=== PATIENT | male | born 1945 | race Caucasian/White ===

== ENCOUNTER 2018-07-27 16:01 | Inpatient (IN) | payer OTHER, MEDICARE ==
[2018-07-27] MEDS ORDERED: DILTIAZEM DRIP BOLUS FROM BAG 1 MG SOLN IV ONE (16:38)
--- NOTE | 2018-07-27 16:44 | ED ---
General Adult HPI - General Chief complaint: Arrhythmia/Palpitations Stated complaint: Fast heart rate Time Seen by Provider: 07/27/18 16:26 Source: patient, RN notes reviewed, old records reviewed Mode of arrival: ambulatory Limitations: no limitations - History of Present Illness Initial comments: 73-year-old male history of atrial fibrillation, hypertension presenting for evaluations of palpitations and lightheadedness. Patient states symptoms have been present for the past 2 days. He has been taking his medications as prescribed. His states that they've been attempting to take his blood pressure at home but have been unable to get any accurate readings. He is currently on metoprolol, losartan, and xarelto. Patient denies chest pain. Denies abdominal pain. Denies nausea vomiting. Denies fever or chills. Denies any recent changes to medication. - Related Data Home Medications Medication Instructions Recorded Confirmed Losartan Potassium [Cozaar] 100 mg PO DAILY@1500 02/03/15 07/27/18 Metoprolol Succinate [Toprol XL] 75 mg PO DAILY 02/03/15 07/27/18 Terazosin HCl [Hytrin] 10 mg PO HS 02/03/15 07/27/18 Rivaroxaban [Xarelto] 20 mg PO HS 11/24/15 07/27/18 Fluticasone Nasal [place] [Flonase 1 spray EA NOSTRIL BID 07/27/18 07/27/18 Nasal [place]] Allergies Allergy/AdvReac Type Severity Reaction Status Date / Time No Known Allergies Allergy Verified 07/27/18 16:26 Review of Systems ROS Statement: Those systems with pertinent positive or pertinent negative responses have been documented in the HPI. ROS Other: All systems not noted in ROS Statement are negative. Past Medical History Past Medical History: Atrial Fibrillation, Cancer, Hypertension Additional Past Medical History / Comment(s): SKIN CANCER History of Any Multi-Drug Resistant Organisms: None Reported Past Surgical History: Cholecystectomy Additional Past Surgical History / Comment(s): shrapnel from war Past Anesthesia/Blood Transfusion Reactions: No Reported Reaction Past Psychological History: No Psychological Hx Reported Smoking Status: Former smoker - Past Family History Mother Family Medical History: Cancer General Exam Limitations: no limitations General appearance: alert, in no apparent distress Head exam: Present: atraumatic, normocephalic Eye exam: Present: normal appearance, PERRL Neck exam: Present: normal inspection. Absent: tenderness, meningismus Respiratory exam: Present: normal lung sounds bilaterally. Absent: respiratory distress, wheezes Cardiovascular Exam: Present: tachycardia, irregular rhythm GI/Abdominal exam: Present: soft. Absent: distended, tenderness, guarding Extremities exam: Present: normal inspection, normal capillary refill. Absent: pedal edema, calf tenderness Back exam: Present: normal inspection, full ROM. Absent: tenderness Neurological exam: Present: alert, oriented X3, CN II-XII intact. Absent: motor sensory deficit Psychiatric exam: Present: normal affect, normal mood Skin exam: Present: warm, dry, intact. Absent: cyanosis, diaphoretic Course Vital Signs 07/27/18 07/27/18 07/27/18 16:09 16:34 17:08 Temperature 98.2 F Pulse Rate 176 H 181 H 116 H Respiratory 20 22 20 Rate Blood Pressure 108/69 136/122 136/77 O2 Sat by Pulse 98 95 95 Oximetry 07/27/18 07/27/18 07/27/18 17:13 17:45 19:00 Temperature Pulse Rate 92 108 H 95 Respiratory 18 16 Rate Blood Pressure 138/91 120/60 O2 Sat by Pulse 94 L 96 Oximetry EKG Findings - EKG Comments: EKG Findings:: A. fib with RVR, left axis deviation, incomplete right bundle branch block, rate of 158, QRS duration 110, QTC 479 ST segment elevation Medical Decision Making - Medical Decision Making 73-year-old male history of A. fib presenting with palpitations, lightheadedness. Patient found to be in atrial fibrillation with a rate between 160 and 190. Blood pressure stable. Patient started on Cardizem in the emergency department. Workup reveals normal CBC, normal CMP, troponin is negative. Patient's rate is improved on Cardizem drip. Chest x-ray obtained, negative for acute cardiopulmonary disease. Patient will be admitted for telemetry and rate control. Cardiology placed on consult. Case is discussed with the admitting physician. Patient is anticoagulated with home medications. - Lab Data Result diagrams: 07/27/18 16:40 07/27/18 16:40 Lab Results 07/27/18 07/27/18 07/27/18 Range/Units 16:40 16:40 16:40 WBC 6.6 (3.8-10.6) k/uL RBC 4.91 (4.30-5.90) m/uL Hgb 14.6 (13.0-17.5) gm/dL Hct 44.0 (39.0-53.0) % MCV 89.4 (80.0-100.0) fL MCH 29.6 (25.0-35.0) pg MCHC 33.1 (31.0-37.0) g/dL RDW 13.1 (11.5-15.5) % Plt Count 280 (150-450) k/uL Neutrophils % 67 % Lymphocytes % 21 % Monocytes % 8 % Eosinophils % 2 % Basophils % 0 % Neutrophils # 4.4 (1.3-7.7) k/uL Lymphocytes # 1.4 (1.0-4.8) k/uL Monocytes # 0.5 (0-1.0) k/uL Eosinophils # 0.1 (0-0.7) k/uL Basophils # 0.0 (0-0.2) k/uL PT (9.0-12.0) sec INR (<1.2) APTT (22.0-30.0) sec Sodium 145 (137-145) mmol/L Potassium 4.0 (3.5-5.1) mmol/L Chloride 109 H (98-107) mmol/L Carbon Dioxide 28 (22-30) mmol/L Anion Gap 8 mmol/L BUN 17 (9-20) mg/dL Creatinine 1.00 (0.66-1.25) mg/dL Est GFR (CKD-EPI)AfAm 87 (>60 ml/min/1.73 sqM) Est GFR (CKD-EPI)NonAf 75 (>60 ml/min/1.73 sqM) Glucose 113 H (74-99) mg/dL Calcium 9.7 (8.4-10.2) mg/dL Magnesium 2.1 (1.6-2.3) mg/dL Total Bilirubin 0.7 (0.2-1.3) mg/dL AST 22 (17-59) U/L ALT 24 (21-72) U/L Alkaline Phosphatase 55 (38-126) U/L Total Creatine Kinase 116 (55-170) U/L CK-MB (CK-2) 1.4 (0.0-2.4) ng/mL CK-MB (CK-2) Rel Index 1.2 Troponin I <0.012 (0.000-0.034) ng/mL Total Protein 7.3 (6.3-8.2) g/dL Albumin 4.3 (3.5-5.0) g/dL TSH 1.740 (0.465-4.680) mIU/L 07/27/18 Range/Units 16:40 WBC (3.8-10.6) k/uL RBC (4.30-5.90) m/uL Hgb (13.0-17.5) gm/dL Hct (39.0-53.0) % MCV (80.0-100.0) fL MCH (25.0-35.0) pg MCHC (31.0-37.0) g/dL RDW (11.5-15.5) % Plt Count (150-450) k/uL Neutrophils % % Lymphocytes % % Monocytes % % Eosinophils % % Basophils % % Neutrophils # (1.3-7.7) k/uL Lymphocytes # (1.0-4.8) k/uL Monocytes # (0-1.0) k/uL Eosinophils # (0-0.7) k/uL Basophils # (0-0.2) k/uL PT 12.2 H (9.0-12.0) sec INR 1.2 H (<1.2) APTT 27.4 (22.0-30.0) sec Sodium (137-145) mmol/L Potassium (3.5-5.1) mmol/L Chloride (98-107) mmol/L Carbon Dioxide (22-30) mmol/L Anion Gap mmol/L BUN (9-20) mg/dL Creatinine (0.66-1.25) mg/dL Est GFR (CKD-EPI)AfAm (>60 ml/min/1.73 sqM) Est GFR (CKD-EPI)NonAf (>60 ml/min/1.73 sqM) Glucose (74-99) mg/dL Calcium (8.4-10.2) mg/dL Magnesium (1.6-2.3) mg/dL Total Bilirubin (0.2-1.3) mg/dL AST (17-59) U/L ALT (21-72) U/L Alkaline Phosphatase (38-126) U/L Total Creatine Kinase (55-170) U/L CK-MB (CK-2) (0.0-2.4) ng/mL CK-MB (CK-2) Rel Index Troponin I (0.000-0.034) ng/mL Total Protein (6.3-8.2) g/dL Albumin (3.5-5.0) g/dL TSH (0.465-4.680) mIU/L Disposition Clinical Impression: Atrial fibrillation with RVR Disposition: ADMITTED IP TO THIS HOSP Condition: Stable Is patient prescribed a controlled substance at d/c from ED?: No Referrals: [facility],Clinic [Primary Care Provider] - 1-2 days Decision to Admit Reason: Admit from EC Decision Date: 07/27/18 Decision Time: 19:39
[2018-07-27] MEDS: DILTIAZEM 50 MG in SODIUM CHLORIDE 0.9% 40 ML IV SCH (16:56)
[2018-07-27 17:12] LABS: Basophils % (A) 0 %; Eosinophils # (A) 0.1 k/uL (0-0.7); Eosinophils % (A) 2 %; HGB 14.6 gm/dL (13.0-17.5); Lymphocytes # (A) 1.4 k/uL (1.0-4.8); Lymphocytes % (A) 21 %; MCH 29.6 pg (25.0-35.0); MCHC 33.1 g/dL (31.0-37.0); MCV 89.4 fL (80.0-100.0); Mean Platelet Volume 7.2; Monocytes # (A) 0.5 k/uL (0-1.0); Monocytes % (A) 8 %; Neutrophils # (A) 4.4 k/uL (1.3-7.7); Neutrophils % (A) 67 %; Platelet Count 280 k/uL (150-450); RBC 4.91 m/uL (4.30-5.90); RDW 13.1 % (11.5-15.5); WBC 6.6 k/uL (3.8-10.6)
[2018-07-27 17:14] LABS: INR 1.2 (<1.2); Partial Thromboplastin Time 27.4 sec (22.0-30.0); Prothrombin Time 12.2 sec (9.0-12.0)
[2018-07-27 17:30] LABS: Albumin 4.3 g/dL (3.5-5.0); Calcium 9.7 mg/dL (8.4-10.2); Magnesium 2.1 mg/dL (1.6-2.3); Total Bilirubin 0.7 mg/dL (0.2-1.3); Total Protein 7.3 g/dL (6.3-8.2)
[2018-07-27 17:33] LABS: Creatine Kinase 116 U/L (55-170)
[2018-07-27 17:44] LABS: Creatine Kinase MB 1.4 ng/mL (0.0-2.4); Troponin I <0.012 ng/mL (0.000-0.034)
--- NOTE | 2018-07-27 18:26 | XR ---
EXAMINATION TYPE: XR chest 2V DATE OF EXAM: 07/27/2018 COMPARISON: Chest x-ray February 03, 2015 HISTORY: Dysrhythmia. TECHNIQUE: Frontal and lateral views of the chest are obtained. FINDINGS: There is chronic left basilar opacity without suspicious new focal air space opacity, pleu ral effusion, or pneumothorax seen. Elevated right hemidiaphragm is redemonstrated. The cardiac silh ouette size is stable and upper limits of normal with atherosclerotic thoracic aorta. Punctate densit ies projecting over the posterior lower thoracic spine are redemonstrated perhaps calcified granuloma s IMPRESSION: Chronic parenchymal changes without acute pulmonary process. No significant change from prior chest x-ray.
[2018-07-27] MEDS ORDERED: NALOXONE 0.4 MG/ML 1 ML VIAL IV PRN (19:35)
[2018-07-27] MEDS ORDERED: ONDANSETRON 4 MG/2 ML VIAL IVP PRN (19:35)
[2018-07-27 23:04] LABS: Creatine Kinase 104 U/L (55-170)
[2018-07-27 23:17] LABS: Creatine Kinase MB 1.1 ng/mL (0.0-2.4); Troponin I <0.012 ng/mL (0.000-0.034)
[2018-07-27] MEDS: RIVAROXABAN 20 MG TAB PO SCH (23:56)
[2018-07-27] MEDS: DOXAZOSIN 4 MG TAB PO SCH (23:56)
[2018-07-28] MEDS: DILTIAZEM 50 MG in SODIUM CHLORIDE 0.9% 40 ML IV SCH ×4 (04:25→21:26)
[2018-07-28 07:21] LABS: Creatine Kinase 101 U/L (55-170)
[2018-07-28 07:34] LABS: Creatine Kinase MB 1.2 ng/mL (0.0-2.4); Troponin I <0.012 ng/mL (0.000-0.034)
[2018-07-28] MEDS ORDERED: METOPROLOL SUCCINATE (ER) 50 MG TAB.ER.24H PO SCH (09:00)
[2018-07-28] MEDS: METOPROLOL SUCCINATE (ER) 25 MG TAB.ER.24H PO SCH (09:54)
--- NOTE | 2018-07-28 10:35 | CONS ---
CONSULTATION CHIEF COMPLAINT: Atrial fibrillation. This is a 73-year-old gentleman with history of paroxysmal atrial fibrillation and hypertension who presented to the hospital complaining of sustained palpitations. He denies chest pain, difficulty in breathing, leg edema, or syncope. His palpitations have been moderate in intensity, associated with lightheadedness, came on at rest and have been going on for the last 2 days. At the time of my evaluation this morning, he is in atrial fibrillation with somewhat of a poorly controlled ventricular rate. He is on anticoagulant Xarelto. He is on Toprol-XL and on Cozaar. PAST MEDICAL HISTORY: Significant for hypertension and atrial fibrillation. MEDICATIONS: At home included Xarelto, Hytrin, Toprol, Cozaar. FAMILY HISTORY: Negative for premature coronary artery disease. SOCIAL HISTORY: Negative for current smoking, EtOH abuse, or drug abuse. REVIEW OF SYSTEMS: HEENT is unremarkable. CARDIAC: As described above. RESPIRATORY: Negative. GI: Negative. GENITOURINARY: Negative. ALLERGY/IMMUNOLOGY: Negative. SKIN: Negative. MUSCULOSKELETAL: Significant for arthritis. PSYCHOSOCIAL: Negative. ENDOCRINE: Negative. DERMATOLOGICAL: Negative. CONSTITUTIONAL: Negative. ONCOLOGICAL: Negative. The rest of the system review is not relevant. PHYSICAL EXAM: Patient is comfortable at rest. Heart rate is 110 beats per minute, irregular. Blood pressure is 124/68, respiratory rate is 18. Chest exam reveals good air entry bilaterally. Heart exam reveals first and second heart sounds. No gallop. Irregular rhythm. Systolic murmur at the left lower sternal border. Abdomen is soft. Exam of extremities did not reveal any edema. Peripheral pulses are felt. ASSESSMENT: 1. Paroxysmal atrial fibrillation with poorly controlled ventricular rate. 2. Hypertension. PLAN: Patient is doing better. Heart rate is better controlled. I am going to hold the Cozaar at this time. Resume the Toprol. We can switch his Cardizem to p.o. once the heart rate is better controlled. Check an echocardiogram. His TSH is normal. Cardiac enzymes have been negative. Thank you for allowing us to participate in this pleasant gentleman. MMODL / IJN: [id number] /
[2018-07-28] MEDS ORDERED: IPRATROPIUM-ALBUTEROL 3 ML NEB INHALATION PRN (12:20)
[2018-07-28] MEDS ORDERED: DILTIAZEM DRIP BOLUS FROM BAG 1 MG SOLN IV ONE (12:26)
[2018-07-28] MEDS ORDERED: LOSARTAN 50 MG TAB PO SCH (15:00)
--- NOTE | 2018-07-28 15:28 | P.HPIM ---
History of Present Illness 71-year-old man came in with compensative palpitations lightheadedness found to be in atrial fibrillation. Patient the is a known atrial fibrillation is on Xarelto at home. Patient the was started on Cardizem drip patient was resumed on metoprolol. Patient had normal ejection fraction the past patient denied any fever chills patient denied any cough runny nose. Patient is still in A. fib with rapid ventricular rate. Patient does not have any signs or symptoms of infection at this time. Patient denied any chest pain . Review of Systems REVIEW OF SYSTEMS: CONSTITUTIONAL: No fever, no malaise, no fatigue. HEENT: No recent visual problems or hearing problems. Denied any sore throat. CARDIOVASCULAR: No chest pain, orthopnea, PND, PULMONARY: No shortness of breath, no cough, no hemoptysis. GASTROINTESTINAL: No diarrhea, no nausea, no vomiting, no abdominal pain. NEUROLOGICAL: No headaches, no weakness, no numbness. HEMATOLOGICAL: Denies any bleeding or petechiae. GENITOURINARY: Denies any burning micturition, frequency, or urgency. MUSCULOSKELETAL/RHEUMATOLOGICAL: Denies any joint pain, swelling, or any muscle pain. ENDOCRINE: Denies any polyuria or polydipsia. The rest of the 14-point review of systems is negative. Past Medical History Past Medical History: Atrial Fibrillation, Cancer, Hypertension Additional Past Medical History / Comment(s): SKIN CANCER History of Any Multi-Drug Resistant Organisms: None Reported Past Surgical History: Cholecystectomy Additional Past Surgical History / Comment(s): shrapnel from war Past Anesthesia/Blood Transfusion Reactions: No Reported Reaction Past Psychological History: No Psychological Hx Reported Smoking Status: Former smoker Past Alcohol Use History: None Reported Additional Past Alcohol Use History / Comment(s): STARTED SMOKING AT AGE 18 QUIT SMOKING IN 1972 -SMOKED 1 1/2 PPD Past Drug Use History: None Reported - Past Family History Mother Family Medical History: Cancer Medications and Allergies Home Medications Medication Instructions Recorded Confirmed Type Losartan Potassium [Cozaar] 100 mg PO DAILY@1500 02/03/15 07/27/18 History Metoprolol Succinate [Toprol XL] 75 mg PO DAILY 02/03/15 07/27/18 History Terazosin HCl [Hytrin] 10 mg PO HS 02/03/15 07/27/18 History Rivaroxaban [Xarelto] 20 mg PO HS 11/24/15 07/27/18 History Fluticasone Nasal [place] [Flonase 1 spray EA NOSTRIL BID 07/27/18 07/27/18 History Nasal [place]] Allergies Allergy/AdvReac Type Severity Reaction Status Date / Time No Known Allergies Allergy Verified 07/27/18 16:26 Physical Exam Vitals: Vital Signs Temp Pulse Pulse Resp BP BP Pulse Ox 07/28/18 12:00 149 H 124/91 95 07/28/18 08:00 97.4 F L 116 H 142/81 93 L 07/28/18 04:10 98.3 F 98 18 124/68 92 L 07/27/18 23:30 98.3 F 118 H 18 134/92 94 L 07/27/18 20:00 98 18 134/88 96 07/27/18 19:00 95 16 120/60 96 07/27/18 17:45 108 H 18 138/91 94 L 07/27/18 17:13 92 07/27/18 17:08 116 H 20 136/77 95 07/27/18 16:34 181 H 22 136/122 95 07/27/18 16:09 98.2 F 176 H 20 108/69 98 Intake and Output 07/28/18 07/28/18 07/28/18 06:59 14:59 22:59 Intake Total 270 155 Balance 270 155 Intake: IV 100 120 0.9 100 120 Intake, IV Titration 50 35 Amount Diltiazem 50 mg In Sodium 35 Chloride 0.9% 40 ml @ 10 MG/HR 10 mls/hr IV .Q5H [facility] Rx#:[id number] Diltiazem 50 mg In Sodium 50 Chloride 0.9% 40 ml @ 5 MG/HR 5 mls/hr IV .Q10H [facility] Rx#:[id number] Oral 120 Other: Voiding Method Toilet # Voids 3 PHYSICAL EXAMINATION: GENERAL: The patient is alert and oriented x3, not in any acute distress. Well developed, well nourished. HEENT: Pupils are round and equally reacting to light. EOMI. No scleral icterus. No conjunctival pallor. Normocephalic, atraumatic. No pharyngeal erythema. No thyromegaly. CARDIOVASCULAR: S1 and S2 present. No murmurs, rubs, or gallops. Patient has a irregularly irregular rhythm PULMONARY: Minimal expiratory wheezing was appreciated ABDOMEN: Soft, nontender, nondistended, normoactive bowel sounds. No palpable organomegaly. MUSCULOSKELETAL: No joint swelling or deformity. EXTREMITIES: No cyanosis, clubbing, or pedal edema. NEUROLOGICAL: Gross neurological examination did not reveal any focal deficits. SKIN: No rashes. Results CBC & Chem 7: 07/27/18 16:40 07/27/18 16:40 Labs: Abnormal Lab Results - Last 24 Hours (Table) 07/27/18 07/27/18 Range/Units 16:40 16:40 PT 12.2 H (9.0-12.0) sec INR 1.2 H (<1.2) Chloride 109 H (98-107) mmol/L Glucose 113 H (74-99) mg/dL Thrombosis Risk Factor Assmnt - Choose All That Apply Any of the Below Risk Factors Present?: Yes Each Factor Represents 1 point: Obesity (BMI >25) Other Risk Factors: Yes Each Risk Factor Represents 2 Points: Age 61-74 years Other congenital or acquired thrombophilia - If yes, enter type in comment: No Thrombosis Risk Factor Assessment Total Risk Factor Score: 3 Thrombosis Risk Factor Assessment Level: Moderate Risk Assessment and Plan Plan: -Lightheadedness: Secondary to atrial fibrillation with rapid ventricular rate, continue with Cardizem. If his heart rate is not controlled patient may need cardioversion patient will continued on anticoagulation as mentioned above -Hypertension since patient is being started on Cardizem his blood pressure is expected to go down because of which Cozaar is being discontinued at this time. Echocardiac M is being obtained -Benign prostatic hypertrophy continue with her Zosyn -Mild bronchospasm patient and any history of COPD patient will be started on inhaled steroids and inhalational treatments
[2018-07-28] MEDS: DOXAZOSIN 4 MG TAB PO SCH (20:22)
[2018-07-28] MEDS: RIVAROXABAN 20 MG TAB PO SCH (20:23)
[2018-07-28] MEDS: FLUTICASONE 50MCG/SPRAY NASAL 16GM EA NOSTRIL SCH (20:23)
[2018-07-28] MEDS: SYMBICORT 80-4.5 MCG INHALER INHALATION SCH (20:57)
[2018-07-29] MEDS: DILTIAZEM 50 MG in SODIUM CHLORIDE 0.9% 40 ML IV SCH ×3 (04:00→14:56)
[2018-07-29 07:40] LABS: Anion Gap 8 mmol/L; Blood Urea Nitrogen 13 mg/dL (9-20); Calcium 8.8 mg/dL (8.4-10.2); Carbon Dioxide 22 mmol/L (22-30); Chloride 111 mmol/L (98-107); Glucose 117 mg/dL (74-99); Potassium 3.9 mmol/L (3.5-5.1); Sodium 141 mmol/L (137-145)
[2018-07-29] MEDS: FLUTICASONE 50MCG/SPRAY NASAL 16GM EA NOSTRIL SCH ×2 (07:52→20:37)
[2018-07-29] MEDS: METOPROLOL SUCCINATE (ER) 25 MG TAB.ER.24H PO SCH (07:52)
[2018-07-29 08:00] LABS: HCT 40.1 % (39.0-53.0); MCH 29.5 pg (25.0-35.0); MCHC 32.3 g/dL (31.0-37.0); MCV 91.5 fL (80.0-100.0); Mean Platelet Volume 7.6; Platelet Count 218 k/uL (150-450); RBC 4.39 m/uL (4.30-5.90); RDW 13.1 % (11.5-15.5); WBC 6.1 k/uL (3.8-10.6)
[2018-07-29] MEDS ORDERED: METOPROLOL SUCCINATE (ER) 25 MG TAB.ER.24H PO STA (09:09)
[2018-07-29] MEDS: SYMBICORT 80-4.5 MCG INHALER INHALATION SCH ×2 (09:10→21:02)
--- NOTE | 2018-07-29 09:20 | ECHOF ---
Referral Reason:lv function MEASUREMENTS -------- HEIGHT: 180.3 cm WEIGHT: 90.7 kg BP: IVSd: 1.4 cm (0.6 - 1.1) LVIDd: 3.9 cm (3.9 - 5.3) LVPWd: 1.1 cm (0.6 - 1.1) IVSs: 2.3 cm LVIDs: 1.3 cm LVPWs: 1.9 cm Ao Diam: 3.6 cm (2.0 - 3.7) AV Cusp: 2.3 cm (1.5 - 2.6) LA Diam: 4.1 cm (2.7 - 3.8) RAP: 5.00 mmHg RVSP: 14.52 mmHg FINDINGS -------- Atrial fibrillation. This was a technically difficult study with suboptimal views. The left ventricular size is normal. There is mild concentric left ventricular hypertrophy. Overa ll left ventricular systolic function is normal with, an EF between 55 - 60 %. The right ventricle is normal in size and function. The left atrium is mildly dilated. The right atrium is normal in size. Lumason used The aortic valve is trileaflet, and appears structurally normal. No aortic stenosis or regurgitation. There is trace mitral regurgitation. Trace tricuspid regurgitation present. The right ventricular systolic pressure, as measured by Dopp ler, is 14.52mmHg. Pulmonic valve appears structurally normal. The aortic root size is normal. The pericardium is normal. CONCLUSIONS -------- 1. Atrial fibrillation. 2. This was a technically difficult study with suboptimal views. 3. The left ventricular size is normal. 4. There is mild concentric left ventricular hypertrophy. 5. Overall left ventricular systolic function is normal with, an EF between 55 - 60 %. 6. The right ventricle is normal in size and function. 7. The left atrium is mildly dilated. 8. The right atrium is normal in size. 9. Lumason used 10. The aortic valve is trileaflet, and appears structurally normal. No aortic stenosis or regurgitat ion. 11. There is trace mitral regurgitation. 12. Trace tricuspid regurgitation present. 13. The right ventricular systolic pressure, as measured by Doppler, is 14.52mmHg. 14. Pulmonic valve appears structurally normal. 15. The aortic root size is normal. 16. The pericardium is normal. PUBLICATION DISTRIBUTOR: Shannon Peterson RDCS
--- NOTE | 2018-07-29 11:26 | P.PN ---
Subjective patient is admitted with the atrial fibrillation with rapid ventricular and left rate patient is on anti-correlation patient heart rate remains high patient 's Cardizem is being discontinued and patient beta angela is being increased at this time if patient heart rate doesn't come down but doesn't convert patient will need may need cardioversion at the time. Constitutional: Denied any fatigue denied any fever. Cardio vascular: denied any chest pain, palpitations Gastrointestinal denied any nausea vomiting Pulmonary: Denied any shortness of breath cough Neurologic denied any new focal deficits All inpatient medications were reviewed and appropriate changes in these medications as dictated in the interval history and assessment and plan. Objective - Vital Signs Vital signs: Vital Signs Temp 98.0 F 07/29/18 08:00 Pulse 126 H 07/29/18 08:00 Resp 16 07/29/18 08:00 BP 128/74 07/29/18 08:00 Pulse Ox 93 L 07/29/18 08:00 Intake & Output 07/28/18 07/29/18 07/29/18 18:59 06:59 18:59 Intake Total 445 60.5 277.333 Output Total 3 202 Balance 442 -141.5 277.333 Weight 110.4 kg Intake: IV 120 0.9 120 Intake, IV Titration 85 60.5 37.333 Amount Diltiazem 50 mg In Sodium 85 60.5 37.333 Chloride 0.9% 40 ml @ 10 MG/HR 10 mls/hr IV .Q5H [facility] Rx#:[id number] Oral 240 240 Output: Urine 3 202 Other: Voiding Method Toilet Toilet Toilet # Voids 1 # Bowel Movements 1 1 - Exam PHYSICAL EXAMINATION: GENERAL: The patient is alert and oriented x3, not in any acute distress. Well developed, well nourished. HEENT: Pupils are round and equally reacting to light. EOMI. No scleral icterus. No conjunctival pallor. Normocephalic, atraumatic. No pharyngeal erythema. No thyromegaly. CARDIOVASCULAR: S1 and S2 present. No murmurs, rubs, or gallops. Patient has a irregularly irregular rhythm PULMONARY: Minimal expiratory wheezing was appreciated ABDOMEN: Soft, nontender, nondistended, normoactive bowel sounds. No palpable organomegaly. MUSCULOSKELETAL: No joint swelling or deformity. EXTREMITIES: No cyanosis, clubbing, or pedal edema. NEUROLOGICAL: Gross neurological examination did not reveal any focal deficits. SKIN: No rashes. - Labs CBC & Chem 7: 07/29/18 06:45 07/29/18 06:45 Labs: Abnormal Lab Results - Last 24 Hours (Table) 07/29/18 Range/Units 06:45 Chloride 111 H (98-107) mmol/L Glucose 117 H (74-99) mg/dL Assessment and Plan Plan: -Lightheadedness: Secondary to atrial fibrillation with rapid ventricular rate, Cardizem is being discontinued and patient's beta angela dose is being increased at this time. If his heart rate is not controlled patient may need cardioversion patient will continued on anticoagulation as mentioned above -Hypertension can you with present regimen -Benign prostatic hypertrophy -Mild bronchospasm patient and any history of COPD patient will be started on inhaled steroids and inhalational treatments
--- NOTE | 2018-07-29 12:30 | P.PN ---
Subjective Progress Note Date: 07/29/18 This is a 73-year-old gentleman with history of paroxysmal atrial fibrillation and hypertension who presented to the hospital with sustained palpitations. Patient was noted to be in atrial fibrillation with poorly controlled rate, he is currently on anticoagulation with xarelto. He does have history of atrial fibrillation in the past, he states that several years ago he was on amiodarone which had been discontinued. This morning his heart rate is in the 1 teens, we' ll increase his dose of beta angela, encouraged him to be up ambulating today. Echocardiogram with Doppler study was performed which revealed an ejection fraction of 55-60%. Blood pressure 128/70 with a heart rate in the 1 teens to 120 range. Objective - Vital Signs Vital signs: Vital Signs Temp 98.0 F 07/29/18 08:00 Pulse 126 H 07/29/18 08:00 Resp 16 07/29/18 08:00 BP 128/74 07/29/18 08:00 Pulse Ox 93 L 07/29/18 08:00 Intake & Output 07/28/18 07/29/18 07/29/18 18:59 06:59 18:59 Intake Total 445 60.5 277.333 Output Total 3 202 Balance 442 -141.5 277.333 Weight 110.4 kg Intake: IV 120 0.9 120 Intake, IV Titration 85 60.5 37.333 Amount Diltiazem 50 mg In Sodium 85 60.5 37.333 Chloride 0.9% 40 ml @ 10 MG/HR 10 mls/hr IV .Q5H [facility] Rx#:[id number] Oral 240 240 Output: Urine 3 202 Other: Voiding Method Toilet Toilet Toilet # Voids 1 # Bowel Movements 1 1 - Exam PHYSICAL EXAMINATION: GENERAL: This is a 73-year-old gentleman in no acute distress at the time of my examination. HEENT: Head is atraumatic, normocephalic. Pupils equal, round. Sclera anicteric. Conjunctiva are clear. Mucous membranes of the mouth are moist. Neck is supple. There is no elevated jugular venous pressure. No carotid bruit is heard. HEART EXAMINATION: Heart S1 and S2 irregularly irregular a systolic murmur is heard. CHEST EXAMINATION: Lungs are clear to auscultation and precussion. No chest wall tenderness is noted on palpation or with deep breathing. ABDOMEN: Soft, nontender. Bowel sounds are heard. No organomegaly noted. EXTREMITIES: 2+ peripheral pulses with no evidence of peripheral edema and no calf tenderness noted. NEUROLOGIC patient is awake, alert and oriented 3 . - Labs CBC & Chem 7: 07/29/18 06:45 07/29/18 06:45 Labs: Abnormal Lab Results - Last 24 Hours (Table) 07/29/18 Range/Units 06:45 Chloride 111 H (98-107) mmol/L Glucose 117 H (74-99) mg/dL Assessment and Plan Plan: Assessment and plan #1 paroxysmal atrial fibrillation with poorly controlled rate #2 hypertension Plan Echocardiogram with Doppler study revealed a normal left ventricular systolic function. We will increase dose of Toprol 200 mg, continue to monitor heart rate and plan for possible discharge home in 24 hours if stable. DNP note has been reviewed, I agree with a documented findings and plan of care. Patient was seen and examined.
[2018-07-29 16:30] LABS: Glucose,Whole Blood 112 mg/dL (75-99)
[2018-07-29] MEDS ORDERED: DEXTROSE 5% IN WATER 100 ML with AMIODARONE 150 MG IV ONE (17:43)
[2018-07-29] MEDS: DOXAZOSIN 4 MG TAB PO SCH (20:34)
[2018-07-29] MEDS: RIVAROXABAN 20 MG TAB PO SCH (20:34)
[2018-07-29] MEDS: AMIODARONE 450 MG in DEXTROSE 5% IN WATER 250 ML IV SCH ×2 (20:39)
[2018-07-29 20:46] LABS: Glucose,Whole Blood 144 mg/dL (75-99)
[2018-07-30] MEDS: AMIODARONE 450 MG in DEXTROSE 5% IN WATER 250 ML IV SCH ×6 (00:17→20:27)
[2018-07-30 07:31] LABS: Basophils % (A) 0 %; Eosinophils # (A) 0.2 k/uL (0-0.7); Eosinophils % (A) 3 %; HCT 41.8 % (39.0-53.0); HGB 13.2 gm/dL (13.0-17.5); Lymphocytes # (A) 1.4 k/uL (1.0-4.8); Lymphocytes % (A) 22 %; MCH 29.4 pg (25.0-35.0); MCHC 31.7 g/dL (31.0-37.0); MCV 92.6 fL (80.0-100.0); Mean Platelet Volume 7.2; Monocytes # (A) 0.5 k/uL (0-1.0); Monocytes % (A) 8 %; Neutrophils # (A) 4.2 k/uL (1.3-7.7); Neutrophils % (A) 65 %; Platelet Count 242 k/uL (150-450); RBC 4.51 m/uL (4.30-5.90); RDW 12.8 % (11.5-15.5); WBC 6.5 k/uL (3.8-10.6)
[2018-07-30] MEDS: SYMBICORT 80-4.5 MCG INHALER INHALATION SCH ×2 (07:32→20:42)
[2018-07-30 07:53] LABS: Calcium 9.2 mg/dL (8.4-10.2); Potassium 4.8 mmol/L (3.5-5.1)
[2018-07-30] MEDS: METOPROLOL SUCCINATE (ER) 100 MG TAB.ER.24H PO SCH (07:54)
[2018-07-30] MEDS: FLUTICASONE 50MCG/SPRAY NASAL 16GM EA NOSTRIL SCH ×2 (07:54→20:26)
--- NOTE | 2018-07-30 10:31 | P.PN ---
Subjective Progress Note Date: 07/30/18 This is a 73-year-old gentleman with history of paroxysmal atrial fibrillation and hypertension who presented to the hospital with sustained palpitations. Patient was noted to be in atrial fibrillation with poorly controlled rate, he is currently on anticoagulation with xarelto. He does have history of atrial fibrillation in the past, he states that several years ago he was on amiodarone which had been discontinued. This morning his heart rate is in the 1 teens, we' ll increase his dose of beta angela, encouraged him to be up ambulating today. Echocardiogram with Doppler study was performed which revealed an ejection fraction of 55-60%. Blood pressure 128/70 with a heart rate in the 1 teens to 120 range. 07/30/2018 Patient seen and examined this morning, overall he states he feels well, he did not sleep much through the night last night. His heart rate went up into the 140s 150s in the early evening, was initiated on IV amiodarone. This morning his heart rate continues to be in the 1:30 range, blood pressure 130/80. White blood cell count 6.5, hemoglobin 13.2, platelet count 242. Sodium 143, potassium 4.8, BUN 12 and creatinine 1.0. Objective - Vital Signs Vital signs: Vital Signs Temp 97.2 F L 07/30/18 08:00 Pulse 134 H 07/30/18 08:00 Resp 18 07/30/18 08:00 BP 131/80 07/30/18 08:00 Pulse Ox 94 L 07/30/18 08:00 Intake & Output 07/29/18 07/30/18 07/30/18 18:59 06:59 18:59 Intake Total 807.333 213.221 240 Balance 807.333 213.221 240 Weight 110.2 kg Intake: Intake, IV Titration 87.333 213.221 Amount Amiodarone 450 mg In 213.221 Dextrose 5% in Water 250 ml @ 1 MG/MIN 34.53 mls/ hr IV .Q7H31M FARRUKH Rx#: [id number] Diltiazem 50 mg In Sodium 87.333 Chloride 0.9% 40 ml @ 10 MG/HR 10 mls/hr IV .Q5H FARRUKH Rx#:[id number] Oral 720 240 Other: Voiding Method Toilet Toilet Toilet Urinal Urinal # Voids 1 1 - Exam PHYSICAL EXAMINATION: GENERAL: This is a 73-year-old gentleman in no acute distress at the time of my examination. HEENT: Head is atraumatic, normocephalic. Pupils equal, round. Sclera anicteric. Conjunctiva are clear. Mucous membranes of the mouth are moist. Neck is supple. There is no elevated jugular venous pressure. No carotid bruit is heard. HEART EXAMINATION: Heart S1 and S2 irregularly irregular a systolic murmur is heard. CHEST EXAMINATION: Lungs are clear to auscultation and precussion. No chest wall tenderness is noted on palpation or with deep breathing. ABDOMEN: Soft, nontender. Bowel sounds are heard. No organomegaly noted. EXTREMITIES: 2+ peripheral pulses with no evidence of peripheral edema and no calf tenderness noted. NEUROLOGIC patient is awake, alert and oriented 3 . - Labs CBC & Chem 7: 07/30/18 06:09 07/30/18 06:09 Labs: Abnormal Lab Results - Last 24 Hours (Table) 07/29/18 07/29/18 07/30/18 Range/Units 16:24 20:43 06:09 Glucose 126 H (74-99) mg/dL POC Glucose (mg/dL) 112 H 144 H (75-99) mg/dL Assessment and Plan Plan: Assessment and plan #1 paroxysmal atrial fibrillation with poorly controlled rate #2 hypertension Plan Echocardiogram with Doppler study revealed a normal left ventricular systolic function. Patient is currently on IV amiodarone. Also on metoprolol 100 mg by mouth daily on Xarelto for anticoagulation. TSH normal. DNP note has been reviewed, I agree with a documented findings and plan of care. Patient was seen and examined.
--- NOTE | 2018-07-30 10:36 | P.PN ---
Subjective patient is admitted with the atrial fibrillation with rapid ventricular and left rate patient is on anti-coagulation patient heart rate remains high patient 's Cardizem is being discontinued and patient beta angela is being increased at this time if patient heart rate doesn't come down but doesn't convert patient will need may need cardioversion at the time. 07/30/2018 Patient is is still tachycardic patient was started on IV amiodarone will watch him on IV amiodarone. Constitutional: Denied any fatigue denied any fever. Cardio vascular: denied any chest pain, palpitations Gastrointestinal denied any nausea vomiting Pulmonary: Denied any shortness of breath cough Neurologic denied any new focal deficits All inpatient medications were reviewed and appropriate changes in these medications as dictated in the interval history and assessment and plan. Objective - Vital Signs Vital signs: Vital Signs Temp 97.2 F L 07/30/18 08:00 Pulse 134 H 07/30/18 08:00 Resp 18 07/30/18 08:00 BP 131/80 07/30/18 08:00 Pulse Ox 94 L 07/30/18 08:00 Intake & Output 07/29/18 07/30/18 07/30/18 18:59 06:59 18:59 Intake Total 807.333 213.221 240 Balance 807.333 213.221 240 Weight 110.2 kg Intake: Intake, IV Titration 87.333 213.221 Amount Amiodarone 450 mg In 213.221 Dextrose 5% in Water 250 ml @ 1 MG/MIN 34.53 mls/ hr IV .Q7H31M FARRUKH Rx#: [id number] Diltiazem 50 mg In Sodium 87.333 Chloride 0.9% 40 ml @ 10 MG/HR 10 mls/hr IV .Q5H FARRUKH Rx#:[id number] Oral 720 240 Other: Voiding Method Toilet Toilet Toilet Urinal Urinal # Voids 1 1 - Exam PHYSICAL EXAMINATION: GENERAL: The patient is alert and oriented x3, not in any acute distress. Well developed, well nourished. HEENT: Pupils are round and equally reacting to light. EOMI. No scleral icterus. No conjunctival pallor. Normocephalic, atraumatic. No pharyngeal erythema. No thyromegaly. CARDIOVASCULAR: S1 and S2 present. No murmurs, rubs, or gallops. Patient has a irregularly irregular rhythm PULMONARY: Minimal expiratory wheezing was appreciated ABDOMEN: Soft, nontender, nondistended, normoactive bowel sounds. No palpable organomegaly. MUSCULOSKELETAL: No joint swelling or deformity. EXTREMITIES: No cyanosis, clubbing, or pedal edema. NEUROLOGICAL: Gross neurological examination did not reveal any focal deficits. SKIN: No rashes. - Labs CBC & Chem 7: 07/30/18 06:09 07/30/18 06:09 Labs: Abnormal Lab Results - Last 24 Hours (Table) 07/29/18 07/29/18 07/30/18 Range/Units 16:24 20:43 06:09 Glucose 126 H (74-99) mg/dL POC Glucose (mg/dL) 112 H 144 H (75-99) mg/dL Assessment and Plan Plan: -Lightheadedness: Secondary to atrial fibrillation with rapid ventricular rate, Cardizem was discontinued and patient's beta angela dose was increased and patient is presently on IV amiodarone. If his heart rate is not controlled patient may need cardioversion patient will continued on anticoagulation as mentioned above -Hypertension can you with present regimen -Benign prostatic hypertrophy -Mild bronchospasm patient and any history of COPD patient will be started on inhaled steroids and inhalational treatments
[2018-07-30] MEDS ORDERED: SODIUM CHLORIDE 0.9% 1,000 ML IV SCH (12:45)
[2018-07-30] MEDS: AMIODARONE 200 MG TAB PO SCH (20:26)
[2018-07-30] MEDS: DOXAZOSIN 4 MG TAB PO SCH (20:26)
[2018-07-30] MEDS: RIVAROXABAN 20 MG TAB PO SCH (21:55)
[2018-07-31 03:59] VITALS: RESP 17
[2018-07-31] MEDS: METOPROLOL SUCCINATE (ER) 100 MG TAB.ER.24H PO SCH (06:07)
[2018-07-31] MEDS: AMIODARONE 200 MG TAB PO SCH (06:07)
[2018-07-31] MEDS ORDERED: LACTATED RINGERS 1,000 ML IV SCH (06:30)
[2018-07-31] MEDS: SYMBICORT 80-4.5 MCG INHALER INHALATION SCH (07:22)
[2018-07-31 08:04] LABS: Basophils % (A) 0 %; Eosinophils # (A) 0.2 k/uL (0-0.7); Eosinophils % (A) 3 %; HCT 39.7 % (39.0-53.0); HGB 12.6 gm/dL (13.0-17.5); Lymphocytes # (A) 0.8 k/uL (1.0-4.8); Lymphocytes % (A) 14 %; MCH 28.7 pg (25.0-35.0); MCHC 31.9 g/dL (31.0-37.0); MCV 90.1 fL (80.0-100.0); Mean Platelet Volume 7.8; Monocytes # (A) 0.4 k/uL (0-1.0); Monocytes % (A) 6 %; Neutrophils # (A) 4.1 k/uL (1.3-7.7); Neutrophils % (A) 74 %; Platelet Count 188 k/uL (150-450); WBC 5.5 k/uL (3.8-10.6)
[2018-07-31 08:48] LABS: Anion Gap 11 mmol/L; Blood Urea Nitrogen 14 mg/dL (9-20); Calcium 8.8 mg/dL (8.4-10.2); Carbon Dioxide 18 mmol/L (22-30); Chloride 112 mmol/L (98-107); Glucose 101 mg/dL (74-99); Sodium 141 mmol/L (137-145)
[2018-07-31 08:54] LABS: Potassium 3.9 mmol/L (3.5-5.1)
[2018-07-31 08:56] VITALS: BP 136/84; PULSE 74; TEMP 97.5
[2018-07-31] MEDS: FLUTICASONE 50MCG/SPRAY NASAL 16GM EA NOSTRIL SCH (08:58)
--- NOTE | 2018-07-31 11:02 | PN ---
PROGRESS NOTE Maurice is a 73-year-old gentleman who was admitted to hospital with persistent atrial fibrillation with rapid ventricular rate. I started him on IV amiodarone. My initial plan was to do VERITO cardioversion on him today, but he converted back to sinus rhythm this morning. I am going to discharge him home on Xarelto 20 mg daily and amiodarone 200 mg b.i.d. On exam, comfortable at rest. Vital signs are stable. There is no jugular venous distention. Chest exam reveals good air entry bilaterally. Heart exam reveals first and second heart sounds. No gallop. Exam of the extremities did not reveal any edema. Peripheral pulses are felt. Labs show that the hemoglobin is 12.6, platelet count is 188. Potassium is 3.9, creatinine is 0.9. ASSESSMENT: Paroxysmal atrial fibrillation. PLAN: Patient is doing well. He will continue with his current medications. Discharge home today and follow up with Dr. Anne, his primary room inspector. MMLUIS ANTONIO / MARCELA: [phone] /
--- NOTE | 2018-07-31 12:08 | P.DS ---
Providers Date of admission: 07/27/18 19:35 Attending physician: Robinson Espinoza Consults: 07/27/18 19:36 Consult Physician Routine Consulting Provider: Elias Hodge Consult Reason/Comments: A. fib with RVR Do you want consulting provider notified?: Yes Primary care physician: [facility] Course: patient is admitted with the atrial fibrillation with rapid ventricular and left rate patient is on anti-coagulation patient heart rate remains high patient 's Cardizem is being discontinued and patient beta angela is being increased at this time if patient heart rate doesn't come down but doesn't convert patient will need may need cardioversion at the time. 07/30/2018 Patient is is still tachycardic patient was started on IV amiodarone will watch him on IV amiodarone. 07/31/2018 Patient is now sinus rhythm, patient is being discharged on amiodarone 400 twice a day which need to be tapered patient to follow with cardiology for that. Patient was wheezing on exam because of which I'm discharging him on Simcor and albuterol patient doesn't have any history of COPD or asthma I'll continue with the Symbicort until he sees his primary doctor and he can use albuterol on as-needed basis PHYSICAL EXAMINATION: GENERAL: The patient is alert and oriented x3, not in any acute distress. Well developed, well nourished. HEENT: Pupils are round and equally reacting to light. EOMI. No scleral icterus. No conjunctival pallor. Normocephalic, atraumatic. No pharyngeal erythema. No thyromegaly. CARDIOVASCULAR: S1 and S2 present. No murmurs, rubs, or gallops. Patient has a irregularly irregular rhythm PULMONARY: Minimal expiratory wheezing was appreciated ABDOMEN: Soft, nontender, nondistended, normoactive bowel sounds. No palpable organomegaly. MUSCULOSKELETAL: No joint swelling or deformity. EXTREMITIES: No cyanosis, clubbing, or pedal edema. NEUROLOGICAL: Gross neurological examination did not reveal any focal deficits. SKIN: No rashes. Assessment and Plan Plan: atrial fibrillation with rapid ventricular rate, presently sinus rhythm and rate control. -Hypertension -Benign prostatic hypertrophy -Mild bronchospasm : Unsure whether patient has COPD or asthma -Obesity Patient Condition at Discharge: Stable Plan - Discharge Summary Discharge Rx Participant: Yes New Discharge Prescriptions: New Albuterol Inhaler [Ventolin Hfa Inhaler] 1 - 2 puff INHALATION Q6HR PRN #1 inhaler PRN Reason: Shortness Of Breath Or Wheezing Amiodarone [Cordarone] 400 mg PO BID #60 tab Budesonide-Formot 160-4.5 Mcg [Symbicort 160-4.5 Mcg Inhaler] 2 puff INHALATION BID #1 inhaler Metoprolol Succinate (ER) [Toprol XL] 100 mg PO DAILY #30 tab.er.24h Continue Terazosin HCl [Hytrin] 10 mg PO HS Losartan Potassium [Cozaar] 100 mg PO DAILY@1500 Rivaroxaban [Xarelto] 20 mg PO HS Fluticasone Nasal [place] [Flonase Nasal [place]] 1 spray EA NOSTRIL BID Discontinued Metoprolol Succinate [Toprol XL] 75 mg PO DAILY Discharge Medication List Losartan Potassium [Cozaar] 100 mg PO DAILY@1500 02/03/15 [History] Terazosin HCl [Hytrin] 10 mg PO HS 02/03/15 [History] Rivaroxaban [Xarelto] 20 mg PO HS 11/24/15 [History] Fluticasone Nasal [place] [Flonase Nasal [place]] 1 spray EA NOSTRIL BID 07/27/18 [ History] Albuterol Inhaler [Ventolin Hfa Inhaler] 1 - 2 puff INHALATION Q6HR PRN #1 inhaler 07/31/18 [Rx] Amiodarone [Cordarone] 400 mg PO BID #60 tab 07/31/18 [Rx] Budesonide-Formot 160-4.5 Mcg [Symbicort 160-4.5 Mcg Inhaler] 2 puff INHALATION BID #1 inhaler 07/31/18 [Rx] Metoprolol Succinate (ER) [Toprol XL] 100 mg PO DAILY #30 tab.er.24h 07/31/18 [ Rx] Follow up Appointment(s)/Referral(s): Yuniel Anne MD [STAFF PHYSICIAN] - 08/03/18 1:45 pm (FRIDAY) [facility] [Primary Care Provider] - 08/05/18 11:00 am (FRIDAY) Patient Instructions/Handouts: A-fib (Atrial Fibrillation) (DC), Heart Healthy Diet (DC), Cardioversion (DC) Discharge Disposition: HOME SELF-CARE
== END 2018-07-31 12:30 | disposition home or self-care (01) | DRG 310 ==
LOC: EC 16:01 → 3SCARD 19:35
PROVIDERS: ADMIT Internal Medicine; ATTEND Internal Medicine
DX: I48.1 Persistent atrial fibrillation (principal); I48.0 Paroxysmal atrial fibrillation; I10 Essential (primary) hypertension; J98.01 Acute bronchospasm; N40.0 Benign prostatic hyperplasia without lower urinary tract symptoms; J44.9 Chronic obstructive pulmonary disease, unspecified; Z79.01 Long term (current) use of anticoagulants; Z79.899 Other long term (current) drug therapy; Z85.828 Personal history of other malignant neoplasm of skin; Z87.891 Personal history of nicotine dependence; Z80.9 Family history of malignant neoplasm, unspecified; Z90.49 Acquired absence of other specified parts of digestive tract; E66.9 Obesity, unspecified; Z68.33 Body mass index [BMI] 33.0-33.9, adult
CPT/HCPCS: 36415; 71046; 80048; 80053; 82550; 82553; 83735; 84443; 84484; 85025; 85027; 85610; 85730; 93005; 93306; 94640; 96365; 96366; 96376; 99285

== ENCOUNTER → 2020-01-20 | Outpatient (CLI) | payer OTHER | END | disposition home or self-care (01) | LOC: RADMRIMAIN 08:40 | PROVIDERS: ATTEND Physician Assistant Medical | DX: Z53.9 Procedure and treatment not carried out, unspecified reason (principal) ==

== ENCOUNTER → 2020-02-08 | Outpatient (CLI) | payer OTHER ==
[2020-02-08 10:38] LABS: African American GFR (CKD) >90 (>60 ml/min/1.73 sqM); Blood Urea Nitrogen 17 mg/dL (9-20); Non-African American GFR(CKD) 81 (>60 ml/min/1.73 sqM)
--- NOTE | 2020-02-08 12:08 | CT ---
EXAMINATION TYPE: CT abdomen w con DATE OF EXAM: 02/08/2020 COMPARISON: HISTORY: Neoplasm of right kidney CT DLP: 1484 mGycm Automated exposure control for dose reduction was used. TECHNIQUE: Helical acquisition of images was performed from the lung bases through the top of iliac crest to include entire abdomen. CONTRAST: Performed with Oral Contrast and with IV Contrast, patient injected with 100 ml mL of Isovue 300. FINDINGS: Coronary artery calcifications are present. LUNG BASES: Bandlike area of increased attenuation present in the posterior costophrenic angle, right lower lobe, there are some associated air bronchograms, calcified nodule subcentimeter in size is al so present, there is no pleural or pericardial effusion LIVER/GB: Patient is post cholecystectomy. Some mild dilation of the intrahepatic biliary ducts is li shani due to postcholecystectomy change. Liver shows low attenuation likely due to hepatic steatosis. There is eventration of right hemidiaphragm, hemidiaphragm is elevated, liver is present in the subdi aphragmatic location. There is a punctate metallic density present in the posterior right lobe of the liver PANCREAS: No significant abnormality is seen. SPLEEN: No significant abnormality is seen. ADRENALS: No significant abnormality is seen. KIDNEYS: Focal parenchymal defect present in the lower pole the right kidney is noted likely due to p rior partial nephrectomy, cortical cyst is present at the midpole laterally measuring approximately 2 cm. Nonobstructive calculus at the anterior aspect of the midpole the left kidney measures only appr oximately 4 to 5 mm. Probable cortical cyst present at the posterior aspect of the left kidney measur ing only 11 mm BOWEL: No significant abnormality is seen. LYMPH NODES: No significant abnormality is appreciated. OSSEOUS STRUCTURES: Degenerative disc changes are present in the visualized lumbar spine. FREE AIR: No Free Air visible ASCITES: None visible. RETROPERITONEAL ADENOPATHY: No Retroperitoneal Adenopathy visible. OTHER: IMPRESSION: POSTOP CHANGES. OLD GRANULOMATOUS DISEASE. PROBABLE BASILAR SCAR WITH ASSOCIATED GRANULOMA ADDITIONAL FINDINGS ABOVE.
== END | disposition home or self-care (01) ==
LOC: RADCTMAIN 09:47
DX: Z98.890 Other specified postprocedural states (principal); D41.01 Neoplasm of uncertain behavior of right kidney
CPT/HCPCS: 82565; 84520; 74160; 36415; Q9967

== ENCOUNTER 2021-02-13 13:48 | Emergency (ER) | payer MEDICARE, BC ==
[2021-02-13 14:07] VITALS: RESP 18; TEMP 98.8
--- NOTE | 2021-02-13 14:45 | CT ---
EXAMINATION TYPE: CT brain wo con DATE OF EXAM: 02/13/2021 COMPARISON: None HISTORY: posterior head injury on thinners CT DLP: 1031.[address] of the brain was performed. The ventricles, basal cisterns and sulci overlying the cerebral convexities demonstrate mild enlargem ent. There is no evidence for intracranial hemorrhage or sulcal effacement. There is decreased attenuation about the periventricular white matter and deep white matter of both c erebral hemispheres, compatible with chronic small vessel ischemia. Differential diagnosis does inclu de demyelination. No mass effects are seen.No midline shift. Osseous calvarium is intact. If symptoms persist consider MRI. IMPRESSION: 1. Age related atrophic and chronic small vessel ischemic change without acute intracranial process s een at this time.
--- NOTE | 2021-02-13 14:50 | ED ---
General Adult HPI - General Chief complaint: Head Injury Stated complaint: head wound Source: patient, RN notes reviewed Mode of arrival: ambulatory Limitations: no limitations - History of Present Illness Initial comments: Patient is a 75-year-old male that presents to the emergency department complaining of head abrasion and injury approximately 1 week ago. He notes that he pulled the garage door down on top of his head. notes that he came over to her son's house several days later with a head on and did not explain why he was wearing a hat. Patient denied any pain headache nausea vomiting. He notes that he feels fine. He was well-appearing well-hydrated 75-year-old male in no apparent distress or pain. He denied any chest pain short of breath headache nausea vomiting diarrhea constipation fever fatigue chills. - Related Data Home Medications Medication Instructions Recorded Confirmed Losartan Potassium [Cozaar] 100 mg PO DAILY@1500 02/03/15 07/27/18 Terazosin HCl [Hytrin] 10 mg PO HS 02/03/15 07/27/18 Rivaroxaban [Xarelto] 20 mg PO HS 11/24/15 07/27/18 Fluticasone Nasal [place] [Flonase 1 spray EA NOSTRIL BID 07/27/18 07/27/18 Nasal [place]] Previous Rx's Medication Instructions Recorded Albuterol Inhaler (Mhu) [Ventolin 1 - 2 puff INHALATION Q6HR PRN #1 07/31/18 Hfa Inhaler (Mhu)] inhaler Amiodarone [Cordarone] 400 mg PO BID #60 tab 07/31/18 Budesonide-Formot 160-4.5 Mcg 2 puff INHALATION BID #1 inhaler 07/31/18 [Symbicort 160-4.5 Mcg Inhaler] Metoprolol Succinate (ER) [Toprol 100 mg PO DAILY #30 tab.er.24h 07/31/18 XL] Allergies Allergy/AdvReac Type Severity Reaction Status Date / Time No Known Allergies Allergy Verified 02/13/21 14:03 Review of Systems ROS Statement: Those systems with pertinent positive or pertinent negative responses have been documented in the HPI. ROS Other: All systems not noted in ROS Statement are negative. Past Medical History Past Medical History: Atrial Fibrillation, Cancer, Hypertension Additional Past Medical History / Comment(s): SKIN CANCER History of Any Multi-Drug Resistant Organisms: None Reported Past Surgical History: Cholecystectomy Additional Past Surgical History / Comment(s): shrapnel from war Past Anesthesia/Blood Transfusion Reactions: No Reported Reaction Past Psychological History: No Psychological Hx Reported Smoking Status: Never smoker Past Alcohol Use History: None Reported Past Drug Use History: None Reported - Past Family History Mother Family Medical History: Cancer General Exam Limitations: no limitations General appearance: alert, in no apparent distress Head exam: Present: normocephalic, normal inspection. Absent: atraumatic (Abrasion to the posterior aspect of the scalp, scabbed over with no signs or symptoms of infection.) Eye exam: Present: normal appearance, PERRL, EOMI. Absent: scleral icterus, conjunctival injection, periorbital swelling Neck exam: Present: normal inspection Respiratory exam: Present: normal lung sounds bilaterally. Absent: respiratory distress, wheezes, rales, rhonchi, stridor Cardiovascular Exam: Present: regular rate, normal rhythm, normal heart sounds. Absent: systolic murmur, diastolic murmur, rubs, gallop, clicks GI/Abdominal exam: Present: soft, normal bowel sounds. Absent: distended, tenderness, guarding, rebound, rigid Extremities exam: Present: normal inspection, full ROM, normal capillary refill. Absent: tenderness, pedal edema, joint swelling, calf tenderness Neurological exam: Present: alert, oriented X3 Psychiatric exam: Present: normal affect, normal mood Skin exam: Present: warm, dry, intact, normal color. Absent: rash Course Vital Signs 02/13/21 14:03 Temperature 98.8 F Pulse Rate 81 Respiratory 18 Rate Blood Pressure 153/77 O2 Sat by Pulse 92 L Oximetry Medical Decision Making - Medical Decision Making 75-year-old male that pulled the garage door down on top of his head approximately 1 week ago. Computed tomography scan of the brain ordered. Computed tomography scan negative for any acute intracranial process. Patient feels good enough to go home. Case discussed with Dr. Renner, patient discharge home with follow-up to primary care. - Radiology Data Radiology results: report reviewed, image reviewed CT of the brain: Age-related atrophic and chronic small vessel ischemic changes without acute intracranial process seen at this time. Disposition Clinical Impression: Contusion of scalp Disposition: HOME SELF-CARE Condition: Stable Instructions (If sedation given, give patient instructions): Concussion (ED) Additional Instructions: Please return to the Emergency Department if symptoms worsen or any other concerns. Follow-up primary care in the next several days. Continue take at home medications as prescribed. Is patient prescribed a controlled substance at d/c from ED?: No [facility] [Primary Care Provider] - 1-2 days Time of Disposition: 14:50
[2021-02-13 15:35] VITALS: BP 131/72; PULSE 69
== END 2021-02-13 15:27 | disposition home or self-care (01) ==
LOC: EC 13:48
DX: S00.03XA Contusion of scalp, initial encounter (principal); I10 Essential (primary) hypertension; Z79.899 Other long term (current) drug therapy; W22.8XXA Striking against or struck by other objects, initial encounter; Y92.094 Garage of other non-institutional residence as the place of occurrence of the external cause
CPT/HCPCS: 70450; 99283

== ENCOUNTER 2021-03-06 10:53 | Emergency (ER) | payer MEDICARE, BC ==
[2021-03-06 11:08] VITALS: TEMP 97.9
[2021-03-06] MEDS ORDERED: SODIUM CHLORIDE 0.9% 1,000 ML IV STA (11:22)
[2021-03-06 11:51] LABS: Basophils % (A) 0 %; Eosinophils # (A) 0.1 k/uL (0-0.7); Eosinophils % (A) 1 %; HCT 43.8 % (39.0-53.0); HGB 14.6 gm/dL (13.0-17.5); Lymphocytes # (A) 0.8 k/uL (1.0-4.8); Lymphocytes % (A) 9 %; MCH 31.4 pg (25.0-35.0); MCHC 33.4 g/dL (31.0-37.0); MCV 94.1 fL (80.0-100.0); Mean Platelet Volume 8.1; Monocytes # (A) 0.4 k/uL (0-1.0); Monocytes % (A) 5 %; Neutrophils # (A) 7.4 k/uL (1.3-7.7); Neutrophils % (A) 84 %; Platelet Count 290 k/uL (150-450); RBC 4.65 m/uL (4.30-5.90); RDW 12.7 % (11.5-15.5); WBC 8.8 k/uL (3.8-10.6)
[2021-03-06 11:56] LABS: INR 1.4 (<1.2); Prothrombin Time 14.6 sec (9.0-12.0)
--- NOTE | 2021-03-06 12:02 | ED ---
General Adult HPI - General Chief complaint: Dizziness Stated complaint: Dizziness Time Seen by Provider: 03/06/21 11:09 Source: patient Mode of arrival: EMS - History of Present Illness Initial comments: Patient is a 75-year-old male with history of A. fib, hypertension, presenting to the emergency Department via EMS with complaints of lightheadedness this morning. He states he woke up feeling his normal self, he was sitting on the couch watching TV when he started to feel a little lightheaded patient got up and the symptoms worsened. He states he helped lower himself to the ground. He did not have a complete syncopal episode, he did not fall, did not hit his head. Patient states currently he does not feel lightheaded, he does have no specific complaints at this time other than "just not feeling his normal self." He denies any chest pain or shortness of breath, no nausea or vomiting, no abdominal pain. He denies any headache or dizziness or room spinning. He states he has not been drinking a lot of water over the past few days, he has been eating foods. He did eat breakfast this morning. Patient has no further complaints. His vital signs are stable upon arrival. - Related Data Home Medications Medication Instructions Recorded Confirmed Losartan Potassium [Cozaar] 100 mg PO DAILY@1500 02/03/15 03/06/21 Terazosin HCl [Hytrin] 10 mg PO HS@199902/03/15 03/06/21 Rivaroxaban [Xarelto] 20 mg PO HS@199911/24/15 03/06/21 Fluticasone Nasal [place] [Flonase 1 spray EA NOSTRIL BID 07/27/18 03/06/21 Nasal [place]] Albuterol Sulfate [Albuterol 2 puff PO RT-Q6H PRN 03/06/21 03/06/21 Sulfate Hfa] Amiodarone [Cordarone] 100 mg PO DAILY 03/06/21 03/06/21 Cyanocobalamin [Vitamin B-12] 500 mcg PO DAILY 03/06/21 03/06/21 Hydrochlorothiazide 12.5 mg PO DAILY@1100 03/06/21 03/06/21 [hydroCHLOROthiazide] Previous Rx's Medication Instructions Recorded Metoprolol Succinate (ER) [Toprol 100 mg PO DAILY #30 tab.er.24h 07/31/18 XL] Allergies Allergy/AdvReac Type Severity Reaction Status Date / Time No Known Allergies Allergy Verified 03/06/21 13:28 Review of Systems ROS Statement: Those systems with pertinent positive or pertinent negative responses have been documented in the HPI. ROS Other: All systems not noted in ROS Statement are negative. Past Medical History Past Medical History: Atrial Fibrillation, Cancer, Hypertension Additional Past Medical History / Comment(s): SKIN CANCER History of Any Multi-Drug Resistant Organisms: None Reported Past Surgical History: Cholecystectomy Additional Past Surgical History / Comment(s): shrapnel from war Past Anesthesia/Blood Transfusion Reactions: No Reported Reaction Past Psychological History: No Psychological Hx Reported Smoking Status: Never smoker Past Alcohol Use History: None Reported Past Drug Use History: None Reported - Past Family History Mother Family Medical History: Cancer General Exam - General Exam Comments Initial Comments: GENERAL: Patient is well-developed and well-nourished. Patient is nontoxic and in no acute distress. HEAD: Atraumatic, normocephalic. EYES: Pupils equal round and reactive to light, extraocular movements intact, sclera anicteric, conjunctiva are normal. Eyelids were unremarkable. ENT: TMs normal, nares patent, oropharynx clear without exudates. Moist mucous membranes. NECK: Normal range of motion, supple without lymphadenopathy or JVD. LUNGS: Unlabored respirations. Breath sounds clear to auscultation bilaterally and equal. No wheezes rales or rhonchi. HEART: Regular rate and rhythm without murmurs, rubs or gallops. ABDOMEN: Soft, nontender, normoactive bowel sounds. No guarding, no rebound. No masses appreciated. : Deferred MUSCULOSKELETAL: Normal extremities with adequate strength and normal range of motion, no pitting or edema. No clubbing or cyanosis. NEUROLOGICAL: Patient is alert and oriented x 3. Motor and sensory are also intact. Cranial nerves II through XII grossly intact. Symmetrical smile. Normal speech, normal gait. PSYCH: Normal mood, normal affect. SKIN: Warm, Dry, normal turgor, no rashes or lesions noted. Course Vital Signs 03/06/21 03/06/21 10:55 13:43 Temperature 97.9 F Pulse Rate 84 84 Respiratory 16 18 Rate Blood Pressure 146/67 150/61 O2 Sat by Pulse 96 95 Oximetry EKG Findings - EKG Comments: EKG Findings:: Sinus rhythm with marked sinus arrhythmia with first-degree block, left axis deviation, inferior infarct, age undetermined, T-wave abnormalities, no signs of acute ST segment elevation. This is similar to his previous on 07/30/2018. Ventricular rate 84, UT interval to 22, QT 394. Medical Decision Making - Medical Decision Making She is a 75-year-old male with history of A. fib and hypertension presenting via EMS with complaints of lightheadedness when he stood up today at home. He did help himself to the ground, he did not fall, he did not lose consciousness. His vital signs are stable upon arrival. He states he no longer feels lightheaded at this time. His exam revealed no acute findings. His EKG showed no acute ischemic process. Labs are unremarkable today except for an elevated lactic acid 3.5, his troponin is normal, d-dimer is normal and urine shows no evidence of infection. Patient was given a liter of fluids and lactic acid was rechecked, it is normal now at 2.0. Patient admits that he has not been drinking a lot of water over the past week. He is continues to feel asymptomatic and is stable to go home. He is agreement with this plan of care. He states he'll follow up with his primary care doctor. Return parameters were discussed with him and he verbalized understanding. Case discussed with Dr. Colvin. - Lab Data Result diagrams: 03/06/21 11:40 03/06/21 11:40 Lab Results 03/06/21 03/06/21 03/06/21 Range/Units 11:40 11:40 11:40 WBC 8.8 (3.8-10.6) k/uL RBC 4.65 (4.30-5.90) m/uL Hgb 14.6 (13.0-17.5) gm/dL Hct 43.8 (39.0-53.0) % MCV 94.1 (80.0-100.0) fL MCH 31.4 (25.0-35.0) pg MCHC 33.4 (31.0-37.0) g/dL RDW 12.7 (11.5-15.5) % Plt Count 290 (150-450) k/uL MPV 8.1 Neutrophils % 84 % Lymphocytes % 9 % Monocytes % 5 % Eosinophils % 1 % Basophils % 0 % Neutrophils # 7.4 (1.3-7.7) k/uL Lymphocytes # 0.8 L (1.0-4.8) k/uL Monocytes # 0.4 (0-1.0) k/uL Eosinophils # 0.1 (0-0.7) k/uL Basophils # 0.0 (0-0.2) k/uL PT 14.6 H (9.0-12.0) sec INR 1.4 H (<1.2) D-Dimer (<0.60) mg/L FEU Sodium (137-145) mmol/L Potassium (3.5-5.1) mmol/L Chloride (98-107) mmol/L Carbon Dioxide (22-30) mmol/L Anion Gap mmol/L BUN (9-20) mg/dL Creatinine (0.66-1.25) mg/dL Est GFR (CKD-EPI)AfAm (>60 ml/min/1.73 sqM) Est GFR (CKD-EPI)NonAf (>60 ml/min/1.73 sqM) Glucose (74-99) mg/dL Plasma Lactic Acid Bhaskar (0.7-2.0) mmol/L Calcium (8.4-10.2) mg/dL Total Bilirubin (0.2-1.3) mg/dL AST (17-59) U/L ALT (4-49) U/L Alkaline Phosphatase (38-126) U/L Troponin I (0.000-0.034) ng/mL Total Protein (6.3-8.2) g/dL Albumin (3.5-5.0) g/dL Urine Color Yellow Urine Appearance Cloudy (Clear) Urine pH 5.0 (5.0-8.0) Ur Specific Reva 1.029 (1.001-1.035) Urine Protein 2+ H (Negative) Urine Glucose (UA) Negative (Negative) Urine Ketones Negative (Negative) Urine Blood Negative (Negative) Urine Nitrite Negative (Negative) Urine Bilirubin Negative (Negative) Urine Urobilinogen <2.0 (<2.0) mg/dL Ur Leukocyte Esterase Negative (Negative) Urine RBC 2 (0-5) /hpf Urine WBC 2 (0-5) /hpf Ur Squamous Epith Cells 2 (0-4) /hpf Urine Mucus Few H (None) /hpf 03/06/21 03/06/21 03/06/21 Range/Units 11:40 11:40 11:40 WBC (3.8-10.6) k/uL RBC (4.30-5.90) m/uL Hgb (13.0-17.5) gm/dL Hct (39.0-53.0) % MCV (80.0-100.0) fL MCH (25.0-35.0) pg MCHC (31.0-37.0) g/dL RDW (11.5-15.5) % Plt Count (150-450) k/uL MPV Neutrophils % % Lymphocytes % % Monocytes % % Eosinophils % % Basophils % % Neutrophils # (1.3-7.7) k/uL Lymphocytes # (1.0-4.8) k/uL Monocytes # (0-1.0) k/uL Eosinophils # (0-0.7) k/uL Basophils # (0-0.2) k/uL PT (9.0-12.0) sec INR (<1.2) D-Dimer (<0.60) mg/L FEU Sodium 140 (137-145) mmol/L Potassium 3.8 (3.5-5.1) mmol/L Chloride 102 (98-107) mmol/L Carbon Dioxide 25 (22-30) mmol/L Anion Gap 13 mmol/L BUN 21 H (9-20) mg/dL Creatinine 0.95 (0.66-1.25) mg/dL Est GFR (CKD-EPI)AfAm >90 (>60 ml/min/1.73 sqM) Est GFR (CKD-EPI)NonAf 79 (>60 ml/min/1.73 sqM) Glucose 178 H (74-99) mg/dL Plasma Lactic Acid Bhaskar 3.5 H* (0.7-2.0) mmol/L Calcium 9.3 (8.4-10.2) mg/dL Total Bilirubin 0.4 (0.2-1.3) mg/dL AST 31 (17-59) U/L ALT 26 (4-49) U/L Alkaline Phosphatase 68 (38-126) U/L Troponin I <0.012 (0.000-0.034) ng/mL Total Protein 7.0 (6.3-8.2) g/dL Albumin 4.3 (3.5-5.0) g/dL Urine Color Urine Appearance (Clear) Urine pH (5.0-8.0) Ur Specific Reva (1.001-1.035) Urine Protein (Negative) Urine Glucose (UA) (Negative) Urine Ketones (Negative) Urine Blood (Negative) Urine Nitrite (Negative) Urine Bilirubin (Negative) Urine Urobilinogen (<2.0) mg/dL Ur Leukocyte Esterase (Negative) Urine RBC (0-5) /hpf Urine WBC (0-5) /hpf Ur Squamous Epith Cells (0-4) /hpf Urine Mucus (None) /hpf 03/06/21 03/06/21 Range/Units 13:31 13:31 WBC (3.8-10.6) k/uL RBC (4.30-5.90) m/uL Hgb (13.0-17.5) gm/dL Hct (39.0-53.0) % MCV (80.0-100.0) fL MCH (25.0-35.0) pg MCHC (31.0-37.0) g/dL RDW (11.5-15.5) % Plt Count (150-450) k/uL MPV Neutrophils % % Lymphocytes % % Monocytes % % Eosinophils % % Basophils % % Neutrophils # (1.3-7.7) k/uL Lymphocytes # (1.0-4.8) k/uL Monocytes # (0-1.0) k/uL Eosinophils # (0-0.7) k/uL Basophils # (0-0.2) k/uL PT (9.0-12.0) sec INR (<1.2) D-Dimer <0.17 (<0.60) mg/L FEU Sodium (137-145) mmol/L Potassium (3.5-5.1) mmol/L Chloride (98-107) mmol/L Carbon Dioxide (22-30) mmol/L Anion Gap mmol/L BUN (9-20) mg/dL Creatinine (0.66-1.25) mg/dL Est GFR (CKD-EPI)AfAm (>60 ml/min/1.73 sqM) Est GFR (CKD-EPI)NonAf (>60 ml/min/1.73 sqM) Glucose (74-99) mg/dL Plasma Lactic Acid Bhaskar 2.0 (0.7-2.0) mmol/L Calcium (8.4-10.2) mg/dL Total Bilirubin (0.2-1.3) mg/dL AST (17-59) U/L ALT (4-49) U/L Alkaline Phosphatase (38-126) U/L Troponin I (0.000-0.034) ng/mL Total Protein (6.3-8.2) g/dL Albumin (3.5-5.0) g/dL Urine Color Urine Appearance (Clear) Urine pH (5.0-8.0) Ur Specific Reva (1.001-1.035) Urine Protein (Negative) Urine Glucose (UA) (Negative) Urine Ketones (Negative) Urine Blood (Negative) Urine Nitrite (Negative) Urine Bilirubin (Negative) Urine Urobilinogen (<2.0) mg/dL Ur Leukocyte Esterase (Negative) Urine RBC (0-5) /hpf Urine WBC (0-5) /hpf Ur Squamous Epith Cells (0-4) /hpf Urine Mucus (None) /hpf Disposition Clinical Impression: Lightheaded, Dehydration Disposition: HOME SELF-CARE Condition: Stable Instructions (If sedation given, give patient instructions): Dehydration (ED) Additional Instructions: Please return to the Emergency Department if symptoms worsen or any other concerns. Continue to increase your fluid intake over the next few days. Follow-up with your primary care physician. Is patient prescribed a controlled substance at d/c from ED?: No Referrals: [facility],Clinic [Primary Care Provider] - 1-2 days Time of Disposition: 14:17
[2021-03-06 12:08] LABS: ALT 26 U/L (4-49); AST 31 U/L (17-59); African American GFR (CKD) >90 (>60 ml/min/1.73 sqM); Albumin 4.3 g/dL (3.5-5.0); Alkaline Phosphatase 68 U/L (38-126); Anion Gap 13 mmol/L; Blood Urea Nitrogen 21 mg/dL (9-20); Calcium 9.3 mg/dL (8.4-10.2); Carbon Dioxide 25 mmol/L (22-30); Chloride 102 mmol/L (98-107); Glucose 178 mg/dL (74-99); Non-African American GFR(CKD) 79 (>60 ml/min/1.73 sqM); Potassium 3.8 mmol/L (3.5-5.1); Sodium 140 mmol/L (137-145); Total Bilirubin 0.4 mg/dL (0.2-1.3)
--- NOTE | 2021-03-06 12:27 | XR ---
EXAMINATION TYPE: XR chest 2V DATE OF EXAM: 03/06/2021 COMPARISON: 07/27/2018 HISTORY: 75-year-old male with dizziness TECHNIQUE: PA and lateral views FINDINGS: Heart normal size. Atherosclerotic arch calcifications. Mild interstitial prominence is unchanged. Pr ominent epicardial fat pad at the cardiac apex. Unchanged asymmetric elevation right hemidiaphragm. N o consolidation or pleural effusion seen. IMPRESSION: 1. Chronic changes. No acute process seen. 2. Continued asymmetric elevation right hemidiaphragm. Consider the possibility of hemidiaphragmatic paralysis.
[2021-03-06 12:49] LABS: Appearance,Urine Cloudy (Clear); Bilirubin,Urine Negative (Negative); Blood,Urine Negative (Negative); Color,Urine Yellow; Glucose,Urine (UA) Negative (Negative); Ketones,Urine Negative (Negative); Leukocyte Esterase,Urine Negative (Negative); Mucus,Urine Few /hpf; Nitrite,Urine Negative (Negative); Protein,Urine 2+ (Negative); RBC,Urine 2 /hpf (0-5); Specific Gravity,Urine 1.029 (1.001-1.035); Squamous Epithelial Cell,Urine 2 /hpf (0-4); Urobilinogen,Urine <2.0 mg/dL (<2.0); WBC,Urine 2 /hpf (0-5)
[2021-03-06 13:43] VITALS: RESP 18
[2021-03-06 14:47] VITALS: BP 149/85; PULSE 83
== END 2021-03-06 14:44 | disposition home or self-care (01) ==
LOC: EC 10:53
DX: E86.0 Dehydration (principal); R42 Dizziness and giddiness; I48.91 Unspecified atrial fibrillation; I10 Essential (primary) hypertension; Z79.899 Other long term (current) drug therapy
CPT/HCPCS: 36415; 71046; 80053; 81001; 83605; 84484; 85025; 85379; 85610; 93005; 96360; 99284

== ENCOUNTER 2021-09-05 10:53 | Emergency (ER) | payer MEDICARE, BC ==
[2021-09-05 11:12] VITALS: TEMP 97.9
[2021-09-05] MEDS ORDERED: DIPH,PERTUS(ACELL)TETVAC-LF 0.5 ML VIAL IM ONE (11:16)
[2021-09-05 11:54] LABS: Basophils % (A) 0 %; Eosinophils % (A) 1 %; HCT 39.8 % (39.0-53.0); HGB 13.1 gm/dL (13.0-17.5); Lymphocytes # (A) 0.6 k/uL (1.0-4.8); Lymphocytes % (A) 8 %; MCH 30.7 pg (25.0-35.0); MCHC 32.9 g/dL (31.0-37.0); MCV 93.3 fL (80.0-100.0); Mean Platelet Volume 7.8; Monocytes # (A) 0.3 k/uL (0-1.0); Monocytes % (A) 5 %; Neutrophils # (A) 6.5 k/uL (1.3-7.7); Neutrophils % (A) 86 %; Platelet Count 259 k/uL (150-450); RBC 4.26 m/uL (4.30-5.90); WBC 7.6 k/uL (3.8-10.6)
--- NOTE | 2021-09-05 11:58 | CT ---
EXAMINATION TYPE: CT brain krissy forrester DATE OF EXAM: 09/05/2021 COMPARISON: 02/13/2021 HISTORY: Fell, head injury CT DLP: 1641.[address] of the brain was performed. The ventricles, basal cisterns and sulci overlying the cerebral convexities demonstrate mild enlargem ent. There is no evidence for intracranial hemorrhage or sulcal effacement. There is decreased attenuatio n about the periventricular white matter and deep white matter of both cerebral hemispheres, compatib le with chronic small vessel ischemia. No mass effects are seen. If symptoms persist consider MRI. Osseous calvarium is intact. Left frontal scalp hematoma and laceration. IMPRESSION: 1. Age related atrophic and chronic small vessel ischemic change without acute intracranial process seen at this time. CT Cervical Spine: Unenhanced CT of the cervical spine was performed with bone and soft tissue window settings submitted . Coronal and sagittal reconstruction is obtained. There is normal alignment and prevertebral soft tissues. No evidence for acute cervical fracture . Scattered degenerative disc disease and spondylosis. Biapical scarring. IMPRESSION: 1. No evidence for acute fracture or subluxation of the cervical spine.
--- NOTE | 2021-09-05 12:01 | ED ---
General Adult HPI - General Chief complaint: Fall Stated complaint: Fall Time Seen by Provider: 09/05/21 11:00 Source: patient, EMS, RN notes reviewed, old records reviewed Mode of arrival: EMS Limitations: no limitations - History of Present Illness Initial comments: This is a 76-year-old male who presents emergency department after having fallen and hit his head. According to the patient he did not lose consciousness however according to EMS the patient did lose consciousness for about a minute according to the . is not here. He further history. Patient currently complains of a little tenderness on the scalp other than that has no c omplaints. Patient denies chest pain palpitations difficulty breathing shortness of breath. Patient denies abdominal pain patient denies any nausea vomiting diarrhea. eventually called back and stated she did not seem all she heard him fall and when she got to on he was talking to her so she never saw him unconscious. Patient continues to deny he was ever unconscious patient states he believed he tripped. - Related Data Home Medications Medication Instructions Recorded Confirmed Losartan Potassium [Cozaar] 100 mg PO DAILY 02/03/15 09/05/21 Terazosin HCl [Hytrin] 10 mg PO HS@199902/03/15 09/05/21 Rivaroxaban [Xarelto] 20 mg PO HS@199911/24/15 09/05/21 Fluticasone Nasal [place] [Flonase 1 spray EA NOSTRIL BID 07/27/18 09/05/21 Nasal [place]] Albuterol Sulfate [Albuterol 2 puff PO RT-Q6H PRN 03/06/21 09/05/21 Sulfate Hfa] Amiodarone [Cordarone] 100 mg PO DAILY 03/06/21 09/05/21 Cyanocobalamin [Vitamin B-12] 500 mcg PO DAILY 03/06/21 09/05/21 hydroCHLOROthiazide [Hydrodiuril] 12.5 mg PO DAILY 09/05/21 09/05/21 Previous Rx's Medication Instructions Recorded Metoprolol Succinate (ER) [Toprol 100 mg PO DAILY #30 tab.er.24h 07/31/18 XL] Cephalexin [Keflex] 500 mg PO Q6HR #20 cap 09/05/21 Allergies Allergy/AdvReac Type Severity Reaction Status Date / Time lisinopril Allergy Unknown Verified 09/05/21 12:32 Review of Systems ROS Statement: Those systems with pertinent positive or pertinent negative responses have been documented in the HPI. ROS Other: All systems not noted in ROS Statement are negative. Past Medical History Past Medical History: Atrial Fibrillation, Cancer, Hypertension Additional Past Medical History / Comment(s): SKIN CANCER History of Any Multi-Drug Resistant Organisms: None Reported Past Surgical History: Cholecystectomy Additional Past Surgical History / Comment(s): shrapnel from war Past Anesthesia/Blood Transfusion Reactions: No Reported Reaction Past Psychological History: No Psychological Hx Reported Smoking Status: Former smoker Past Alcohol Use History: None Reported Past Drug Use History: None Reported - Past Family History Mother Family Medical History: Cancer General Exam - General Exam Comments Initial Comments: GENERAL: Patient is well-developed and well-nourished. Patient is nontoxic and well- hydrated and is in mild distress. ENT: Neck is soft and supple. No significant lymphadenopathy is noted. Oropharynx is clear. Moist mucous membranes. Neck has full range of motion without eliciting any pain. EYES: The sclera were anicteric and conjunctiva were pink and moist. Extraocular movements were intact and pupils were equal round and reactive to light. Eyelids were unremarkable. PULMONARY: Unlabored respirations. Good breath sounds bilaterally. No audible rales rhonchi or wheezing was noted. CARDIOVASCULAR: There is a regular rate and rhythm without any murmurs gallops or rubs. ABDOMEN: Soft and nontender with normal bowel sounds. SKIN: Skin is clear with no lesions or rashes and otherwise unremarkable. There are 2 lacerations the first laceration is approximately 2 and half centimeters and the second laceration is approximately 9 cm. NEUROLOGIC: Patient is alert and oriented x3. Cranial nerves II through XII are grossly intact. Motor and sensory are also intact. Normal speech, volume and content. Symmetrical smile. MUSCULOSKELETAL: Normal extremities with adequate strength and full range of motion. LYMPHATICS: No significant lymphadenopathy is noted PSYCHIATRIC: Normal psychiatric evaluation. Limitations: no limitations Course Vital Signs 09/05/21 09/05/21 10:56 12:30 Temperature 97.9 F Pulse Rate 74 Pulse Rate [ 76 Sitting Pulse Oximetery] Pulse Rate [ 85 Standing Pulse Oximetery] Pulse Rate [ 69 Supine Pulse Oximetery] Respiratory 20 18 Rate Blood Pressure 135/76 Blood Pressure 157/87 [Right Arm Sitting] Blood Pressure 134/77 [Right Arm Standing] Blood Pressure 149/71 [Right Arm Supine] O2 Sat by Pulse 94 L 95 Oximetry Procedures - Laceration Laceration #1 Consent Obtained: verbal consent Indication: laceration Site: scalp Description: linear Depth: simple, single layer Type of Sutures: vicryl, other (I used 1 Vicryl [id number] suture to tie down a bleeding artery) Size of Sutures: other (Myrna) Number of Sutures: 15 Technique: simple, interrupted Complications: pain, bleeding Patient Tolerated Procedure: well Laceration #2 Consent Obtained: verbal consent Indication: laceration Site: scalp Description: linear Type of Sutures: other Number of Sutures: 3 Technique: simple, interrupted Patient Tolerated Procedure: well Medical Decision Making - Medical Decision Making EKG shows sinus rhythm at a rate of 69 bpm HI interval is 232 QRS is 129 QT interval is 419 QTC is 438. Patient's EKG shows no ST segment elevation or depression. CT of the brain and C-spine showed no acute abnormality. Chest x-ray shows no acute abnormality. I spoke with the patient he stated he was confident that he did not lose consci ousness and he tripped prior to falling. - Lab Data Result diagrams: 09/05/21 11:33 09/05/21 11:33 Lab Results 09/05/21 09/05/21 09/05/21 Range/Units 11:33 11:33 11:33 WBC 7.6 (3.8-10.6) k/uL RBC 4.26 L (4.30-5.90) m/uL Hgb 13.1 (13.0-17.5) gm/dL Hct 39.8 (39.0-53.0) % MCV 93.3 (80.0-100.0) fL MCH 30.7 (25.0-35.0) pg MCHC 32.9 (31.0-37.0) g/dL RDW 13.0 (11.5-15.5) % Plt Count 259 (150-450) k/uL MPV 7.8 Neutrophils % 86 % Lymphocytes % 8 % Monocytes % 5 % Eosinophils % 1 % Basophils % 0 % Neutrophils # 6.5 (1.3-7.7) k/uL Lymphocytes # 0.6 L (1.0-4.8) k/uL Monocytes # 0.3 (0-1.0) k/uL Eosinophils # 0.0 (0-0.7) k/uL Basophils # 0.0 (0-0.2) k/uL PT 13.3 H (9.0-12.0) sec INR 1.3 H (<1.2) APTT 30.4 H (22.0-30.0) sec Sodium 139 (137-145) mmol/L Potassium 3.9 (3.5-5.1) mmol/L Chloride 103 (98-107) mmol/L Carbon Dioxide 29 (22-30) mmol/L Anion Gap 7 mmol/L BUN 15 (9-20) mg/dL Creatinine 0.93 (0.66-1.25) mg/dL Est GFR (CKD-EPI)AfAm >90 (>60 ml/min/1.73 sqM) Est GFR (CKD-EPI)NonAf 80 (>60 ml/min/1.73 sqM) Glucose 131 H (74-99) mg/dL Calcium 8.8 (8.4-10.2) mg/dL Magnesium 2.0 (1.6-2.3) mg/dL Total Bilirubin 0.7 (0.2-1.3) mg/dL AST 25 (17-59) U/L ALT 20 (4-49) U/L Alkaline Phosphatase 63 (38-126) U/L Troponin I (0.000-0.034) ng/mL Total Protein 6.8 (6.3-8.2) g/dL Albumin 3.9 (3.5-5.0) g/dL 09/05/21 Range/Units 11:33 WBC (3.8-10.6) k/uL RBC (4.30-5.90) m/uL Hgb (13.0-17.5) gm/dL Hct (39.0-53.0) % MCV (80.0-100.0) fL MCH (25.0-35.0) pg MCHC (31.0-37.0) g/dL RDW (11.5-15.5) % Plt Count (150-450) k/uL MPV Neutrophils % % Lymphocytes % % Monocytes % % Eosinophils % % Basophils % % Neutrophils # (1.3-7.7) k/uL Lymphocytes # (1.0-4.8) k/uL Monocytes # (0-1.0) k/uL Eosinophils # (0-0.7) k/uL Basophils # (0-0.2) k/uL PT (9.0-12.0) sec INR (<1.2) APTT (22.0-30.0) sec Sodium (137-145) mmol/L Potassium (3.5-5.1) mmol/L Chloride (98-107) mmol/L Carbon Dioxide (22-30) mmol/L Anion Gap mmol/L BUN (9-20) mg/dL Creatinine (0.66-1.25) mg/dL Est GFR (CKD-EPI)AfAm (>60 ml/min/1.73 sqM) Est GFR (CKD-EPI)NonAf (>60 ml/min/1.73 sqM) Glucose (74-99) mg/dL Calcium (8.4-10.2) mg/dL Magnesium (1.6-2.3) mg/dL Total Bilirubin (0.2-1.3) mg/dL AST (17-59) U/L ALT (4-49) U/L Alkaline Phosphatase (38-126) U/L Troponin I <0.012 (0.000-0.034) ng/mL Total Protein (6.3-8.2) g/dL Albumin (3.5-5.0) g/dL Disposition Clinical Impression: Fall, Scalp laceration Disposition: HOME SELF-CARE Instructions (If sedation given, give patient instructions): Fall Prevention (ED), Laceration (ED) Additional Instructions: Myrna are to be removed in 7 days Prescriptions: Cephalexin [Keflex] 500 mg PO Q6HR #20 cap Is patient prescribed a controlled substance at d/c from ED?: No Referrals: [facility],Clinic [Primary Care Provider] - 1-2 days Time of Disposition: 13:36
[2021-09-05 12:08] LABS: INR 1.3 (<1.2); Partial Thromboplastin Time 30.4 sec (22.0-30.0); Prothrombin Time 13.3 sec (9.0-12.0)
[2021-09-05 12:20] LABS: ALT 20 U/L (4-49); AST 25 U/L (17-59); African American GFR (CKD) >90 (>60 ml/min/1.73 sqM); Albumin 3.9 g/dL (3.5-5.0); Alkaline Phosphatase 63 U/L (38-126); Anion Gap 7 mmol/L; Blood Urea Nitrogen 15 mg/dL (9-20); Calcium 8.8 mg/dL (8.4-10.2); Carbon Dioxide 29 mmol/L (22-30); Chloride 103 mmol/L (98-107); Glucose 131 mg/dL (74-99); Non-African American GFR(CKD) 80 (>60 ml/min/1.73 sqM); Potassium 3.9 mmol/L (3.5-5.1); Sodium 139 mmol/L (137-145); Total Bilirubin 0.7 mg/dL (0.2-1.3); Total Protein 6.8 g/dL (6.3-8.2)
[2021-09-05 12:34] VITALS: RESP 18
--- NOTE | 2021-09-05 12:51 | XR ---
EXAMINATION TYPE: XR chest 2V DATE OF EXAM: 09/05/2021 COMPARISON: 03/06/2021 HISTORY: Shortness of breath TECHNIQUE: Frontal and lateral views of the chest are obtained. FINDINGS: Scattered senescent parenchymal changes noted. Hyperinflation compatible with COPD. No evidence for infiltrate. No evidence for atelectasis. Heart size is stable. Mediastinal structures are stable and grossly unremarkable. No evidence for hilar prominence. Degenerative changes dorsal spine. IMPRESSION: 1. No evidence for acute pulmonary disease.
[2021-09-05] MEDS ORDERED: LIDOCAINE 1%/EPI 1:200,000 MPF 10 ML VIAL SQ STA (12:57)
[2021-09-05 14:15] VITALS: BP 136/72; PULSE 79
== END 2021-09-05 14:07 | disposition home or self-care (01) ==
LOC: EC 10:53
DX: S01.01XA Laceration without foreign body of scalp, initial encounter (principal); I48.91 Unspecified atrial fibrillation; Z87.891 Personal history of nicotine dependence; W19.XXXA Unspecified fall, initial encounter; Z23 Encounter for immunization
CPT/HCPCS: 12005; 36415; 70450; 71046; 72125; 80053; 83735; 84484; 85025; 85610; 85730; 90471; 90715; 93005; 99285

== ENCOUNTER 2021-10-09 10:02 | Inpatient (IN) | payer MEDICARE, BC ==
[2021-10-09] MEDS ORDERED: MORPHINE SULFATE 2 MG/ML SYRINGE IVP STA (11:15)
[2021-10-09] MEDS ORDERED: ONDANSETRON 4 MG/2 ML VIAL IVP STA (11:15)
--- NOTE | 2021-10-09 11:22 | ED ---
General Adult HPI - General Chief complaint: Abdominal Pain Stated complaint: upper abd pain Time Seen by Provider: 10/09/21 11:00 Source: patient Mode of arrival: ambulatory Limitations: no limitations - History of Present Illness Initial comments: This 76-year-old male with past medical history of hypertension and A. fib presents to the emergency Department with left upper quadrant pain that began on Friday evening. Patient states he abruptly got left upper quadrant pain Friday night while sitting in his chair. Patient states he did vomit after having this episode due to the pain. Patient states his pain is worse with moving around and going from lying to sitting. Patient describes pain as sharp and states he has never experienced anything like this before. Patient states his pain is 8/10. Patient denies taking any medication for this and states the pain is episodic and seems to come and go. Patient states he has had decreased appetite but has been drinking plenty of fluids. Patient denies any fever, chest pain, shortness of breath, hemoptysis, change in bowel or bladder, hematochezia, headache, lightheadedness, dizziness, weakness. - Related Data Home Medications Medication Instructions Recorded Confirmed Losartan Potassium [Cozaar] 100 mg PO DAILY@1500 02/03/15 10/09/21 Terazosin HCl [Hytrin] 10 mg PO DAILY@1500 02/03/15 10/09/21 Rivaroxaban [Xarelto] 20 mg PO HS@199911/24/15 10/09/21 Fluticasone Nasal [place] [Flonase 1 spray EA NOSTRIL BID 07/27/18 10/09/21 Nasal [place]] Albuterol Sulfate [Albuterol 2 puff PO RT-Q6H PRN 03/06/21 10/09/21 Sulfate Hfa] Amiodarone [Cordarone] 100 mg PO DAILY 03/06/21 10/09/21 Cyanocobalamin [Vitamin B-12] 500 mcg PO DAILY 03/06/21 10/09/21 Hydrochlorothiazide 12.5 mg PO DAILY@1130 10/09/21 10/09/21 [hydroCHLOROthiazide] Metoprolol Succinate (ER) [Toprol 100 mg PO DAILY 10/09/21 10/09/21 XL] Allergies Allergy/AdvReac Type Severity Reaction Status Date / Time lisinopril Allergy Unknown Verified 10/09/21 16:34 Review of Systems ROS Statement: Those systems with pertinent positive or pertinent negative responses have been documented in the HPI. ROS Other: All systems not noted in ROS Statement are negative. Past Medical History Past Medical History: Atrial Fibrillation, Cancer, Hypertension Additional Past Medical History / Comment(s): SKIN CANCER History of Any Multi-Drug Resistant Organisms: None Reported Past Surgical History: Cholecystectomy Additional Past Surgical History / Comment(s): shrapnel from war Past Anesthesia/Blood Transfusion Reactions: No Reported Reaction Past Psychological History: No Psychological Hx Reported Smoking Status: Former smoker Past Alcohol Use History: None Reported Past Drug Use History: None Reported - Past Family History Mother Family Medical History: Cancer General Exam Limitations: no limitations General appearance: alert, in no apparent distress Head exam: Present: atraumatic, normocephalic, normal inspection Eye exam: Present: normal appearance, PERRL, EOMI. Absent: scleral icterus, conjunctival injection, periorbital swelling ENT exam: Present: normal exam, mucous membranes moist Neck exam: Present: normal inspection, full ROM. Absent: tenderness, meningismu s, lymphadenopathy Respiratory exam: Present: normal lung sounds bilaterally. Absent: respiratory distress, wheezes, rales, rhonchi, stridor, chest wall tenderness Cardiovascular Exam: Present: regular rate, normal rhythm, normal heart sounds. Absent: systolic murmur, diastolic murmur, rubs, gallop, clicks GI/Abdominal exam: Present: soft, tenderness (Tenderness in left upper quadrant to palpation), normal bowel sounds. Absent: distended, guarding, rebound, rigid Extremities exam: Present: full ROM, normal capillary refill. Absent: pedal edema, joint swelling, calf tenderness Back exam: Present: normal inspection, full ROM. Absent: CVA tenderness (R), CVA tenderness (L), paraspinal tenderness, vertebral tenderness Neurological exam: Present: alert, oriented X3, CN II-XII intact Psychiatric exam: Present: normal affect, normal mood Skin exam: Present: warm, dry, intact, normal color. Absent: rash Course Vital Signs 10/09/21 10/09/21 10:04 15:07 Temperature 98.3 F 99.8 F H Pulse Rate 90 83 Respiratory 22 18 Rate Blood Pressure 131/67 128/52 O2 Sat by Pulse 96 92 L Oximetry Medical Decision Making - Medical Decision Making This 76-year-old male with past medical history of hypertension and A. fib presents emergency Department with left upper quadrant pain that began on Friday. Labs with a blood cells 15.0, PT 16.5, INR 1.6, APTT 32.7, BUN 27, creatinine 1.40, urine with 17 white blood cells and 53 hyaline casts. Chest x- ray bilateral areas of atelectasis favored over pneumonia. Correlate for chronic foreign body. CT abdomen and pelvis suggestive of focal small bowel perforation with acute inflammatory changes, her bowels and cavity/abscess formation. Small bowel lesion at that location cannot be excluded. I did speak with who agreed to admit patient to the services. He requested I consult Dr. Jeninngs's group and keep patient nothing by mouth. He did request outpatient Xarelto until he sees patient tomorrow. I did place patient on IV Zosyn along with obtaining blood cultures. Discussed findings with patient who agreed to stay in the hospital for further workup, evaluation and treatment. Discussed case with my attending, . - Lab Data Result diagrams: 10/09/21 12:26 10/09/21 12:26 Lab Results 10/09/21 10/09/21 10/09/21 Range/Units 12:26 12:26 12:26 WBC 15.0 H (3.8-10.6) k/uL RBC 4.07 L (4.30-5.90) m/uL Hgb 12.6 L (13.0-17.5) gm/dL Hct 38.0 L (39.0-53.0) % MCV 93.3 (80.0-100.0) fL MCH 30.9 (25.0-35.0) pg MCHC 33.1 (31.0-37.0) g/dL RDW 13.1 (11.5-15.5) % Plt Count 299 (150-450) k/uL MPV 7.6 Neutrophils % 90 % Lymphocytes % 5 % Monocytes % 3 % Eosinophils % 1 % Basophils % 0 % Neutrophils # 13.5 H (1.3-7.7) k/uL Lymphocytes # 0.7 L (1.0-4.8) k/uL Monocytes # 0.4 (0-1.0) k/uL Eosinophils # 0.1 (0-0.7) k/uL Basophils # 0.0 (0-0.2) k/uL PT 16.5 H (9.0-12.0) sec INR 1.6 H (<1.2) APTT 32.7 H (22.0-30.0) sec Sodium 135 L (137-145) mmol/L Potassium 4.5 (3.5-5.1) mmol/L Chloride 99 (98-107) mmol/L Carbon Dioxide 29 (22-30) mmol/L Anion Gap 7 mmol/L BUN 27 H (9-20) mg/dL Creatinine 1.40 H (0.66-1.25) mg/dL Est GFR (CKD-EPI)AfAm 57 (>60 ml/min/1.73 sqM) Est GFR (CKD-EPI)NonAf 49 (>60 ml/min/1.73 sqM) Glucose 136 H (74-99) mg/dL Plasma Lactic Acid Bhaskar (0.7-2.0) mmol/L Calcium 8.5 (8.4-10.2) mg/dL Total Bilirubin 1.5 H (0.2-1.3) mg/dL AST 27 (17-59) U/L ALT 16 (4-49) U/L Alkaline Phosphatase 54 (38-126) U/L Total Protein 6.8 (6.3-8.2) g/dL Albumin 3.7 (3.5-5.0) g/dL Lipase 36 (23-300) U/L Urine Color Urine Appearance (Clear) Urine pH (5.0-8.0) Ur Specific [place] (1.001-1.035) Urine Protein (Negative) Urine Glucose (UA) (Negative) Urine Ketones (Negative) Urine Blood (Negative) Urine Nitrite (Negative) Urine Bilirubin (Negative) Urine Urobilinogen (<2.0) mg/dL Ur Leukocyte Esterase (Negative) Urine RBC (0-5) /hpf Urine WBC (0-5) /hpf Ur Squamous Epith Cells (0-4) /hpf Hyaline Casts (0-2) /lpf Urine Mucus (None) /hpf 10/09/21 10/09/21 Range/Units 12:26 13:48 WBC (3.8-10.6) k/uL RBC (4.30-5.90) m/uL Hgb (13.0-17.5) gm/dL Hct (39.0-53.0) % MCV (80.0-100.0) fL MCH (25.0-35.0) pg MCHC (31.0-37.0) g/dL RDW (11.5-15.5) % Plt Count (150-450) k/uL MPV Neutrophils % % Lymphocytes % % Monocytes % % Eosinophils % % Basophils % % Neutrophils # (1.3-7.7) k/uL Lymphocytes # (1.0-4.8) k/uL Monocytes # (0-1.0) k/uL Eosinophils # (0-0.7) k/uL Basophils # (0-0.2) k/uL PT (9.0-12.0) sec INR (<1.2) APTT (22.0-30.0) sec Sodium (137-145) mmol/L Potassium (3.5-5.1) mmol/L Chloride (98-107) mmol/L Carbon Dioxide (22-30) mmol/L Anion Gap mmol/L BUN (9-20) mg/dL Creatinine (0.66-1.25) mg/dL Est GFR (CKD-EPI)AfAm (>60 ml/min/1.73 sqM) Est GFR (CKD-EPI)NonAf (>60 ml/min/1.73 sqM) Glucose (74-99) mg/dL Plasma Lactic Acid Bhaskar 1.6 (0.7-2.0) mmol/L Calcium (8.4-10.2) mg/dL Total Bilirubin (0.2-1.3) mg/dL AST (17-59) U/L ALT (4-49) U/L Alkaline Phosphatase (38-126) U/L Total Protein (6.3-8.2) g/dL Albumin (3.5-5.0) g/dL Lipase (23-300) U/L Urine Color Yellow Urine Appearance Cloudy (Clear) Urine pH 5.5 (5.0-8.0) Ur Specific [place] 1.021 (1.001-1.035) Urine Protein 1+ H (Negative) Urine Glucose (UA) Negative (Negative) Urine Ketones Negative (Negative) Urine Blood Negative (Negative) Urine Nitrite Negative (Negative) Urine Bilirubin Negative (Negative) Urine Urobilinogen 2.0 (<2.0) mg/dL Ur Leukocyte Esterase Negative (Negative) Urine RBC 3 (0-5) /hpf Urine WBC 17 H (0-5) /hpf Ur Squamous Epith Cells 1 (0-4) /hpf Hyaline Casts 53 H (0-2) /lpf Urine Mucus Many H (None) /hpf Disposition Clinical Impression: Leukocytosis, Abdominal pain, Small bowel perforation, Bilateral atelectasis Disposition: ADMITTED IP TO THIS HOSP Condition: Serious
[2021-10-09 12:37] LABS: Basophils % (A) 0 %; Eosinophils # (A) 0.1 k/uL (0-0.7); Eosinophils % (A) 1 %; HGB 12.6 gm/dL (13.0-17.5); Lymphocytes # (A) 0.7 k/uL (1.0-4.8); Lymphocytes % (A) 5 %; MCH 30.9 pg (25.0-35.0); MCHC 33.1 g/dL (31.0-37.0); MCV 93.3 fL (80.0-100.0); Mean Platelet Volume 7.6; Monocytes # (A) 0.4 k/uL (0-1.0); Monocytes % (A) 3 %; Neutrophils # (A) 13.5 k/uL (1.3-7.7); Neutrophils % (A) 90 %; Platelet Count 299 k/uL (150-450); RBC 4.07 m/uL (4.30-5.90); RDW 13.1 % (11.5-15.5)
[2021-10-09 12:50] LABS: INR 1.6 (<1.2); Partial Thromboplastin Time 32.7 sec (22.0-30.0); Prothrombin Time 16.5 sec (9.0-12.0)
[2021-10-09 12:56] LABS: Albumin 3.7 g/dL (3.5-5.0); Calcium 8.5 mg/dL (8.4-10.2); Potassium 4.5 mmol/L (3.5-5.1); Total Bilirubin 1.5 mg/dL (0.2-1.3); Total Protein 6.8 g/dL (6.3-8.2)
--- NOTE | 2021-10-09 14:08 | XR ---
EXAMINATION TYPE: XR chest 2V DATE OF EXAM: 10/09/2021 COMPARISON: 09/05/2021 TECHNIQUE: PA and lateral views submitted. HISTORY: Pain FINDINGS: Elevated right hemidiaphragm with bilateral areas of subsegmental lesion. Atherosclerotic change aort a. Arthropathy of the shoulders. Foreign body metallic densities overlying the shoulder. No overt ian lure. Degenerative changes spine. IMPRESSION: 1. Bilateral areas of atelectasis favored over pneumonia correlate clinically. 2. Correlate for chronic foreign body.
[2021-10-09 14:17] LABS: Appearance,Urine Cloudy (Clear); Bilirubin,Urine Negative (Negative); Blood,Urine Negative (Negative); Color,Urine Yellow; Glucose,Urine (UA) Negative (Negative); Hyaline Casts,Urine 53 /lpf (0-2); Ketones,Urine Negative (Negative); Leukocyte Esterase,Urine Negative (Negative); Mucus,Urine Many /hpf; Nitrite,Urine Negative (Negative); PH, Urine 5.5 (5.0-8.0); Protein,Urine 1+ (Negative); RBC,Urine 3 /hpf (0-5); Specific Gravity,Urine 1.021 (1.001-1.035); Squamous Epithelial Cell,Urine 1 /hpf (0-4); WBC,Urine 17 /hpf (0-5)
--- NOTE | 2021-10-09 14:26 | CT ---
EXAMINATION TYPE: CT abdomen pelvis wo con DATE OF EXAM: 10/09/2021 COMPARISON: CT dated 02/08/2020 HISTORY: Abdominal pain CT DLP: 1120.7 mGycm Automated exposure control for dose reduction was used. TECHNIQUE: Helical acquisition of images was performed from the lung bases through the pelvis. No IV contrast administration. FINDINGS: LUNG BASES: Right basal pulmonary subsegmental atelectasis with air bronchograms within, possibly chr onic however acute infection cannot be excluded, please correlate clinically. Coronary arterial calci fications. LIVER/GB: Previous cholecystectomy. No definite hepatic focal lesion. PANCREAS: No significant abnormality is seen. SPLEEN: No significant abnormality is seen. ADRENALS: No significant abnormality is seen. KIDNEYS: Tiny millimetric arterial calcifications versus calculi seen in both kidneys. No hydroureter or hydronephrosis. Slightly irregular outline of the right kidney. Questionable right renal cyst wit hout gross suspicious feature, suboptimally assessed by this nonenhanced CT scan. RETROPERITONEAL ADENOPATHY: None visualized REPRODUCTIVE ORGANS: Slightly prominent prostate, unremarkable seminal vesicles. URINARY BLADDER: Nondistended. PELVIC ADENOPATHY: None visualized. OSSEOUS STRUCTURES: Degenerative changes of the lower lumbar spine. BOWEL: Unremarkable nondistended stomach and duodenum. Significant fat stranding is seen in the left side of the abdomen with adjacent small bowel thickening and apparent cavity containing debris and g as. The cavity measures 3.7 x 2.8 cm and is apparently inseparable from adjacent small bowel loop. [place] rrounding reactive fluid and air bubbles also noted. This is suggestive of perforated small bowel at that location. Adjacent mild small bowel dilatation measuring up to 3.8 cm. No evidence of high-grade small bowel bowel obstruction or pneumatosis. No portal venous gas. Grossly unremarkable remainder o f the small bowel. Scattered uncomplicated colonic diverticulosis. Normal appendix. OTHER: Arterial atherosclerotic calcifications. No sizable ascites. Bilateral fat-containing inguinal hernias. Small fat-containing umbilical hernia. IMPRESSION: THE ABOVE-DESCRIBED FINDINGS IN THE LEFT SIDE OF THE ABDOMEN ARE HIGHLY SUGGESTIVE OF FOCAL SMALL BOW EL PERFORATION WITH SURROUNDING ACUTE INFLAMMATORY CHANGES, AIR BUBBLES AND CAVITY/ABSCESS FORMATION. THE UNDERLYING ETIOLOGY IS NOT CLEAR AND COULD BE RELATED TO ACUTE INFLAMMATORY/INFECTIOUS PROCESS, ADHESION, PERFORATED SMALL BOWEL DIVERTICULITIS OR BOWEL ISCHEMIA. UNDERLYING SMALL BOWEL LESION AT T HAT LOCATION CAN'T BE EXCLUDED. UNREMARKABLE REMAINDER OF THE SMALL BOWEL. NO PNEUMATOSIS OR PORTAL VENOUS GAS. RECOMMEND CLINICAL CO RRELATION AND URGENT SURGICAL CONSULTATION. OTHER FINDINGS DESCRIBED ABOVE.
[2021-10-09] MEDS ORDERED: PIPERACILLIN-TAZOBACTAM 3.375 GM in SODIUM CHLORIDE 0.9% 100 ML IVPB STA (15:03)
[2021-10-09] MEDS ORDERED: NALOXONE 0.4 MG/ML 1 ML VIAL IV PRN (15:49)
[2021-10-09] MEDS ORDERED: ACETAMINOPHEN IV (For NPO) 1,000 MG in EMPTY BAG 1 BAG IVPB PRN (16:41)
--- NOTE | 2021-10-09 16:49 | P.CONS ---
History of Present Illness - Reason for Consult Acute renal failure, atrial fibrillation - History of Present Illness 76-year-old male came in with complaints of bilateral lower abdominal pain sharp in nature nonradiating associated with the nausea vomiting low-grade fevers patient is found to have leukocytosis as well as patient's symptoms started on Friday. Patient is found to have significant diverticulitis with some microperforations which were contained. Patient is admitted to general surgery service and patient is being monitored on IV antibiotics at this time. Patient is presently on Zosyn. Patient pain is moderate severity. some abdomen is distended and tympanic. Patient denied any history of constipation does have history of atrial fibrillation for which patient is on anticoagulation REVIEW OF SYSTEMS: CONSTITUTIONAL: No fever, no malaise, no fatigue. HEENT: No recent visual problems or hearing problems. Denied any sore throat. CARDIOVASCULAR: No chest pain, orthopnea, PND, no palpitations, no syncope. PULMONARY: No shortness of breath, no cough, no hemoptysis. GASTROINTESTINAL: No diarrhea. NEUROLOGICAL: No headaches, no weakness, no numbness. HEMATOLOGICAL: Denies any bleeding or petechiae. GENITOURINARY: Denies any burning micturition, frequency, or urgency. MUSCULOSKELETAL/RHEUMATOLOGICAL: Denies any joint pain, swelling, or any muscle pain. ENDOCRINE: Denies any polyuria or polydipsia. The rest of the 14-point review of systems is negative. PHYSICAL EXAMINATION: GENERAL: The patient is alert and oriented x3, not in any acute distress. Well developed, well nourished. HEENT: Pupils are round and equally reacting to light. EOMI. No scleral icterus. No conjunctival pallor. Normocephalic, atraumatic. No pharyngeal erythema. No thyromegaly. CARDIOVASCULAR: S1 and S2 present. No murmurs, rubs, or gallops. PULMONARY: Chest is clear to auscultation, no wheezing or crackles. ABDOMEN: Abdomen is distended tympanic mild tenderness and bilateral lower abdominal quadrants MUSCULOSKELETAL: No joint swelling or deformity. EXTREMITIES: No cyanosis, clubbing, or pedal edema. NEUROLOGICAL: Gross neurological examination did not reveal any focal deficits. SKIN: No rashes. Assessment and plan -Diverticulitis with microperforations and contained abscesses: Patient will be continued on antibiotics neurosurgery is following the patient is need for surgical intervention. Patient required IV fluids at 70 mL per hour -Acute renal failure and azotemia possibility of acute shoulder necrosis will continue with IV fluids as mentioned above. Patient baseline creatinine is around 0.9 present creatinine is around 1.4 -Sepsis secondary to diverticulitis -Proximal atrial fibrillation presently rate controlled patient's anticoagulation is on hold because of possibility of surgical intervention. Continue with amiodarone -Hypertension -Benign prostatic hypertrophy for which patient is on Zosyn which will be continued DVT prophylaxis: Patient to have does have partial coagulopathy with elevated INR of 1.6 secondary to anticoagulation with Xarelto. But this anticoagulation is being held for possibility of surgery. Past Medical History Past Medical History: Atrial Fibrillation, Cancer, Hypertension Additional Past Medical History / Comment(s): SKIN CANCER History of Any Multi-Drug Resistant Organisms: None Reported Past Surgical History: Cholecystectomy Additional Past Surgical History / Comment(s): shrapnel from war Past Anesthesia/Blood Transfusion Reactions: No Reported Reaction Past Psychological History: No Psychological Hx Reported Smoking Status: Former smoker Past Alcohol Use History: None Reported Past Drug Use History: None Reported - Past Family History Mother Family Medical History: Cancer Medications and Allergies Home Medications Medication Instructions Recorded Confirmed Type Losartan Potassium [Cozaar] 100 mg PO DAILY 02/03/15 09/05/21 History Terazosin HCl [Hytrin] 10 mg PO HS@199902/03/15 09/05/21 History Rivaroxaban [Xarelto] 20 mg PO HS@199911/24/15 09/05/21 History Fluticasone Nasal [place] [Flonase 1 spray EA NOSTRIL BID 07/27/18 09/05/21 History Nasal [place]] Albuterol Sulfate [Albuterol 2 puff PO RT-Q6H PRN 03/06/21 09/05/21 History Sulfate Hfa] Amiodarone [Cordarone] 100 mg PO DAILY 03/06/21 09/05/21 History Cyanocobalamin [Vitamin B-12] 500 mcg PO DAILY 03/06/21 09/05/21 History Hydrochlorothiazide 12.5 mg PO DAILY@1130 10/09/21 10/09/21 History [hydroCHLOROthiazide] Metoprolol Succinate (ER) [Toprol 100 mg PO DAILY 10/09/21 10/09/21 History XL] Allergies Allergy/AdvReac Type Severity Reaction Status Date / Time lisinopril Allergy Unknown Verified 10/09/21 16:34 Physical Exam Vitals: Vital Signs Temp Pulse Resp BP Pulse Ox 10/09/21 15:07 99.8 F H 83 18 128/52 92 L 10/09/21 10:04 98.3 F 90 22 131/67 96 Intake and Output 10/09/21 10/09/21 10/09/21 06:59 14:59 22:59 Other: Weight 111.13 kg Results CBC & Chem 7: 10/09/21 12:26 10/09/21 12:26 Labs: Abnormal Lab Results - Last 24 Hours (Table) 10/09/21 10/09/21 10/09/21 Range/Units 12:26 12:26 12:26 WBC 15.0 H (3.8-10.6) k/uL RBC 4.07 L (4.30-5.90) m/uL Hgb 12.6 L (13.0-17.5) gm/dL Hct 38.0 L (39.0-53.0) % Neutrophils # 13.5 H (1.3-7.7) k/uL Lymphocytes # 0.7 L (1.0-4.8) k/uL PT 16.5 H (9.0-12.0) sec INR 1.6 H (<1.2) APTT 32.7 H (22.0-30.0) sec Sodium 135 L (137-145) mmol/L BUN 27 H (9-20) mg/dL Creatinine 1.40 H (0.66-1.25) mg/dL Glucose 136 H (74-99) mg/dL Total Bilirubin 1.5 H (0.2-1.3) mg/dL Urine Protein (Negative) Urine WBC (0-5) /hpf Hyaline Casts (0-2) /lpf Urine Mucus (None) /hpf 10/09/21 Range/Units 13:48 WBC (3.8-10.6) k/uL RBC (4.30-5.90) m/uL Hgb (13.0-17.5) gm/dL Hct (39.0-53.0) % Neutrophils # (1.3-7.7) k/uL Lymphocytes # (1.0-4.8) k/uL PT (9.0-12.0) sec INR (<1.2) APTT (22.0-30.0) sec Sodium (137-145) mmol/L BUN (9-20) mg/dL Creatinine (0.66-1.25) mg/dL Glucose (74-99) mg/dL Total Bilirubin (0.2-1.3) mg/dL Urine Protein 1+ H (Negative) Urine WBC 17 H (0-5) /hpf Hyaline Casts 53 H (0-2) /lpf Urine Mucus Many H (None) /hpf
[2021-10-09] MEDS: MORPHINE SULFATE 4 MG/ML SYRINGE IV PRN ×2 (18:40→22:57)
--- NOTE | 2021-10-09 20:02 | P.GSHP ---
History of Present Illness H&P Date: 10/09/21 Chief Complaint: Left lower quadrant pain This is a 76-year-old male who has a 48 hour history of abdominal pain. Patient states he is mainly pain in the left lower quadrant. The pain worsened. Patient presents to return. He was worked up and on his CAT scan in the interim he is suspicious for a small contained bowel perforation is unclear if this coming from the small bowel or from the colon. Patient is onxarlto. He lasted is took xaralto yesterday Past Medical History Past Medical History: Atrial Fibrillation, Cancer, Hypertension Additional Past Medical History / Comment(s): SKIN CANCER History of Any Multi-Drug Resistant Organisms: None Reported Past Surgical History: Cholecystectomy Additional Past Surgical History / Comment(s): shrapnel from war Past Anesthesia/Blood Transfusion Reactions: No Reported Reaction Past Psychological History: No Psychological Hx Reported Smoking Status: Former smoker Past Alcohol Use History: None Reported Past Drug Use History: None Reported - Past Family History Mother Family Medical History: Cancer Medications and Allergies Home Medications Medication Instructions Recorded Confirmed Type Losartan Potassium [Cozaar] 100 mg PO DAILY@1500 02/03/15 10/09/21 History Terazosin HCl [Hytrin] 10 mg PO DAILY@1500 02/03/15 10/09/21 History Rivaroxaban [Xarelto] 20 mg PO HS@199911/24/15 10/09/21 History Fluticasone Nasal [place] [Flonase 1 spray EA NOSTRIL BID 07/27/18 10/09/21 History Nasal [place]] Albuterol Sulfate [Albuterol 2 puff PO RT-Q6H PRN 03/06/21 10/09/21 History Sulfate Hfa] Amiodarone [Cordarone] 100 mg PO DAILY 03/06/21 10/09/21 History Cyanocobalamin [Vitamin B-12] 500 mcg PO DAILY 03/06/21 10/09/21 History Hydrochlorothiazide 12.5 mg PO DAILY@1130 10/09/21 10/09/21 History [hydroCHLOROthiazide] Metoprolol Succinate (ER) [Toprol 100 mg PO DAILY 10/09/21 10/09/21 History XL] Allergies Allergy/AdvReac Type Severity Reaction Status Date / Time lisinopril Allergy Unknown Verified 10/09/21 16:34 Surgical - Exam Vital Signs Temp Pulse Resp BP Pulse Ox 98.3 F 90 22 131/67 96 10/09/21 10:04 10/09/21 10:04 10/09/21 10:04 10/09/21 10:04 10/09/21 10:04 - General well developed, no distress - Eyes PERRL - ENT normal pinna - Neck no masses - Respiratory normal expansion - Cardiovascular Rhythm: regular - Abdomen Abdomen soft, obese. There is tenderness left lower quadrant. There is no rebound or guarding. Abdomen: soft Results - Labs 10/09/21 12:26 10/09/21 12:26 Abnormal Lab Results - Last 24 Hours (Table) 10/09/21 10/09/21 10/09/21 Range/Units 12:26 12:26 12:26 WBC 15.0 H (3.8-10.6) k/uL RBC 4.07 L (4.30-5.90) m/uL Hgb 12.6 L (13.0-17.5) gm/dL Hct 38.0 L (39.0-53.0) % Neutrophils # 13.5 H (1.3-7.7) k/uL Lymphocytes # 0.7 L (1.0-4.8) k/uL PT 16.5 H (9.0-12.0) sec INR 1.6 H (<1.2) APTT 32.7 H (22.0-30.0) sec Sodium 135 L (137-145) mmol/L BUN 27 H (9-20) mg/dL Creatinine 1.40 H (0.66-1.25) mg/dL Glucose 136 H (74-99) mg/dL Total Bilirubin 1.5 H (0.2-1.3) mg/dL Urine Protein (Negative) Urine WBC (0-5) /hpf Hyaline Casts (0-2) /lpf Urine Mucus (None) /hpf 10/09/21 Range/Units 13:48 WBC (3.8-10.6) k/uL RBC (4.30-5.90) m/uL Hgb (13.0-17.5) gm/dL Hct (39.0-53.0) % Neutrophils # (1.3-7.7) k/uL Lymphocytes # (1.0-4.8) k/uL PT (9.0-12.0) sec INR (<1.2) APTT (22.0-30.0) sec Sodium (137-145) mmol/L BUN (9-20) mg/dL Creatinine (0.66-1.25) mg/dL Glucose (74-99) mg/dL Total Bilirubin (0.2-1.3) mg/dL Urine Protein 1+ H (Negative) Urine WBC 17 H (0-5) /hpf Hyaline Casts 53 H (0-2) /lpf Urine Mucus Many H (None) /hpf Microbiology - Last 24 Hours (Table) 10/09/21 13:48 Urine Culture - Preliminary Urine,Voided Diabetes panel 10/09/21 Range/Units 12:26 Sodium 135 L (137-145) mmol/L Potassium 4.5 (3.5-5.1) mmol/L Chloride 99 (98-107) mmol/L Carbon Dioxide 29 (22-30) mmol/L BUN 27 H (9-20) mg/dL Creatinine 1.40 H (0.66-1.25) mg/dL Glucose 136 H (74-99) mg/dL Calcium 8.5 (8.4-10.2) mg/dL AST 27 (17-59) U/L ALT 16 (4-49) U/L Alkaline Phosphatase 54 (38-126) U/L Total Protein 6.8 (6.3-8.2) g/dL Albumin 3.7 (3.5-5.0) g/dL Calcium panel 10/09/21 Range/Units 12:26 Calcium 8.5 (8.4-10.2) mg/dL Albumin 3.7 (3.5-5.0) g/dL Pituitary panel 10/09/21 Range/Units 12:26 Sodium 135 L (137-145) mmol/L Potassium 4.5 (3.5-5.1) mmol/L Chloride 99 (98-107) mmol/L Carbon Dioxide 29 (22-30) mmol/L BUN 27 H (9-20) mg/dL Creatinine 1.40 H (0.66-1.25) mg/dL Glucose 136 H (74-99) mg/dL Calcium 8.5 (8.4-10.2) mg/dL Adrenal panel 10/09/21 Range/Units 12:26 Sodium 135 L (137-145) mmol/L Potassium 4.5 (3.5-5.1) mmol/L Chloride 99 (98-107) mmol/L Carbon Dioxide 29 (22-30) mmol/L BUN 27 H (9-20) mg/dL Creatinine 1.40 H (0.66-1.25) mg/dL Glucose 136 H (74-99) mg/dL Calcium 8.5 (8.4-10.2) mg/dL Total Bilirubin 1.5 H (0.2-1.3) mg/dL AST 27 (17-59) U/L ALT 16 (4-49) U/L Alkaline Phosphatase 54 (38-126) U/L Total Protein 6.8 (6.3-8.2) g/dL Albumin 3.7 (3.5-5.0) g/dL Assessment and Plan Assessment: Left lower quadrant abdominal pain. Sepsis Patient most likely has diverticular disease with microperforation. Patient will be observed carefully. If he shows any worsening signs undergo exploratory laparotomy tomorrow. Given the recent using xaralto was he is high risk for bleeding with surgical intervention today.
[2021-10-09] MEDS: SODIUM CHLORIDE 0.9% 1,000 ML IV SCH (23:03)
[2021-10-10] MEDS: PIPERACILLIN-TAZOBACTAM 3.375 GM in SODIUM CHLORIDE 0.9% 100 ML IVPB SCH ×4 (00:29→22:59)
[2021-10-10] MEDS: MORPHINE SULFATE 4 MG/ML SYRINGE IV PRN ×4 (03:54→22:58)
[2021-10-10 04:42] LABS: ALT 16 U/L (4-49); AST 23 U/L (17-59); African American GFR (CKD) 60 (>60 ml/min/1.73 sqM); Albumin 3.4 g/dL (3.5-5.0); Albumin/Globulin Ratio 1.2; Alkaline Phosphatase 60 U/L (38-126); Anion Gap 6 mmol/L; Blood Urea Nitrogen 31 mg/dL (9-20); Calcium 8.4 mg/dL (8.4-10.2); Carbon Dioxide 27 mmol/L (22-30); Chloride 101 mmol/L (98-107); Globulin 2.9 g/dL; Glucose 140 mg/dL (74-99); Magnesium 2.2 mg/dL (1.6-2.3); Non-African American GFR(CKD) 52 (>60 ml/min/1.73 sqM); Potassium 3.9 mmol/L (3.5-5.1); Sodium 134 mmol/L (137-145); Total Bilirubin 1.6 mg/dL (0.2-1.3); Total Protein 6.3 g/dL (6.3-8.2)
[2021-10-10] MEDS ORDERED: LIDOCAINE 1% (10MG/ML) FOR IV START INTRADERMA PRN (06:20)
[2021-10-10] MEDS ORDERED: DEXAMETHASONE SOD PHOSPHATE 4 MG/ML 1 ML VIAL IV ONE (06:20)
[2021-10-10] MEDS ORDERED: ONDANSETRON 4 MG/2 ML VIAL IVP ONE ×2 (06:20→14:57)
[2021-10-10] MEDS: SODIUM CHLORIDE 0.9% 1,000 ML IV SCH ×2 (06:36→13:56)
[2021-10-10] MEDS: METOPROLOL SUCCINATE (ER) 100 MG TAB.ER.24H PO SCH (07:06)
[2021-10-10] MEDS: LACTATED RINGERS 1,000 ML IV SCH ×4 (07:37→15:56)
[2021-10-10] MEDS: AMIODARONE 100 MG TAB PO SCH (08:19)
[2021-10-10 09:41] LABS: Basophils # (A) 0.03 X 10*3/uL (0.00-0.10); Basophils % (A) 0.2 %; Eosinophils # (A) 0.03 X 10*3/uL (0.04-0.35); Eosinophils % (A) 0.2 %; HCT 38.6 % (39.6-50.0); HGB 11.9 g/dL (13.0-17.0); Immature Grans, Automated 0.5 %; Lymphocytes # (A) 0.76 X 10*3/uL (0.90-5.00); Lymphocytes % (A) 4.5 %; MCH 29.5 pg (27.0-32.0); MCHC 30.8 g/dL (32.0-37.0); MCV 95.8 fL (80.0-97.0); Mean Platelet Volume 11.1 fL (9.5-12.2); Monocytes # (A) 1.06 X 10*3/uL (0.20-1.00); Monocytes % (A) 6.3 %; NRBC Per 100 WBC 0 /100 WBCS (0.0-0.0); Neutrophils # (A) 14.87 X 10*3/uL (1.80-7.70); Neutrophils % (A) 88.3 %; Platelet Count 315 X 10*3/uL (140-440); RBC 4.03 X 10*6/uL (4.40-5.60); RDW 12.9 % (11.5-14.5); WBC 16.84 X 10*3/uL (4.50-10.00)
[2021-10-10 10:37] LABS: INR 1.21 (0.90-1.11); Prothrombin Time 13.5 sec (9.9-11.9)
--- NOTE | 2021-10-10 12:27 | P.PN ---
Subjective Progress Note Date: 10/10/21 CHIEF COMPLAINT: Left lower quadrant abdominal pain HISTORY OF PRESENT ILLNESS: Surgical service following in regards to patient's abdominal pain. Likely due to a diverticular disease with microperforation. Patient is tachycardic. Evidence of A. fib with RVR. He had not received his amiodarone and metoprolol at her scheduled time. He was able to receive a dose of both medications this morning. Cardiology is now on consult. Patient still complains of left lower quadrant abdominal pain especially with movement. He reports his pain currently at 3 out of 10 as long as he doesn't move. Yesterday his pain was a 10 out of 10. Patient has had low-grade temp 99 heart rate of 123. WBC has gone up from 15-16.8 for hemoglobin 11.9 sodium 134 creatinine 1.34 PHYSICAL EXAM: VITAL SIGNS: Reviewed. GENERAL: Well-developed in no acute distress. HEENT: No sclera icterus. Extraocular movements grossly intact. Moist buccal mucosa. Head is atraumatic, normocephalic. ABDOMEN: Soft. Nondistended. Tenderness to palpation left lower quadrant NEUROLOGIC: Alert and oriented. Cranial nerves II through XII grossly intact. ASSESSMENT: 1. Left lower quadrant abdominal pain likely due to diverticular disease with microperforation PLAN: -Patient scheduled for exploratory laparotomy today with Dr. upton -Keep patient nothing by mouth -Continue IV fluids -Patient was given IV fluid bolus -Continue antibiotics Physician Fire Code Inspector note has been reviewed by physician. Signing provider agrees with the documented findings, assessment, and plan of care. Objective - Vital Signs Vital signs: Vital Signs Temp 98.4 F 10/10/21 06:41 Pulse 126 H 10/10/21 08:00 Resp 18 10/10/21 08:00 BP 131/94 10/10/21 08:00 Pulse Ox 97 10/10/21 08:00 Intake & Output 10/09/21 10/10/21 10/10/21 18:59 06:59 18:59 Output Total 110 80 Balance -110 -80 Weight 111.13 kg 111.13 kg Output: Urine 110 80 - Labs CBC & Chem 7: 10/10/21 04:05 10/10/21 04:05 Labs: Abnormal Lab Results - Last 24 Hours (Table) 10/09/21 10/09/21 10/09/21 Range/Units 12:26 12:26 12:26 WBC 15.0 H (3.8-10.6) k/uL RBC 4.07 L (4.30-5.90) m/uL Hgb 12.6 L (13.0-17.5) gm/dL Hct 38.0 L (39.0-53.0) % MCHC (32.0-37.0) g/dL Immature Gran # (0.00-0.04) X 10*3/uL Neutrophils # 13.5 H (1.3-7.7) k/uL Lymphocytes # 0.7 L (1.0-4.8) k/uL Monocytes # (0.20-1.00) X 10*3/uL Eosinophils # (0.04-0.35) X 10*3/uL PT 16.5 H (9.0-12.0) sec INR 1.6 H (<1.2) APTT 32.7 H (22.0-30.0) sec Sodium 135 L (137-145) mmol/L BUN 27 H (9-20) mg/dL Creatinine 1.40 H (0.66-1.25) mg/dL Glucose 136 H (74-99) mg/dL Total Bilirubin 1.5 H (0.2-1.3) mg/dL Albumin (3.5-5.0) g/dL Urine Protein (Negative) Urine WBC (0-5) /hpf Hyaline Casts (0-2) /lpf Urine Mucus (None) /hpf 10/09/21 10/10/21 10/10/21 Range/Units 13:48 04:05 04:05 WBC 16.84 H (3.8-10.6) k/uL RBC 4.03 L (4.30-5.90) m/uL Hgb 11.9 L (13.0-17.5) gm/dL Hct 38.6 L (39.0-53.0) % MCHC 30.8 L (32.0-37.0) g/dL Immature Gran # 0.09 H (0.00-0.04) X 10*3/uL Neutrophils # 14.87 H (1.3-7.7) k/uL Lymphocytes # 0.76 L (1.0-4.8) k/uL Monocytes # 1.06 H (0.20-1.00) X 10*3/uL Eosinophils # 0.03 L (0.04-0.35) X 10*3/uL PT 13.5 H (9.0-12.0) sec INR 1.21 H (<1.2) APTT (22.0-30.0) sec Sodium (137-145) mmol/L BUN (9-20) mg/dL Creatinine (0.66-1.25) mg/dL Glucose (74-99) mg/dL Total Bilirubin (0.2-1.3) mg/dL Albumin (3.5-5.0) g/dL Urine Protein 1+ H (Negative) Urine WBC 17 H (0-5) /hpf Hyaline Casts 53 H (0-2) /lpf Urine Mucus Many H (None) /hpf 10/10/21 Range/Units 04:05 WBC (3.8-10.6) k/uL RBC (4.30-5.90) m/uL Hgb (13.0-17.5) gm/dL Hct (39.0-53.0) % MCHC (32.0-37.0) g/dL Immature Gran # (0.00-0.04) X 10*3/uL Neutrophils # (1.3-7.7) k/uL Lymphocytes # (1.0-4.8) k/uL Monocytes # (0.20-1.00) X 10*3/uL Eosinophils # (0.04-0.35) X 10*3/uL PT (9.0-12.0) sec INR (<1.2) APTT (22.0-30.0) sec Sodium 134 L (137-145) mmol/L BUN 31 H (9-20) mg/dL Creatinine 1.34 H (0.66-1.25) mg/dL Glucose 140 H (74-99) mg/dL Total Bilirubin 1.6 H (0.2-1.3) mg/dL Albumin 3.4 L (3.5-5.0) g/dL Urine Protein (Negative) Urine WBC (0-5) /hpf Hyaline Casts (0-2) /lpf Urine Mucus (None) /hpf Microbiology - Last 24 Hours (Table) 10/09/21 13:48 Urine Culture - Preliminary Urine,Voided
[2021-10-10] MEDS ORDERED: DILTIAZEM DRIP BOLUS FROM BAG 1 MG SOLN IV ONE (13:09)
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
[2021-10-10] MEDS: DILTIAZEM 125 MG in SODIUM CHLORIDE 0.9% 100 ML IV SCH (14:28)
[2021-10-10] MEDS ORDERED: LACTATED RINGERS 1,000 ML IV ONE ×3 (14:44→17:36)
[2021-10-10] MEDS ORDERED: SODIUM CHLORIDE 0.9% 500 ML 500 ML IV ONE (14:45)
[2021-10-10] MEDS ORDERED: SODIUM CHLORIDE 0.9% 1,000 ML IV ONE (14:45)
[2021-10-10 14:54] LABS: Glucose,Whole Blood 124 mg/dL (75-99)
[2021-10-10] MEDS ORDERED: DEXAMETHASONE SOD PHOSPHATE 4 MG/ML 1 ML VIAL IVP ONE (14:57)
[2021-10-10] MEDS ORDERED: DOXAZOSIN 4 MG TAB PO SCH (15:00)
[2021-10-10] MEDS ORDERED: VASOPRESSIN 20 UNIT/ML 1 ML VIAL ONE (15:17)
[2021-10-10] MEDS ORDERED: ROCURONIUM 10 MG/ML (5 ML VIAL) IV ONE (15:17)
[2021-10-10] MEDS ORDERED: LIDOCAINE 1% INJ 10MG/ML (20 ML MDV) ONE (15:17)
[2021-10-10] MEDS ORDERED: GLYCOPYRROLATE 0.2 MG/ML 2 ML VIAL ONE (15:17)
[2021-10-10] MEDS ORDERED: fentaNYL (PF) 50 MCG/ML 2 ML AMP ONE (15:17)
[2021-10-10] MEDS ORDERED: PHENYLEPHRINE-0.9% NACL SYG 1,000 MCG/10 ML SYRINGE ONE (15:17)
[2021-10-10] MEDS ORDERED: SUCCINYLCHOLINE CHLORIDE 100 MG/5 ML SYR IV ONE (15:17)
[2021-10-10] MEDS ORDERED: MIDAZOLAM 2 MG/2 ML VIAL ONE (15:17)
[2021-10-10] MEDS ORDERED: NEOSTIGMINE 1 MG/ML 10 ML VIAL ONE (15:17)
[2021-10-10] MEDS ORDERED: PROPOFOL 10 MG/ML 20 ML VIAL IV ONE (15:17)
--- NOTE | 2021-10-10 15:58 | P.PN ---
Subjective Progress Note Date: 10/10/21 76-year-old male came in with complaints of bilateral lower abdominal pain sharp in nature nonradiating associated with the nausea vomiting low-grade fevers patient is found to have leukocytosis as well as patient's symptoms started on Friday. Patient is found to have significant diverticulitis with some microperforations which were contained. Patient is admitted to general surgery service and patient is being monitored on IV antibiotics at this time. Patient is presently on Zosyn. Patient pain is moderate severity. some abdomen is distended and tympanic. Patient denied any history of constipation does have history of atrial fibrillation for which patient is on anticoagulation 10/10/2021 Patient evaluated in the [facility] this morning holding for [facility]. On telemetry monitoring shows atrial fibrillation heart rate running around 120s per nurse going up to the 140s. Patient has been NPO pending laproscopic neda today, did receive his amiodarone and metoprolol, xarelto remains on hold. Cardiology was consulted for rapid ventricular rate and patient will be upgraded to 3 sac-os[facility] hospital unit. Continues on IV fluids continues on IV antibiotics. Continues with abdominal discomfort, no BM throughout the evening. Labs today show 16.84, hgb 11.9, INR 1.21 today, sodium 134, BUN 31, creat 1.34, total bili 1.6. Urinalysis negative. Patient had a low grade fever medical intern, heart rate now 129, blood pressure 108/64, 97% room air. Patient will be started on cardizem gtt. Review of Systems Constitutional: Denied any fatigue denied any fever. Cardio vascular: denied any chest pain, palpitations Gastrointestinal: denied any nausea, vomiting, diarrhea, reports mild abdominal pain Pulmonary: Denied any shortness of breath cough Neurologic denied any new focal deficits All inpatient medications were reviewed and appropriate changes in these medications as dictated in the interval history and assessment and plan. PHYSICAL EXAMINATION: GENERAL: The patient is alert and oriented x3, not in any acute distress. Well developed, well nourished. HEENT: Pupils are round and equally reacting to light. EOMI. No scleral icterus. No conjunctival pallor. Normocephalic, atraumatic. No pharyngeal erythema. No thyromegaly. CARDIOVASCULAR: S1 and S2 present. No murmurs, rubs, or gallops. PULMONARY: Chest is clear to auscultation, no wheezing or crackles. ABDOMEN: Abdomen is distended tympanic mild tenderness and bilateral lower abdominal quadrants MUSCULOSKELETAL: No joint swelling or deformity. EXTREMITIES: No cyanosis, clubbing, or pedal edema. NEUROLOGICAL: Gross neurological examination did not reveal any focal deficits. SKIN: No rashes. Assessment and plan -Diverticulitis with microperforations and contained abscesses: Patient will be continued on antibiotics, pending laproscopic cholecystectomy today -Acute renal failure and azotemia possibility of acute shoulder necrosis will continue with IV fluids as mentioned above. Patient baseline creatinine is around 0.9 present creatinine is around 1.34 -Sepsis secondary to diverticulitis -Proximal atrial fibrillation presently rapid rate, cardiology has been consulted for management, patient on amiodarone and toprol at home -Hypertension -Benign prostatic hypertrophy for which patient is on Zosyn which will be contin ued DVT prophylaxis: Patient to have does have partial coagulopathy with elevated INR of 1.6 secondary to anticoagulation with Xarelto, which is on hold for surgery GI prophylaxis Full code The impression and plan of care has been dictated by Monisha Henley, Nurse Practitioner as directed. Dr. Olga MD I have performed a history and physical examination and medical decision making of this patient, discussed the same with the dictator, and agree with the dictators assessment and plan as written, documented as a scribe. Based on total visit time, I have performed more than 50% of this visit. Objective - Vital Signs Vital signs: Vital Signs Temp 98.4 F 10/10/21 06:41 Pulse 126 H 10/10/21 08:00 Resp 18 10/10/21 08:00 BP 131/94 10/10/21 08:00 Pulse Ox 97 10/10/21 08:00 Intake & Output 10/09/21 10/10/21 10/10/21 18:59 06:59 18:59 Output Total 110 80 Balance -110 -80 Weight 111.13 kg Output: Urine 110 80 - Labs CBC & Chem 7: 10/10/21 04:05 10/10/21 04:05 Labs: Abnormal Lab Results - Last 24 Hours (Table) 10/09/21 10/09/21 10/09/21 Range/Units 12:26 12:26 12:26 WBC 15.0 H (3.8-10.6) k/uL RBC 4.07 L (4.30-5.90) m/uL Hgb 12.6 L (13.0-17.5) gm/dL Hct 38.0 L (39.0-53.0) % Neutrophils # 13.5 H (1.3-7.7) k/uL Lymphocytes # 0.7 L (1.0-4.8) k/uL PT 16.5 H (9.0-12.0) sec INR 1.6 H (<1.2) APTT 32.7 H (22.0-30.0) sec Sodium 135 L (137-145) mmol/L BUN 27 H (9-20) mg/dL Creatinine 1.40 H (0.66-1.25) mg/dL Glucose 136 H (74-99) mg/dL Total Bilirubin 1.5 H (0.2-1.3) mg/dL Albumin (3.5-5.0) g/dL Urine Protein (Negative) Urine WBC (0-5) /hpf Hyaline Casts (0-2) /lpf Urine Mucus (None) /hpf 10/09/21 10/10/21 Range/Units 13:48 04:05 WBC (3.8-10.6) k/uL RBC (4.30-5.90) m/uL Hgb (13.0-17.5) gm/dL Hct (39.0-53.0) % Neutrophils # (1.3-7.7) k/uL Lymphocytes # (1.0-4.8) k/uL PT (9.0-12.0) sec INR (<1.2) APTT (22.0-30.0) sec Sodium 134 L (137-145) mmol/L BUN 31 H (9-20) mg/dL Creatinine 1.34 H (0.66-1.25) mg/dL Glucose 140 H (74-99) mg/dL Total Bilirubin 1.6 H (0.2-1.3) mg/dL Albumin 3.4 L (3.5-5.0) g/dL Urine Protein 1+ H (Negative) Urine WBC 17 H (0-5) /hpf Hyaline Casts 53 H (0-2) /lpf Urine Mucus Many H (None) /hpf Microbiology - Last 24 Hours (Table) 10/09/21 13:48 Urine Culture - Preliminary Urine,Voided Assessment and Plan Time with Patient: Less than 30
--- NOTE | 2021-10-10 16:35 | P.OP ---
Date of Procedure: 10/10/21 Preoperative Diagnosis: Perforated viscus Postoperative Diagnosis: Incisional hernia Perforated jejunal diverticulum Procedure(s) Performed: Exploratory laparotomy Lysis of adhesions Small bowel resection Incisional hernia repair Anesthesia: NICHELLE Surgeon: Vladimir Emery Estimated Blood Loss (ml): 100 Pathology: other Condition: stable Disposition: PACU Description of Procedure: Patient's placed on the operative table in the supine position. He received general endotracheal anesthesia. His abdomen was prepped and draped in sterile fashion. The patient appears midline scar. The abdomen was entered through the midline. There were extensive adhesions. Approximately 20 was operative time used to lyse adhesions. The patient had a palpable density in the left mid abdomen. The omentum was peeled away from this area. And there was an abscess cavity. This was aspirated and cultured. The bowel was inflamed in the area. There appeared to be a jejunal diverticulum approximately 3 cm diameter. The diverticulum exam. There was a small perforation on the diverticulum. The transverse and left colon in the area appeared to have serosal inflammation. There is no obvious perforation of the colon. At this point the small bowel was transected proximally and distally with the SERINA stapler. And then using the LigaSure device the mesentery of the bowel was divided. A [id number] functional end-to-end staple anastomosis then created using the SERINA and TA stapl ers. 3-0 GI silk sutures using a crotch stitch. The window in the mesentery was closed using 3-0 GI silk suture. The abdomen was irrigated and then a CLAUDY drain was placed in the abscess cavity fossa. And brought out through a stab incision in the right upper quadrant. The fascia was closed with looped #1 PDS suture. The skin was closed randall. Several Telfa uri were then placed in the wound. Patient tolerated procedure well and was sent to the recovery room in stable condition.
[2021-10-11] MEDS: MORPHINE SULFATE 4 MG/ML SYRINGE IV PRN ×2 (04:11→13:43)
[2021-10-11] MEDS ORDERED: HYDROmorphone 0.5 MG/0.5 ML SYRINGE IVP PRN (07:00)
[2021-10-11 08:44] LABS: Basophils % (A) 0 %; Eosinophils % (A) 0 %; HCT 37.6 % (39.0-53.0); HGB 11.7 gm/dL (13.0-17.5); Hypochromasia Slight; Lymphocytes # (A) 0.3 k/uL (1.0-4.8); Lymphocytes % (A) 2 %; MCH 30.3 pg (25.0-35.0); MCHC 31.1 g/dL (31.0-37.0); MCV 97.5 fL (80.0-100.0); Mean Platelet Volume 8.3; Monocytes # (A) 0.6 k/uL (0-1.0); Monocytes % (A) 4 %; Neutrophils # (A) 13.8 k/uL (1.3-7.7); Neutrophils % (A) 93 %; Platelet Count 310 k/uL (150-450); RBC 3.86 m/uL (4.30-5.90); RDW 12.4 % (11.5-15.5); WBC 14.9 k/uL (3.8-10.6)
[2021-10-11] MEDS: SODIUM CHLORIDE 0.9% 1,000 ML IV SCH ×3 (09:00→18:00)
[2021-10-11] MEDS: DILTIAZEM 125 MG in SODIUM CHLORIDE 0.9% 100 ML IV SCH ×2 (09:19→15:34)
[2021-10-11] MEDS: HYDROmorphone 1 MG/ML 1 ML SYRINGE IVP PRN ×3 (09:24→21:16)
[2021-10-11] MEDS: PIPERACILLIN-TAZOBACTAM 3.375 GM in SODIUM CHLORIDE 0.9% 100 ML IVPB SCH ×3 (09:26→23:14)
[2021-10-11] MEDS: AMIODARONE 100 MG TAB PO SCH (09:51)
[2021-10-11] MEDS: LACTATED RINGERS 1,000 ML IV SCH (09:51)
[2021-10-11] MEDS: METOPROLOL SUCCINATE (ER) 100 MG TAB.ER.24H PO SCH (09:52)
[2021-10-11] MEDS ORDERED: METOPROLOL TARTRATE 5 MG/5 ML VIAL IVP SCH (10:00)
--- NOTE | 2021-10-11 11:24 | P.PN ---
Subjective Progress Note Date: 10/11/21 CHIEF COMPLAINT: Left lower quadrant abdominal pain HISTORY OF PRESENT ILLNESS: Patient is postop day #1 status post exploratory laparotomy, lysis of adhesions, small bowel resection and incisional hernia repair for perforated jejunal diverticulum and incisional hernia. Patient does complain of abdominal pain. Pain is controlled with pain medication. He did have some nausea earlier. Denies any flatus or bowel movement. NG tube with about 100 mL of bilious fluid. CLAUDY drain with 30 mL serosanguineous output. Afebrile. Tachycardic. PHYSICAL EXAM: VITAL SIGNS: Reviewed. GENERAL: Well-developed in no acute distress. HEENT: No sclera icterus. Extraocular movements grossly intact. Moist buccal mucosa. Head is atraumatic, normocephalic. ABDOMEN: Soft. Nondistended. Incision was dressing clean dry and intact NEUROLOGIC: Alert and oriented. Cranial nerves II through XII grossly intact. ASSESSMENT: 1. Left lower quadrant abdominal pain likely due to diverticular disease with microperforation PLAN: -Keep patient nothing by mouth. No oral medication at this time -Keep anticoagulation on hold -Continue NG tube for decompression -Continue pain medications -Continue antiemetics -Encouraged patient to use incentive spirometer -GI prophylaxis Pepcid and DVT Prophylaxis SCDs and lovonox SC 40mg to start tomorrow Physician Estate [employer] Tax Principal note has been reviewed by physician. Signing provider agrees with the documented findings, assessment, and plan of care. Objective - Vital Signs Vital signs: Vital Signs Temp 97.8 F 10/10/21 19:35 Pulse 111 H 10/11/21 04:10 Resp 18 10/11/21 04:10 BP 117/68 10/11/21 04:10 Pulse Ox 92 L 10/11/21 04:10 Intake & Output 10/10/21 10/11/21 10/11/21 18:59 06:59 18:59 Intake Total 3120 1370 131.833 Output Total 280 745 250 Balance 2840 625 -118.167 Weight 111.13 kg Intake: IV 3120 1370 Invasive Line 1 10 10 Invasive Line 2 10 10 Lactated Ringers 1,000 ml 1000 @ 0 mls/hr IV .K-[facility] Rx#:[id number] Piperacillin-Tazobactam 3 100 .375 gm In Sodium Chloride 0.9% 100 ml @ 25 mls/hr IVPB Q8HR FARRUKH Rx# :[id number] Sodium Chloride 0.9% 1, 250 000 ml @ 125 mls/hr IV . Q8H FARRUKH Rx#:[id number] Intake, IV Titration 131.833 Amount Diltiazem 125 mg In 131.833 Sodium Chloride 0.9% 100 ml @ 10 MG/HR 10 mls/hr IV .[id number] FARRUKH Rx#: [id number] Output: Gastric Drainage 50 Drainage 95 Abdomen 95 Urine 180 600 250 Estimated Blood Loss 100 - Labs CBC & Chem 7: 10/11/21 08:13 10/11/21 08:13 Labs: Abnormal Lab Results - Last 24 Hours (Table) 10/10/21 10/11/21 10/11/21 Range/Units 14:51 08:13 08:13 WBC 14.9 H (3.8-10.6) k/uL RBC 3.86 L (4.30-5.90) m/uL Hgb 11.7 L (13.0-17.5) gm/dL Hct 37.6 L (39.0-53.0) % Neutrophils # 13.8 H (1.3-7.7) k/uL Lymphocytes # 0.3 L (1.0-4.8) k/uL BUN 32 H (9-20) mg/dL Glucose 185 H (74-99) mg/dL POC Glucose (mg/dL) 124 H (75-99) mg/dL Calcium 8.0 L (8.4-10.2) mg/dL Microbiology - Last 24 Hours (Table) 10/10/21 16:30 Gram Stain - Preliminary Other - Other Wound Culture - Preliminary 10/10/21 16:30 Anaerobic Culture - Preliminary Other - Other 10/09/21 13:48 Urine Culture - Final Urine,Voided 10/09/21 16:34 Blood Culture - Preliminary Blood No Growth after 24 hours 10/09/21 16:15 Blood Culture - Preliminary Blood No Growth after 24 hours
--- NOTE | 2021-10-11 11:59 | P.PN ---
Subjective Progress Note Date: 10/11/21 HISTORY OF PRESENT ILLNESS: The patient is a 76-year-old male, with a history of hypertension, paroxysmal atrial fibrillation who is followed on a regular basis by Dr. Anne. He presents with acute abdominal discomfort associated with vomiting bowel and is scheduled to undergo surgery today. He was noted to be in atrial fibrillation with rapid ventricular response. The patient is unaware of the arrhythmia. He does not feel any palpitations. He denies any chest discomfort, dyspnea or dizziness. He had an echocardiogram in August that showed a normal systolic fu nction with mild mitral and tricuspid regurgitation and no evidence of pulmonary hypertension. He has no prior history of documented obstructive coronary artery disease or CHF. His coronary risk factors are positive for hypertension, he is a nonsmoker nondiabetic. His medication at home included Xarelto 20 mg daily, losartan 100 mg daily, hydrochlorothiazide 12-1/2 mg daily, metoprolol succinate 100 mg daily, amiodarone 100 mg a day 10/11/2021 Patient examined this morning at the bedside. He is status post exploratory laparotomy, lysis of adhesions, small bowel resection, and incisional hernia repair. He was found to have a perforated jejunal diverticulum. Patient remains nothing by mouth. He has an NG tube to low intermittent suction. Telemetry reveals atrial for relation with a heart rate around 130. He is currently on a Cardizem drip at 10 mg an hour. Patient did have one pause this morning of 4 seconds. PHYSICAL EXAM: VITAL SIGNS: Reviewed. GENERAL: Well-developed in no acute distress. NECK: Supple. No JVD or thyromegaly LUNGS: Respirations even and unlabored. Lungs essentially clear to auscultation bilaterally. HEART: Regular rate and rhythm. S1 and S2 heard. Systolic murmur noted. EXTREMITIES: Normal range of motion. No clubbing or cyanosis. Peripheral pulses intact. No lower extremity edema ASSESSMENT: Perforated jejunal diverticulum, status post exploratory laparotomy, lysis of adhesions, small bowel resection, and incisional hernia repair Paroxysmal atrial fibrillation with RVR Hypertension PLAN: Patient currently nothing by mouth. Continue IV Cardizem. Increase dosage to 15 mg an hour Add metoprolol 5 mg IV push every 8 hours Continue telemetry monitoring Resume home cardiac medications including Xarelto when okay with general surgery Further recommendations pending patient's course Nurse practitioner note has been reviewed by physician. Signing provider agrees with the documented findings, assessment, and plan of care. Objective - Vital Signs Vital signs: Vital Signs Temp 97.7 F 10/11/21 09:47 Pulse 134 H 10/11/21 09:47 Resp 17 10/11/21 09:47 BP 138/72 10/11/21 09:47 Pulse Ox 90 L 10/11/21 09:47 Intake & Output 10/10/21 10/11/21 10/11/21 18:59 06:59 18:59 Intake Total 3120 1370 131.833 Output Total 280 745 250 Balance 2840 625 -118.167 Weight 111.13 kg Intake: IV 3120 1370 Invasive Line 1 10 10 Invasive Line 2 10 10 Lactated Ringers 1,000 ml 1000 @ 0 mls/hr IV .K-MED [facility] Rx#:[id number] Piperacillin-Tazobactam 3 100 .375 gm In Sodium Chloride 0.9% 100 ml @ 25 mls/hr IVPB Q8HR [facility] Rx# :[id number] Sodium Chloride 0.9% 1, 250 000 ml @ 125 mls/hr IV . Q8H [facility] Rx#:[id number] Intake, IV Titration 131.833 Amount Diltiazem 125 mg In 131.833 Sodium Chloride 0.9% 100 ml @ 10 MG/HR 10 mls/hr IV .[id number] [facility] Rx#: [id number] Output: Gastric Drainage 50 Drainage 95 Abdomen 95 Urine 180 600 250 Estimated Blood Loss 100 Other: Voiding Method Toilet - Labs CBC & Chem 7: 10/11/21 08:13 10/11/21 08:13 Labs: Abnormal Lab Results - Last 24 Hours (Table) 10/10/21 10/11/21 10/11/21 Range/Units 14:51 08:13 08:13 WBC 14.9 H (3.8-10.6) k/uL RBC 3.86 L (4.30-5.90) m/uL Hgb 11.7 L (13.0-17.5) gm/dL Hct 37.6 L (39.0-53.0) % Neutrophils # 13.8 H (1.3-7.7) k/uL Lymphocytes # 0.3 L (1.0-4.8) k/uL BUN 32 H (9-20) mg/dL Glucose 185 H (74-99) mg/dL POC Glucose (mg/dL) 124 H (75-99) mg/dL Calcium 8.0 L (8.4-10.2) mg/dL Microbiology - Last 24 Hours (Table) 10/10/21 16:30 Gram Stain - Preliminary Other - Other Wound Culture - Preliminary 10/10/21 16:30 Anaerobic Culture - Preliminary Other - Other 10/09/21 13:48 Urine Culture - Final Urine,Voided 10/09/21 16:34 Blood Culture - Preliminary Blood No Growth after 24 hours 10/09/21 16:15 Blood Culture - Preliminary Blood No Growth after 24 hours
--- NOTE | 2021-10-11 12:08 | P.PN ---
Subjective Progress Note Date: 10/11/21 76-year-old male came in with complaints of bilateral lower abdominal pain sharp in nature nonradiating associated with the nausea vomiting low-grade fevers patient is found to have leukocytosis as well as patient's symptoms started on Friday. Patient is found to have significant diverticulitis with some microperforations which were contained. Patient is admitted to general surgery service and patient is being monitored on IV antibiotics at this time. Patient is presently on Zosyn. Patient pain is moderate severity. some abdomen is distended and tympanic. Patient denied any history of constipation does have history of atrial fibrillation for which patient is on anticoagulation 10/10/2021 Patient evaluated in the [facility] this morning holding for [facility]. On telemetry monitoring shows atrial fibrillation heart rate running around 120s per nurse going up to the 140s. Patient has been NPO pending laproscopic neda today, did receive his amiodarone and metoprolol, xarelto remains on hold. Cardiology was consulted for rapid ventricular rate and patient will be upgraded to 3 [facility] unit. Continues on IV fluids continues on IV antibiotics. Continues with abdominal discomfort, no BM throughout the evening. Labs today show 16.84, hgb 11.9, INR 1.21 today, sodium 134, BUN 31, creat 1.34, total bili 1.6. Urinalysis negative. 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 Patient will be started on cardizem gtt. 10/11/2021 Patient evaluated today POD #1 exploratory lap with lysis of adhesions, small bowel resection, and incisional hernia repair with perforated diverticulum. Patient also had abscess that is being cultured with placement of CLAUDY drain. Abdominal dressings intact. Hypoactive bowel sounds, denies passing gas, no BM y et. Denies shortness of breath today. Patient still in Afib RVR which he is on cardizem gtt. Per primary no oral medications no anticoagulation yet. Continue patient with SCD's and prophylaxis as per primary. Cardiology is on consult for the rapid heart rate. Patient also with NG Tube in place, about 100 mL's of dark bilious fluid output noted. WBC today 14.9, hgb 11.7, sodium 138, potassium 4.0, BUN 32, creat 1.04, blood glucose in the 120s. Remains afebrile, blood pressure 130/72, 90% on 3 L his cannula. Encourage incentive spirometry. Review of Systems Constitutional: Denied any fatigue denied any fever. Cardio vascular: denied any chest pain, palpitations Gastrointestinal: denied any nausea, vomiting, diarrhea, reports LLQ abdominal pain, no gas, no BM Pulmonary: Denied any shortness of breath cough Neurologic denied any new focal deficits All inpatient medications were reviewed and appropriate changes in these medications as dictated in the interval history and assessment and plan. PHYSICAL EXAMINATION: GENERAL: The patient is alert and oriented x3, not in any acute distress. Well developed, well nourished. HEENT: Pupils are round and equally reacting to light. EOMI. No scleral icterus. No conjunctival pallor. Normocephalic, atraumatic. No pharyngeal erythema. No th yromegaly. CARDIOVASCULAR: S1 and S2 present. No murmurs, rubs, or gallops. Tachypneic PULMONARY: Chest is clear to auscultation, no wheezing or crackles. ABDOMEN: Abdomen is distended tympanic mild tenderness and bilateral lower abdominal quadrants. Hypoactive bowel sounds, post surgical MUSCULOSKELETAL: No joint swelling or deformity. EXTREMITIES: No cyanosis, clubbing, or pedal edema. NEUROLOGICAL: Gross neurological examination did not reveal any focal deficits. SKIN: No rashes. Assessment and plan -Diverticulitis with microperforations and contained abscesses: POD #1 exploratory lap with lysis of adhesions, small bowel resection, and incisional hernia repair with perforated diverticulum, NG tube in place, NPO per primary. Continues on IV antibiotics, CLAUDY drain in place. -Leukocytosis secondary to above, repeat labs in AM -Acute renal failure and azotemia possibility of ATN, creatinine has improved to 1.04 with fluids which will be continued -Sepsis secondary to diverticulitis, continue IV fluids -Proximal atrial fibrillation presently rapid rate, cardiology on consult co ntinues on cardizem gtt, oral medications on hold -Diabetes mellitus type 2 with hyperglycemia continue on novolog, -Hypertension, currently normotensive -Benign prostatic hypertrophy for which patient is on Zosyn which will be continued DVT prophylaxis: Xarelto on hold, SCDs per primary GI prophylaxis Pepcid Full code The impression and plan of care has been dictated by Monisha Henley, Nurse Practitioner as directed. Dr. Olga MD I have performed a history and physical examination and medical decision making of this patient, discussed the same with the dictator, and agree with the dictators assessment and plan as written, documented as a scribe. Based on total visit time, I have performed more than 50% of this visit. Objective - Vital Signs Vital signs: Vital Signs Temp 97.7 F 10/11/21 09:47 Pulse 134 H 10/11/21 09:47 Resp 17 10/11/21 09:47 BP 138/72 10/11/21 09:47 Pulse Ox 90 L 10/11/21 09:47 Intake & Output 10/10/21 10/11/21 10/11/21 18:59 06:59 18:59 Intake Total 3120 1370 131.833 Output Total 280 745 250 Balance 2840 625 -118.167 Weight 111.13 kg Intake: IV 3120 1370 Invasive Line 1 10 10 Invasive Line 2 10 10 Lactated Ringers 1,000 ml 1000 @ 0 mls/hr IV .K[facility] Rx#:[id number] Piperacillin-Tazobactam 3 100 .375 gm In Sodium Chloride 0.9% 100 ml @ 25 mls/hr IVPB Q8HR [facility] Rx# :[id number] Sodium Chloride 0.9% 1, 250 000 ml @ 125 mls/hr IV . Q8H [facility] Rx#:[id number] Intake, IV Titration 131.833 Amount Diltiazem 125 mg In 131.833 Sodium Chloride 0.9% 100 ml @ 10 MG/HR 10 mls/hr IV .[id number] [facility] Rx#: [id number] Output: Gastric Drainage 50 Drainage 95 Abdomen 95 Urine 180 600 250 Estimated Blood Loss 100 Other: Voiding Method Toilet - Labs CBC & Chem 7: 10/11/21 08:13 10/11/21 08:13 Labs: Abnormal Lab Results - Last 24 Hours (Table) 10/10/21 10/11/21 10/11/21 Range/Units 14:51 08:13 08:13 WBC 14.9 H (3.8-10.6) k/uL RBC 3.86 L (4.30-5.90) m/uL Hgb 11.7 L (13.0-17.5) gm/dL Hct 37.6 L (39.0-53.0) % Neutrophils # 13.8 H (1.3-7.7) k/uL Lymphocytes # 0.3 L (1.0-4.8) k/uL BUN 32 H (9-20) mg/dL Glucose 185 H (74-99) mg/dL POC Glucose (mg/dL) 124 H (75-99) mg/dL Calcium 8.0 L (8.4-10.2) mg/dL Microbiology - Last 24 Hours (Table) 10/10/21 16:30 Gram Stain - Preliminary Other - Other Wound Culture - Preliminary 10/10/21 16:30 Anaerobic Culture - Preliminary Other - Other 10/09/21 13:48 Urine Culture - Final Urine,Voided 10/09/21 16:34 Blood Culture - Preliminary Blood No Growth after 24 hours 10/09/21 16:15 Blood Culture - Preliminary Blood No Growth after 24 hours Assessment and Plan Time with Patient: Less than 30
--- NOTE | 2021-10-11 12:38 | XR ---
EXAMINATION TYPE: XR chest 1V portable DATE OF EXAM: 10/11/2021 COMPARISON: 10/10/1999 HISTORY: Hypoxia TECHNIQUE: Single frontal view of the chest is obtained. FINDINGS: NG tube noted. Metallic density overlying the right lung apex likely related to chronic fo reign body. Stable from prior. Right basilar infiltrate and elevated right hemidiaphragm. No pneumoth orax. Atherosclerotic change aorta. Heart size normal. IMPRESSION: Bilateral lower lobe infiltrate
[2021-10-11 13:08] LABS: Glucose,Whole Blood 166 mg/dL (75-99)
[2021-10-11] MEDS ORDERED: DILTIAZEM 125 MG in SODIUM CHLORIDE 0.9% 100 ML IV SCH (13:30)
[2021-10-11] MEDS: INSULIN ASPART (NovoLOG) 100 UNIT/ML VIAL SQ SCH ×3 (13:53→20:07)
[2021-10-11 14:20] LABS: Glucose,Whole Blood 185 mg/dL (75-99)
[2021-10-11] MEDS: FAMOTIDINE 20 MG/2 ML VIAL IV SCH (15:02)
--- NOTE | 2021-10-11 15:57 | US ---
EXAMINATION TYPE: US carotid duplex BILAT DATE OF EXAM: 10/11/2021 COMPARISON: NONE CLINICAL HISTORY: syncope. Syncope. EXAM MEASUREMENTS: RIGHT: Peak Systolic Velocity (PSV) cm/sec ----- Right CCA: 106 ----- Right ICA: 132 ----- Right ECA: 140 ICA/CCA ratio: 1.25 RIGHT: End Diastole cm/sec ----- Right CCA: 27.3 ----- Right ICA: 26.8 ----- Right ECA: 16.3 LEFT: Peak Systolic Velocity (PSV) cm/sec ----- Left CCA: 120 ----- Left ICA: 104 ----- Left ECA: 135 ICA/CCA ratio: 0.87 LEFT: End Diastole cm/sec ----- Left CCA: 23.2 ----- Left ICA: 21.5 ----- Left ECA: 19.9 VERTEBRALS (direction of flow): Right Vertebral: Antegrade Left Vertebral: Non vis Rhythm: Arrhythmia Left Vertebral not seen. Mild atherosclerotic IMPRESSION: 1. 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 Criteria for Assigning % of Stenosis / Diameter reduction (Estimation based on the indirect measurements of the internal carotid artery velocities (ICA PSV). 1. Normal (no stenosis)=ICA PSV < 125 cm/s: ratio < 2.0: ICA EDV<40 cm/s. 2. Less than 50% stenosis=ICA PSV < 125 cm/s: ratio < 2.0: ICA EDV<40 cm/s. 3. 50 to 69% stenosis=ICA PSV of 125 to 230 cm/s: ration 2.0 ? 4.0: ICA EDV 40-100 cm/s. 4. Greater than 70% stenosis to near occlusion= ICA PSV > 230 cm/s: ratio > 4.0: ICA EDV > 100 cm/s. 5. Near occlusion= ICA PSV velocities may be low or undetectable: variable ratio and ICA EDV. 6. Total occlusion=unable to detect flow.
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
[2021-10-11 20:03] LABS: Glucose,Whole Blood 161 mg/dL (75-99)
[2021-10-12] MEDS: HYDROmorphone 1 MG/ML 1 ML SYRINGE IVP PRN ×7 (00:29→23:09)
[2021-10-12] MEDS: SODIUM CHLORIDE 0.9% 1,000 ML IV SCH ×3 (01:47→19:04)
[2021-10-12] MEDS: DILTIAZEM 125 MG in SODIUM CHLORIDE 0.9% 100 ML IV SCH ×3 (03:19→23:49)
[2021-10-12 06:59] LABS: Glucose,Whole Blood 157 mg/dL (75-99)
[2021-10-12] MEDS: INSULIN ASPART (NovoLOG) 100 UNIT/ML VIAL SQ SCH ×4 (06:59→23:09)
--- NOTE | 2021-10-12 07:42 | P.PN ---
Subjective Progress Note Date: 10/12/21 PROGRESS NOTE The patient is a 76-year-old male with a known history of paroxysmal atrial fibrillation who presented with abdominal pain and ruptured viscus. He underwent surgery. He was in atrial fibrillation with rapid ventricular response, yesterday he had a long pauses. He was transferred to the ICU. He continues to be in atrial fibrillation with controlled ventricular response. At times his ventricle response is in the 120s. He continues to be on IV Cardizem 10 mg per hour. He has no further houses. He continues to have an NG tube and has not passed any gas. He has mild abdominal discomfort. He denies any chest discomfort or dyspnea. Hemodynamically his blood pressure is stable. PHYSICAL EXAMINATION: Blood pressure 140/70 heart rate 90-110 LUNGS: [Clear to auscultation] HEART: [Irregular rate and rhythm, S1, S2. No S3. No systolic murmur] ABDOMEN: [Soft, mild tenderness, dressing in place, hypoactive bowel sounds.] EXTREMETIES: [No edema] LAB: His potassium yesterday was 4 with a BUN of 32 IMPRESSION: 1. Status post bowel resection with lysis of adhesion and hernia repair 2. Paroxysmal atrial ablation now in atrial fibrillation with episodes of rapid ventricular response and long pauses consistent with tachybradycardia syndrome. 3. History of hypertension 4. Prior history of smoking PLAN: 1. Continue on Cardizem at present rate 2. Increase physical activity 3. Patient requires anticoagulation if agreeable with surgery. 4. If he has further pauses then a permanent pacemaker would be needed. 5. I discussed those findings with the patient. Objective - Vital Signs Vital signs: Vital Signs Temp 97.7 F 10/12/21 04:00 Pulse 121 H 10/12/21 07:00 Resp 12 10/12/21 07:00 BP 140/75 10/12/21 07:00 Pulse Ox 92 L 10/12/21 07:00 Intake & Output 10/11/21 10/12/21 10/12/21 18:59 06:59 18:59 Intake Total 677.319 8607.333 125 Output Total 1095 535 30 Balance -851.154 3042.333 95 Weight 111.13 kg 117.7 kg Intake: IV 610 1620 125 Invasive Line 4 10 20 Piperacillin-Tazobactam 3 100 100 .375 gm In Sodium Chloride 0.9% 100 ml @ 25 mls/hr IVPB Q8HR [facility] Rx# :[id number] Sodium Chloride 0.9% 1, 500 1500 125 000 ml @ 125 mls/hr IV . Q8H [facility] Rx#:[id number] Intake, IV Titration 179.166 112.333 Amount Diltiazem 125 mg In 176.583 Sodium Chloride 0.9% 100 ml @ 15 MG/HR 15 mls/hr IV .Q8H20M [facility] Rx#: [id number] Diltiazem 125 mg In 2.583 112.333 Sodium Chloride 0.9% 100 ml @ 5 MG/HR 5 mls/hr IV .Q24H [facility] Rx#:[id number] Oral 0 Tube Feeding 0 Blood Product 0 Output: Gastric Drainage 400 Drainage 30 Abdomen 30 Urine 650 535 30 Stool 0 Urine/Stool Mix 0 Emesis 0 Oral Regurgitation 0 Other 15 Other: Voiding Method Toilet Indwelling Catheter # Bowel Movements 0 - Labs CBC & Chem 7: 10/11/21 08:13 10/11/21 08:13 Labs: Abnormal Lab Results - Last 24 Hours (Table) 10/11/21 10/11/21 10/11/21 Range/Units 08:13 08:13 13:05 WBC 14.9 H (3.8-10.6) k/uL RBC 3.86 L (4.30-5.90) m/uL Hgb 11.7 L (13.0-17.5) gm/dL Hct 37.6 L (39.0-53.0) % Neutrophils # 13.8 H (1.3-7.7) k/uL Lymphocytes # 0.3 L (1.0-4.8) k/uL BUN 32 H (9-20) mg/dL Glucose 185 H (74-99) mg/dL POC Glucose (mg/dL) 166 H (75-99) mg/dL Calcium 8.0 L (8.4-10.2) mg/dL 10/11/21 10/11/21 10/12/21 Range/Units 14:16 20:01 06:57 WBC (3.8-10.6) k/uL RBC (4.30-5.90) m/uL Hgb (13.0-17.5) gm/dL Hct (39.0-53.0) % Neutrophils # (1.3-7.7) k/uL Lymphocytes # (1.0-4.8) k/uL BUN (9-20) mg/dL Glucose (74-99) mg/dL POC Glucose (mg/dL) 185 H 161 H 157 H (75-99) mg/dL Calcium (8.4-10.2) mg/dL Microbiology - Last 24 Hours (Table) 10/10/21 16:30 Gram Stain - Preliminary Other - Other Wound Culture - Preliminary Gram Neg Bacilli 10/09/21 16:34 Blood Culture - Preliminary Blood No Growth after 48 hours 10/09/21 16:15 Blood Culture - Preliminary Blood No Growth after 48 hours
[2021-10-12 07:50] LABS: Basophils % (A) 0 %; Eosinophils # (A) 0.1 k/uL (0-0.7); Eosinophils % (A) 0 %; HCT 35.8 % (39.0-53.0); HGB 11.1 gm/dL (13.0-17.5); Hypochromasia Slight; Lymphocytes # (A) 0.5 k/uL (1.0-4.8); Lymphocytes % (A) 4 %; MCH 30.3 pg (25.0-35.0); MCHC 30.9 g/dL (31.0-37.0); MCV 97.8 fL (80.0-100.0); Mean Platelet Volume 7.9; Monocytes # (A) 0.7 k/uL (0-1.0); Monocytes % (A) 5 %; Neutrophils # (A) 12.7 k/uL (1.3-7.7); Neutrophils % (A) 91 %; Platelet Count 333 k/uL (150-450); RBC 3.66 m/uL (4.30-5.90); RDW 12.4 % (11.5-15.5)
[2021-10-12 08:01] LABS: African American GFR (CKD) >90 (>60 ml/min/1.73 sqM); Anion Gap 6 mmol/L; Blood Urea Nitrogen 28 mg/dL (9-20); Calcium 8.2 mg/dL (8.4-10.2); Carbon Dioxide 26 mmol/L (22-30); Chloride 110 mmol/L (98-107); Glucose 157 mg/dL (74-99); Non-African American GFR(CKD) 85 (>60 ml/min/1.73 sqM); Potassium 4.3 mmol/L (3.5-5.1); Sodium 142 mmol/L (137-145)
[2021-10-12] MEDS: FAMOTIDINE 20 MG/2 ML VIAL IV SCH (08:26)
[2021-10-12] MEDS: PIPERACILLIN-TAZOBACTAM 3.375 GM in SODIUM CHLORIDE 0.9% 100 ML IVPB SCH ×3 (08:27→23:09)
[2021-10-12] MEDS ORDERED: ENOXAPARIN 40 MG/0.4 ML SYRINGE SQ SCH (09:00)
[2021-10-12] MEDS ORDERED: HEPARIN SODIUM 1,000 UN/ML (10ML VL) IV ONE (09:35)
[2021-10-12] MEDS: HEPARIN SOD,PORK IN 0.45% NACL 25,000 UNIT in 0.45% NACL 1 250ML.BAG IV SCH (10:35)
--- NOTE | 2021-10-12 10:50 | P.PN ---
Subjective Progress Note Date: 10/12/21 Principal diagnosis: Abdominal pain, secondary to perforated viscus, patient is status post expiratory laparotomy with lysis of adhesions small bowel resection and incisional hernia repair postoperative day #2. This is a very pleasant 76-year-old male patient with a known history of atrial fibrillation anticoagulated with anticoagulated with Xarelto, hypertension, former smoker. He presented here to the emergency room on 10/09/2021 with complaints of left upper quadrant pain that began that had begun 2 days prior. He had an abrupt onset of left upper quadrant discomfort. He did have episode of emesis. His pain was worse and he presented to the ER for the same. Compu franchesca tomography scan of the abdomen and pelvis was suggestive of focal small bowel perforation with acute inflammatory changes and T/abscess formation. Small bowel lesion at that time cannot be excluded. Yesterday he had undergone exploratory laparotomy with lysis of adhesions and small bowel resection. He also had incisional hernia repair. Appendectomy had been recovering well until earlier today he developed a brief episode of unresponsiveness. His witnessed this at the bedside stated his eyes rolled back. This was in conjunction with a long pauses on the heart monitor as well. For that reason he was transferred to the intensive care unit for closer monitoring. He is seen in consultation. He is resting comfortably in bed. Awake and alert in no acute distress. He remains in atrial fibrillation currently with a rapid ventricular response and was initiated on a Cardizem drip now at 10 mg per hour. No significant pauses since his arrival. He denies any chest pain shortness of breath cough or congestion. No dizziness or lightheadedness. He is maintaining good O2 saturations in the 90s on 4 L/m per nasal cannula. He is afebrile. Blood pressure is stable. Chest x-ray reveals atelectasis of the lung bases. Doppler reveals plaquing of the right internal carotid artery contributing to moderate narrowing between 50 and 69%. No significant atherosclerosis of the l eft carotid. Blood cultures reveal no growth. Wound culture pending. He is currently on Zosyn. White count 14.9. Hemoglobin 11.7. Sodium 138. Potassium 4.0. Bicarb 24. BUN 32. Creatinine 1.04. Glucose 185. ProBNP 3640. Patient was reevaluated today on 10/12/2021, remains in the ICU, does not seem to be in any distress, no significant sinus pauses or arrhythmias overnight. Patient is known to have paroxysmal atrial fibrillation, but that reason we transfer the patient yesterday to the ICU was mostly because he had colonic positives consistent with tachybradycardia syndrome. At this point the patient is doing well, no major issues over the last 24 hours, and he was seen by cardio logy, recommending low intensity heparin for his underlying atrial fibrillation if cleared by surgery. Patient continues to have nasogastric tube in place, no abdominal pain, no bowel movements, and the patient is not passing any gas yet. Hence the nasogastric tube will remain in place. Labs today showed WBC count of 14 hemoglobin 11.1 electrolytes are normal renal profile is normal calcium is 8.2 Objective - Vital Signs Vital signs: Vital Signs Temp 97.7 F 10/12/21 04:00 Pulse 110 H 10/12/21 09:00 Resp 20 10/12/21 09:00 BP 166/75 10/12/21 09:00 Pulse Ox 94 L 10/12/21 09:00 Intake & Output 10/11/21 10/12/21 10/12/21 18:59 06:59 18:59 Intake Total 104.906 9454.333 485 Output Total 1095 535 130 Balance -020.879 1305.333 355 Weight 111.13 kg 117.7 kg Intake: IV 610 1620 485 Invasive Line 4 10 20 10 Piperacillin-Tazobactam 3 100 100 100 .375 gm In Sodium Chloride 0.9% 100 ml @ 25 mls/hr IVPB Q8HR [facility] Rx# :[id number] Sodium Chloride 0.9% 1, 500 1500 375 000 ml @ 125 mls/hr IV . Q8H [facility] Rx#:[id number] Intake, IV Titration 179.166 112.333 Amount Diltiazem 125 mg In 176.583 Sodium Chloride 0.9% 100 ml @ 15 MG/HR 15 mls/hr IV .Q8H20M [facility] Rx#: [id number] Diltiazem 125 mg In 2.583 112.333 Sodium Chloride 0.9% 100 ml @ 5 MG/HR 5 mls/hr IV .Q24H [facility] Rx#:[id number] Oral 0 Tube Feeding 0 Blood Product 0 Output: Gastric Drainage 400 Drainage 30 Abdomen 30 Urine 650 535 130 Stool 0 Urine/Stool Mix 0 Emesis 0 Oral Regurgitation 0 Other 15 Other: Voiding Method Toilet Indwelling Catheter Indwelling Catheter # Bowel Movements 0 - Exam Physical Exam: Revealed 76-year-old white male in no distress. On 2 L nasal cannula. Head: Atraumatic, normocephalic. HEENT:[Neck is supple.] [No neck masses.] [No thyromegaly.] [No JVD.] Nasogastric tube seems to be intact. Patient does have dry mucous membranes. Chest: [Symmetrical chest expansion, diminished breath sounds at the bases no crackles or rhonchi or wheezes Cardiac Exam: Irregular irregular rhythm. [Normal S1 and S2, no S3 gallop, no murmur.] Abdomen: Postsurgical, dressing seems to be intact [Soft, nontender, no megaly, no rebound, no guarding, no bowel sounds. Extremities: [No clubbing, no edema, no cyanosis.] Good pulses bilaterally. Neurological Exam: [No focal neurologic deficit.] Alert oriented 3. Psychiatric: Normal mood, affect and normal mental status examination. Skin: No rashes. - Labs CBC & Chem 7: 10/12/21 07:33 10/12/21 07:33 Labs: Abnormal Lab Results - Last 24 Hours (Table) 10/11/21 10/11/21 10/11/21 Range/Units 13:05 14:16 20:01 WBC (3.8-10.6) k/uL RBC (4.30-5.90) m/uL Hgb (13.0-17.5) gm/dL Hct (39.0-53.0) % MCHC (31.0-37.0) g/dL Neutrophils # (1.3-7.7) k/uL Lymphocytes # (1.0-4.8) k/uL Chloride (98-107) mmol/L BUN (9-20) mg/dL Glucose (74-99) mg/dL POC Glucose (mg/dL) 166 H 185 H 161 H (75-99) mg/dL Calcium (8.4-10.2) mg/dL 10/12/21 10/12/21 10/12/21 Range/Units 06:57 07:33 07:33 WBC 14.0 H (3.8-10.6) k/uL RBC 3.66 L (4.30-5.90) m/uL Hgb 11.1 L (13.0-17.5) gm/dL Hct 35.8 L (39.0-53.0) % MCHC 30.9 L (31.0-37.0) g/dL Neutrophils # 12.7 H (1.3-7.7) k/uL Lymphocytes # 0.5 L (1.0-4.8) k/uL Chloride 110 H (98-107) mmol/L BUN 28 H (9-20) mg/dL Glucose 157 H (74-99) mg/dL POC Glucose (mg/dL) 157 H (75-99) mg/dL Calcium 8.2 L (8.4-10.2) mg/dL Microbiology - Last 24 Hours (Table) 10/10/21 16:30 Gram Stain - Preliminary Other - Other Wound Culture - Preliminary Gram Neg Bacilli 10/09/21 16:34 Blood Culture - Preliminary Blood No Growth after 48 hours 10/09/21 16:15 Blood Culture - Preliminary Blood No Growth after 48 hours Assessment and Plan Assessment: Impression: Status post bowel resection, lysis of adhesions, and hernia repair postoperative day #2. Postoperative tachybradycardia syndrome, not requiring any intervention except monitoring the patient in the ICU for his prolonged sinus pauses. None over the last 24 hours. Paroxysmal atrial fibrillation patient will definitely benefit from anticoagulation therapy/low dose heparin or eliquis. Has to be cleared by surgery History of hypertension. Former smoker. Tachybradycardia syndrome. Syncopal episode secondary to sinus pauses. Recommendation: Continue to hold metoprolol. Continue to monitor in the ICU for now. Continue nasogastric tube in place. Low intensity heparin is strongly recommended Continue pain control. Continue Zosyn empirically. Continue GI prophylaxis. Resume home bronchodilators/albuterol. We will continue to follow. Time with Patient: Less than 30
[2021-10-12 11:11] LABS: Partial Thromboplastin Time 22.5 sec (22.0-30.0); Prothrombin Time 10.9 sec (9.0-12.0)
[2021-10-12] MEDS: ONDANSETRON 4 MG/2 ML VIAL IVP PRN (11:14)
--- NOTE | 2021-10-12 11:23 | P.PN ---
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 Patient required transfer to ICU yesterday for cardiac causes and syncopal episode. He had evidence of tachybradycardia syndrome. He is followed closely by cardiology. He is in atrial fibrillation. Patient reports that his abdominal pain is controlled. Denies any nausea. He has NG tube in place with 150 ML of bilious output. CLAUDY drain with 60 mL serosanguineous output in 24 hour period. Afebrile. WBC 14 hemoglobin 11.1 PHYSICAL EXAM: VITAL SIGNS: Reviewed. GENERAL: Well-developed in no acute distress. HEENT: No sclera icterus. Extraocular movements grossly intact. Moist buccal mucosa. Head is atraumatic, normocephalic. ABDOMEN: Soft. Nondistended. Incisional dressing clean dry and intact NEUROLOGIC: Alert and oriented. Cranial nerves II through XII grossly intact. ASSESSMENT: 1. 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 Atrial fibrillation 3. Tachybradycardia syndrome PLAN: -Okay to start anticoagulation from surgical standpoint -Continue NG tube for decompression -Keep patient nothing by mouth except for medications -Continue pain medications -Continue antiemetics -Encouraged patient to use incentive spirometer -GI prophylaxis Pepcid and DVT Prophylaxis IV heparin Physician Information Technology Coordinator note has been reviewed by physician. Signing provider agrees with the documented findings, assessment, and plan of care. Objective - Vital Signs Vital signs: Vital Signs Temp 97.7 F 10/12/21 04:00 Pulse 117 H 10/12/21 11:00 Resp 18 10/12/21 11:00 BP 158/98 10/12/21 11:00 Pulse Ox 93 L 10/12/21 11:00 Intake & Output 10/11/21 10/12/21 10/12/21 18:59 06:59 18:59 Intake Total 583.905 4840.333 610 Output Total 1095 535 160 Balance -575.479 5831.333 450 Weight 111.13 kg 117.7 kg 117.7 kg Intake: IV 610 1620 610 Invasive Line 4 10 20 10 Piperacillin-Tazobactam 3 100 100 100 .375 gm In Sodium Chloride 0.9% 100 ml @ 25 mls/hr IVPB Q8HR [facility] Rx# :[id number] Sodium Chloride 0.9% 1, 500 1500 500 000 ml @ 125 mls/hr IV . Q8H [facility] Rx#:[id number] Intake, IV Titration 179.166 112.333 Amount Diltiazem 125 mg In 176.583 Sodium Chloride 0.9% 100 ml @ 15 MG/HR 15 mls/hr IV .Q8H20M [facility] Rx#: [id number] Diltiazem 125 mg In 2.583 112.333 Sodium Chloride 0.9% 100 ml @ 5 MG/HR 5 mls/hr IV .Q24H [facility] Rx#:[id number] Oral 0 Tube Feeding 0 Blood Product 0 Output: Gastric Drainage 400 Drainage 30 Abdomen 30 Urine 650 535 160 Stool 0 Urine/Stool Mix 0 Emesis 0 Oral Regurgitation 0 Other 15 Other: Voiding Method Toilet Indwelling Catheter Indwelling Catheter # Bowel Movements 0 - Labs CBC & Chem 7: 10/12/21 07:33 10/12/21 07:33 Labs: Abnormal Lab Results - Last 24 Hours (Table) 10/11/21 10/11/21 10/11/21 Range/Units 13:05 14:16 20:01 WBC (3.8-10.6) k/uL RBC (4.30-5.90) m/uL Hgb (13.0-17.5) gm/dL Hct (39.0-53.0) % MCHC (31.0-37.0) g/dL Neutrophils # (1.3-7.7) k/uL Lymphocytes # (1.0-4.8) k/uL Chloride (98-107) mmol/L BUN (9-20) mg/dL Glucose (74-99) mg/dL POC Glucose (mg/dL) 166 H 185 H 161 H (75-99) mg/dL Calcium (8.4-10.2) mg/dL 10/12/21 10/12/21 10/12/21 Range/Units 06:57 07:33 07:33 WBC 14.0 H (3.8-10.6) k/uL RBC 3.66 L (4.30-5.90) m/uL Hgb 11.1 L (13.0-17.5) gm/dL Hct 35.8 L (39.0-53.0) % MCHC 30.9 L (31.0-37.0) g/dL Neutrophils # 12.7 H (1.3-7.7) k/uL Lymphocytes # 0.5 L (1.0-4.8) k/uL Chloride 110 H (98-107) mmol/L BUN 28 H (9-20) mg/dL Glucose 157 H (74-99) mg/dL POC Glucose (mg/dL) 157 H (75-99) mg/dL Calcium 8.2 L (8.4-10.2) mg/dL Microbiology - Last 24 Hours (Table) 10/10/21 16:30 Gram Stain - Preliminary Other - Other Wound Culture - Preliminary Gram Neg Bacilli 10/09/21 16:34 Blood Culture - Preliminary Blood No Growth after 48 hours 10/09/21 16:15 Blood Culture - Preliminary Blood No Growth after 48 hours
[2021-10-12 11:46] LABS: Glucose,Whole Blood 141 mg/dL (75-99)
--- NOTE | 2021-10-12 13:23 | P.PN ---
Subjective Progress Note Date: 10/12/21 76-year-old male came in with complaints of bilateral lower abdominal pain sharp in nature nonradiating associated with the nausea vomiting low-grade fevers patient is found to have leukocytosis as well as patient's symptoms started on Friday. Patient is found to have significant diverticulitis with some microperforations which were contained. Patient is admitted to general surgery service and patient is being monitored on IV antibiotics at this time. Patient is presently on Zosyn. Patient pain is moderate severity. some abdomen is distended and tympanic. Patient denied any history of constipation does have history of atrial fibrillation for which patient is on anticoagulation 10/10/2021 Patient evaluated in the EC this morning holding for [facility]. On telemetry monitoring shows atrial fibrillation heart rate running around 120s per nurse going up to the 140s. Patient has been NPO pending laproscopic neda today, did receive his amiodarone and metoprolol, xarelto remains on hold. Cardiology was consulted for rapid ventricular rate and patient will be upgraded to 3 [facility]. Continues on IV fluids continues on IV antibiotics. Continues with abdominal discomfort, no BM throughout the evening. Labs today show 16.84, hgb 11.9, INR 1.21 today, sodium 134, BUN 31, creat 1.34, total bili 1.6. Urinalysis negative. 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 Patient will be started on cardizem gtt. 10/11/2021 Patient evaluated today POD #1 exploratory lap with lysis of adhesions, small bowel resection, and incisional hernia repair with perforated diverticulum. Patient also had abscess that is being cultured with placement of CLAUDY drain. Abdominal dressings intact. Hypoactive bowel sounds, denies passing gas, no BM yet. Denies shortness of breath today. Patient still in Afib RVR which he is on cardizem gtt. Per primary no oral medications no anticoagulation yet. Continue patient with SCD's and prophylaxis as per primary. Cardiology is on consult for the rapid heart rate. Patient also with NG Tube in place, about 100 mL's of dark bilious fluid output noted. WBC today 14.9, hgb 11.7, sodium 138, potassium 4.0, BUN 32, creat 1.04, blood glucose in the 120s. Remains afebrile, blood pressure 130/72, 90% on 3 L his cannula. Encourage incentive spirometry. Addendum: Patient was an ateam today for syncope with loss of consciousness with possible asystole. Patient is being followed by cardiology, aaron gtt infusing. Per at bedside his eyes rolled back into his head and he was unresponsive to ve rbal shouting. Came out into hallway for help. Telemetry also notified staff to check on patient as he was noted to be in a sinus pause of about 8-12 seconds. Writing provider responded to ateam and updated by sound physician at bedside. At this time patient had already spontaneously gained consciousness and was alert and oriented x3 does not remember what happened. Per he has fallen at home x2 due to syncope with loss of consciousness, 1x was recently which was evaluated in the EC. Patient states he recently had an echo done in cardiology office, follows with Dr Anne. Discussed with primary that transfer to ICU was recommended. Discussed with Dr Ch who accepted the transfer. 10/12/2021 Patient is seen and evaluated in the ICU and is status post exploratory laparotomy with lysis of adhesions, small bowel resection and incisional hernia repair with perforated diverticulum. Patient remains on IV antibiotics in the form of Zosyn and wound cultures preliminary showing gram-negative bacilli and awaiting finalized cultures. Patient reports to continued abdominal distention and denies passing gas or having bowel movement. Patient reports that he is burping quite often and continues with an NG tube. Cardiology also following his patient does have a history of A. fib but was found to be in atrial fibrillation with rapid ventricular rate and being placed on Cardizem drip currently on 10 mL's per hour. IV heparin being started after clearance per surgery and will continue to monitor and transition to oral Eliquis once tolerating diet and having bowel movements. Physical therapy following an encourage the patient increase activity as tolerated. Encourage incentive spirometer use at least 10 times every hour while awake. Patient denies chest pain or shortness of breath. Patient is afebrile. Patient is to continue with nothing by mouth at this time. Review of Systems Constitutional: Denied any fatigue denied any fever. Cardio vascular: denied any chest pain, palpitations Gastrointestinal: denied any nausea, vomiting, diarrhea, reports LLQ abdominal pain, no gas, no BM reports to burping multiple times throughout the day Pulmonary: Denied any shortness of breath cough Neurologic denied any new focal deficits, reports generalized weakness Active Medications Albuterol Sulfate (Albuterol Nebulized 2.5 Mg/3 Ml) 2.5 mg INHALATION RT-Q6H PRN PRN Reason: Shortness Of Breath Famotidine (Famotidine 20 Mg/2 Ml Vial) 20 mg IV DAILY [facility] Last Admin: 10/12/21 08:26 Dose: 20 mg Documented by: Heparin Sodium (Porcine) (Heparin Sodium 1,000 Un/Ml (10ml Vl)) 0 unit IV PER PROTOCOL PRN; Protocol PRN Reason: Low PTT Hydromorphone HCl (Hydromorphone 1 Mg/Ml 1 Ml Syringe) 1 mg IVP Q3HR PRN PRN Reason: Pain Last Admin: 10/12/21 08:03 Dose: 1 mg Documented by: Sodium Chloride (Saline 0.9%) 1,000 mls @ 125 mls/hr IV .Q8H [facility] Last Admin: 10/12/21 01:47 Dose: Not Given Documented by: Piperacillin Sod/Tazobactam (Sod 3.375 gm/ Sodium Chloride) 100 mls @ 25 mls/hr IVPB Q8HR [facility]; Protocol Last Admin: 10/12/21 08:27 Dose: 25 mls/hr Documented by: Diltiazem HCl 125 mg/ Sodium (Chloride) 125 mls @ 5 mls/hr IV .Q24H [facility]; Protocol Last Admin: 10/12/21 03:19 Dose: 10 mg/hr, 10 mls/hr Documented by: Heparin Sodium/Sodium Chloride (25,000 unit/ Sodium Chloride) 250 mls @ 10.005 mls/hr IV .Q24H [facility]; Protocol Insulin Aspart (Insulin Aspart (Novolog) 100 Unit/Ml Vial) 0 unit SQ ACHS [facility]; Protocol Last Admin: 10/12/21 06:59 Dose: 2 unit Documented by: Lidocaine HCl (Lidocaine 1% (10mg/Ml) For Iv Start) 0.1 ml INTRADERMA PER PROTOCOL PRN PRN Reason: IV Start Morphine Sulfate (Morphine Sulfate 4 Mg/Ml Syringe) 4 mg IV Q4HR PRN PRN Reason: Severe Pain Last Admin: 10/11/21 13:43 Dose: 4 mg Documented by: Naloxone HCl (Naloxone 0.4 Mg/Ml 1 Ml Vial) 0.2 mg IV Q2M PRN PRN Reason: Opioid Reversal Ondansetron HCl (Ondansetron 4 Mg/2 Ml Vial) 4 mg IVP Q8HR PRN PRN Reason: Nausea And Vomiting PHYSICAL EXAMINATION: GENERAL: The patient is alert and oriented x3, currently sitting up in the c hair. Well developed, well nourished. Obese HEENT: Pupils are round and equally reacting to light. EOMI. No scleral icterus. No conjunctival pallor. Normocephalic, atraumatic. No pharyngeal erythema. No thyromegaly. CARDIOVASCULAR: S1 and S2 muffled, irregularly irregular, A. fib on the monitor PULMONARY: Diminished breath sounds bilaterally with some scattered rhonchi noted ABDOMEN: Abdomen is distended, tympanic, mild tenderness and bilateral lower abdominal quadrants. Hypoactive bowel sounds, post surgical MUSCULOSKELETAL: No joint swelling or deformity. EXTREMITIES: No cyanosis, clubbing, or pedal edema. NEUROLOGICAL: Gross neurological examination did not reveal any focal deficits. Diffusely weak SKIN: No rashes. Assessment: -Diverticulitis with microperforations and contained abscesses: POD #2 exploratory laparotomy with lysis of adhesions, small bowel resection, and incisional hernia repair with perforated diverticulum -Leukocytosis secondary to above -Acute renal failure and azotemia possibility of ATN -Sepsis secondary to diverticulitis -Paroxysmal atrial fibrillation presently RVR -Diabetes mellitus type 2, uncontrolled with hyperglycemia -Hypertension, currently normotensive -Benign prostatic hypertrophy -DVT prophylaxis: Xarelto on hold, SCDs per primary -GI prophylaxis -Full code Plan: Recommend to continue with nothing by mouth and NG tube for decompression Patient is maintained on IV antibiotics and will continue Encouraged increased activity and physical therapy to follow daily Recommend close monitoring of labs and repeat labs ordered Recommend continued telemetry monitoring with cardiology following Patient being placed on IV heparin along with continued on IV Cardizem Recommend to continue to monitor blood sugars closely with Accu-Cheks before meals and at bedtime and sliding scale Thank you for this consultation. We will continue to follow along with general surgery during hospitalization Guarded prognosis The impression and plan of care has been dictated by [place], Nurse Practitioner as directed. Dr. Dick MD I have performed a history and physical examination and medical decision making of this patient, discussed the same with the dictator, and agree with the dictators assessment and plan as written, documented as a scribe. Based on total visit time, I have performed more than 50% of this visit. Objective - Vital Signs Vital signs: Vital Signs Temp 97.7 F 10/12/21 04:00 Pulse 121 H 10/12/21 07:00 Resp 12 10/12/21 07:00 BP 140/75 10/12/21 07:00 Pulse Ox 92 L 10/12/21 07:00 Intake & Output 10/11/21 10/12/21 10/12/21 18:59 06:59 18:59 Intake Total 922.026 7640.333 125 Output Total 1095 535 30 Balance -712.104 0745.333 95 Weight 111.13 kg 117.7 kg Intake: IV 610 1620 125 Invasive Line 4 10 20 Piperacillin-Tazobactam 3 100 100 .375 gm In Sodium Chloride 0.9% 100 ml @ 25 mls/hr IVPB Q8HR [facility] Rx# :[id number] Sodium Chloride 0.9% 1, 500 1500 125 000 ml @ 125 mls/hr IV . Q8H [facility] Rx#:[id number] Intake, IV Titration 179.166 112.333 Amount Diltiazem 125 mg In 176.583 Sodium Chloride 0.9% 100 ml @ 15 MG/HR 15 mls/hr IV .Q8H20M [facility] Rx#: [id number] Diltiazem 125 mg In 2.583 112.333 Sodium Chloride 0.9% 100 ml @ 5 MG/HR 5 mls/hr IV .Q24H [facility] Rx#:[id number] Oral 0 Tube Feeding 0 Blood Product 0 Output: Gastric Drainage 400 Drainage 30 Abdomen 30 Urine 650 535 30 Stool 0 Urine/Stool Mix 0 Emesis 0 Oral Regurgitation 0 Other 15 Other: Voiding Method Toilet Indwelling Catheter # Bowel Movements 0 - Labs CBC & Chem 7: 10/12/21 07:33 10/12/21 07:33 Labs: Abnormal Lab Results - Last 24 Hours (Table) 10/11/21 10/11/21 10/11/21 Range/Units 13:05 14:16 20:01 WBC (3.8-10.6) k/uL RBC (4.30-5.90) m/uL Hgb (13.0-17.5) gm/dL Hct (39.0-53.0) % MCHC (31.0-37.0) g/dL Neutrophils # (1.3-7.7) k/uL Lymphocytes # (1.0-4.8) k/uL Chloride (98-107) mmol/L BUN (9-20) mg/dL Glucose (74-99) mg/dL POC Glucose (mg/dL) 166 H 185 H 161 H (75-99) mg/dL Calcium (8.4-10.2) mg/dL 10/12/21 10/12/21 10/12/21 Range/Units 06:57 07:33 07:33 WBC 14.0 H (3.8-10.6) k/uL RBC 3.66 L (4.30-5.90) m/uL Hgb 11.1 L (13.0-17.5) gm/dL Hct 35.8 L (39.0-53.0) % MCHC 30.9 L (31.0-37.0) g/dL Neutrophils # 12.7 H (1.3-7.7) k/uL Lymphocytes # 0.5 L (1.0-4.8) k/uL Chloride 110 H (98-107) mmol/L BUN 28 H (9-20) mg/dL Glucose 157 H (74-99) mg/dL POC Glucose (mg/dL) 157 H (75-99) mg/dL Calcium 8.2 L (8.4-10.2) mg/dL Microbiology - Last 24 Hours (Table) 10/10/21 16:30 Gram Stain - Preliminary Other - Other Wound Culture - Preliminary Gram Neg Bacilli 10/09/21 16:34 Blood Culture - Preliminary Blood No Growth after 48 hours 10/09/21 16:15 Blood Culture - Preliminary Blood No Growth after 48 hours
[2021-10-12] MEDS: HEPARIN SODIUM 1,000 UN/ML (10ML VL) IV PRN (18:18)
[2021-10-12 18:24] LABS: Glucose,Whole Blood 151 mg/dL (75-99)
[2021-10-12] MEDS: PANTOPRAZOLE 40 MG/10 ML VIAL IVP SCH (20:25)
[2021-10-12 23:11] LABS: Glucose,Whole Blood 125 mg/dL (75-99)
[2021-10-13] MEDS: HYDROmorphone 1 MG/ML 1 ML SYRINGE IVP PRN ×6 (03:41→22:33)
[2021-10-13] MEDS: SODIUM CHLORIDE 0.9% 1,000 ML IV SCH ×3 (03:41→19:43)
[2021-10-13 03:56] LABS: Basophils % (A) 0 %; Eosinophils % (A) 0 %; HCT 34.7 % (39.0-53.0); HGB 10.9 gm/dL (13.0-17.5); Hypochromasia Moderate; Lymphocytes # (A) 0.8 k/uL (1.0-4.8); Lymphocytes % (A) 7 %; MCH 30.6 pg (25.0-35.0); MCHC 31.4 g/dL (31.0-37.0); MCV 97.5 fL (80.0-100.0); Mean Platelet Volume 7.6; Monocytes # (A) 0.6 k/uL (0-1.0); Monocytes % (A) 6 %; Neutrophils # (A) 9.3 k/uL (1.3-7.7); Neutrophils % (A) 86 %; Platelet Count 366 k/uL (150-450); RBC 3.56 m/uL (4.30-5.90); RDW 12.9 % (11.5-15.5); WBC 10.8 k/uL (3.8-10.6)
[2021-10-13 04:11] LABS: African American GFR (CKD) >90 (>60 ml/min/1.73 sqM); Anion Gap 3 mmol/L; Blood Urea Nitrogen 26 mg/dL (9-20); Calcium 8.1 mg/dL (8.4-10.2); Carbon Dioxide 30 mmol/L (22-30); Chloride 109 mmol/L (98-107); Glucose 135 mg/dL (74-99); Non-African American GFR(CKD) 79 (>60 ml/min/1.73 sqM); Potassium 4.3 mmol/L (3.5-5.1); Sodium 142 mmol/L (137-145)
[2021-10-13 04:13] LABS: Prothrombin Time 10.7 sec (9.0-12.0)
[2021-10-13] MEDS: HEPARIN SOD,PORK IN 0.45% NACL 25,000 UNIT in 0.45% NACL 1 250ML.BAG IV SCH ×2 (06:14→19:05)
[2021-10-13 06:18] LABS: Glucose,Whole Blood 129 mg/dL (75-99)
[2021-10-13] MEDS: INSULIN ASPART (NovoLOG) 100 UNIT/ML VIAL SQ SCH ×4 (06:21→23:52)
[2021-10-13] MEDS: ALBUTEROL NEBULIZED 2.5 MG/3 ML INHALATION PRN (07:32)
[2021-10-13] MEDS: PIPERACILLIN-TAZOBACTAM 3.375 GM in SODIUM CHLORIDE 0.9% 100 ML IVPB SCH ×3 (07:49→23:52)
[2021-10-13] MEDS: PANTOPRAZOLE 40 MG/10 ML VIAL IVP SCH ×2 (07:57→21:39)
[2021-10-13] MEDS: FAMOTIDINE 20 MG/2 ML VIAL IV SCH (07:57)
[2021-10-13] MEDS: HEPARIN SODIUM 1,000 UN/ML (10ML VL) IV PRN (09:41)
[2021-10-13] MEDS: ONDANSETRON 4 MG/2 ML VIAL IVP PRN (11:33)
--- NOTE | 2021-10-13 12:03 | P.PN ---
Subjective Progress Note Date: 10/13/21 PROGRESS NOTE The patient is a 76-year-old male with a known history of paroxysmal atrial fibrillation who presented with abdominal pain and ruptured viscus. He underwent surgery. He was in atrial fibrillation with rapid ventricular response, yesterday he had a long pauses. He was transferred to the ICU. He continues to be in atrial fibrillation with controlled ventricular response. At times his ventricle response is in the 120s. He continues to be on IV Cardizem 10 mg per hour. He has no further houses. He continues to have an NG tube and has not passed any gas. He has mild abdominal discomfort. He denies any chest discomfort or dyspnea. Hemodynamically his blood pressure is stable. October 13: The patient continues to be in atrial fibrillation with an average ventricular response. He had a 10 second pause yesterday while in bed. He continues to be on IV Cardizem. He denies any chest discomfort or dyspnea. He had no bowel movement yet continues to be nothing by mouth with an NG tube. He has mild abdominal discomfort. He is on IV heparin drip in addition to the diltiazem PHYSICAL EXAMINATION: Blood pressure 150/75heart rate 90-110 LUNGS: Clear to auscultation HEART: Irregular rate and rhythm, S1, S2. No S3. No systolic murmur ABDOMEN: Soft, mild tenderness, dressing in place, hypoactive bowel sounds. EXTREMETIES: No edema LAB: Potassium 4.3, BUN 26, creatinine 0.94. Hemoglobin 10.9. IMPRESSION: 1. Status post bowel resection with lysis of adhesion and hernia repair 2. Paroxysmal atrial ablation now in atrial fibrillation with episodes of rapid ventricular response and long pauses consistent with tachybradycardia syndrome. 3. History of hypertension 4. Prior history of smoking PLAN: 1. Continue on Cardizem at present rate 2. Continue close observation 3. The patient will require permanent pacemaker implantation in view of the findings. If he remains stable I will hold on temporary pacemaker for now and proceed with permanent pacemaker early next week 4. Continue IV heparin 5. Depending on his progress further recommendations will be made. Objective - Vital Signs Vital signs: Vital Signs Temp 98.2 F 10/13/21 08:00 Pulse 125 H 10/13/21 11:00 Resp 23 10/13/21 11:00 BP 153/100 10/13/21 11:00 Pulse Ox 94 L 10/13/21 11:00 Intake & Output 10/12/21 10/13/21 10/13/21 18:59 06:59 18:59 Intake Total 8093.608 4509.628 682.459 Output Total 770 1030 435 Balance 1145.372 839.628 247.459 Weight 117.7 kg 114.5 kg Intake: IV 1630 1600 625 Invasive Line 4 30 Piperacillin-Tazobactam 3 100 100 .375 gm In Sodium Chloride 0.9% 100 ml @ 25 mls/hr IVPB Q8HR [facility] Rx# :[id number] Sodium Chloride 0.9% 1, 1500 1500 625 000 ml @ 125 mls/hr IV . Q8H [facility] Rx#:[id number] Intake, IV Titration 285.372 269.628 57.459 Amount Diltiazem 125 mg In 108.167 96.833 Sodium Chloride 0.9% 100 ml @ 5 MG/HR 5 mls/hr IV .Q24H [facility] Rx#:[id number] Heparin Sod,Pork in 0.45% 77.205 172.795 57.459 NaCl 25,000 unit In 0.45 % NaCl 1 250ml.bag @ 8.5 UNITS/KG/HR 10.005 mls/hr IV .Q24H [facility] Rx#: [id number] Piperacillin-Tazobactam 3 100 .375 gm In Sodium Chloride 0.9% 100 ml @ 25 mls/hr IVPB Q8HR [facility] Rx# :[id number] Output: Gastric Drainage 300 450 Drainage 30 15 Abdomen 30 15 Urine 440 565 435 Other: Voiding Method Indwelling Catheter Indwelling Catheter Indwelling Catheter - Labs CBC & Chem 7: 10/13/21 03:33 10/13/21 03:33 Labs: Abnormal Lab Results - Last 24 Hours (Table) 10/12/21 10/12/21 10/13/21 Range/Units 18:23 23:08 00:26 WBC (3.8-10.6) k/uL RBC (4.30-5.90) m/uL Hgb (13.0-17.5) gm/dL Hct (39.0-53.0) % Neutrophils # (1.3-7.7) k/uL Lymphocytes # (1.0-4.8) k/uL APTT 30.2 H (22.0-30.0) sec Chloride (98-107) mmol/L BUN (9-20) mg/dL Glucose (74-99) mg/dL POC Glucose (mg/dL) 151 H 125 H (75-99) mg/dL Calcium (8.4-10.2) mg/dL 10/13/21 10/13/21 10/13/21 Range/Units 03:33 03:33 03:33 WBC 10.8 H (3.8-10.6) k/uL RBC 3.56 L (4.30-5.90) m/uL Hgb 10.9 L (13.0-17.5) gm/dL Hct 34.7 L (39.0-53.0) % Neutrophils # 9.3 H (1.3-7.7) k/uL Lymphocytes # 0.8 L (1.0-4.8) k/uL APTT 33.0 H (22.0-30.0) sec Chloride 109 H (98-107) mmol/L BUN 26 H (9-20) mg/dL Glucose 135 H (74-99) mg/dL POC Glucose (mg/dL) (75-99) mg/dL Calcium 8.1 L (8.4-10.2) mg/dL 10/13/21 10/13/21 Range/Units 06:16 08:30 WBC (3.8-10.6) k/uL RBC (4.30-5.90) m/uL Hgb (13.0-17.5) gm/dL Hct (39.0-53.0) % Neutrophils # (1.3-7.7) k/uL Lymphocytes # (1.0-4.8) k/uL APTT 33.3 H (22.0-30.0) sec Chloride (98-107) mmol/L BUN (9-20) mg/dL Glucose (74-99) mg/dL POC Glucose (mg/dL) 129 H (75-99) mg/dL Calcium (8.4-10.2) mg/dL Microbiology - Last 24 Hours (Table) 10/09/21 16:34 Blood Culture - Preliminary Blood No Growth after 72 hours 10/09/21 16:15 Blood Culture - Preliminary Blood No Growth after 72 hours 10/10/21 16:30 Gram Stain - Final Other - Other Wound Culture - Final Enterobacter cloacae 10/10/21 16:30 Anaerobic Culture - Preliminary Other - Other
[2021-10-13 12:05] LABS: Glucose,Whole Blood 122 mg/dL (75-99)
--- NOTE | 2021-10-13 12:11 | P.PN ---
Subjective Progress Note Date: 10/13/21 Principal diagnosis: Abdominal pain, secondary to perforated viscus, patient is status post expiratory laparotomy with lysis of adhesions small bowel resection and incisional hernia repair postoperative day #3 This is a very pleasant 76-year-old male patient with a known history of atrial fibrillation anticoagulated with anticoagulated with Xarelto, hypertension, former smoker. He presented here to the emergency room on 10/09/2021 with complaints of left upper quadrant pain that began that had begun 2 days prior. He had an abrupt onset of left upper quadrant discomfort. He did have episode of emesis. His pain was worse and he presented to the ER for the same. Comput ed tomography scan of the abdomen and pelvis was suggestive of focal small bowel perforation with acute inflammatory changes and T/abscess formation. Small bowel lesion at that time cannot be excluded. Yesterday he had undergone exploratory laparotomy with lysis of adhesions and small bowel resection. He also had incisional hernia repair. Appendectomy had been recovering well until earlier today he developed a brief episode of unresponsiveness. His witnessed this at the bedside stated his eyes rolled back. This was in conjunction with a long pauses on the heart monitor as well. For that reason he was transferred to the intensive care unit for closer monitoring. He is seen in consultation. He is resting comfortably in bed. Awake and alert in no acute distress. He remains in atrial fibrillation currently with a rapid ventricular response and was initiated on a Cardizem drip now at 10 mg per hour. No significant pauses since his arrival. He denies any chest pain shortness of breath cough or congestion. No dizziness or lightheadedness. He is maintaining good O2 saturations in the 90s on 4 L/m per nasal cannula. He is afebrile. Blood pressure is stable. Chest x-ray reveals atelectasis of the lung bases. Doppler reveals plaquing of the right internal carotid artery contributing to moderate narrowing between 50 and 69%. No significant atherosclerosis of the le ft carotid. Blood cultures reveal no growth. Wound culture pending. He is currently on Zosyn. White count 14.9. Hemoglobin 11.7. Sodium 138. Potassium 4.0. Bicarb 24. BUN 32. Creatinine 1.04. Glucose 185. ProBNP 3640. Patient was reevaluated today on 10/12/2021, remains in the ICU, does not seem to be in any distress, no significant sinus pauses or arrhythmias overnight. Patient is known to have paroxysmal atrial fibrillation, but that reason we transfer the patient yesterday to the ICU was mostly because he had colonic positives consistent with tachybradycardia syndrome. At this point the patient is doing well, no major issues over the last 24 hours, and he was seen by cardiology, recommending low intensity heparin for his underlying atrial fibrillation if cleared by surgery. Patient continues to have nasogastric tube in place, no abdominal pain, no bowel movements, and the patient is not passing any gas yet. Hence the nasogastric tube will remain in place. Labs today showed WBC count of 14 hemoglobin 11.1 electrolytes are normal renal profile is normal calcium is 8.2 Reevaluated today on 10/13/2021, patient is basically about the same. Not in any distress continues to have nasogastric tube in place, continues to have atrial fibrillation with RVR, being addressed by cardiology on the case, remains on Cardizem drip. Remains on heparin/low intensity. No further episodes of bradycardia or long pauses, no symptoms of syncope. Absent today including CBC was relatively normal WBC count is 10.8 hemoglobin is 10.9. Electrolytes are normal renal profile is normal blood sugar is 122. Patient denies being in any form of distress, he is relatively asymptomatic and sitting in bed without any complaints. Objective - Vital Signs Vital signs: Vital Signs Temp 98.2 F 10/13/21 08:00 Pulse 125 H 10/13/21 11:00 Resp 23 10/13/21 11:00 BP 153/100 10/13/21 11:00 Pulse Ox 94 L 10/13/21 11:00 Intake & Output 10/12/21 10/13/21 10/13/21 18:59 06:59 18:59 Intake Total 0477.070 2824.628 682.459 Output Total 770 1030 435 Balance 1145.372 839.628 247.459 Weight 117.7 kg 114.5 kg Intake: IV 1630 1600 625 Invasive Line 4 30 Piperacillin-Tazobactam 3 100 100 .375 gm In Sodium Chloride 0.9% 100 ml @ 25 mls/hr IVPB Q8HR [facility] Rx# :[id number] Sodium Chloride 0.9% 1, 1500 1500 625 000 ml @ 125 mls/hr IV . Q8H [facility] Rx#:[id number] Intake, IV Titration 285.372 269.628 57.459 Amount Diltiazem 125 mg In 108.167 96.833 Sodium Chloride 0.9% 100 ml @ 5 MG/HR 5 mls/hr IV .Q24H [facility] Rx#:[id number] Heparin Sod,Pork in 0.45% 77.205 172.795 57.459 NaCl 25,000 unit In 0.45 % NaCl 1 250ml.bag @ 8.5 UNITS/KG/HR 10.005 mls/hr IV .Q24H [facility] Rx#: [id number] Piperacillin-Tazobactam 3 100 .375 gm In Sodium Chloride 0.9% 100 ml @ 25 mls/hr IVPB Q8HR [facility] Rx# :[id number] Output: Gastric Drainage 300 450 Drainage 30 15 Abdomen 30 15 Urine 440 565 435 Other: Voiding Method Indwelling Catheter Indwelling Catheter Indwelling Catheter - Exam Physical Exam: Revealed 76-year-old white male in no distress. On 2 L nasal cannula. Head: Atraumatic, normocephalic. HEENT:[Neck is supple.] [No neck masses.] [No thyromegaly.] [No JVD.] Nasogastric tube seems to be intact. Patient does have dry mucous membranes. Chest: [Symmetrical chest expansion, diminished breath sounds at the bases no crackles or rhonchi or wheezes Cardiac Exam: Irregular irregular rhythm. [Normal S1 and S2, no S3 gallop, no murmur.] Abdomen: Postsurgical, dressing seems to be intact [Soft, nontender, no megaly, no rebound, no guarding, no bowel sounds. Extremities: [No clubbing, no edema, no cyanosis.] Good pulses bilaterally. Neurological Exam: [No focal neurologic deficit.] Alert oriented 3. Psychiatric: Normal mood, affect and normal mental status examination. Skin: No rashes. - Labs CBC & Chem 7: 10/13/21 03:33 10/13/21 03:33 Labs: Abnormal Lab Results - Last 24 Hours (Table) 10/12/21 10/12/21 10/13/21 Range/Units 18:23 23:08 00:26 WBC (3.8-10.6) k/uL RBC (4.30-5.90) m/uL Hgb (13.0-17.5) gm/dL Hct (39.0-53.0) % Neutrophils # (1.3-7.7) k/uL Lymphocytes # (1.0-4.8) k/uL APTT 30.2 H (22.0-30.0) sec Chloride (98-107) mmol/L BUN (9-20) mg/dL Glucose (74-99) mg/dL POC Glucose (mg/dL) 151 H 125 H (75-99) mg/dL Calcium (8.4-10.2) mg/dL 10/13/21 10/13/21 10/13/21 Range/Units 03:33 03:33 03:33 WBC 10.8 H (3.8-10.6) k/uL RBC 3.56 L (4.30-5.90) m/uL Hgb 10.9 L (13.0-17.5) gm/dL Hct 34.7 L (39.0-53.0) % Neutrophils # 9.3 H (1.3-7.7) k/uL Lymphocytes # 0.8 L (1.0-4.8) k/uL APTT 33.0 H (22.0-30.0) sec Chloride 109 H (98-107) mmol/L BUN 26 H (9-20) mg/dL Glucose 135 H (74-99) mg/dL POC Glucose (mg/dL) (75-99) mg/dL Calcium 8.1 L (8.4-10.2) mg/dL 10/13/21 10/13/21 10/13/21 Range/Units 06:16 08:30 11:53 WBC (3.8-10.6) k/uL RBC (4.30-5.90) m/uL Hgb (13.0-17.5) gm/dL Hct (39.0-53.0) % Neutrophils # (1.3-7.7) k/uL Lymphocytes # (1.0-4.8) k/uL APTT 33.3 H (22.0-30.0) sec Chloride (98-107) mmol/L BUN (9-20) mg/dL Glucose (74-99) mg/dL POC Glucose (mg/dL) 129 H 122 H (75-99) mg/dL Calcium (8.4-10.2) mg/dL Microbiology - Last 24 Hours (Table) 10/09/21 16:34 Blood Culture - Preliminary Blood No Growth after 72 hours 10/09/21 16:15 Blood Culture - Preliminary Blood No Growth after 72 hours 10/10/21 16:30 Gram Stain - Final Other - Other Wound Culture - Final Enterobacter cloacae 10/10/21 16:30 Anaerobic Culture - Preliminary Other - Other Assessment and Plan Assessment: Impression: Status post bowel resection, lysis of adhesions, and hernia repair postoperative day #3 Postoperative tachybradycardia syndrome, not requiring any intervention except monitoring the patient in the ICU for his prolonged sinus pauses. None over the last 24 hours. Paroxysmal atrial fibrillation patient will definitely benefit from anticoagulation therapy/low dose heparin or eliquis. Has to be cleared by surgery History of hypertension. Former smoker. Tachybradycardia syndrome. Syncopal episode secondary to sinus pauses. Recommendation: Continue to hold metoprolol. Continue to monitor in the ICU for now. Continue Cardizem drip. Continue heparin. Continue nasogastric tube in place. Continue Zosyn empirically. Continue GI prophylaxis. We will continue to follow. Time with Patient: Less than 30
[2021-10-13] MEDS: DILTIAZEM 125 MG in SODIUM CHLORIDE 0.9% 100 ML IV SCH ×2 (12:30→22:33)
[2021-10-13] MEDS ORDERED: FUROSEMIDE 10 MG/ML 4 ML VIAL IV STA (12:30)
--- NOTE | 2021-10-13 15:21 | P.PN ---
Subjective Progress Note Date: 10/13/21 CHIEF COMPLAINT: Small bowel perforation HISTORY OF PRESENT ILLNESS: The patient is a 76-year-old who presented with incisional hernia including pneumoperitoneum. He is status post small bowel resection including incisional hernia repair 10/10/2021. Patient is intensive care unit. He has bilious output from his nasogastric tube. He sitting up in a chair. His pain is controlled. He has started to pass flatus. ROS: No reports of nausea and vomiting. No bowel movements. No fevers or chills. No new chest pain. PHYSICAL EXAM: VITAL SIGNS: Reviewed CONSTITUTIONAL: Well developed and in no acute distress. EYES: Conjuctivae without sclera icterus. Extraocular movements grossly intact. HEAD, EARS, NOSE, THROAT: Moist buccal mucosa. Head is atraumatic, normocephalic. Hears conversational speech. No nasal drainage. RESPIRATORY: Non-labored respirations and equal bilateral excursions. CARDIOVASCULAR: Palpable 2+ radial pulses. Irregular rate. Irregular rhythm. ABDOMEN: Incisions intact. MUSCULOSKELETAL: No gross deformity of the lower extremities noted. No clubbing. No cyanosis. SKIN: Good skin turgor. Well perfused. NEUROLOGIC: Cranial nerves II through XII grossly intact. No focal or lateralizing signs. PSYCH: Appropriate affect. Alert and oriented to person, place and time. CLINICAL LABS: Reviewed. WBC trending downward from 14,000 to over 10,000. Hemoglobin down from 11.1-10.9. ASSESSMENT: 1. 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 Sepsis due to intra-abdominal infection 3. Anemia 4. Atrial fibrillation 5. Anticoagulation PLAN: 1. May advance to ice chips and popsicles. 2. Continue IV antibiotics. 3. May be transferred to floor once clinically stable 4. Patient is at risk for bleed due to anticoagulation Objective - Vital Signs Vital signs: Vital Signs Temp 98.2 F 10/13/21 08:00 Pulse 125 H 10/13/21 11:00 Resp 23 10/13/21 11:00 BP 153/100 10/13/21 11:00 Pulse Ox 94 L 10/13/21 11:00 Intake & Output 10/12/21 10/13/21 10/13/21 18:59 06:59 18:59 Intake Total 5645.338 5437.628 807.459 Output Total 770 1030 435 Balance 1145.372 839.628 372.459 Weight 117.7 kg 114.5 kg Intake: IV 1630 1600 625 Invasive Line 4 30 Piperacillin-Tazobactam 3 100 100 .375 gm In Sodium Chloride 0.9% 100 ml @ 25 mls/hr IVPB Q8HR [facility] Rx# :[id number] Sodium Chloride 0.9% 1, 1500 1500 625 000 ml @ 125 mls/hr IV . Q8H [facility] Rx#:[id number] Intake, IV Titration 285.372 269.628 182.459 Amount Diltiazem 125 mg In 108.167 96.833 125 Sodium Chloride 0.9% 100 ml @ 5 MG/HR 5 mls/hr IV .Q24H [facility] Rx#:[id number] Heparin Sod,Pork in 0.45% 77.205 172.795 57.459 NaCl 25,000 unit In 0.45 % NaCl 1 250ml.bag @ 8.5 UNITS/KG/HR 10.005 mls/hr IV .Q24H [facility] Rx#: [id number] Piperacillin-Tazobactam 3 100 .375 gm In Sodium Chloride 0.9% 100 ml @ 25 mls/hr IVPB Q8HR [facility] Rx# :[id number] Output: Gastric Drainage 300 450 Drainage 30 15 Abdomen 30 15 Urine 440 565 435 Other: Voiding Method Indwelling Catheter Indwelling Catheter Indwelling Catheter - Labs CBC & Chem 7: 10/13/21 03:33 10/13/21 03:33 Labs: Abnormal Lab Results - Last 24 Hours (Table) 10/12/21 10/12/21 10/13/21 Range/Units 18:23 23:08 00:26 WBC (3.8-10.6) k/uL RBC (4.30-5.90) m/uL Hgb (13.0-17.5) gm/dL Hct (39.0-53.0) % Neutrophils # (1.3-7.7) k/uL Lymphocytes # (1.0-4.8) k/uL APTT 30.2 H (22.0-30.0) sec Chloride (98-107) mmol/L BUN (9-20) mg/dL Glucose (74-99) mg/dL POC Glucose (mg/dL) 151 H 125 H (75-99) mg/dL Calcium (8.4-10.2) mg/dL 10/13/21 10/13/21 10/13/21 Range/Units 03:33 03:33 03:33 WBC 10.8 H (3.8-10.6) k/uL RBC 3.56 L (4.30-5.90) m/uL Hgb 10.9 L (13.0-17.5) gm/dL Hct 34.7 L (39.0-53.0) % Neutrophils # 9.3 H (1.3-7.7) k/uL Lymphocytes # 0.8 L (1.0-4.8) k/uL APTT 33.0 H (22.0-30.0) sec Chloride 109 H (98-107) mmol/L BUN 26 H (9-20) mg/dL Glucose 135 H (74-99) mg/dL POC Glucose (mg/dL) (75-99) mg/dL Calcium 8.1 L (8.4-10.2) mg/dL 10/13/21 10/13/21 10/13/21 Range/Units 06:16 08:30 11:53 WBC (3.8-10.6) k/uL RBC (4.30-5.90) m/uL Hgb (13.0-17.5) gm/dL Hct (39.0-53.0) % Neutrophils # (1.3-7.7) k/uL Lymphocytes # (1.0-4.8) k/uL APTT 33.3 H (22.0-30.0) sec Chloride (98-107) mmol/L BUN (9-20) mg/dL Glucose (74-99) mg/dL POC Glucose (mg/dL) 129 H 122 H (75-99) mg/dL Calcium (8.4-10.2) mg/dL Microbiology - Last 24 Hours (Table) 10/09/21 16:34 Blood Culture - Preliminary Blood No Growth after 72 hours 10/09/21 16:15 Blood Culture - Preliminary Blood No Growth after 72 hours 10/10/21 16:30 Gram Stain - Final Other - Other Wound Culture - Final Enterobacter cloacae 10/10/21 16:30 Anaerobic Culture - Preliminary Other - Other Assessment and Plan (1) Sepsis Current Visit: Yes Status: Acute Code(s): A41.9 - SEPSIS, UNSPECIFIED ORGANISM SNOMED Code(s): 07934299 (2) Intra-abdominal abscess Current Visit: Yes Status: Acute Code(s): K65.1 - PERITONEAL ABSCESS SNOMED Code(s): 57118589 (3) Small bowel perforation Current Visit: Yes Status: Acute Code(s): K63.1 - PERFORATION OF INTESTINE (NONTRAUMATIC) SNOMED Code(s): 951682373 (4) Atrial fibrillation with RVR Current Visit: No Status: Acute Code(s): I48.91 - UNSPECIFIED ATRIAL FIBRILLATION SNOMED Code(s): 462345051737678 (5) Incisional hernia Current Visit: Yes Status: Acute Code(s): K43.2 - INCISIONAL HERNIA WITHOUT OBSTRUCTION OR GANGRENE SNOMED Code(s): 181054920
--- NOTE | 2021-10-13 16:25 | XR ---
EXAMINATION TYPE: XR chest 1V portable DATE OF EXAM: 10/13/2021 COMPARISON: 10/11/2021 HISTORY: Short of breath TECHNIQUE: FINDINGS: There is some atelectasis at the lung bases. There is nasogastric tube. No obvious heart fa ilure. There are chest leads. There is some elevation of the right diaphragm. IMPRESSION: There is atelectasis at the lung bases which is slightly improved compared to recent exam . No obvious heart failure.
--- NOTE | 2021-10-13 16:29 | PN ---
PROGRESS NOTE DATE OF SERVICE: 10/13/2021 This 76-year-old gentleman who was admitted after bowel surgery had atrial fibrillation. Patient is being monitored in the ICU at this time. The patient also has some mild fluid overload at this time and the patient is being closely monitored. Multiple consultants. Past medical history reviewed. REVIEW OF SYSTEMS: Fourteen-point review of systems negative except as mentioned previously. MEDICATIONS: Reviewed. See list. Doses are reviewed. PHYSICAL EXAMINATION: Patient is alert, oriented x3. Pulse is 125, blood pressure 143/100, respiration 23. HEENT: Conjunctivae normal. NECK: No jugular venous distention. CARDIOVASCULAR: S1, S2 irregular. Tachycardic. RESPIRATION: Breath sounds diminished at the bases. A few scattered rhonchi. ABDOMEN: Soft, distended, status post surgery. LEGS: No edema. No swelling. NERVOUS SYSTEM: Diffusely weak. LABS: APTT noted. Glucose noted. ASSESSMENT: 1. Diverticulitis with microperforation, status post exploratory laparotomy. 2. Atrial fibrillation, paroxysmal, with fast ventricular rate and tachycardia. 3. Acute renal failure. 4. Sepsis. 5. Diabetes mellitus, type 2. 6. Hypertension. 7. Possible fluid overload. RECOMMENDATIONS AND DISCUSSION: I recommend to continue current medications, continue with the monitoring, symptomatic treatment. Recommend reducing the IV fluids, Lasix. Portable chest x-ray. Repeat labs in the morning. Closely follow with multiple consultants. Prognosis guarded. Monitor in the ICU. Further recommendations to follow. MMODL / IJN: [id number] /
[2021-10-13 17:43] LABS: Glucose,Whole Blood 121 mg/dL (75-99)
[2021-10-13 23:49] LABS: Glucose,Whole Blood 114 mg/dL (75-99)
[2021-10-14] MEDS: HYDROmorphone 1 MG/ML 1 ML SYRINGE IVP PRN ×7 (02:14→23:10)
[2021-10-14 04:06] LABS: Basophils % (A) 0 %; Eosinophils # (A) 0.2 k/uL (0-0.7); Eosinophils % (A) 2 %; HCT 34.8 % (39.0-53.0); HGB 10.8 gm/dL (13.0-17.5); Hypochromasia Moderate; Lymphocytes # (A) 0.8 k/uL (1.0-4.8); Lymphocytes % (A) 10 %; MCH 30.6 pg (25.0-35.0); MCHC 31.1 g/dL (31.0-37.0); MCV 98.6 fL (80.0-100.0); Mean Platelet Volume 7.5; Monocytes # (A) 0.5 k/uL (0-1.0); Monocytes % (A) 6 %; Neutrophils % (A) 82 %; Platelet Count 351 k/uL (150-450); RBC 3.53 m/uL (4.30-5.90); RDW 12.7 % (11.5-15.5); WBC 8.6 k/uL (3.8-10.6)
[2021-10-14 04:22] LABS: ALT 32 U/L (4-49); AST 35 U/L (17-59); African American GFR (CKD) >90 (>60 ml/min/1.73 sqM); Albumin 2.3 g/dL (3.5-5.0); Alkaline Phosphatase 44 U/L (38-126); Anion Gap 6 mmol/L; Blood Urea Nitrogen 20 mg/dL (9-20); Carbon Dioxide 28 mmol/L (22-30); Chloride 110 mmol/L (98-107); Glucose 106 mg/dL (74-99); Non-African American GFR(CKD) 84 (>60 ml/min/1.73 sqM); Potassium 3.3 mmol/L (3.5-5.1); Sodium 144 mmol/L (137-145); Total Bilirubin 0.7 mg/dL (0.2-1.3); Total Protein 4.9 g/dL (6.3-8.2)
[2021-10-14] MEDS ORDERED: Potassium Replacement Protocol 1 EACH MISC MISCELLANE PRN (04:39)
[2021-10-14] MEDS: POTASSIUM CHLORIDE 10 MEQ in WATER FOR INJECTION 1 100ML.BAG IVPB SCH ×4 (05:03→10:37)
[2021-10-14 05:42] LABS: Glucose,Whole Blood 115 mg/dL (75-99)
[2021-10-14] MEDS: INSULIN ASPART (NovoLOG) 100 UNIT/ML VIAL SQ SCH ×4 (05:43→23:45)
[2021-10-14] MEDS: ALBUTEROL NEBULIZED 2.5 MG/3 ML INHALATION PRN (07:40)
[2021-10-14] MEDS: HEPARIN SOD,PORK IN 0.45% NACL 25,000 UNIT in 0.45% NACL 1 250ML.BAG IV SCH ×2 (08:22→19:54)
[2021-10-14] MEDS: SODIUM CHLORIDE 0.9% 1,000 ML IV SCH ×2 (08:32→23:10)
[2021-10-14] MEDS: PIPERACILLIN-TAZOBACTAM 3.375 GM in SODIUM CHLORIDE 0.9% 100 ML IVPB SCH ×3 (08:32→23:10)
[2021-10-14] MEDS: FAMOTIDINE 20 MG/2 ML VIAL IV SCH (08:33)
[2021-10-14] MEDS: PANTOPRAZOLE 40 MG/10 ML VIAL IVP SCH ×2 (08:33→19:54)
--- NOTE | 2021-10-14 09:32 | P.PN ---
Subjective Progress Note Date: 10/14/21 PROGRESS NOTE The patient is a 76-year-old male with a known history of paroxysmal atrial fibrillation who presented with abdominal pain and ruptured viscus. He underwent surgery. He was in atrial fibrillation with rapid ventricular response, yesterday he had a long pauses. He was transferred to the ICU. He continues to be in atrial fibrillation with controlled ventricular response. At times his ventricle response is in the 120s. He continues to be on IV Cardizem 10 mg per hour. He has no further houses. He continues to have an NG tube and has not passed any gas. He has mild abdominal discomfort. He denies any chest discomfort or dyspnea. Hemodynamically his blood pressure is stable. October 13: The patient continues to be in atrial fibrillation with an average ventricular response. He had a 10 second pause yesterday while in bed. He continues to be on IV Cardizem. He denies any chest discomfort or dyspnea. He had no bowel movement yet continues to be nothing by mouth with an NG tube. He has mild abdominal discomfort. He is on IV heparin drip in addition to the diltiazem October 14: The patient is doing well this morning, he has continued to be in atrial fibrillation with no further pauses. He continues to be on IV heparin and IV Cardizem. He had flatus but no bowel movement yet. He continues to have the NG tube. His abdominal discomfort is stable. He has no evidence of ventricular ectopic activity. His atrial flutter ablation rate is in the high 90s low 100s. PHYSICAL EXAMINATION: Blood pressure 136/70 heart rate 90-110 LUNGS: Clear to auscultation HEART: Irregular rate and rhythm, S1, S2. No S3. No systolic murmur ABDOMEN: Soft, mild tenderness, dressing in place, hypoactive bowel sounds. EXTREMETIES: No edema LAB: Potassium 3.3, BUN 20, creatinine 0.89, hemoglobin 10.8 IMPRESSION: 1. Status post bowel resection with lysis of adhesion and hernia repair 2. Paroxysmal atrial ablation now in atrial fibrillation with episodes of rapid ventricular response and long pauses consistent with tachybradycardia syndrome. 3. History of hypertension 4. Prior history of smoking PLAN: 1. Continue on Cardizem at present rate 2. The patient will require a permanent pacemaker in view of his long pauses. I would favor to wait 48 hours to make sure that there is no evidence of infection in the abdomen. 3. Continue IV heparin 4. I discussed the findings with the patient and he is in full understanding and agreement. Objective - Vital Signs Vital signs: Vital Signs Temp 97.9 F 10/14/21 04:00 Pulse 101 H 10/14/21 07:48 Resp 18 10/14/21 07:48 BP 142/70 10/14/21 07:00 Pulse Ox 93 L 10/14/21 07:40 Intake & Output 10/13/21 10/14/21 10/14/21 18:59 06:59 18:59 Intake Total 4895.385 6068.5 475 Output Total 2785 1265 200 Balance -1160.000 -164.5 275 Weight 112.7 kg Intake: IV 1250 1000 225 Piperacillin-Tazobactam 3 100 100 .375 gm In Sodium Chloride 0.9% 100 ml @ 25 mls/hr IVPB Q8HR [facility] Rx# :[id number] Sodium Chloride 0.9% 1, 1150 900 225 000 ml @ 75 mls/hr IV . [id number] [facility] Rx#:[id number] Intake, IV Titration 375.000 100.5 250 Amount Diltiazem 125 mg In 125 100.5 Sodium Chloride 0.9% 100 ml @ 5 MG/HR 5 mls/hr IV .Q24H [facility] Rx#:[id number] Heparin Sod,Pork in 0.45% 250.000 250 NaCl 25,000 unit In 0.45 % NaCl 1 250ml.bag @ 8.5 UNITS/KG/HR 10.005 mls/hr IV .Q24H [facility] Rx#: [id number] Output: Gastric Drainage 550 Drainage 50 Abdomen 50 Urine 2785 665 200 Other: Voiding Method Indwelling Catheter Indwelling Catheter - Labs CBC & Chem 7: 10/14/21 03:30 10/14/21 03:30 Labs: Abnormal Lab Results - Last 24 Hours (Table) 10/13/21 10/13/21 10/13/21 Range/Units 11:53 16:07 17:42 RBC (4.30-5.90) m/uL Hgb (13.0-17.5) gm/dL Hct (39.0-53.0) % Lymphocytes # (1.0-4.8) k/uL APTT 49.6 H (22.0-30.0) sec Potassium (3.5-5.1) mmol/L Chloride (98-107) mmol/L Glucose (74-99) mg/dL POC Glucose (mg/dL) 122 H 121 H (75-99) mg/dL Calcium (8.4-10.2) mg/dL Total Protein (6.3-8.2) g/dL Albumin (3.5-5.0) g/dL 10/13/21 10/14/21 10/14/21 Range/Units 23:48 03:30 03:30 RBC 3.53 L (4.30-5.90) m/uL Hgb 10.8 L (13.0-17.5) gm/dL Hct 34.8 L (39.0-53.0) % Lymphocytes # 0.8 L (1.0-4.8) k/uL APTT (22.0-30.0) sec Potassium 3.3 L (3.5-5.1) mmol/L Chloride 110 H (98-107) mmol/L Glucose 106 H (74-99) mg/dL POC Glucose (mg/dL) 114 H (75-99) mg/dL Calcium 7.0 L (8.4-10.2) mg/dL Total Protein 4.9 L (6.3-8.2) g/dL Albumin 2.3 L (3.5-5.0) g/dL 10/14/21 10/14/21 Range/Units 03:30 05:41 RBC (4.30-5.90) m/uL Hgb (13.0-17.5) gm/dL Hct (39.0-53.0) % Lymphocytes # (1.0-4.8) k/uL APTT 56.1 H (22.0-30.0) sec Potassium (3.5-5.1) mmol/L Chloride (98-107) mmol/L Glucose (74-99) mg/dL POC Glucose (mg/dL) 115 H (75-99) mg/dL Calcium (8.4-10.2) mg/dL Total Protein (6.3-8.2) g/dL Albumin (3.5-5.0) g/dL Microbiology - Last 24 Hours (Table) 10/09/21 16:34 Blood Culture - Preliminary Blood No Growth after 96 hours 10/09/21 16:15 Blood Culture - Preliminary Blood No Growth after 96 hours
--- NOTE | 2021-10-14 11:15 | P.PN ---
Subjective Progress Note Date: 10/14/21 Principal diagnosis: Abdominal pain, secondary to perforated viscus, patient is status post expiratory laparotomy with lysis of adhesions small bowel resection and incisional hernia repair postoperative day #4 This is a very pleasant 76-year-old male patient with a known history of atrial fibrillation anticoagulated with anticoagulated with Xarelto, hypertension, former smoker. He presented here to the emergency room on 10/09/2021 with complaints of left upper quadrant pain that began that had begun 2 days prior. He had an abrupt onset of left upper quadrant discomfort. He did have episode of emesis. His pain was worse and he presented to the ER for the same. Comput ed tomography scan of the abdomen and pelvis was suggestive of focal small bowel perforation with acute inflammatory changes and T/abscess formation. Small bowel lesion at that time cannot be excluded. Yesterday he had undergone exploratory laparotomy with lysis of adhesions and small bowel resection. He also had incisional hernia repair. Appendectomy had been recovering well until earlier today he developed a brief episode of unresponsiveness. His witnessed this at the bedside stated his eyes rolled back. This was in conjunction with a long pauses on the heart monitor as well. For that reason he was transferred to the intensive care unit for closer monitoring. He is seen in consultation. He is resting comfortably in bed. Awake and alert in no acute distress. He remains in atrial fibrillation currently with a rapid ventricular response and was initiated on a Cardizem drip now at 10 mg per hour. No significant pauses since his arrival. He denies any chest pain shortness of breath cough or congestion. No dizziness or lightheadedness. He is maintaining good O2 saturations in the 90s on 4 L/m per nasal cannula. He is afebrile. Blood pressure is stable. Chest x-ray reveals atelectasis of the lung bases. Doppler reveals plaquing of the right internal carotid artery contributing to moderate narrowing between 50 and 69%. No significant atherosclerosis of the le ft carotid. Blood cultures reveal no growth. Wound culture pending. He is currently on Zosyn. White count 14.9. Hemoglobin 11.7. Sodium 138. Potassium 4.0. Bicarb 24. BUN 32. Creatinine 1.04. Glucose 185. ProBNP 3640. Patient was reevaluated today on 10/12/2021, remains in the ICU, does not seem to be in any distress, no significant sinus pauses or arrhythmias overnight. Patient is known to have paroxysmal atrial fibrillation, but that reason we transfer the patient yesterday to the ICU was mostly because he had colonic positives consistent with tachybradycardia syndrome. At this point the patient is doing well, no major issues over the last 24 hours, and he was seen by cardiology, recommending low intensity heparin for his underlying atrial fibrillation if cleared by surgery. Patient continues to have nasogastric tube in place, no abdominal pain, no bowel movements, and the patient is not passing any gas yet. Hence the nasogastric tube will remain in place. Labs today showed WBC count of 14 hemoglobin 11.1 electrolytes are normal renal profile is normal calcium is 8.2 Reevaluated today on 10/13/2021, patient is basically about the same. Not in any distress continues to have nasogastric tube in place, continues to have atrial fibrillation with RVR, being addressed by cardiology on the case, remains on Cardizem drip. Remains on heparin/low intensity. No further episodes of bradycardia or long pauses, no symptoms of syncope. Absent today including CBC was relatively normal WBC count is 10.8 hemoglobin is 10.9. Electrolytes are normal renal profile is normal blood sugar is 122. Patient denies being in any form of distress, he is relatively asymptomatic and sitting in bed without any complaints. Reevaluated today on 10/14/2021, patient remains in the ICU, doing quite well, continues to have atrial fibrillation, no further positives, remains on heparin and Cardizem intravenously. Patient had some flatness last night, but no bowel movements yet. Denies any abdominal pain and discomfort. Denies any chest pain. Atrial fibrillation seems to be better controlled. CBC is relatively normal electrolytes are normal except for low potassium of 3.3, PTT is therapeutic. Profile is normal Objective - Vital Signs Vital signs: Vital Signs Temp 97.9 F 10/14/21 04:00 Pulse 141 H 10/14/21 09:00 Resp 20 10/14/21 09:00 BP 136/71 10/14/21 09:00 Pulse Ox 92 L 10/14/21 09:00 Intake & Output 10/13/21 10/14/21 10/14/21 18:59 06:59 18:59 Intake Total 5276.606 2191.5 475 Output Total 2785 1265 200 Balance -1160.000 -164.5 275 Weight 112.7 kg Intake: IV 1250 1000 225 Piperacillin-Tazobactam 3 100 100 .375 gm In Sodium Chloride 0.9% 100 ml @ 25 mls/hr IVPB Q8HR [facility] Rx# :[id number] Sodium Chloride 0.9% 1, 1150 900 225 000 ml @ 75 mls/hr IV . [id number] [facility] Rx#:[id number] Intake, IV Titration 375.000 100.5 250 Amount Diltiazem 125 mg In 125 100.5 Sodium Chloride 0.9% 100 ml @ 5 MG/HR 5 mls/hr IV .Q24H [facility] Rx#:[id number] Heparin Sod,Pork in 0.45% 250.000 250 NaCl 25,000 unit In 0.45 % NaCl 1 250ml.bag @ 8.5 UNITS/KG/HR 10.005 mls/hr IV .Q24H [facility] Rx#: [id number] Output: Gastric Drainage 550 Drainage 50 Abdomen 50 Urine 2785 665 200 Other: Voiding Method Indwelling Catheter Indwelling Catheter Indwelling Catheter - Exam Physical Exam: Revealed 76-year-old white male in no distress. On 2 L nasal cannula. Head: Atraumatic, normocephalic. HEENT:[Neck is supple.] [No neck masses.] [No thyromegaly.] [No JVD.] Nasogast allan tube seems to be intact. Patient does have dry mucous membranes. Chest: [Symmetrical chest expansion, diminished breath sounds at the bases no crackles or rhonchi or wheezes Cardiac Exam: Irregular irregular rhythm. [Normal S1 and S2, no S3 gallop, no murmur.] Abdomen: Postsurgical, dressing seems to be intact [Soft, nontender, no megaly, no rebound, no guarding, no bowel sounds. Extremities: [No clubbing, no edema, no cyanosis.] Good pulses bilaterally. Neurological Exam: [No focal neurologic deficit.] Alert oriented 3. Psychiatric: Normal mood, affect and normal mental status examination. Skin: No rashes. - Labs CBC & Chem 7: 10/14/21 03:30 10/14/21 03:30 Labs: Abnormal Lab Results - Last 24 Hours (Table) 10/13/21 10/13/21 10/13/21 Range/Units 11:53 16:07 17:42 RBC (4.30-5.90) m/uL Hgb (13.0-17.5) gm/dL Hct (39.0-53.0) % Lymphocytes # (1.0-4.8) k/uL APTT 49.6 H (22.0-30.0) sec Potassium (3.5-5.1) mmol/L Chloride (98-107) mmol/L Glucose (74-99) mg/dL POC Glucose (mg/dL) 122 H 121 H (75-99) mg/dL Calcium (8.4-10.2) mg/dL Total Protein (6.3-8.2) g/dL Albumin (3.5-5.0) g/dL 10/13/21 10/14/21 10/14/21 Range/Units 23:48 03:30 03:30 RBC 3.53 L (4.30-5.90) m/uL Hgb 10.8 L (13.0-17.5) gm/dL Hct 34.8 L (39.0-53.0) % Lymphocytes # 0.8 L (1.0-4.8) k/uL APTT (22.0-30.0) sec Potassium 3.3 L (3.5-5.1) mmol/L Chloride 110 H (98-107) mmol/L Glucose 106 H (74-99) mg/dL POC Glucose (mg/dL) 114 H (75-99) mg/dL Calcium 7.0 L (8.4-10.2) mg/dL Total Protein 4.9 L (6.3-8.2) g/dL Albumin 2.3 L (3.5-5.0) g/dL 10/14/21 10/14/21 Range/Units 03:30 05:41 RBC (4.30-5.90) m/uL Hgb (13.0-17.5) gm/dL Hct (39.0-53.0) % Lymphocytes # (1.0-4.8) k/uL APTT 56.1 H (22.0-30.0) sec Potassium (3.5-5.1) mmol/L Chloride (98-107) mmol/L Glucose (74-99) mg/dL POC Glucose (mg/dL) 115 H (75-99) mg/dL Calcium (8.4-10.2) mg/dL Total Protein (6.3-8.2) g/dL Albumin (3.5-5.0) g/dL Microbiology - Last 24 Hours (Table) 10/09/21 16:34 Blood Culture - Preliminary Blood No Growth after 96 hours 10/09/21 16:15 Blood Culture - Preliminary Blood No Growth after 96 hours Assessment and Plan Assessment: Impression: Status post bowel resection, lysis of adhesions, and hernia repair postoperative day #4 Postoperative tachybradycardia syndrome, not requiring any intervention except monitoring the patient in the ICU for his prolonged sinus pauses. None over the last 24 hours. Paroxysmal atrial fibrillation patient will definitely benefit from anticoagulation therapy/low dose heparin or eliquis. Has to be cleared by surgery History of hypertension. Former smoker. Tachybradycardia syndrome. Syncopal episode secondary to sinus pauses. Recommendation: Continue to monitor in the ICU for now. Continue Cardizem drip. Continue heparin. Continue nasogastric tube in place. Continue Zosyn empirically. Continue GI prophylaxis. We will continue to follow. Time with Patient: Less than 30
[2021-10-14] MEDS: DILTIAZEM 125 MG in SODIUM CHLORIDE 0.9% 100 ML IV SCH ×2 (11:17→23:10)
[2021-10-14 12:05] LABS: Glucose,Whole Blood 138 mg/dL (75-99)
--- NOTE | 2021-10-14 13:15 | P.PN ---
Subjective Progress Note Date: 10/14/21 Principal diagnosis: Has fainting spells limiting him from moving around. Plan for continued NG tube. Await cardiac clearance. Objective - Vital Signs Vital signs: Vital Signs Temp 97.9 F 10/14/21 04:00 Pulse 120 H 10/14/21 11:00 Resp 22 10/14/21 11:00 BP 130/68 10/14/21 11:00 Pulse Ox 94 L 10/14/21 11:00 Intake & Output 10/13/21 10/14/21 10/14/21 18:59 06:59 18:59 Intake Total 9001.288 4068.5 750 Output Total 2785 1265 330 Balance -1160.000 -164.5 420 Weight 112.7 kg Intake: IV 1250 1000 375 Piperacillin-Tazobactam 3 100 100 .375 gm In Sodium Chloride 0.9% 100 ml @ 25 mls/hr IVPB Q8HR [facility] Rx# :[id number] Sodium Chloride 0.9% 1, 1150 900 375 000 ml @ 75 mls/hr IV . [id number] [facility] Rx#:[id number] Intake, IV Titration 375.000 100.5 375 Amount Diltiazem 125 mg In 125 100.5 125 Sodium Chloride 0.9% 100 ml @ 5 MG/HR 5 mls/hr IV .Q24H [facility] Rx#:[id number] Heparin Sod,Pork in 0.45% 250.000 250 NaCl 25,000 unit In 0.45 % NaCl 1 250ml.bag @ 8.5 UNITS/KG/HR 10.005 mls/hr IV .Q24H [facility] Rx#: [id number] Output: Gastric Drainage 550 Drainage 50 Abdomen 50 Urine 2785 665 330 Other: Voiding Method Indwelling Catheter Indwelling Catheter Indwelling Catheter - Labs CBC & Chem 7: 10/14/21 03:30 10/14/21 03:30 Labs: Abnormal Lab Results - Last 24 Hours (Table) 10/13/21 10/13/21 10/13/21 Range/Units 16:07 17:42 23:48 RBC (4.30-5.90) m/uL Hgb (13.0-17.5) gm/dL Hct (39.0-53.0) % Lymphocytes # (1.0-4.8) k/uL APTT 49.6 H (22.0-30.0) sec Potassium (3.5-5.1) mmol/L Chloride (98-107) mmol/L Glucose (74-99) mg/dL POC Glucose (mg/dL) 121 H 114 H (75-99) mg/dL Calcium (8.4-10.2) mg/dL Total Protein (6.3-8.2) g/dL Albumin (3.5-5.0) g/dL 10/14/21 10/14/21 10/14/21 Range/Units 03:30 03:30 03:30 RBC 3.53 L (4.30-5.90) m/uL Hgb 10.8 L (13.0-17.5) gm/dL Hct 34.8 L (39.0-53.0) % Lymphocytes # 0.8 L (1.0-4.8) k/uL APTT 56.1 H (22.0-30.0) sec Potassium 3.3 L (3.5-5.1) mmol/L Chloride 110 H (98-107) mmol/L Glucose 106 H (74-99) mg/dL POC Glucose (mg/dL) (75-99) mg/dL Calcium 7.0 L (8.4-10.2) mg/dL Total Protein 4.9 L (6.3-8.2) g/dL Albumin 2.3 L (3.5-5.0) g/dL 10/14/21 10/14/21 Range/Units 05:41 12:03 RBC (4.30-5.90) m/uL Hgb (13.0-17.5) gm/dL Hct (39.0-53.0) % Lymphocytes # (1.0-4.8) k/uL APTT (22.0-30.0) sec Potassium (3.5-5.1) mmol/L Chloride (98-107) mmol/L Glucose (74-99) mg/dL POC Glucose (mg/dL) 115 H 138 H (75-99) mg/dL Calcium (8.4-10.2) mg/dL Total Protein (6.3-8.2) g/dL Albumin (3.5-5.0) g/dL Microbiology - Last 24 Hours (Table) 10/09/21 16:34 Blood Culture - Preliminary Blood No Growth after 96 hours 10/09/21 16:15 Blood Culture - Preliminary Blood No Growth after 96 hours Assessment and Plan (1) Sepsis Current Visit: Yes Status: Acute Code(s): A41.9 - SEPSIS, UNSPECIFIED ORGANISM SNOMED Code(s): 86400474 (2) Intra-abdominal abscess Current Visit: Yes Status: Acute Code(s): K65.1 - PERITONEAL ABSCESS SNOMED Code(s): 92683943 (3) Small bowel perforation Current Visit: Yes Status: Acute Code(s): K63.1 - PERFORATION OF INTESTINE (NONTRAUMATIC) SNOMED Code(s): 425393850 (4) Atrial fibrillation with RVR Current Visit: No Status: Acute Code(s): I48.91 - UNSPECIFIED ATRIAL FIBRILLATION SNOMED Code(s): 727784216889135 (5) Incisional hernia Current Visit: Yes Status: Acute Code(s): K43.2 - INCISIONAL HERNIA WITHOUT OBSTRUCTION OR GANGRENE SNOMED Code(s): 848149041
--- NOTE | 2021-10-14 17:00 | PN ---
PROGRESS NOTE DATE OF SERVICE: 10/14/2021 This 76-year-old gentleman who was admitted after bowel surgery has been transferred to ICU. The patient also had atrial fibrillation with fast ventricular rate. The patient is on Cardizem drip. The patient has an NG tube. Patient received IV Lasix yesterday, diuresed about 2 liters, and the patient is feeling much better. Portable chest x-ray done this morning showed significant improvement. Some atelectasis was noted. No chest pain. No palpitations. Past medical history reviewed. REVIEW OF SYSTEMS: Fourteen-point review of systems negative except as mentioned earlier. MEDICATIONS: Medications include Ventolin, Cardizem. Doses and other medications are reviewed. PHYSICAL EXAMINATION: Pulse is 120, irregular. Blood pressure 120/60, respiration 22. HEENT: Conjunctivae normal. NECK: No jugular venous distention. CARDIOVASCULAR: S1, S2 irregular, tachycardic. RESPIRATION: Breath sounds diminished at the bases. A few scattered rhonchi and crackles. ABDOMEN: Soft. Status post surgery. Mild distention. LEGS: Minimal edema; much better. NERVOUS SYSTEM: No focal deficit. LABS: WBC 8.7, hemoglobin 10.8. Other labs are noted. ASSESSMENT: 1. Acute diverticulitis with microperforation, status post exploratory laparotomy. 2. Atrial fibrillation, paroxysmal, with a fast ventricular rate and tachycardia. 3. Acute renal failure. 4. Sepsis. 5. Diabetes mellitus, type 2. 6. Hypertension. 7. Possible fluid overload, improved. RECOMMENDATIONS AND DISCUSSION: I recommend to continue current medications, continue with the monitoring, symptomatic treatment. Otherwise at this time I would recommend monitoring electrolytes closely. Repeat labs will be ordered. Incentive spirometry. Bronchodilators. Continue the Cardizem. The rest of the NG tube management per Surgery. Broad-spectrum IV antibiotics. Further recommendations to follow. MMODL / IJN: [id number] /
[2021-10-14 18:07] LABS: Glucose,Whole Blood 103 mg/dL (75-99)
[2021-10-14 23:11] LABS: Glucose,Whole Blood 126 mg/dL (75-99)
[2021-10-15] MEDS: HYDROmorphone 1 MG/ML 1 ML SYRINGE IVP PRN ×5 (03:11→21:03)
[2021-10-15 06:08] LABS: Glucose,Whole Blood 122 mg/dL (75-99)
[2021-10-15] MEDS: INSULIN ASPART (NovoLOG) 100 UNIT/ML VIAL SQ SCH ×3 (06:44→18:06)
[2021-10-15 08:04] LABS: Basophils % (A) 0 %; Eosinophils # (A) 0.4 k/uL (0-0.7); Eosinophils % (A) 4 %; HCT 37.2 % (39.0-53.0); HGB 11.1 gm/dL (13.0-17.5); Hypochromasia Marked; Lymphocytes # (A) 0.9 k/uL (1.0-4.8); Lymphocytes % (A) 10 %; MCH 30.3 pg (25.0-35.0); MCHC 29.8 g/dL (31.0-37.0); MCV 101.4 fL (80.0-100.0); Mean Platelet Volume 7.8; Monocytes # (A) 0.5 k/uL (0-1.0); Monocytes % (A) 5 %; Neutrophils # (A) 7.6 k/uL (1.3-7.7); Neutrophils % (A) 80 %; Platelet Count 305 k/uL (150-450); RBC 3.67 m/uL (4.30-5.90); RDW 12.4 % (11.5-15.5); WBC 9.4 k/uL (3.8-10.6)
[2021-10-15 08:25] LABS: ALT 54 U/L (4-49); AST 47 U/L (17-59); African American GFR (CKD) >90 (>60 ml/min/1.73 sqM); Albumin 2.6 g/dL (3.5-5.0); Alkaline Phosphatase 45 U/L (38-126); Anion Gap 7 mmol/L; Blood Urea Nitrogen 17 mg/dL (9-20); Carbon Dioxide 27 mmol/L (22-30); Chloride 106 mmol/L (98-107); Glucose 106 mg/dL (74-99); Non-African American GFR(CKD) 89 (>60 ml/min/1.73 sqM); Sodium 140 mmol/L (137-145); Total Protein 5.5 g/dL (6.3-8.2)
--- NOTE | 2021-10-15 08:46 | XR ---
EXAMINATION TYPE: XR chest 1V portable DATE OF EXAM: 10/15/2021 Comparison: 10/15/2021, today Clinical History: 76-year-old male check NG tube placement Findings: NG tube is high. The tip is just below the medial clavicular heads. This should be advanced by at alisa st 25 cm in order for the sagittal diameter of the stomach. Heart borderline in size. Mild interstiti al prominence unchanged. Patchy left basilar retrocardiac density unchanged. Unchanged metal fragment s right apex and left axilla. Impression: 1. The NG tube is short. The tip is just below the medial clavicular heads. It would need to be advan yasir by at least 25 cm so that the side hole enters the stomach. 2. Similar borderline heart size and mild interstitial change. Patchy left basilar/retrocardiac opaci ty is also unchanged.
--- NOTE | 2021-10-15 08:50 | XR ---
EXAMINATION TYPE: XR chest 1V portable DATE OF EXAM: 10/15/2021, 8:23 AM Comparison: Earlier today, 8:19 AM Clinical History: 76-year-old male advanced NGT Findings: NG tube is now appropriately positioned, sidehole within the stomach, below the GE junction. Otherwis e, interstitial changes and patchy left basilar opacities are unchanged. Metal densities projecting a t the right apex and left axilla unchanged. Impression: Satisfactory interval advancement of the NG tube.
--- NOTE | 2021-10-15 08:51 | P.PN ---
Subjective PROGRESS NOTE The patient is a 76-year-old male with a known history of paroxysmal atrial fibrillation who presented with abdominal pain and ruptured viscus. He underwent surgery. He was in atrial fibrillation with rapid ventricular response, yesterday he had a long pauses. He was transferred to the ICU. He continues to be in atrial fibrillation with controlled ventricular response. At times his ventricle response is in the 120s. He continues to be on IV Cardizem 10 mg per hour. He has no further houses. He continues to have an NG tube and has not passed any gas. He has mild abdominal discomfort. He denies any chest discomfort or dyspnea. Hemodynamically his blood pressure is stable. October 13: The patient continues to be in atrial fibrillation with an average ventricular response. He had a 10 second pause yesterday while in bed. He continues to be on IV Cardizem. He denies any chest discomfort or dyspnea. He had no bowel movement yet continues to be nothing by mouth with an NG tube. He has mild abdominal discomfort. He is on IV heparin drip in addition to the diltiazem October 14: The patient is doing well this morning, he has continued to be in atrial fibrillation with no further pauses. He continues to be on IV heparin and IV Cardizem. He had flatus but no bowel movement yet. He continues to have the NG tube. His abdominal discomfort is stable. He has no evidence of ventricular ectopic activity. His atrial flutter ablation rate is in the high 90s low 100s. 10/15 Patient seen and examined. Patient remains in A. fib with mild RVR heart rates mainly 80s to 120s. Remains on Cardizem drip at 10mg/hr. patient still has NG tube in and nothing by mouth. He is on IV fluids at 75 mL per hour. PHYSICAL EXAMINATION: Vitals reviewed LUNGS: Clear to auscultation HEART: Irregular rate and rhythm, S1, S2. No S3. No systolic murmur ABDOMEN: Soft, mild tenderness, dressing in place, hypoactive bowel sounds. EXTREMETIES: No edema LAB: Potassium 3.3, BUN 20, creatinine 0.89, hemoglobin 10.8 IMPRESSION: 1. Status post bowel resection with lysis of adhesion and hernia repair 2. Paroxysmal atrial ablation now in atrial fibrillation with episodes of rapid ventricular response and long pauses consistent with tachybradycardia syndrome. 3. History of hypertension 4. Prior history of smoking PLAN: 1. Continue on Cardizem at present rate 2. The patient will require a permanent pacemaker in view of his long pauses. Possible permanent pacemaker 10/16 if no signs of infection and patient remains s table. 3. Continue IV heparin 4. I discussed the findings with the patient and he is in full understanding and agreement. Objective - Vital Signs Vital signs: Vital Signs Temp 97.7 F 10/15/21 04:00 Pulse 83 10/15/21 07:00 Resp 17 10/15/21 07:00 BP 145/81 10/15/21 07:00 Pulse Ox 94 L 10/15/21 07:00 Intake & Output 10/14/21 10/15/21 10/15/21 18:59 06:59 18:59 Intake Total 1355 1296.397 75 Output Total 800 965 50 Balance 555 331.397 25 Weight 112.5 kg Intake: IV 900 900 75 Sodium Chloride 0.9% 1, 900 900 75 000 ml @ 75 mls/hr IV . [id number] [facility] Rx#:[id number] Intake, IV Titration 375 356.397 Amount Diltiazem 125 mg In 125 118.833 Sodium Chloride 0.9% 100 ml @ 5 MG/HR 5 mls/hr IV .Q24H [facility] Rx#:[id number] Heparin Sod,Pork in 0.45% 250 237.564 NaCl 25,000 unit In 0.45 % NaCl 1 250ml.bag @ 8.5 UNITS/KG/HR 10.005 mls/hr IV .Q24H [facility] Rx#: [id number] Oral 80 40 Output: Gastric Drainage 350 Drainage 45 30 Abdomen 45 30 Urine 755 585 50 Other: Voiding Method Indwelling Catheter Indwelling Catheter - Labs CBC & Chem 7: 10/15/21 07:18 10/15/21 07:18 Labs: Abnormal Lab Results - Last 24 Hours (Table) 10/14/21 10/14/21 10/14/21 Range/Units 12:03 17:56 23:08 RBC (4.30-5.90) m/uL Hgb (13.0-17.5) gm/dL Hct (39.0-53.0) % MCV (80.0-100.0) fL MCHC (31.0-37.0) g/dL Lymphocytes # (1.0-4.8) k/uL Glucose (74-99) mg/dL POC Glucose (mg/dL) 138 H 103 H 126 H (75-99) mg/dL Calcium (8.4-10.2) mg/dL ALT (4-49) U/L Total Protein (6.3-8.2) g/dL Albumin (3.5-5.0) g/dL 10/15/21 10/15/21 10/15/21 Range/Units 06:06 07:18 07:18 RBC 3.67 L (4.30-5.90) m/uL Hgb 11.1 L (13.0-17.5) gm/dL Hct 37.2 L (39.0-53.0) % MCV 101.4 H (80.0-100.0) fL MCHC 29.8 L (31.0-37.0) g/dL Lymphocytes # 0.9 L (1.0-4.8) k/uL Glucose 106 H (74-99) mg/dL POC Glucose (mg/dL) 122 H (75-99) mg/dL Calcium 8.0 L (8.4-10.2) mg/dL ALT 54 H (4-49) U/L Total Protein 5.5 L (6.3-8.2) g/dL Albumin 2.6 L (3.5-5.0) g/dL Microbiology - Last 24 Hours (Table) 10/10/21 16:30 Anaerobic Culture - Final Other - Other 10/09/21 16:15 Blood Culture - Preliminary Blood No Growth after 120 hours 10/09/21 16:34 Blood Culture - Preliminary Blood No Growth after 120 hours
[2021-10-15] MEDS: HEPARIN SODIUM 1,000 UN/ML (10ML VL) IV PRN (09:02)
[2021-10-15] MEDS: HEPARIN SOD,PORK IN 0.45% NACL 25,000 UNIT in 0.45% NACL 1 250ML.BAG IV SCH ×2 (09:03→20:46)
[2021-10-15] MEDS: PIPERACILLIN-TAZOBACTAM 3.375 GM in SODIUM CHLORIDE 0.9% 100 ML IVPB SCH ×2 (09:05→18:06)
[2021-10-15] MEDS: FAMOTIDINE 20 MG/2 ML VIAL IV SCH (09:06)
[2021-10-15] MEDS: PANTOPRAZOLE 40 MG/10 ML VIAL IVP SCH ×2 (09:06→20:48)
[2021-10-15] MEDS: DILTIAZEM 125 MG in SODIUM CHLORIDE 0.9% 100 ML IV SCH (10:26)
--- NOTE | 2021-10-15 10:40 | P.PN ---
Subjective Progress Note Date: 10/15/21 Principal diagnosis: Abdominal pain, secondary to perforated viscus, patient is status post expiratory laparotomy with lysis of adhesions small bowel resection and incisional hernia repair postoperative day #5 This is a very pleasant 76-year-old male patient with a known history of atrial fibrillation anticoagulated with anticoagulated with Xarelto, hypertension, former smoker. He presented here to the emergency room on 10/09/2021 with complaints of left upper quadrant pain that began that had begun 2 days prior. He had an abrupt onset of left upper quadrant discomfort. He did have episode of emesis. His pain was worse and he presented to the ER for the same. Comput ed tomography scan of the abdomen and pelvis was suggestive of focal small bowel perforation with acute inflammatory changes and T/abscess formation. Small bowel lesion at that time cannot be excluded. Yesterday he had undergone exploratory laparotomy with lysis of adhesions and small bowel resection. He also had incisional hernia repair. Appendectomy had been recovering well until earlier today he developed a brief episode of unresponsiveness. His witnessed this at the bedside stated his eyes rolled back. This was in conjunction with a long pauses on the heart monitor as well. For that reason he was transferred to the intensive care unit for closer monitoring. He is seen in consultation. He is resting comfortably in bed. Awake and alert in no acute distress. He remains in atrial fibrillation currently with a rapid ventricular response and was initiated on a Cardizem drip now at 10 mg per hour. No significant pauses since his arrival. He denies any chest pain shortness of breath cough or congestion. No dizziness or lightheadedness. He is maintaining good O2 saturations in the 90s on 4 L/m per nasal cannula. He is afebrile. Blood pressure is stable. Chest x-ray reveals atelectasis of the lung bases. Doppler reveals plaquing of the right internal carotid artery contributing to moderate narrowing between 50 and 69%. No significant atherosclerosis of the le ft carotid. Blood cultures reveal no growth. Wound culture pending. He is currently on Zosyn. White count 14.9. Hemoglobin 11.7. Sodium 138. Potassium 4.0. Bicarb 24. BUN 32. Creatinine 1.04. Glucose 185. ProBNP 3640. Patient was reevaluated today on 10/12/2021, remains in the ICU, does not seem to be in any distress, no significant sinus pauses or arrhythmias overnight. Patient is known to have paroxysmal atrial fibrillation, but that reason we transfer the patient yesterday to the ICU was mostly because he had colonic positives consistent with tachybradycardia syndrome. At this point the patient is doing well, no major issues over the last 24 hours, and he was seen by cardiology, recommending low intensity heparin for his underlying atrial fibrillation if cleared by surgery. Patient continues to have nasogastric tube in place, no abdominal pain, no bowel movements, and the patient is not passing any gas yet. Hence the nasogastric tube will remain in place. Labs today showed WBC count of 14 hemoglobin 11.1 electrolytes are normal renal profile is normal calcium is 8.2 Reevaluated today on 10/13/2021, patient is basically about the same. Not in any distress continues to have nasogastric tube in place, continues to have atrial fibrillation with RVR, being addressed by cardiology on the case, remains on Cardizem drip. Remains on heparin/low intensity. No further episodes of bradycardia or long pauses, no symptoms of syncope. Absent today including CBC was relatively normal WBC count is 10.8 hemoglobin is 10.9. Electrolytes are normal renal profile is normal blood sugar is 122. Patient denies being in any form of distress, he is relatively asymptomatic and sitting in bed without any complaints. Reevaluated today on 10/14/2021, patient remains in the ICU, doing quite well, continues to have atrial fibrillation, no further positives, remains on heparin and Cardizem intravenously. Patient had some flatness last night, but no bowel movements yet. Denies any abdominal pain and discomfort. Denies any chest pain. Atrial fibrillation seems to be better controlled. CBC is relatively normal electrolytes are normal except for low potassium of 3.3, PTT is therapeutic. Profile is normal The patient is seen today 10/15/2021 in follow-up in the intensive care unit. He is currently sitting up in bed. Awake and alert in no acute distress. He is maintaining O2 saturations in the 90s on 2 L/m per nasal cannula. He remains on a Cardizem drip at 10 mg per hour. Normal saline at 75 mL per hour. Heparin drip per weight base protocol. He was originally admitted on 10/09/2021 for small bowel perforation and had surgery on 10/10/2021. He developed episodes of syncope and significant sinus pauses and was transferred to the ICU on 10/12/2021. He remains in atrial fibrillation. No significant pauses. The plan may be for a permanent pacemaker implantation once his abdominal issues have resolved. He has a nasogastric tube in place. Chest x-ray was reviewed and this was repositioned this morning. Follow-up chest x-ray revealed satisfac tory placement. He is passing flatus. No bowel movements. White count 9.4. Hemoglobin 11.1. Sodium 140. Potassium 4.0. BUN 17. Creatinine 0.77. AST 47. ALT 54. Objective - Vital Signs Vital signs: Vital Signs Temp 97.7 F 10/15/21 04:00 Pulse 83 10/15/21 07:00 Resp 17 10/15/21 07:00 BP 145/81 10/15/21 07:00 Pulse Ox 94 L 10/15/21 07:00 Intake & Output 10/14/21 10/15/21 10/15/21 18:59 06:59 18:59 Intake Total 1355 1296.397 325 Output Total 800 965 50 Balance 555 331.397 275 Weight 112.5 kg Intake: IV 900 900 75 Sodium Chloride 0.9% 1, 900 900 75 000 ml @ 75 mls/hr IV . [id number] [facility] Rx#:[id number] Intake, IV Titration 375 356.397 250 Amount Diltiazem 125 mg In 125 118.833 Sodium Chloride 0.9% 100 ml @ 5 MG/HR 5 mls/hr IV .Q24H [facility] Rx#:[id number] Heparin Sod,Pork in 0.45% 250 237.564 250 NaCl 25,000 unit In 0.45 % NaCl 1 250ml.bag @ 8.5 UNITS/KG/HR 10.005 mls/hr IV .Q24H [facility] Rx#: [id number] Oral 80 40 Output: Gastric Drainage 350 Drainage 45 30 Abdomen 45 30 Urine 755 585 50 Other: Voiding Method Indwelling Catheter Indwelling Catheter - Exam GENERAL EXAM: Alert, pleasant 76-year-old gentleman, on 2 L nasal cannula,, comfortable in no apparent distress. HEAD: Normocephalic. EYES: Normal reaction of pupils, equal size. NOSE: Nasogastric tube secured in place. Clear with pink turbinates. THROAT: No erythema or exudates. NECK: No masses, no JVD. CHEST: No chest wall deformity. LUNGS: Equal air entry with crackles in the left lung base CVS: S1 and S2 normal with no audible murmur, regular rhythm. ABDOMEN: Abdominal dressing dry and intact No hepatosplenomegaly, normal bowel sounds, no guarding or rigidity. SPINE: No scoliosis or deformity SKIN: No rashes CENTRAL NERVOUS SYSTEM: No focal deficits, tone is normal in all 4 extremities. EXTREMITIES: There is no peripheral edema. No clubbing, no cyanosis. Peripheral pulses are intact. - Labs CBC & Chem 7: 10/15/21 07:18 10/15/21 07:18 Labs: Abnormal Lab Results - Last 24 Hours (Table) 10/14/21 10/14/21 10/14/21 Range/Units 12:03 17:56 23:08 RBC (4.30-5.90) m/uL Hgb (13.0-17.5) gm/dL Hct (39.0-53.0) % MCV (80.0-100.0) fL MCHC (31.0-37.0) g/dL Lymphocytes # (1.0-4.8) k/uL Glucose (74-99) mg/dL POC Glucose (mg/dL) 138 H 103 H 126 H (75-99) mg/dL Calcium (8.4-10.2) mg/dL ALT (4-49) U/L Total Protein (6.3-8.2) g/dL Albumin (3.5-5.0) g/dL 10/15/21 10/15/21 10/15/21 Range/Units 06:06 07:18 07:18 RBC 3.67 L (4.30-5.90) m/uL Hgb 11.1 L (13.0-17.5) gm/dL Hct 37.2 L (39.0-53.0) % MCV 101.4 H (80.0-100.0) fL MCHC 29.8 L (31.0-37.0) g/dL Lymphocytes # 0.9 L (1.0-4.8) k/uL Glucose 106 H (74-99) mg/dL POC Glucose (mg/dL) 122 H (75-99) mg/dL Calcium 8.0 L (8.4-10.2) mg/dL ALT 54 H (4-49) U/L Total Protein 5.5 L (6.3-8.2) g/dL Albumin 2.6 L (3.5-5.0) g/dL Microbiology - Last 24 Hours (Table) 10/10/21 16:30 Anaerobic Culture - Final Other - Other 10/09/21 16:15 Blood Culture - Preliminary Blood No Growth after 120 hours 10/09/21 16:34 Blood Culture - Preliminary Blood No Growth after 120 hours Assessment and Plan Assessment: 1 Syncopal episode secondary to significant sinus pause, plan is for permanent pacemaker implantation on 10/16/2021 2 Atrial fibrillation with a rapid ventricular response, currently on a Cardizem drip at 10 mg per hour and a heparin drip 3 Abdominal pain in a patient found to have perforated viscus an incisional hernia status post exploratory laparotomy with lysis of adhesions, small bowel resection and incisional hernia repair. Postoperative day #5 4 History of hypertension 5 Former smoker Plan: The patient was seen and evaluated Chest x-ray and labs reviewed Remains in atrial fibrillation, currently on heparin drip, Cardizem drip Plan is for possible permanent pacemaker implantation tomorrow Continue to work with the incentive spirometer Titrate down the FiO2 as tolerated Remains on Zosyn We will continue to follow I have personally seen and examined the patient, performed the documentation and the assessment and plan as written. Number of minutes spent on the visit: 10.
[2021-10-15 11:41] LABS: Glucose,Whole Blood 140 mg/dL (75-99)
[2021-10-15] MEDS: SODIUM CHLORIDE 0.9% 1,000 ML IV SCH (14:13)
--- NOTE | 2021-10-15 14:19 | P.PN ---
Subjective Progress Note Date: 10/15/21 CHIEF COMPLAINT: Left lower quadrant abdominal pain HISTORY OF PRESENT ILLNESS: Patient is postop day #5 status post exploratory laparotomy, lysis of adhesions, small bowel resection and incisional hernia repair for perforated jejunal diverticulum and incisional hernia. Patient remains in the ICU due to his tachybradycardia syndrome. Cardiology is following and there are plans for possible pacemaker placement tomorrow. Patient reports his abdominal pain is controlled. He denies any nausea or vomi ting. He has having flatus. NG tube output 350 ML of bilious output through the night and 100 mL output this morning. CLAUDY drain with 40 mL of serosanguineous output through the night. Patient is afebrile. WBC is 9.4 hemoglobin 11.1 platelets 305 sodium 140 potassium 4.0 creatinine 0.77 glucose 1 06 PHYSICAL EXAM: VITAL SIGNS: Reviewed. GENERAL: Well-developed in no acute distress. HEENT: No sclera icterus. Extraocular movements grossly intact. Moist buccal mucosa. Head is atraumatic, normocephalic. ABDOMEN: Soft. Nondistended. Incisional site clean dry and intact with 4 uri NEUROLOGIC: Alert and oriented. Cranial nerves II through XII grossly intact. ASSESSMENT: 1. Perforated jejunal diverticulum and incisional hernia status post exploratory laparotomy, lysis of adhesions, small bowel resection and incisional hernia repair 2. Atrial fibrillation 3. Tachybradycardia syndrome PLAN: -Discontinue NG tube -Start clear liquid diet -Continue local wound care -Continue antibiotics -Continue pain medications -Continue antiemetics -Continue supportive care -Encouraged patient to use incentive spirometer -GI prophylaxis Pepcid and DVT Prophylaxis IV heparin Physician Supervisor [employer] note has been reviewed by physician. Signing provider agrees with the documented findings, assessment, and plan of care. Objective - Vital Signs Vital signs: Vital Signs Temp 97.9 F 10/15/21 08:00 Pulse 98 10/15/21 10:00 Resp 16 10/15/21 11:00 BP 124/60 10/15/21 11:00 Pulse Ox 90 L 10/15/21 11:00 Intake & Output 10/14/21 10/15/21 10/15/21 18:59 06:59 18:59 Intake Total 1355 1296.397 737.667 Output Total 800 965 305 Balance 555 331.397 432.667 Weight 112.5 kg 112.5 kg Intake: IV 900 900 375 Sodium Chloride 0.9% 1, 900 900 375 000 ml @ 75 mls/hr IV . [id number] [facility] Rx#:[id number] Intake, IV Titration 375 356.397 362.667 Amount Diltiazem 125 mg In 125 118.833 112.667 Sodium Chloride 0.9% 100 ml @ 5 MG/HR 5 mls/hr IV .Q24H [facility] Rx#:[id number] Heparin Sod,Pork in 0.45% 250 237.564 250 NaCl 25,000 unit In 0.45 % NaCl 1 250ml.bag @ 8.5 UNITS/KG/HR 10.005 mls/hr IV .Q24H [facility] Rx#: [id number] Oral 80 40 Output: Gastric Drainage 350 Drainage 45 30 30 Abdomen 45 30 30 Urine 755 585 275 Other: Voiding Method Indwelling Catheter Indwelling Catheter Indwelling Catheter - Labs CBC & Chem 7: 10/15/21 07:18 10/15/21 07:18 Labs: Abnormal Lab Results - Last 24 Hours (Table) 10/14/21 10/14/21 10/15/21 Range/Units 17:56 23:08 06:06 RBC (4.30-5.90) m/uL Hgb (13.0-17.5) gm/dL Hct (39.0-53.0) % MCV (80.0-100.0) fL MCHC (31.0-37.0) g/dL Lymphocytes # (1.0-4.8) k/uL Glucose (74-99) mg/dL POC Glucose (mg/dL) 103 H 126 H 122 H (75-99) mg/dL Calcium (8.4-10.2) mg/dL ALT (4-49) U/L Total Protein (6.3-8.2) g/dL Albumin (3.5-5.0) g/dL 10/15/21 10/15/21 10/15/21 Range/Units 07:18 07:18 11:39 RBC 3.67 L (4.30-5.90) m/uL Hgb 11.1 L (13.0-17.5) gm/dL Hct 37.2 L (39.0-53.0) % MCV 101.4 H (80.0-100.0) fL MCHC 29.8 L (31.0-37.0) g/dL Lymphocytes # 0.9 L (1.0-4.8) k/uL Glucose 106 H (74-99) mg/dL POC Glucose (mg/dL) 140 H (75-99) mg/dL Calcium 8.0 L (8.4-10.2) mg/dL ALT 54 H (4-49) U/L Total Protein 5.5 L (6.3-8.2) g/dL Albumin 2.6 L (3.5-5.0) g/dL Microbiology - Last 24 Hours (Table) 10/10/21 16:30 Anaerobic Culture - Final Other - Other 10/09/21 16:15 Blood Culture - Preliminary Blood No Growth after 120 hours 10/09/21 16:34 Blood Culture - Preliminary Blood No Growth after 120 hours
[2021-10-15 16:44] LABS: Glucose,Whole Blood 130 mg/dL (75-99)
[2021-10-15 22:47] LABS: ABG Base Excess 4.8 mmol/L; ABG HCO3 30 mmol/L (21-25); ABG Oxygen Saturation 99.1 % (94-97); ABG PCO2 52 mmHg (35-45); ABG PH 7.37 (7.35-7.45); ABG PO2 141 mmHg (83-108); ABG TCO2 32 mmol/L (19-24); Allen Test Performed? Yes
[2021-10-15 22:50] LABS: Glucose,Whole Blood 130 mg/dL (75-99)
[2021-10-15] MEDS: DOBUTamine DRIP 500 MG in DEXTROSE/WATER 1 250ML.BAG IV SCH (23:15)
--- NOTE | 2021-10-15 23:38 | XR ---
EXAMINATION TYPE: XR chest 1V portable DATE OF EXAM: 10/15/2021 COMPARISON: Today HISTORY: Respiratory failure TECHNIQUE: Single view FINDINGS: There is elevated right diaphragm. There is coarse interstitial density in the lungs. There are chest leads. Bony thorax is intact. Thoracic aorta is atheromatous. IMPRESSION: There is chronic elevation of the right diaphragm. Mild atelectasis at the right lung bas e. No heart failure. Mild pulmonary fibrosis. No change compared to exam this morning.
[2021-10-15 23:40] LABS: Basophils % (A) 0 %; Eosinophils # (A) 0.5 k/uL (0-0.7); Eosinophils % (A) 4 %; HGB 12.4 gm/dL (13.0-17.5); Hypochromasia Moderate; Lymphocytes % (A) 15 %; MCH 30.4 pg (25.0-35.0); MCV 98.1 fL (80.0-100.0); Mean Platelet Volume 7.9; Monocytes # (A) 0.6 k/uL (0-1.0); Monocytes % (A) 4 %; Neutrophils # (A) 9.5 k/uL (1.3-7.7); Neutrophils % (A) 74 %; Platelet Count 483 k/uL (150-450); RBC 4.07 m/uL (4.30-5.90); RDW 12.9 % (11.5-15.5); WBC 12.8 k/uL (3.8-10.6)
[2021-10-15 23:55] LABS: Potassium 3.9 mmol/L (3.5-5.1)
[2021-10-15 23:56] LABS: African American GFR (CKD) >90 (>60 ml/min/1.73 sqM); Anion Gap 8 mmol/L; Blood Urea Nitrogen 15 mg/dL (9-20); Calcium 8.3 mg/dL (8.4-10.2); Carbon Dioxide 26 mmol/L (22-30); Chloride 103 mmol/L (98-107); Glucose 141 mg/dL (74-99); Magnesium 1.8 mg/dL (1.6-2.3); Non-African American GFR(CKD) 88 (>60 ml/min/1.73 sqM); Sodium 137 mmol/L (137-145)
[2021-10-16 00:05] LABS: Glucose,Whole Blood 145 mg/dL (75-99)
[2021-10-16] MEDS ORDERED: Magnesium Replacement Protocol 1 EACH MISC MISCELLANE PRN (00:13)
[2021-10-16] MEDS: INSULIN ASPART (NovoLOG) 100 UNIT/ML VIAL SQ SCH ×5 (00:20→23:42)
[2021-10-16] MEDS: PIPERACILLIN-TAZOBACTAM 3.375 GM in SODIUM CHLORIDE 0.9% 100 ML IVPB SCH ×4 (00:21→23:44)
[2021-10-16] MEDS: SODIUM CHLORIDE 0.9% 1,000 ML IV SCH ×6 (00:22→14:17)
[2021-10-16] MEDS: MAGNESIUM SULFATE-D5W PMX 1 GM in DEXTROSE/WATER 1 100ML.BAG IVPB SCH ×2 (00:33→02:12)
--- NOTE | 2021-10-16 00:54 | P.EN ---
Code Blue Note Activated at [id number]. Arrived on the scene shortly after. Reviewed the chart and discussed the case with the RN. Upon arrival, the patient was noted to have achieved ROSC. The RN noted that following cardiac arrest, the patient regained consciousness within the first cycle. As per the telemetry, the patient was noted to have a pause of 33 seconds. EKG revealed Aflutter with rate of 44 bpm, narrow complex. He had recently been started on Cardizem infusion which was transfusing at a rate of 10 mg/hr for Afib with RVR. The case was discussed with Cardiology substation engineer who noted to hold off on the Cardizem infusion and to start patient on Dobutamine infusion. TSH and Echocardiograms were ordered. General: Non-toxic, in no acute distress, appears stated age, obese HEENT: NC/AT, anicteric sclerae, moist conjunctiva, no lid-lag, PERRLA Cardiovascular: Bradycardia, no murmurs, rubs, or gallops Lungs: Clear to auscultation, normal respiratory effort, no accessory muscle use Abdominal: Soft, no guarding, rebound, or rigidity Skin: Warm, dry Extremities: No edema or contractures Psychiatric: Alert and oriented to person, place and time, appropriate affect Neuro: No gross focal deficits noted Assessment/Plan Sinus pause with aflutter/fib with slow ventricular response -Suspected due to Cardizem infusion, currently held -Dobutamine initiated -Transcutaneous pacing if heart rate doesn't improve Total time spent providing critical care for this patient: 40 minutes
[2021-10-16] MEDS ORDERED: POTASSIUM BICARBONATE/CIT AC 20 MEQ TABLET.EFF NG-TUBE SCH (01:00)
--- NOTE | 2021-10-16 01:18 | P.PN ---
Subjective Progress Note Date: 10/15/21 76-year-old male came in with complaints of bilateral lower abdominal pain sharp in nature nonradiating associated with the nausea vomiting low-grade fevers patient is found to have leukocytosis as well as patient's symptoms started on Friday. Patient is found to have significant diverticulitis with some microperforations which were contained. Patient is admitted to general surgery service and patient is being monitored on IV antibiotics at this time. Patient is presently on Zosyn. Patient pain is moderate severity. some abdomen is distended and tympanic. Patient denied any history of constipation does have history of atrial fibrillation for which patient is on anticoagulation 10/10/2021 Patient evaluated in the EC this morning holding for [facility]. On telemetry monitoring shows atrial fibrillation heart rate running around 120s per nurse going up to the 140s. Patient has been NPO pending laproscopic neda today, did receive his amiodarone and metoprolol, xarelto remains on hold. Cardiology was consulted for rapid ventricular rate and patient will be upgraded to 3 [facility]. Continues on IV fluids continues on IV antibiotics. Continues with abdominal discomfort, no BM throughout the evening. Labs today show 16.84, hgb 11.9, INR 1.21 today, sodium 134, BUN 31, creat 1.34, total bili 1.6. Urinalysis negative. 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 Patient will be started on cardizem gtt. 10/11/2021 Patient evaluated today POD #1 exploratory lap with lysis of adhesions, small bowel resection, and incisional hernia repair with perforated diverticulum. Patient also had abscess that is being cultured with placement of CLAUDY drain. Abdominal dressings intact. Hypoactive bowel sounds, denies passing gas, no BM yet. Denies shortness of breath today. Patient still in Afib RVR which he is on cardizem gtt. Per primary no oral medications no anticoagulation yet. Continue patient with SCD's and prophylaxis as per primary. Cardiology is on consult for the rapid heart rate. Patient also with NG Tube in place, about 100 mL's of dark bilious fluid output noted. WBC today 14.9, hgb 11.7, sodium 138, potassium 4.0, BUN 32, creat 1.04, blood glucose in the 120s. Remains afebrile, blood pressure 130/72, 90% on 3 L his cannula. Encourage incentive spirometry. Addendum: Patient was an ateam today for syncope with loss of consciousness with possible asystole. Patient is being followed by cardiology, aaron gtt infusing. Per at bedside his eyes rolled back into his head and he was unresponsive to ve rbal shouting. Came out into hallway for help. Telemetry also notified staff to check on patient as he was noted to be in a sinus pause of about 8-12 seconds. Writing provider responded to ateam and updated by sound physician at bedside. At this time patient had already spontaneously gained consciousness and was alert and oriented x3 does not remember what happened. Per he has fallen at home x2 due to syncope with loss of consciousness, 1x was recently which was evaluated in the EC. Patient states he recently had an echo done in cardiology office, follows with Dr Anne. Discussed with primary that transfer to ICU was recommended. Discussed with Dr Ch who accepted the transfer. 10/12/2021 Patient is seen and evaluated in the ICU and is status post exploratory laparotomy with lysis of adhesions, small bowel resection and incisional hernia repair with perforated diverticulum. Patient remains on IV antibiotics in the form of Zosyn and wound cultures preliminary showing gram-negative bacilli and awaiting finalized cultures. Patient reports to continued abdominal distention and denies passing gas or having bowel movement. Patient reports that he is burping quite often and continues with an NG tube. Cardiology also following his patient does have a history of A. fib but was found to be in atrial fibrillation with rapid ventricular rate and being placed on Cardizem drip currently on 10 mL's per hour. IV heparin being started after clearance per surgery and will continue to monitor and transition to oral Eliquis once tolerating diet and having bowel movements. Physical therapy following an encourage the patient increase activity as tolerated. Encourage incentive spirometer use at least 10 times every hour while awake. Patient denies chest pain or shortness of breath. Patient is afebrile. Patient is to continue with nothing by mouth at this time. 10/15/2021 Patient is seen in follow up this morning and continues with multiple medical consultations following. Patient continues with NG tube at this time with possible removal and starting clear liquid diet. Patient reports to passing gas with no bowel movement as of yet. Abdominal incision is dry and there is some crusting noted at some of the staple sites with no surrounding redness or drainage noted. Mildly distended. Patient is afebrile. Patient denies chest pain or shortness of breath. Patient continues on 2-3 L of 02 via NC and recommend to continue to wean as tolerated. Incentive spirometer at the bedside and encouraged continued use at least 10 times per hour while awake. Cardiology following as well and discussion of permanent pacemaker is being had. Review of Systems Constitutional: Denied any fatigue denied any fever. Cardiovascular: denied any chest pain, palpitations Gastrointestinal: denied any nausea, vomiting, diarrhea, reports gas and no BM as of yet Pulmonary: Denied any shortness of breath cough Neurologic denied any new focal deficits, reports generalized weakness Active Medications Albuterol Sulfate (Albuterol Nebulized 2.5 Mg/3 Ml) 2.5 mg INHALATION RT-Q6H PRN PRN Reason: Shortness Of Breath Last Admin: 10/14/21 07:40 Dose: 2.5 mg Documented by: Famotidine (Famotidine 20 Mg/2 Ml Vial) 20 mg IV DAILY [facility] Last Admin: 10/15/21 09:06 Dose: 20 mg Documented by: Heparin Sodium (Porcine) (Heparin Sodium 1,000 Un/Ml (10ml Vl)) 0 unit IV PER PROTOCOL PRN; Protocol PRN Reason: Low PTT Last Admin: 10/15/21 09:02 Dose: 4,000 unit Documented by: Hydromorphone HCl (Hydromorphone 1 Mg/Ml 1 Ml Syringe) 1 mg IVP Q3HR PRN PRN Reason: Pain Last Admin: 10/15/21 21:03 Dose: 1 mg Documented by: Sodium Chloride (Saline 0.9%) 1,000 mls @ 75 mls/hr IV .[id number] [facility] Last Admin: 10/16/21 00:22 Dose: Not Given Documented by: Piperacillin Sod/Tazobactam (Sod 3.375 gm/ Sodium Chloride) 100 mls @ 25 mls/hr IVPB Q8HR [facility]; Protocol Last Admin: 10/16/21 00:21 Dose: 25 mls/hr Documented by: Diltiazem HCl 125 mg/ Sodium (Chloride) 125 mls @ 5 mls/hr IV .Q24H [facility]; Protocol Last Titration: 10/15/21 22:54 Dose: 0 mg/hr, 0 mls/hr Documented by: Heparin Sodium/Sodium Chloride (25,000 unit/ Sodium Chloride) 250 mls @ 10.005 mls/hr IV .Q24H [facility]; Protocol Last Admin: 10/15/21 20:46 Dose: 18.5 units/kg/hr, 21.775 mls/hr Documented by: Dobutamine HCl/Dextrose 500 mg (/ IV Solution) 250 mls @ 10.125 mls/hr IV .Q24H [facility] Last Admin: 10/15/21 23:15 Dose: Not Given Documented by: Magnesium Sulfate/Dextrose 1 (gm/ IV Solution) 100 mls @ 100 mls/hr IVPB Q1H [facility] Stop: 10/16/21 02:14 Last Admin: 10/16/21 00:33 Dose: 100 mls/hr Documented by: Insulin Aspart (Insulin Aspart (Novolog) 100 Unit/Ml Vial) 0 unit SQ Q6H [facility]; Protocol Last Admin: 10/16/21 00:20 Dose: 1 unit Documented by: Lidocaine HCl (Lidocaine 1% (10mg/Ml) For Iv Start) 0.1 ml INTRADERMA PER PROTOCOL PRN PRN Reason: IV Start Miscellaneous Information (Potassium Replacement Protocol 1 Each Misc) 1 each MISCELLANE DAILY PRN; Protocol PRN Reason: Per Protocol Miscellaneous Information (Magnesium Replacement Protocol 1 Each Misc) 1 each MISCELLANE DAILY PRN; Protocol PRN Reason: Per Protocol Morphine Sulfate (Morphine Sulfate 4 Mg/Ml Syringe) 4 mg IV Q4HR PRN PRN Reason: Severe Pain Last Admin: 10/11/21 13:43 Dose: 4 mg Documented by: Naloxone HCl (Naloxone 0.4 Mg/Ml 1 Ml Vial) 0.2 mg IV Q2M PRN PRN Reason: Opioid Reversal Ondansetron HCl (Ondansetron 4 Mg/2 Ml Vial) 4 mg IVP Q8HR PRN PRN Reason: Nausea And Vomiting Last Admin: 10/13/21 11:33 Dose: 4 mg Documented by: Pantoprazole Sodium (Pantoprazole 40 Mg/10 Ml Vial) 40 mg IVP BID [facility] Last Admin: 10/15/21 20:48 Dose: 40 mg Documented by: PHYSICAL EXAMINATION: GENERAL: The patient is alert and oriented x3. Well developed, well nourished. Obese HEENT: Pupils are round and equally reacting to light. EOMI. No scleral icterus. No conjunctival pallor. Normocephalic, atraumatic. No pharyngeal erythema. No thyromegaly. CARDIOVASCULAR: S1 and S2 muffled, irregularly irregular, A. fib on the monitor PULMONARY: Diminished breath sounds bilaterally with some scattered rhonchi noted ABDOMEN: Abdomen is mildly distended, mild tenderness and bilateral lower abdominal quadrants. Hypoactive bowel sounds, post surgical appears randall intact with no redness or drainage noted. MUSCULOSKELETAL: No joint swelling or deformity. EXTREMITIES: No cyanosis, clubbing, or pedal edema. NEUROLOGICAL: Gross neurological examination did not reveal any focal deficits. Diffusely weak SKIN: No rashes. Assessment: -Acute Diverticulitis with microperforations and contained abscesses: status post exploratory laparotomy with lysis of adhesions, small bowel resection, and incisional hernia repair with perforated diverticulum -Acute renal failure and azotemia possibility of ATN -Sepsis secondary to diverticulitis -Paroxysmal atrial fibrillation presently RVR -Diabetes mellitus type 2, uncontrolled with hyperglycemia -Hypertension -Benign prostatic hypertrophy -DVT prophylaxis -GI prophylaxis -Full code Plan: Recommend to continue with NG tube until cleared by surgery to start diet, possibly today Patient is maintained on IV antibiotics and will continue Encouraged increased activity and physical therapy to follow daily Recommend close monitoring of labs and repeat labs ordered Recommend continued telemetry monitoring with cardiology following, discussion being had for possible permanent pace maker placement Patient continued on IV heparin along with continued on IV Cardizem Recommend to continue to monitor blood sugars closely with Accu-Cheks before meals and at bedtime and sliding scale Thank you for this consultation. We will continue to follow along with general surgery during hospitalization Guarded prognosis The impression and plan of care has been dictated by [place], Nurse Practitioner as directed. Dr. Dick MD I have performed a history and physical examination and medical decision making of this patient, discussed the same with the dictator, and agree with the dictators assessment and plan as written, documented as a scribe. Based on total visit time, I have performed more than 50% of this visit. Objective - Vital Signs Vital signs: Vital Signs Temp 97.7 F 10/15/21 04:00 Pulse 83 10/15/21 07:00 Resp 17 10/15/21 07:00 BP 145/81 10/15/21 07:00 Pulse Ox 94 L 10/15/21 07:00 Intake & Output 10/14/21 10/15/21 10/15/21 18:59 06:59 18:59 Intake Total 1355 1296.397 75 Output Total 800 965 50 Balance 555 331.397 25 Weight 112.5 kg Intake: IV 900 900 75 Sodium Chloride 0.9% 1, 900 900 75 000 ml @ 75 mls/hr IV . [id number] [facility] Rx#:[id number] Intake, IV Titration 375 356.397 Amount Diltiazem 125 mg In 125 118.833 Sodium Chloride 0.9% 100 ml @ 5 MG/HR 5 mls/hr IV .Q24H [facility] Rx#:[id number] Heparin Sod,Pork in 0.45% 250 237.564 NaCl 25,000 unit In 0.45 % NaCl 1 250ml.bag @ 8.5 UNITS/KG/HR 10.005 mls/hr IV .Q24H [facility] Rx#: [id number] Oral 80 40 Output: Gastric Drainage 350 Drainage 45 30 Abdomen 45 30 Urine 755 585 50 Other: Voiding Method Indwelling Catheter Indwelling Catheter - Labs CBC & Chem 7: 10/15/21 23:06 10/15/21 23:06 Labs: Abnormal Lab Results - Last 24 Hours (Table) 10/14/21 10/14/21 10/14/21 Range/Units 12:03 17:56 23:08 RBC (4.30-5.90) m/uL Hgb (13.0-17.5) gm/dL Hct (39.0-53.0) % MCV (80.0-100.0) fL MCHC (31.0-37.0) g/dL Lymphocytes # (1.0-4.8) k/uL Glucose (74-99) mg/dL POC Glucose (mg/dL) 138 H 103 H 126 H (75-99) mg/dL Calcium (8.4-10.2) mg/dL ALT (4-49) U/L Total Protein (6.3-8.2) g/dL Albumin (3.5-5.0) g/dL 03/28/22 03/28/22 03/28/22 Range/Units 06:06 07:18 07:18 RBC 3.67 L (4.30-5.90) m/uL Hgb 11.1 L (13.0-17.5) gm/dL Hct 37.2 L (39.0-53.0) % MCV 101.4 H (80.0-100.0) fL MCHC 29.8 L (31.0-37.0) g/dL Lymphocytes # 0.9 L (1.0-4.8) k/uL Glucose 106 H (74-99) mg/dL POC Glucose (mg/dL) 122 H (75-99) mg/dL Calcium 8.0 L (8.4-10.2) mg/dL ALT 54 H (4-49) U/L Total Protein 5.5 L (6.3-8.2) g/dL Albumin 2.6 L (3.5-5.0) g/dL Microbiology - Last 24 Hours (Table) 10/10/21 16:30 Anaerobic Culture - Final Other - Other 10/09/21 16:15 Blood Culture - Preliminary Blood No Growth after 120 hours 10/09/21 16:34 Blood Culture - Preliminary Blood No Growth after 120 hours
[2021-10-16 06:54] LABS: Glucose,Whole Blood 112 mg/dL (75-99)
--- NOTE | 2021-10-16 07:51 | P.PN ---
Subjective PROGRESS NOTE The patient is a 76-year-old male with a known history of paroxysmal atrial fibrillation who presented with abdominal pain and ruptured viscus. He underwent surgery. He was in atrial fibrillation with rapid ventricular response, yesterday he had a long pauses. He was transferred to the ICU. He continues to be in atrial fibrillation with controlled ventricular response. At times his ventricle response is in the 120s. He continues to be on IV Cardizem 10 mg per hour. He has no further houses. He continues to have an NG tube and has not passed any gas. He has mild abdominal discomfort. He denies any chest discomfort or dyspnea. Hemodynamically his blood pressure is stable. October 13: The patient continues to be in atrial fibrillation with an average ventricular response. He had a 10 second pause yesterday while in bed. He continues to be on IV Cardizem. He denies any chest discomfort or dyspnea. He had no bowel movement yet continues to be nothing by mouth with an NG tube. He has mild abdominal discomfort. He is on IV heparin drip in addition to the diltiazem October 14: The patient is doing well this morning, he has continued to be in atrial fibrillation with no further pauses. He continues to be on IV heparin and IV Cardizem. He had flatus but no bowel movement yet. He continues to have the NG tube. His abdominal discomfort is stable. He has no evidence of ventricular ectopic activity. His atrial flutter ablation rate is in the high 90s low 100s. 10/15 Patient seen and examined. Patient remains in A. fib with mild RVR heart rates mainly 80s to 120s. Remains on Cardizem drip at 10mg/hr. patient still has NG tube in and nothing by mouth. He is on IV fluids at 75 mL per hour. 10/16 Patient seen and examined. Patient had 2 events of asystole last night including one where he lost consciousness with brief round of chest compressions performed. Patient then went into A. fib with RVR and unable to give any dobutamine or other chronotropic medications. He denies any chest pain or pressure. Denies any shortness breath. Mild leukocytosis noted last night likely related to code however no fevers or chills and he did have a bowel movement. NG tube was pulled. PHYSICAL EXAMINATION: Vitals reviewed LUNGS: Clear to auscultation HEART: Irregular rate and rhythm, S1, S2. No S3. No systolic murmur ABDOMEN: Soft, mild tenderness, dressing in place, hypoactive bowel sounds. EXTREMETIES: No edema LAB: Potassium 3.3, BUN 20, creatinine 0.89, hemoglobin 10.8 IMPRESSION: 1. Status post bowel resection with lysis of adhesion and hernia repair 2. Paroxysmal atrial ablation now in atrial fibrillation with episodes of rapid ventricular response and long pauses consistent with tachybradycardia syndrome. 3. History of hypertension 4. Prior history of smoking PLAN: Hold Cardizem at this time given multiple events of asystole. Plan for dual chamber permanent pacemaker today and then we will be able to increase negative chronotropic medications. Continue supportive care. Objective - Vital Signs Vital signs: Vital Signs Temp 97.6 F 10/16/21 04:00 Pulse 146 H 10/16/21 07:00 Resp 23 10/16/21 07:00 BP 123/84 10/16/21 07:00 Pulse Ox 97 10/16/21 07:00 Intake & Output 10/15/21 10/16/21 10/16/21 18:59 06:59 18:59 Intake Total 9582.207 0754.581 75 Output Total 620 800 75 Balance 1222.241 400.581 0 Weight 112.5 kg 117.3 kg Intake: IV 900 925 75 Piperacillin-Tazobactam 3 100 .375 gm In Sodium Chloride 0.9% 100 ml @ 25 mls/hr IVPB Q8HR [facility] Rx# :[id number] Sodium Chloride 0.9% 1, 900 825 75 000 ml @ 75 mls/hr IV . [id number] [facility] Rx#:[id number] Intake, IV Titration 582.241 275.581 Amount Diltiazem 125 mg In 112.667 124.667 Sodium Chloride 0.9% 100 ml @ 5 MG/HR 5 mls/hr IV .Q24H [facility] Rx#:[id number] Heparin Sod,Pork in 0.45% 469.574 150.914 NaCl 25,000 unit In 0.45 % NaCl 1 250ml.bag @ 8.5 UNITS/KG/HR 10.005 mls/hr IV .Q24H [facility] Rx#: [id number] Oral 360 Output: Drainage 30 40 Abdomen 30 40 Urine 590 760 75 Other: Voiding Method Indwelling Catheter Indwelling Catheter - Labs CBC & Chem 7: 10/15/21 23:06 10/15/21 23:06 Labs: Abnormal Lab Results - Last 24 Hours (Table) 10/15/21 10/15/21 10/15/21 Range/Units 07:18 07:18 11:39 WBC (3.8-10.6) k/uL RBC 3.67 L (4.30-5.90) m/uL Hgb 11.1 L (13.0-17.5) gm/dL Hct 37.2 L (39.0-53.0) % MCV 101.4 H (80.0-100.0) fL MCHC 29.8 L (31.0-37.0) g/dL Plt Count (150-450) k/uL Neutrophils # (1.3-7.7) k/uL Lymphocytes # 0.9 L (1.0-4.8) k/uL APTT (22.0-30.0) sec ABG pCO2 (35-45) mmHg ABG pO2 (83-108) mmHg ABG HCO3 (21-25) mmol/L ABG Total CO2 (19-24) mmol/L ABG O2 Saturation (94-97) % Glucose 106 H (74-99) mg/dL POC Glucose (mg/dL) 140 H (75-99) mg/dL Calcium 8.0 L (8.4-10.2) mg/dL ALT 54 H (4-49) U/L Total Protein 5.5 L (6.3-8.2) g/dL Albumin 2.6 L (3.5-5.0) g/dL 10/15/21 10/15/21 10/15/21 Range/Units 16:42 17:28 22:43 WBC (3.8-10.6) k/uL RBC (4.30-5.90) m/uL Hgb (13.0-17.5) gm/dL Hct (39.0-53.0) % MCV (80.0-100.0) fL MCHC (31.0-37.0) g/dL Plt Count (150-450) k/uL Neutrophils # (1.3-7.7) k/uL Lymphocytes # (1.0-4.8) k/uL APTT 87.0 H (22.0-30.0) sec ABG pCO2 52 H (35-45) mmHg ABG pO2 141 H (83-108) mmHg ABG HCO3 30 H (21-25) mmol/L ABG Total CO2 32 H (19-24) mmol/L ABG O2 Saturation 99.1 H (94-97) % Glucose (74-99) mg/dL POC Glucose (mg/dL) 130 H (75-99) mg/dL Calcium (8.4-10.2) mg/dL ALT (4-49) U/L Total Protein (6.3-8.2) g/dL Albumin (3.5-5.0) g/dL 10/15/21 10/15/21 10/15/21 Range/Units 22:47 23:06 23:06 WBC 12.8 H (3.8-10.6) k/uL RBC 4.07 L (4.30-5.90) m/uL Hgb 12.4 L (13.0-17.5) gm/dL Hct (39.0-53.0) % MCV (80.0-100.0) fL MCHC (31.0-37.0) g/dL Plt Count 483 H (150-450) k/uL Neutrophils # 9.5 H (1.3-7.7) k/uL Lymphocytes # (1.0-4.8) k/uL APTT (22.0-30.0) sec ABG pCO2 (35-45) mmHg ABG pO2 (83-108) mmHg ABG HCO3 (21-25) mmol/L ABG Total CO2 (19-24) mmol/L ABG O2 Saturation (94-97) % Glucose 141 H (74-99) mg/dL POC Glucose (mg/dL) 130 H (75-99) mg/dL Calcium 8.3 L (8.4-10.2) mg/dL ALT (4-49) U/L Total Protein (6.3-8.2) g/dL Albumin (3.5-5.0) g/dL 10/16/21 10/16/21 10/16/21 Range/Units 00:03 01:20 06:53 WBC (3.8-10.6) k/uL RBC (4.30-5.90) m/uL Hgb (13.0-17.5) gm/dL Hct (39.0-53.0) % MCV (80.0-100.0) fL MCHC (31.0-37.0) g/dL Plt Count (150-450) k/uL Neutrophils # (1.3-7.7) k/uL Lymphocytes # (1.0-4.8) k/uL APTT 75.7 H (22.0-30.0) sec ABG pCO2 (35-45) mmHg ABG pO2 (83-108) mmHg ABG HCO3 (21-25) mmol/L ABG Total CO2 (19-24) mmol/L ABG O2 Saturation (94-97) % Glucose (74-99) mg/dL POC Glucose (mg/dL) 145 H 112 H (75-99) mg/dL Calcium (8.4-10.2) mg/dL ALT (4-49) U/L Total Protein (6.3-8.2) g/dL Albumin (3.5-5.0) g/dL Microbiology - Last 24 Hours (Table) 10/09/21 16:34 Blood Culture - Final Blood No Growth after 144 hours 10/09/21 16:15 Blood Culture - Final Blood No Growth after 144 hours
[2021-10-16] MEDS: PANTOPRAZOLE 40 MG/10 ML VIAL IVP SCH ×2 (08:59→20:17)
[2021-10-16] MEDS: FAMOTIDINE 20 MG/2 ML VIAL IV SCH (08:59)
--- NOTE | 2021-10-16 09:23 | P.PN ---
Subjective Progress Note Date: 10/16/21 76-year-old male came in with complaints of bilateral lower abdominal pain sharp in nature nonradiating associated with the nausea vomiting low-grade fevers patient is found to have leukocytosis as well as patient's symptoms started on Friday. Patient is found to have significant diverticulitis with some microperforations which were contained. Patient is admitted to general surgery service and patient is being monitored on IV antibiotics at this time. Patient is presently on Zosyn. Patient pain is moderate severity. some abdomen is distended and tympanic. Patient denied any history of constipation does have history of atrial fibrillation for which patient is on anticoagulation 10/10/2021 Patient evaluated in the EC this morning holding for [facility]. On telemetry monitoring shows atrial fibrillation heart rate running around 120s per nurse going up to the 140s. Patient has been NPO pending laproscopic neda today, did receive his amiodarone and metoprolol, xarelto remains on hold. Cardiology was consulted for rapid ventricular rate and patient will be upgraded to [facility]. Continues on IV fluids continues on IV antibiotics. Continues with abdominal discomfort, no BM throughout the evening. Labs today show 16.84, hgb 11.9, INR 1.21 today, sodium 134, BUN 31, creat 1.34, total bili 1.6. Urinalysis negative. 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 Patient will be started on cardizem gtt. 10/11/2021 Patient evaluated today POD #1 exploratory lap with lysis of adhesions, small bowel resection, and incisional hernia repair with perforated diverticulum. Patient also had abscess that is being cultured with placement of CLAUDY drain. Abdominal dressings intact. Hypoactive bowel sounds, denies passing gas, no BM yet. Denies shortness of breath today. Patient still in Afib RVR which he is on cardizem gtt. Per primary no oral medications no anticoagulation yet. Continue patient with SCD's and prophylaxis as per primary. Cardiology is on consult for the rapid heart rate. Patient also with NG Tube in place, about 100 mL's of dark bilious fluid output noted. WBC today 14.9, hgb 11.7, sodium 138, potassium 4.0, BUN 32, creat 1.04, blood glucose in the 120s. Remains afebrile, blood pressure 130/72, 90% on 3 L his cannula. Encourage incentive spirometry. Addendum: Patient was an ateam today for syncope with loss of consciousness with possible asystole. Patient is being followed by cardiology, aaron gtt infusing. Per at bedside his eyes rolled back into his head and he was unresponsive to ve rbal shouting. Came out into hallway for help. Telemetry also notified staff to check on patient as he was noted to be in a sinus pause of about 8-12 seconds. Writing provider responded to ateam and updated by sound physician at bedside. At this time patient had already spontaneously gained consciousness and was alert and oriented x3 does not remember what happened. Per he has fallen at home x2 due to syncope with loss of consciousness, 1x was recently which was evaluated in the EC. Patient states he recently had an echo done in cardiology office, follows with Dr Anne. Discussed with primary that transfer to ICU was recommended. Discussed with Dr Ch who accepted the transfer. 10/12/2021 Patient is seen and evaluated in the ICU and is status post exploratory laparotomy with lysis of adhesions, small bowel resection and incisional hernia repair with perforated diverticulum. Patient remains on IV antibiotics in the form of Zosyn and wound cultures preliminary showing gram-negative bacilli and awaiting finalized cultures. Patient reports to continued abdominal distention and denies passing gas or having bowel movement. Patient reports that he is burping quite often and continues with an NG tube. Cardiology also following his patient does have a history of A. fib but was found to be in atrial fibrillation with rapid ventricular rate and being placed on Cardizem drip currently on 10 mL's per hour. IV heparin being started after clearance per surgery and will continue to monitor and transition to oral Eliquis once tolerating diet and having bowel movements. Physical therapy following an encourage the patient increase activity as tolerated. Encourage incentive spirometer use at least 10 times every hour while awake. Patient denies chest pain or shortness of breath. Patient is afebrile. Patient is to continue with nothing by mouth at this time. 10/15/2021 Patient is seen in follow up this morning and continues with multiple medical consultations following. Patient continues with NG tube at this time with possible removal and starting clear liquid diet. Patient reports to passing gas with no bowel movement as of yet. Abdominal incision is dry and there is some crusting noted at some of the staple sites with no surrounding redness or drainage noted. Mildly distended. Patient is afebrile. Patient denies chest pain or shortness of breath. Patient continues on 2-3 L of 02 via NC and recommend to continue to wean as tolerated. Incentive spirometer at the bedside and encouraged continued use at least 10 times per hour while awake. Cardiology following as well and discussion of permanent pacemaker is being had. 10/16/2021 Patient is seen and evaluated this morning continues to be in the ICU with multiple medical consultations including cardiology following closely. Per nursing staff patient had 2 episodes of asystole and a brief initiation of CPR was done in initially a dobutamine drip was ordered although patient heart rate had been jumped into the 120s to 130s. Patient was continued on IV Cardizem along with IV heparin. Patient is passing gas and did have a bowel movement and NG tube was pulled and tolerating clear liquids with no nausea or vomiting noted. Plan is for pacemaker placement today with cardiology and will await re port. IV Cardizem being held as well. Patient also continues on IV Zosyn and gentle IV hydration at 75 ML per hour. Patient denies chest pain or palpitations. Patient is afebrile. Review of Systems Constitutional: Denied any fatigue denied any fever. Cardiovascular: denied any chest pain, palpitations Gastrointestinal: denied any nausea, vomiting, diarrhea, reports gas and had a bowel movement Pulmonary: Denied any shortness of breath cough Neurologic denied any new focal deficits, reports generalized weakness Active Medications Albuterol Sulfate (Albuterol Nebulized 2.5 Mg/3 Ml) 2.5 mg INHALATION RT-Q6H PRN PRN Reason: Shortness Of Breath Last Admin: 10/14/21 07:40 Dose: 2.5 mg Documented by: Famotidine (Famotidine 20 Mg/2 Ml Vial) 20 mg IV DAILY [facility] Last Admin: 10/16/21 08:59 Dose: 20 mg Documented by: Heparin Sodium (Porcine) (Heparin Sodium 1,000 Un/Ml (10ml Vl)) 0 unit IV PER PROTOCOL PRN; Protocol PRN Reason: Low PTT Last Admin: 10/15/21 09:02 Dose: 4,000 unit Documented by: Hydromorphone HCl (Hydromorphone 1 Mg/Ml 1 Ml Syringe) 1 mg IVP Q3HR PRN PRN Reason: Pain Last Admin: 10/15/21 21:03 Dose: 1 mg Documented by: Sodium Chloride (Saline 0.9%) 1,000 mls @ 75 mls/hr IV .[id number] [facility] Last Admin: 10/16/21 00:22 Dose: Not Given Documented by: Piperacillin Sod/Tazobactam (Sod 3.375 gm/ Sodium Chloride) 100 mls @ 25 mls/hr IVPB Q8HR [facility]; Protocol Last Admin: 10/16/21 08:58 Dose: 25 mls/hr Documented by: Diltiazem HCl 125 mg/ Sodium (Chloride) 125 mls @ 5 mls/hr IV .Q24H [facility]; Protocol Last Titration: 10/15/21 22:54 Dose: 0 mg/hr, 0 mls/hr Documented by: Heparin Sodium/Sodium Chloride (25,000 unit/ Sodium Chloride) 250 mls @ 10.005 mls/hr IV .Q24H [facility]; Protocol Last Titration: 10/16/21 08:55 Dose: 0 units/kg/hr, 0 mls/hr Documented by: Dobutamine HCl/Dextrose 500 mg (/ IV Solution) 250 mls @ 10.125 mls/hr IV .Q24H [facility] Last Admin: 10/15/21 23:15 Dose: Not Given Documented by: Sodium Chloride (Saline 0.9%) 1,000 mls @ 50 mls/hr IV .Q20H [facility] Sodium Chloride (Saline 0.9%) 1,000 mls @ 50 mls/hr IV .Q20H [facility] Insulin Aspart (Insulin Aspart (Novolog) 100 Unit/Ml Vial) 0 unit SQ Q6H [facility]; Protocol Last Admin: 10/16/21 06:58 Dose: Not Given Documented by: Lidocaine HCl (Lidocaine 1% (10mg/Ml) For Iv Start) 0.1 ml INTRADERMA PER PROTOCOL PRN PRN Reason: IV Start Miscellaneous Information (Potassium Replacement Protocol 1 Each Misc) 1 each MISCELLANE DAILY PRN; Protocol PRN Reason: Per Protocol Miscellaneous Information (Magnesium Replacement Protocol 1 Each Misc) 1 each MISCELLANE DAILY PRN; Protocol PRN Reason: Per Protocol Morphine Sulfate (Morphine Sulfate 4 Mg/Ml Syringe) 4 mg IV Q4HR PRN PRN Reason: Severe Pain Last Admin: 10/11/21 13:43 Dose: 4 mg Documented by: Naloxone HCl (Naloxone 0.4 Mg/Ml 1 Ml Vial) 0.2 mg IV Q2M PRN PRN Reason: Opioid Reversal Ondansetron HCl (Ondansetron 4 Mg/2 Ml Vial) 4 mg IVP Q8HR PRN PRN Reason: Nausea And Vomiting Last Admin: 10/13/21 11:33 Dose: 4 mg Documented by: Pantoprazole Sodium (Pantoprazole 40 Mg/10 Ml Vial) 40 mg IVP BID [facility] Last Admin: 10/16/21 08:59 Dose: 40 mg Documented by: PHYSICAL EXAMINATION: GENERAL: The patient is alert and oriented x3. Well developed, well nourished. Obese HEENT: Pupils are round and equally reacting to light. EOMI. No scleral icterus. No conjunctival pallor. Normocephalic, atraumatic. No pharyngeal erythema. No thyromegaly. CARDIOVASCULAR: S1 and S2 muffled, irregularly irregular, A. fib on the monitor, tachycardic PULMONARY: Diminished breath sounds bilaterally with some scattered rhonchi noted ABDOMEN: Abdomen is mildly distended, mild tenderness and bilateral lower abdominal quadrants. Hypoactive bowel sounds, post surgical appears randall intact with no redness or drainage noted. MUSCULOSKELETAL: No joint swelling or deformity. EXTREMITIES: No cyanosis, clubbing, or pedal edema. NEUROLOGICAL: Gross neurological examination did not reveal any focal deficits. Diffusely weak SKIN: No rashes. 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 -Sepsis secondary to diverticulitis -Paroxysmal atrial fibrillation presently RVR -Diabetes mellitus type 2, uncontrolled with hyperglycemia -Hypertension -Benign prostatic hypertrophy -DVT prophylaxis -GI prophylaxis -Full code Plan: Recommend to continue with current diet of clear liquids per surgery recommendations although patient is nothing by mouth for dual-chamber pacemaker placement today with cardiology Patient is maintained on IV antibiotics and will continue Encouraged increased activity and physical therapy to follow daily Recommend close monitoring of labs and repeat labs ordered Recommend continued telemetry monitoring with cardiology following, plan is for dual-chamber permanent pace maker placement today given 2 episodes of asystole and loss of consciousness last night requiring CPR Patient continued on IV heparin and IV Cardizem discontinued Recommend to continue to monitor blood sugars closely with Accu-Cheks before meals and at bedtime and sliding scale Thank you for this consultation. We will continue to follow along with general surgery during hospitalization Guarded prognosis The impression and plan of care has been dictated by [place], Nurse Practitioner as directed. Dr. Dick MD I have performed a history and physical examination and medical decision making of this patient, discussed the same with the dictator, and agree with the dictators assessment and plan as written, documented as a scribe. Based on total visit time, I have performed more than 50% of this visit. Objective - Vital Signs Vital signs: Vital Signs Temp 97.6 F 10/16/21 04:00 Pulse 146 H 10/16/21 07:00 Resp 23 10/16/21 07:00 BP 123/84 10/16/21 07:00 Pulse Ox 97 10/16/21 07:00 Intake & Output 10/15/21 10/16/21 10/16/21 18:59 06:59 18:59 Intake Total 3349.637 0375.581 203.502 Output Total 620 800 75 Balance 1222.241 400.581 128.502 Weight 112.5 kg 117.3 kg Intake: IV 900 925 75 Piperacillin-Tazobactam 3 100 .375 gm In Sodium Chloride 0.9% 100 ml @ 25 mls/hr IVPB Q8HR [facility] Rx# :[id number] Sodium Chloride 0.9% 1, 900 825 75 000 ml @ 75 mls/hr IV . [id number] FARRU[facility] Rx#:[id number] Intake, IV Titration 582.241 275.581 128.502 Amount Diltiazem 125 mg In 112.667 124.667 Sodium Chloride 0.9% 100 ml @ 5 MG/HR 5 mls/hr IV .Q24H FARRU[facility] Rx#:[id number] Heparin Sod,Pork in 0.45% 469.574 150.914 128.502 NaCl 25,000 unit In 0.45 % NaCl 1 250ml.bag @ 8.5 UNITS/KG/HR 10.005 mls/hr IV .Q24H [facility] Rx#: [id number] Oral 360 Output: Drainage 30 40 Abdomen 30 40 Urine 590 760 75 Other: Voiding Method Indwelling Catheter Indwelling Catheter - Labs CBC & Chem 7: 10/15/21 23:06 10/15/21 23:06 Labs: Abnormal Lab Results - Last 24 Hours (Table) 10/15/21 10/15/21 10/15/21 Range/Units 11:39 16:42 17:28 WBC (3.8-10.6) k/uL RBC (4.30-5.90) m/uL Hgb (13.0-17.5) gm/dL Plt Count (150-450) k/uL Neutrophils # (1.3-7.7) k/uL APTT 87.0 H (22.0-30.0) sec ABG pCO2 (35-45) mmHg ABG pO2 (83-108) mmHg ABG HCO3 (21-25) mmol/L ABG Total CO2 (19-24) mmol/L ABG O2 Saturation (94-97) % Glucose (74-99) mg/dL POC Glucose (mg/dL) 140 H 130 H (75-99) mg/dL Calcium (8.4-10.2) mg/dL 10/15/21 10/15/21 10/15/21 Range/Units 22:43 22:47 23:06 WBC 12.8 H (3.8-10.6) k/uL RBC 4.07 L (4.30-5.90) m/uL Hgb 12.4 L (13.0-17.5) gm/dL Plt Count 483 H (150-450) k/uL Neutrophils # 9.5 H (1.3-7.7) k/uL APTT (22.0-30.0) sec ABG pCO2 52 H (35-45) mmHg ABG pO2 141 H (83-108) mmHg ABG HCO3 30 H (21-25) mmol/L ABG Total CO2 32 H (19-24) mmol/L ABG O2 Saturation 99.1 H (94-97) % Glucose (74-99) mg/dL POC Glucose (mg/dL) 130 H (75-99) mg/dL Calcium (8.4-10.2) mg/dL 03/28/22 03/29/22 03/29/22 Range/Units 23:06 00:03 01:20 WBC (3.8-10.6) k/uL RBC (4.30-5.90) m/uL Hgb (13.0-17.5) gm/dL Plt Count (150-450) k/uL Neutrophils # (1.3-7.7) k/uL APTT 75.7 H (22.0-30.0) sec ABG pCO2 (35-45) mmHg ABG pO2 (83-108) mmHg ABG HCO3 (21-25) mmol/L ABG Total CO2 (19-24) mmol/L ABG O2 Saturation (94-97) % Glucose 141 H (74-99) mg/dL POC Glucose (mg/dL) 145 H (75-99) mg/dL Calcium 8.3 L (8.4-10.2) mg/dL 10/16/21 Range/Units 06:53 WBC (3.8-10.6) k/uL RBC (4.30-5.90) m/uL Hgb (13.0-17.5) gm/dL Plt Count (150-450) k/uL Neutrophils # (1.3-7.7) k/uL APTT (22.0-30.0) sec ABG pCO2 (35-45) mmHg ABG pO2 (83-108) mmHg ABG HCO3 (21-25) mmol/L ABG Total CO2 (19-24) mmol/L ABG O2 Saturation (94-97) % Glucose (74-99) mg/dL POC Glucose (mg/dL) 112 H (75-99) mg/dL Calcium (8.4-10.2) mg/dL Microbiology - Last 24 Hours (Table) 10/09/21 16:34 Blood Culture - Final Blood No Growth after 144 hours 10/09/21 16:15 Blood Culture - Final Blood No Growth after 144 hours
--- NOTE | 2021-10-16 10:04 | P.PN ---
Subjective Progress Note Date: 10/16/21 Principal diagnosis: Abdominal pain, secondary to perforated viscus, patient is status post expiratory laparotomy with lysis of adhesions small bowel resection and incisional hernia repair postoperative day #5 This is a very pleasant 76-year-old male patient with a known history of atrial fibrillation anticoagulated with anticoagulated with Xarelto, hypertension, former smoker. He presented here to the emergency room on 10/09/2021 with complaints of left upper quadrant pain that began that had begun 2 days prior. He had an abrupt onset of left upper quadrant discomfort. He did have episode of emesis. His pain was worse and he presented to the ER for the same. Comput ed tomography scan of the abdomen and pelvis was suggestive of focal small bowel perforation with acute inflammatory changes and T/abscess formation. Small bowel lesion at that time cannot be excluded. Yesterday he had undergone exploratory laparotomy with lysis of adhesions and small bowel resection. He also had incisional hernia repair. Appendectomy had been recovering well until earlier today he developed a brief episode of unresponsiveness. His witnessed this at the bedside stated his eyes rolled back. This was in conjunction with a long pauses on the heart monitor as well. For that reason he was transferred to the intensive care unit for closer monitoring. He is seen in consultation. He is resting comfortably in bed. Awake and alert in no acute distress. He remains in atrial fibrillation currently with a rapid ventricular response and was initiated on a Cardizem drip now at 10 mg per hour. No significant pauses since his arrival. He denies any chest pain shortness of breath cough or congestion. No dizziness or lightheadedness. He is maintaining good O2 saturations in the 90s on 4 L/m per nasal cannula. He is afebrile. Blood pressure is stable. Chest x-ray reveals atelectasis of the lung bases. Doppler reveals plaquing of the right internal carotid artery contributing to moderate narrowing between 50 and 69%. No significant atherosclerosis of the le ft carotid. Blood cultures reveal no growth. Wound culture pending. He is currently on Zosyn. White count 14.9. Hemoglobin 11.7. Sodium 138. Potassium 4.0. Bicarb 24. BUN 32. Creatinine 1.04. Glucose 185. ProBNP 3640. Patient was reevaluated today on 10/12/2021, remains in the ICU, does not seem to be in any distress, no significant sinus pauses or arrhythmias overnight. Patient is known to have paroxysmal atrial fibrillation, but that reason we transfer the patient yesterday to the ICU was mostly because he had colonic positives consistent with tachybradycardia syndrome. At this point the patient is doing well, no major issues over the last 24 hours, and he was seen by cardiology, recommending low intensity heparin for his underlying atrial fibrillation if cleared by surgery. Patient continues to have nasogastric tube in place, no abdominal pain, no bowel movements, and the patient is not passing any gas yet. Hence the nasogastric tube will remain in place. Labs today showed WBC count of 14 hemoglobin 11.1 electrolytes are normal renal profile is normal calcium is 8.2 Reevaluated today on 10/13/2021, patient is basically about the same. Not in any distress continues to have nasogastric tube in place, continues to have atrial fibrillation with RVR, being addressed by cardiology on the case, remains on Cardizem drip. Remains on heparin/low intensity. No further episodes of bradycardia or long pauses, no symptoms of syncope. Absent today including CBC was relatively normal WBC count is 10.8 hemoglobin is 10.9. Electrolytes are normal renal profile is normal blood sugar is 122. Patient denies being in any form of distress, he is relatively asymptomatic and sitting in bed without any complaints. Reevaluated today on 10/14/2021, patient remains in the ICU, doing quite well, continues to have atrial fibrillation, no further positives, remains on heparin and Cardizem intravenously. Patient had some flatness last night, but no bowel movements yet. Denies any abdominal pain and discomfort. Denies any chest pain. Atrial fibrillation seems to be better controlled. CBC is relatively normal electrolytes are normal except for low potassium of 3.3, PTT is therapeutic. Profile is normal The patient is seen today 10/15/2021 in follow-up in the intensive care unit. He is currently sitting up in bed. Awake and alert in no acute distress. He is maintaining O2 saturations in the 90s on 2 L/m per nasal cannula. He remains on a Cardizem drip at 10 mg per hour. Normal saline at 75 mL per hour. Heparin drip per weight base protocol. He was originally admitted on 10/09/2021 for small bowel perforation and had surgery on 10/10/2021. He developed episodes of syncope and significant sinus pauses and was transferred to the ICU on 10/12/2021. He remains in atrial fibrillation. No significant pauses. The plan may be for a permanent pacemaker implantation once his abdominal issues have resolved. He has a nasogastric tube in place. Chest x-ray was reviewed and this was repositioned this morning. Follow-up chest x-ray revealed satisfac tory placement. He is passing flatus. No bowel movements. White count 9.4. Hemoglobin 11.1. Sodium 140. Potassium 4.0. BUN 17. Creatinine 0.77. AST 47. ALT 54. The patient is seen today 10/16/2021 in follow-up in the intensive care unit. He is currently resting comfortably in bed. Awake and alert in no acute distress. Last evening around 10:30 SUE GALDAMEZ was called on the patient after he was found to have asystole. In review this was a 33 second pause. Brief CPR was initiated and the patient had return of spontaneous circulation which was atrial flutter at a rate of 44 with a narrow complex. At the time he had been on a Cardizem drip at 10 mg at hour for A. fib with RVR. Cardizem was discontinued. The patient was started on dobutamine. He has since been discontinued as well. The plan is for permanent pacemaker implantation today. His heparin drip is on hold. No IV fluids. He is maintaining O2 saturations in the 90s on 4 L/m per nasal cannula. Wound culture from the small bowel resection revealed evidence of Enterobacter cloacae. Blood glucose 112. He is continued on antibiotics in the form of Zosyn. Objective - Vital Signs Vital signs: Vital Signs Temp 97.6 F 10/16/21 04:00 Pulse 128 H 10/16/21 09:00 Resp 24 10/16/21 09:00 BP 108/69 10/16/21 09:00 Pulse Ox 98 10/16/21 09:00 Intake & Output 10/15/21 10/16/21 10/16/21 18:59 06:59 18:59 Intake Total 7125.930 3071.581 278.502 Output Total 620 800 75 Balance 1222.241 400.581 203.502 Weight 112.5 kg 117.3 kg Intake: IV 900 925 150 Piperacillin-Tazobactam 3 100 .375 gm In Sodium Chloride 0.9% 100 ml @ 25 mls/hr IVPB Q8HR [facility] Rx# :[id number] Sodium Chloride 0.9% 1, 900 825 150 000 ml @ 75 mls/hr IV . [id number] [facility] Rx#:[id number] Intake, IV Titration 582.241 275.581 128.502 Amount Diltiazem 125 mg In 112.667 124.667 Sodium Chloride 0.9% 100 ml @ 5 MG/HR 5 mls/hr IV .Q24H [facility] Rx#:[id number] Heparin Sod,Pork in 0.45% 469.574 150.914 128.502 NaCl 25,000 unit In 0.45 % NaCl 1 250ml.bag @ 8.5 UNITS/KG/HR 10.005 mls/hr IV .Q24H [facility] Rx#: [id number] Oral 360 Output: Drainage 30 40 Abdomen 30 40 Urine 590 760 75 Other: Voiding Method Indwelling Catheter Indwelling Catheter - Exam GENERAL EXAM: Alert, pleasant 76-year-old gentleman, on 4 L nasal cannula,, comfortable in no apparent distress. HEAD: Normocephalic. EYES: Normal reaction of pupils, equal size. NOSE: Nasogastric tube secured in place. Clear with pink turbinates. THROAT: No erythema or exudates. NECK: No masses, no JVD. CHEST: No chest wall deformity. LUNGS: Equal air entry with crackles in the left lung base CVS: S1 and S2 normal with no audible murmur, irregular rhythm. ABDOMEN: Abdominal dressing dry and intact No hepatosplenomegaly, normal bowel sounds, no guarding or rigidity. SPINE: No scoliosis or deformity SKIN: No rashes CENTRAL NERVOUS SYSTEM: No focal deficits, tone is normal in all 4 extremities. EXTREMITIES: There is no peripheral edema. No clubbing, no cyanosis. Peripheral pulses are intact. - Labs CBC & Chem 7: 10/15/21 23:06 10/15/21 23:06 Labs: Abnormal Lab Results - Last 24 Hours (Table) 10/15/21 10/15/21 10/15/21 Range/Units 11:39 16:42 17:28 WBC (3.8-10.6) k/uL RBC (4.30-5.90) m/uL Hgb (13.0-17.5) gm/dL Plt Count (150-450) k/uL Neutrophils # (1.3-7.7) k/uL APTT 87.0 H (22.0-30.0) sec ABG pCO2 (35-45) mmHg ABG pO2 (83-108) mmHg ABG HCO3 (21-25) mmol/L ABG Total CO2 (19-24) mmol/L ABG O2 Saturation (94-97) % Glucose (74-99) mg/dL POC Glucose (mg/dL) 140 H 130 H (75-99) mg/dL Calcium (8.4-10.2) mg/dL 10/15/21 10/15/21 10/15/21 Range/Units 22:43 22:47 23:06 WBC 12.8 H (3.8-10.6) k/uL RBC 4.07 L (4.30-5.90) m/uL Hgb 12.4 L (13.0-17.5) gm/dL Plt Count 483 H (150-450) k/uL Neutrophils # 9.5 H (1.3-7.7) k/uL APTT (22.0-30.0) sec ABG pCO2 52 H (35-45) mmHg ABG pO2 141 H (83-108) mmHg ABG HCO3 30 H (21-25) mmol/L ABG Total CO2 32 H (19-24) mmol/L ABG O2 Saturation 99.1 H (94-97) % Glucose (74-99) mg/dL POC Glucose (mg/dL) 130 H (75-99) mg/dL Calcium (8.4-10.2) mg/dL 10/15/21 10/16/21 10/16/21 Range/Units 23:06 00:03 01:20 WBC (3.8-10.6) k/uL RBC (4.30-5.90) m/uL Hgb (13.0-17.5) gm/dL Plt Count (150-450) k/uL Neutrophils # (1.3-7.7) k/uL APTT 75.7 H (22.0-30.0) sec ABG pCO2 (35-45) mmHg ABG pO2 (83-108) mmHg ABG HCO3 (21-25) mmol/L ABG Total CO2 (19-24) mmol/L ABG O2 Saturation (94-97) % Glucose 141 H (74-99) mg/dL POC Glucose (mg/dL) 145 H (75-99) mg/dL Calcium 8.3 L (8.4-10.2) mg/dL 10/16/21 Range/Units 06:53 WBC (3.8-10.6) k/uL RBC (4.30-5.90) m/uL Hgb (13.0-17.5) gm/dL Plt Count (150-450) k/uL Neutrophils # (1.3-7.7) k/uL APTT (22.0-30.0) sec ABG pCO2 (35-45) mmHg ABG pO2 (83-108) mmHg ABG HCO3 (21-25) mmol/L ABG Total CO2 (19-24) mmol/L ABG O2 Saturation (94-97) % Glucose (74-99) mg/dL POC Glucose (mg/dL) 112 H (75-99) mg/dL Calcium (8.4-10.2) mg/dL Microbiology - Last 24 Hours (Table) 10/09/21 16:34 Blood Culture - Final Blood No Growth after 144 hours 10/09/21 16:15 Blood Culture - Final Blood No Growth after 144 hours Assessment and Plan Assessment: 1 Syncopal episode secondary to significant sinus pause, and another 33 seconds positive last evening with brief CPR plan is for permanent pacemaker implantation on today 10/16/2021 2 Atrial fibrillation with a rapid ventricular response, currently off Cardizem drip and off heparin drip 3 Abdominal pain in a patient found to have perforated viscus an incisional hernia status post exploratory laparotomy with lysis of adhesions, small bowel resection and incisional hernia repair. Postoperative day #6 4 History of hypertension 5 Former smoker Plan: The patient was seen and evaluated Event note and labs reviewed Plan is for permanent pacemaker implantation today Continue to work with the incentive spirometer Titrate down the FiO2 as tolerated Remains on Zosyn We will continue to follow I have personally seen and examined the patient, performed the documentation and the assessment and plan as written. Number of minutes spent on the visit: 10.
[2021-10-16] MEDS ORDERED: LIDOCAINE 1% INJ 10MG/ML (20 ML MDV) ONE ×2 (11:06)
[2021-10-16] MEDS ORDERED: fentaNYL (PF) 50 MCG/ML 2 ML AMP ONE (11:06)
[2021-10-16] MEDS ORDERED: SODIUM CHLORIDE 0.9% 500 ML 500 ML IV ONE (11:20)
[2021-10-16 11:35] VITALS: BMI 35.0
[2021-10-16] MEDS: fentaNYL (PF) 50 MCG/ML 2 ML AMP IVP ONE ×2 (11:41→12:23)
[2021-10-16] MEDS ORDERED: MIDAZOLAM 2 MG/2 ML VIAL IVP ONE (11:41)
[2021-10-16] MEDS ORDERED: IOPAMIDOL-370 50ML BTL INJ ONE (11:43)
[2021-10-16] MEDS ORDERED: LIDOCAINE 1% INJ 10MG/ML (20 ML MDV) SQ ONE ×2 (11:45)
--- NOTE | 2021-10-16 12:00 | ECHOF ---
Referral Reason:heart block MEASUREMENTS -------- HEIGHT: 182.9 cm WEIGHT: 112.5 kg BP: RVIDd: 2.7 cm (< 3.3) IVSd: 1.3 cm (0.6 - 1.1) LVIDd: 4.5 cm (3.9 - 5.3) LVPWd: 1.3 cm (0.6 - 1.1) IVSs: 1.7 cm LVIDs: 3.7 cm LVPWs: 1.2 cm Ao Diam: 4.0 cm (2.0 - 3.7) AV Cusp: 2.0 cm (1.5 - 2.6) LA Diam: 4.2 cm (2.7 - 3.8) RAP: 5.00 mmHg RVSP: 17.49 mmHg FINDINGS -------- Undetermined rhythm. This was a technically difficult study with suboptimal views. Can not comment on the EF. The right ventricle is normal in size. The left atrium is mildly dilated. The right atrial size is normal. There is mild aortic valve sclerosis. There is no evidence of aortic regurgitation. Mild mitral regurgitation is present. Mild tricuspid regurgitation present. Right ventricular systolic pressure is normal at < 35 mmHg. The pulmonic valve was not well visualized. Echo free space represents a pericardial fat pad. CONCLUSIONS -------- 1. This was a technically difficult study with suboptimal views. 2. Can not comment on the EF. 3. The right ventricle is normal in size. 4. The left atrium is mildly dilated. 5. The right atrial size is normal. 6. There is mild aortic valve sclerosis. 7. Mild mitral regurgitation is present. 8. Mild tricuspid regurgitation present. 9. The pulmonic valve was not well visualized. 10. Echo free space represents a pericardial fat pad. R[employer] TUBE STRAIGHTENER: Caitie Ocasio, CHARAN
[2021-10-16] MEDS ORDERED: ACETAMINOPHEN TAB 325 MG TAB PO PRN (12:36)
--- NOTE | 2021-10-16 12:46 | P.PCN ---
Date of Procedure: 10/16/21 Preoperative Diagnosis: Atrial fibrillation with intermittent pauses and sinus arrest lasting up to 30 seconds; sick sinus syndrome Postoperative Diagnosis: The same Procedure(s) Performed: Temporary pacemaker insertion, axillary venography, dual-chamber permanent pacemaker implantation Description of Procedure: HISTORY: This is a 76-year-old gentleman was admitted to the hospital with acute abdomen and has undergone surgery. Postoperatively patient developed persistent atrial fibrillation with episodes of pauses up to 30 seconds requiring brief CPR. I was requested to be a permanent pacemaker today by Dr. Jha. CONSENT: Dr. Jha discussed the risks, benefits and alternative therapies for the above-mentioned procedure and for both sedation/analgesia as well as necessary blood product administration, if indicated, as they pertain to this patient. The patient has indicated understanding and acceptance of the risks and procedures discussed. PROCEDURE: Patient was brought to the lab in a fasting state. Patient was prepped and draped in the usual fashion. Patient was given IV sedation with fentanyl and Versed. The skin below the left clavicle was infiltrated with lidocaine. An incision was made parallel to deltopectoral groove was deepened until the pectoral fascia was exposed. A pocket was created by blunt dissection and cautery. Axillary venography was performed to delineate the course of the axillary vein. 2 sticks were performed into extrathoracic portion of the axillary vein and 2 sheaths were advanced over the guidewires and left in subclavian vein. Patient was having significant pauses. Through the first sheath, a balloon-tip temporary pacemaker was advanced and was placed at the right ventricle close to the septum. Satisfactory capturing was obtained and patient was placed at about 60 bpm. Subsequently, proceeded to place ventricular lead through the second sheath. After placement of the ventricular lead in the proximal lesion, the temporary pacemaker was taken out of 4 sheath. An atrial lead was advanced to the sheath and was placed in the atrial appendage. Conscious Sedation: Versed 1 mg Fentanyl 75 g Duration 48 minutes LEADS: ATRIAL: The atrial lead is manufactured by [employer]: model number is 4076-52. The serial number is [id number] VENTRICULAR: This is manufactured by [employer]. Model number is 4076-58. The serial number is [id number]. THE DEVICE: This is manufactured by [employer]. The model number is [id number] and the serial number is [id number] The ventricular lead is maneuvered l with help of a straight and curved stylets into the left ventricle apical region. Satisfactory position was obtained and threshold measurements were made. The atrial lead was then maneuvered into the right atrial appendage. And thresholds were obtained. THRESHOLDS: ATRIUM: The minimal patient threshold could not be Obta ined because patient is a [place] fibrillation. Patient had fibrillation waves which are 1 to 3 mV. The impedance is 399 VENTRICLE:. The minimal patient threshold is 0.5 at p ulse width of 0.4. The impedance is 969 R-wave: Could not be measured The leads and pulse generator remained in the pocket after it was washed with antibiotics. Pocket was closed in the usual fashion. The fascia was closed with 2-0 Prolene ,the subcutaneous tissue was closed with 3-0 Prolene and the skin was closed with 4-0 Prolene. PROGRAMMING: MODE: DDDR with mode switch RATE: 60 to 130 OUTPUT: Atrium: 3.5 V Ventricle: 3.5 V FINAL IMPRESSION: #1. Axillary venography #2. Temporary pacemaker implantation #3. Dual-chamber permanent pacemaker implantation. COMPLICATIONS: None PLAN: Continue to monitor him on the telemetry unit. Continue prophylactic antibiotics. No anticoagulation on heparin ,chest x-ray in the morning
--- NOTE | 2021-10-16 13:22 | P.PN ---
Subjective Progress Note Date: 10/16/21 CHIEF COMPLAINT: Left lower quadrant abdominal pain HISTORY OF PRESENT ILLNESS: Patient is postop day #6 status post exploratory laparotomy, lysis of adhesions, small bowel resection and incisional hernia repair for perforated jejunal diverticulum and incisional hernia. Patient remains in the ICU due to his tachybradycardia syndrome. He is scheduled for pacemaker placement today. He had 2 events last night of asystole and did require chest compressions. He is tolerating clear liquids. He did have a bowel movement today. Afebrile. WBC 12.8 hemoglobin 12.4 platelets 483 sodium 137 potassium 3.9 creatinine 0.80 PHYSICAL EXAM: VITAL SIGNS: Reviewed. GENERAL: Well-developed in no acute distress. HEENT: No sclera icterus. Extraocular movements grossly intact. Moist buccal mucosa. Head is atraumatic, normocephalic. ABDOMEN: Soft. Nondistended. Incisional site 4 uri. Some minimal bleeding noted at the second wick NEUROLOGIC: Alert and oriented. Cranial nerves II through XII grossly intact. ASSESSMENT: 1. Perforated jejunal diverticulum and incisional hernia status post explo ratory laparotomy, lysis of adhesions, small bowel resection and incisional hernia repair 2. Atrial fibrillation 3. Tachybradycardia syndrome PLAN: -Patient scheduled for pacemaker placement today with cardiology -Continue local wound care -Continue antibiotics -Continue pain medications -Continue antiemetics -Continue supportive care -Encouraged patient to use incentive spirometer -GI prophylaxis Pepcid and DVT Prophylaxis IV heparin Physician Oil Treater note has been reviewed by physician. Signing provider agrees with the documented findings, assessment, and plan of care. Patient is status post placement of a pacemaker. Patient had a bowel movement. Advance diet to low fiber. Objective - Vital Signs Vital signs: Vital Signs Temp 97.6 F 10/16/21 04:00 Pulse 128 H 10/16/21 09:00 Resp 24 10/16/21 09:00 BP 108/69 10/16/21 09:00 Pulse Ox 98 10/16/21 09:00 Intake & Output 10/15/21 10/16/21 10/16/21 18:59 06:59 18:59 Intake Total 3989.383 9003.581 278.502 Output Total 620 800 75 Balance 1222.241 400.581 203.502 Weight 112.5 kg 117.3 kg Intake: IV 900 925 150 Piperacillin-Tazobactam 3 100 .375 gm In Sodium Chloride 0.9% 100 ml @ 25 mls/hr IVPB Q8HR [facility] Rx# :[id number] Sodium Chloride 0.9% 1, 900 825 150 000 ml @ 75 mls/hr IV . [id number] [facility] Rx#:[id number] Intake, IV Titration 582.241 275.581 128.502 Amount Diltiazem 125 mg In 112.667 124.667 Sodium Chloride 0.9% 100 ml @ 5 MG/HR 5 mls/hr IV .Q24H [facility] Rx#:[id number] Heparin Sod,Pork in 0.45% 469.574 150.914 128.502 NaCl 25,000 unit In 0.45 % NaCl 1 250ml.bag @ 8.5 UNITS/KG/HR 10.005 mls/hr IV .Q24H [facility] Rx#: [id number] Oral 360 Output: Drainage 30 40 Abdomen 30 40 Urine 590 760 75 Other: Voiding Method Indwelling Catheter Indwelling Catheter Indwelling Catheter - Labs CBC & Chem 7: 10/15/21 23:06 10/15/21 23:06 Labs: Abnormal Lab Results - Last 24 Hours (Table) 10/15/21 10/15/21 10/15/21 Range/Units 11:39 16:42 17:28 WBC (3.8-10.6) k/uL RBC (4.30-5.90) m/uL Hgb (13.0-17.5) gm/dL Plt Count (150-450) k/uL Neutrophils # (1.3-7.7) k/uL APTT 87.0 H (22.0-30.0) sec ABG pCO2 (35-45) mmHg ABG pO2 (83-108) mmHg ABG HCO3 (21-25) mmol/L ABG Total CO2 (19-24) mmol/L ABG O2 Saturation (94-97) % Glucose (74-99) mg/dL POC Glucose (mg/dL) 140 H 130 H (75-99) mg/dL Calcium (8.4-10.2) mg/dL 10/15/21 10/15/21 10/15/21 Range/Units 22:43 22:47 23:06 WBC 12.8 H (3.8-10.6) k/uL RBC 4.07 L (4.30-5.90) m/uL Hgb 12.4 L (13.0-17.5) gm/dL Plt Count 483 H (150-450) k/uL Neutrophils # 9.5 H (1.3-7.7) k/uL APTT (22.0-30.0) sec ABG pCO2 52 H (35-45) mmHg ABG pO2 141 H (83-108) mmHg ABG HCO3 30 H (21-25) mmol/L ABG Total CO2 32 H (19-24) mmol/L ABG O2 Saturation 99.1 H (94-97) % Glucose (74-99) mg/dL POC Glucose (mg/dL) 130 H (75-99) mg/dL Calcium (8.4-10.2) mg/dL 10/15/21 10/16/21 10/16/21 Range/Units 23:06 00:03 01:20 WBC (3.8-10.6) k/uL RBC (4.30-5.90) m/uL Hgb (13.0-17.5) gm/dL Plt Count (150-450) k/uL Neutrophils # (1.3-7.7) k/uL APTT 75.7 H (22.0-30.0) sec ABG pCO2 (35-45) mmHg ABG pO2 (83-108) mmHg ABG HCO3 (21-25) mmol/L ABG Total CO2 (19-24) mmol/L ABG O2 Saturation (94-97) % Glucose 141 H (74-99) mg/dL POC Glucose (mg/dL) 145 H (75-99) mg/dL Calcium 8.3 L (8.4-10.2) mg/dL 10/16/21 Range/Units 06:53 WBC (3.8-10.6) k/uL RBC (4.30-5.90) m/uL Hgb (13.0-17.5) gm/dL Plt Count (150-450) k/uL Neutrophils # (1.3-7.7) k/uL APTT (22.0-30.0) sec ABG pCO2 (35-45) mmHg ABG pO2 (83-108) mmHg ABG HCO3 (21-25) mmol/L ABG Total CO2 (19-24) mmol/L ABG O2 Saturation (94-97) % Glucose (74-99) mg/dL POC Glucose (mg/dL) 112 H (75-99) mg/dL Calcium (8.4-10.2) mg/dL Microbiology - Last 24 Hours (Table) 10/09/21 16:34 Blood Culture - Final Blood No Growth after 144 hours 10/09/21 16:15 Blood Culture - Final Blood No Growth after 144 hours
[2021-10-16] MEDS: DILTIAZEM 125 MG in SODIUM CHLORIDE 0.9% 100 ML IV SCH ×2 (14:04→22:25)
[2021-10-16] MEDS: HYDROmorphone 1 MG/ML 1 ML SYRINGE IVP PRN ×3 (16:57→23:42)
[2021-10-16 17:38] LABS: Glucose,Whole Blood 102 mg/dL (75-99)
[2021-10-16] MEDS: DOBUTamine DRIP 500 MG in DEXTROSE/WATER 1 250ML.BAG IV SCH (22:23)
[2021-10-16 23:47] LABS: Glucose,Whole Blood 94 mg/dL (75-99)
[2021-10-17] MEDS: HYDROmorphone 1 MG/ML 1 ML SYRINGE IVP PRN ×4 (02:35→20:59)
[2021-10-17] MEDS: SODIUM CHLORIDE 0.9% 1,000 ML IV SCH ×6 (03:33→18:00)
[2021-10-17 05:49] LABS: Glucose,Whole Blood 89 mg/dL (75-99)
[2021-10-17] MEDS: INSULIN ASPART (NovoLOG) 100 UNIT/ML VIAL SQ SCH ×4 (06:00→23:58)
[2021-10-17] MEDS ORDERED: ceFAZolin 1 GM in SODIUM CHLORIDE 0.9% IRRIG BTL 250 ML IRRIGATION PRN (07:00)
--- NOTE | 2021-10-17 07:52 | XR ---
EXAMINATION TYPE: XR chest 2V DATE OF EXAM: 10/17/2021 COMPARISON: Chest x-ray 10/15/2021 HISTORY: Lead placement check TECHNIQUE: Frontal and lateral views of the chest are obtained. FINDINGS: There has been placement of a generator in the left pectoral region, there are leads in th e right atrium and ventricle. There is no evident pneumothorax. Right hemidiaphragm remains elevated. Heart is likely enlarged. Metallic densities are scattered over the chest. Arthropathy is noted in t he shoulders. Pulmonary vascularity and vitaly show stable appearance. There is overlying lead placemen t. No evident effusion. Probable mild atelectatic changes are present at the lung bases. IMPRESSION: No evident complication status post lead placement. Probable basilar atelectasis, diffic ult to exclude pneumonia
[2021-10-17 08:22] LABS: Basophils % (A) 0 %; Eosinophils # (A) 0.3 k/uL (0-0.7); Eosinophils % (A) 3 %; HCT 36.4 % (39.0-53.0); HGB 11.5 gm/dL (13.0-17.5); Hypochromasia Slight; Lymphocytes # (A) 0.7 k/uL (1.0-4.8); Lymphocytes % (A) 7 %; MCH 30.6 pg (25.0-35.0); MCHC 31.5 g/dL (31.0-37.0); Mean Platelet Volume 7.6; Monocytes # (A) 0.5 k/uL (0-1.0); Monocytes % (A) 5 %; Neutrophils # (A) 8.4 k/uL (1.3-7.7); Neutrophils % (A) 84 %; Platelet Count 343 k/uL (150-450); RBC 3.75 m/uL (4.30-5.90); RDW 12.7 % (11.5-15.5); WBC 9.9 k/uL (3.8-10.6)
[2021-10-17 08:34] LABS: Potassium 3.4 mmol/L (3.5-5.1)
[2021-10-17 08:35] LABS: African American GFR (CKD) >90 (>60 ml/min/1.73 sqM); Anion Gap 5 mmol/L; Blood Urea Nitrogen 17 mg/dL (9-20); Calcium 7.8 mg/dL (8.4-10.2); Carbon Dioxide 29 mmol/L (22-30); Chloride 103 mmol/L (98-107); Glucose 114 mg/dL (74-99); Magnesium 1.8 mg/dL (1.6-2.3); Non-African American GFR(CKD) 87 (>60 ml/min/1.73 sqM); Sodium 137 mmol/L (137-145)
[2021-10-17] MEDS: FAMOTIDINE 20 MG/2 ML VIAL IV SCH (08:44)
[2021-10-17] MEDS: PANTOPRAZOLE 40 MG/10 ML VIAL IVP SCH ×2 (08:44→20:59)
[2021-10-17] MEDS: PIPERACILLIN-TAZOBACTAM 3.375 GM in SODIUM CHLORIDE 0.9% 100 ML IVPB SCH ×3 (08:44→23:58)
[2021-10-17] MEDS: DILTIAZEM 125 MG in SODIUM CHLORIDE 0.9% 100 ML IV SCH (08:45)
--- NOTE | 2021-10-17 09:37 | P.PN ---
Subjective PROGRESS NOTE The patient is a 76-year-old male with a known history of paroxysmal atrial fibrillation who presented with abdominal pain and ruptured viscus. He underwent surgery. He was in atrial fibrillation with rapid ventricular response, yesterday he had a long pauses. He was transferred to the ICU. He continues to be in atrial fibrillation with controlled ventricular response. At times his ventricle response is in the 120s. He continues to be on IV Cardizem 10 mg per hour. He has no further houses. He continues to have an NG tube and has not passed any gas. He has mild abdominal discomfort. He denies any chest discomfort or dyspnea. Hemodynamically his blood pressure is stable. October 13: The patient continues to be in atrial fibrillation with an average ventricular response. He had a 10 second pause yesterday while in bed. He continues to be on IV Cardizem. He denies any chest discomfort or dyspnea. He had no bowel movement yet continues to be nothing by mouth with an NG tube. He has mild abdominal discomfort. He is on IV heparin drip in addition to the diltiazem October 14: The patient is doing well this morning, he has continued to be in atrial fibrillation with no further pauses. He continues to be on IV heparin and IV Cardizem. He had flatus but no bowel movement yet. He continues to have the NG tube. His abdominal discomfort is stable. He has no evidence of ventricular ectopic activity. His atrial flutter ablation rate is in the high 90s low 100s. 10/15 Patient seen and examined. Patient remains in A. fib with mild RVR heart rates mainly 80s to 120s. Remains on Cardizem drip at 10mg/hr. patient still has NG tube in and nothing by mouth. He is on IV fluids at 75 mL per hour. 10/16 Patient seen and examined. Patient had 2 events of asystole last night including one where he lost consciousness with brief round of chest compressions performed. Patient then went into A. fib with RVR and unable to give any dobutamine or other chronotropic medications. He denies any chest pain or pressure. Denies any shortness breath. Mild leukocytosis noted last night likely related to code however no fevers or chills and he did have a bowel movement. NG tube was pulled. 10/17 Patient seen and examined. Patient underwent dual-chamber permanent pacemaker yesterday and did have another episode of bradycardia while having pacemaker placed. Since pacemaker placed 2 started on Cardizem drip and heart rates better controlled. Cardizem drip currently at 10. Heart rates mainly in the 90 s to 110s. Admits he feels better and shortness breath somewhat better. PHYSICAL EXAMINATION: Vitals reviewed LUNGS: Clear to auscultation HEART: Irregular rate and rhythm, S1, S2. No S3. No systolic murmur ABDOMEN: Soft, mild tenderness, dressing in place, hypoactive bowel sounds. EXTREMETIES: No edema IMPRESSION: 1. Status post bowel resection with lysis of adhesion and hernia repair 2. Paroxysmal atrial ablation now in atrial fibrillation with episodes of rapid ventricular response and long pauses consistent with tachybradycardia syndrome. 3. History of hypertension 4. Prior history of smoking 5. Sick sinus syndrome, tachybradycardia syndrome status post dual-chamber permanent pacemaker 10/16 PLAN: Pacemaker appears to be working appropriately. Heart rates better controlled on Cardizem drip. We will change patient over to his home Toprol 100 mg daily and attempt to wean Cardizem drip as able. Additionally increase amiodarone with amiodarone bolus and monitor response. Okay for transfer out of the ICU. Restart anticoagulation. Objective - Vital Signs Vital signs: Vital Signs Temp 97.9 F 10/17/21 08:00 Pulse 98 10/17/21 08:00 Resp 20 10/17/21 08:00 BP 129/77 10/17/21 08:00 Pulse Ox 94 L 10/17/21 08:00 Intake & Output 10/16/21 10/17/21 10/17/21 18:59 06:59 18:59 Intake Total 2700.405 5962.5 253.333 Output Total 445 620 160 Balance 623.502 438.5 93.333 Weight 117.3 kg 117.2 kg Intake: IV 700 975 150 Piperacillin-Tazobactam 3 100 .375 gm In Sodium Chloride 0.9% 100 ml @ 25 mls/hr IVPB Q8HR [facility] Rx# :[id number] Sodium Chloride 0.9% 1, 450 875 150 000 ml @ 75 mls/hr IV . [id number] [facility] Rx#:[id number] Intake, IV Titration 128.502 83.5 103.333 Amount Diltiazem 125 mg In 0 83.5 103.333 Sodium Chloride 0.9% 100 ml @ 5 MG/HR 5 mls/hr IV .Q24H [facility] Rx#:[id number] Heparin Sod,Pork in 0.45% 128.502 NaCl 25,000 unit In 0.45 % NaCl 1 250ml.bag @ 8.5 UNITS/KG/HR 10.005 mls/hr IV .Q24H [facility] Rx#: [id number] Oral 240 Output: Drainage 45 50 Abdomen 45 50 Urine 400 570 160 Other: Voiding Method Indwelling Catheter Indwelling Catheter - Labs CBC & Chem 7: 10/17/21 07:48 10/17/21 07:48 Labs: Abnormal Lab Results - Last 24 Hours (Table) 10/16/21 10/17/21 10/17/21 Range/Units 17:36 07:48 07:48 RBC 3.75 L (4.30-5.90) m/uL Hgb 11.5 L (13.0-17.5) gm/dL Hct 36.4 L (39.0-53.0) % Neutrophils # 8.4 H (1.3-7.7) k/uL Lymphocytes # 0.7 L (1.0-4.8) k/uL Potassium 3.4 L (3.5-5.1) mmol/L Glucose 114 H (74-99) mg/dL POC Glucose (mg/dL) 102 H (75-99) mg/dL Calcium 7.8 L (8.4-10.2) mg/dL
[2021-10-17] MEDS: METOPROLOL SUCCINATE (ER) 100 MG TAB.ER.24H PO SCH (09:53)
[2021-10-17] MEDS: AMIODARONE 200 MG TAB PO SCH ×2 (09:53→20:59)
--- NOTE | 2021-10-17 10:12 | P.PN ---
Subjective Progress Note Date: 10/17/21 Principal diagnosis: Abdominal pain, secondary to perforated viscus, patient is status post expiratory laparotomy with lysis of adhesions small bowel resection and incisional hernia repair postoperative day #6 This is a very pleasant 76-year-old male patient with a known history of atrial fibrillation anticoagulated with anticoagulated with Xarelto, hypertension, former smoker. He presented here to the emergency room on 10/09/2021 with complaints of left upper quadrant pain that began that had begun 2 days prior. He had an abrupt onset of left upper quadrant discomfort. He did have episode of emesis. His pain was worse and he presented to the ER for the same. Comput ed tomography scan of the abdomen and pelvis was suggestive of focal small bowel perforation with acute inflammatory changes and T/abscess formation. Small bowel lesion at that time cannot be excluded. Yesterday he had undergone exploratory laparotomy with lysis of adhesions and small bowel resection. He also had incisional hernia repair. Appendectomy had been recovering well until earlier today he developed a brief episode of unresponsiveness. His witnessed this at the bedside stated his eyes rolled back. This was in conjunction with a long pauses on the heart monitor as well. For that reason he was transferred to the intensive care unit for closer monitoring. He is seen in consultation. He is resting comfortably in bed. Awake and alert in no acute distress. He remains in atrial fibrillation currently with a rapid ventricular response and was initiated on a Cardizem drip now at 10 mg per hour. No significant pauses since his arrival. He denies any chest pain shortness of breath cough or congestion. No dizziness or lightheadedness. He is maintaining good O2 saturations in the 90s on 4 L/m per nasal cannula. He is afebrile. Blood pressure is stable. Chest x-ray reveals atelectasis of the lung bases. Doppler reveals plaquing of the right internal carotid artery contributing to moderate narrowing between 50 and 69%. No significant atherosclerosis of the le ft carotid. Blood cultures reveal no growth. Wound culture pending. He is currently on Zosyn. White count 14.9. Hemoglobin 11.7. Sodium 138. Potassium 4.0. Bicarb 24. BUN 32. Creatinine 1.04. Glucose 185. ProBNP 3640. Patient was reevaluated today on 10/12/2021, remains in the ICU, does not seem to be in any distress, no significant sinus pauses or arrhythmias overnight. Patient is known to have paroxysmal atrial fibrillation, but that reason we transfer the patient yesterday to the ICU was mostly because he had colonic positives consistent with tachybradycardia syndrome. At this point the patient is doing well, no major issues over the last 24 hours, and he was seen by cardiology, recommending low intensity heparin for his underlying atrial fibrillation if cleared by surgery. Patient continues to have nasogastric tube in place, no abdominal pain, no bowel movements, and the patient is not passing any gas yet. Hence the nasogastric tube will remain in place. Labs today showed WBC count of 14 hemoglobin 11.1 electrolytes are normal renal profile is normal calcium is 8.2 Reevaluated today on 10/13/2021, patient is basically about the same. Not in any distress continues to have nasogastric tube in place, continues to have atrial fibrillation with RVR, being addressed by cardiology on the case, remains on Cardizem drip. Remains on heparin/low intensity. No further episodes of bradycardia or long pauses, no symptoms of syncope. Absent today including CBC was relatively normal WBC count is 10.8 hemoglobin is 10.9. Electrolytes are normal renal profile is normal blood sugar is 122. Patient denies being in any form of distress, he is relatively asymptomatic and sitting in bed without any complaints. Reevaluated today on 10/14/2021, patient remains in the ICU, doing quite well, continues to have atrial fibrillation, no further positives, remains on heparin and Cardizem intravenously. Patient had some flatness last night, but no bowel movements yet. Denies any abdominal pain and discomfort. Denies any chest pain. Atrial fibrillation seems to be better controlled. CBC is relatively normal electrolytes are normal except for low potassium of 3.3, PTT is therapeutic. Profile is normal The patient is seen today 10/15/2021 in follow-up in the intensive care unit. He is currently sitting up in bed. Awake and alert in no acute distress. He is maintaining O2 saturations in the 90s on 2 L/m per nasal cannula. He remains on a Cardizem drip at 10 mg per hour. Normal saline at 75 mL per hour. Heparin drip per weight base protocol. He was originally admitted on 10/09/2021 for small bowel perforation and had surgery on 10/10/2021. He developed episodes of syncope and significant sinus pauses and was transferred to the ICU on 10/12/2021. He remains in atrial fibrillation. No significant pauses. The plan may be for a permanent pacemaker implantation once his abdominal issues have resolved. He has a nasogastric tube in place. Chest x-ray was reviewed and this was repositioned this morning. Follow-up chest x-ray revealed satisfac tory placement. He is passing flatus. No bowel movements. White count 9.4. Hemoglobin 11.1. Sodium 140. Potassium 4.0. BUN 17. Creatinine 0.77. AST 47. ALT 54. The patient is seen today 10/16/2021 in follow-up in the intensive care unit. He is currently resting comfortably in bed. Awake and alert in no acute distress. Last evening around 10:30 SUE GALDAMEZ was called on the patient after he was found to have asystole. In review this was a 33 second pause. Brief CPR was initiated and the patient had return of spontaneous circulation which was atrial flutter at a rate of 44 with a narrow complex. At the time he had been on a Cardizem drip at 10 mg at hour for A. fib with RVR. Cardizem was discontinued. The patient was started on dobutamine. He has since been discontinued as well. The plan is for permanent pacemaker implantation today. His heparin drip is on hold. No IV fluids. He is maintaining O2 saturations in the 90s on 4 L/m per nasal cannula. Wound culture from the small bowel resection revealed evidence of Enterobacter cloacae. Blood glucose 112. He is continued on antibiotics in the form of Zosyn. The patient is seen today 10/17/2021 in follow-up in the intensive care unit. He is currently sitting up in bed. Awake and alert in no acute distress. He did undergo permanent pacemaker implantation yesterday. He is currently on 2 L nasal cannula with O2 saturations in the 90s. 0.9 normal saline at 50 ML's per hour. His Cardizem drip has been resumed at 10 mg/h for the atrial fibrillation with rapid ventricular response.chest x-ray revealed no complications status post pacemaker lead placement. Abdominal wound culture was positive for Enterobacter Cloacae. White count 9.9. Hemoglobin 11.5. Sodium 137. Potassium 3.4. Creatinine 0.81. Glucose 114. He has been resumed on Xarelto, amiodarone, Toprol. Remains on antibiotics in the form of Zosyn. Objective - Vital Signs Vital signs: Vital Signs Temp 97.9 F 10/17/21 08:00 Pulse 83 10/17/21 10:00 Resp 27 H 10/17/21 10:00 BP 117/68 10/17/21 10:00 Pulse Ox 96 10/17/21 10:00 Intake & Output 10/16/21 10/17/21 10/17/21 18:59 06:59 18:59 Intake Total 6946.672 5646.5 263.333 Output Total 445 620 320 Balance 623.502 438.5 -56.667 Weight 117.3 kg 117.2 kg Intake: IV 700 975 160 Piperacillin-Tazobactam 3 100 .375 gm In Sodium Chloride 0.9% 100 ml @ 25 mls/hr IVPB Q8HR [facility] Rx# :[id number] Sodium Chloride 0.9% 1, 450 875 160 000 ml @ 75 mls/hr IV . [id number] [facility] Rx#:[id number] Intake, IV Titration 128.502 83.5 103.333 Amount Diltiazem 125 mg In 0 83.5 103.333 Sodium Chloride 0.9% 100 ml @ 5 MG/HR 5 mls/hr IV .Q24H [facility] Rx#:[id number] Heparin Sod,Pork in 0.45% 128.502 NaCl 25,000 unit In 0.45 % NaCl 1 250ml.bag @ 8.5 UNITS/KG/HR 10.005 mls/hr IV .Q24H [facility] Rx#: [id number] Oral 240 Output: Drainage 45 50 100 Abdomen 45 50 100 Urine 400 570 220 Other: Voiding Method Indwelling Catheter Indwelling Catheter Indwelling Catheter - Exam GENERAL EXAM: Alert, pleasant 76-year-old gentleman, on 4 L nasal cannula,, comfortable in no apparent distress. HEAD: Normocephalic. EYES: Normal reaction of pupils, equal size. NOSE: Nasogastric tube secured in place. Clear with pink turbinates. THROAT: No erythema or exudates. NECK: No masses, no JVD. CHEST: No chest wall deformity. Dressing to pacemaker site dry and intact. LUNGS: Equal air entry with crackles in the left lung base CVS: S1 and S2 normal with no audible murmur, irregular rhythm. ABDOMEN: Abdominal dressing dry and intact No hepatosplenomegaly, normal bowel sounds, no guarding or rigidity. SPINE: No scoliosis or deformity SKIN: No rashes CENTRAL NERVOUS SYSTEM: No focal deficits, tone is normal in all 4 extremities. EXTREMITIES: Left upper extremity in a sling. There is no peripheral edema. No clubbing, no cyanosis. Peripheral pulses are intact. - Labs CBC & Chem 7: 10/17/21 07:48 10/17/21 07:48 Labs: Abnormal Lab Results - Last 24 Hours (Table) 10/16/21 10/17/21 10/17/21 Range/Units 17:36 07:48 07:48 RBC 3.75 L (4.30-5.90) m/uL Hgb 11.5 L (13.0-17.5) gm/dL Hct 36.4 L (39.0-53.0) % Neutrophils # 8.4 H (1.3-7.7) k/uL Lymphocytes # 0.7 L (1.0-4.8) k/uL Potassium 3.4 L (3.5-5.1) mmol/L Glucose 114 H (74-99) mg/dL POC Glucose (mg/dL) 102 H (75-99) mg/dL Calcium 7.8 L (8.4-10.2) mg/dL Assessment and Plan Assessment: 1 Syncopal episode secondary to significant sinus pause, and another 33 seconds positive last evening with brief CPR, permanent pacemaker implanted 10/16/2021 2 Atrial fibrillation with a rapid ventricular response, currently on Cardizem drip and Xarelto 3 Abdominal pain in a patient found to have perforated viscus an incisional hernia status post exploratory laparotomy with lysis of adhesions, small bowel resection and incisional hernia repair. Postoperative day #7 4 History of hypertension 5 Former smoker Plan: The patient was seen and evaluated Chest x-ray and labs reviewed Pacemaker implantation yesterday Continue to work with the incentive spirometer Titrate down the FiO2 as tolerated Remains on Zosyn We will continue to follow I have personally seen and examined the patient, performed the documentation and the assessment and plan as written. Number of minutes spent on the visit: 10.
[2021-10-17] MEDS: HYDROcodone/APAP 5-325MG 1 EACH TAB PO PRN ×3 (10:55→23:58)
[2021-10-17 11:13] LABS: Glucose,Whole Blood 129 mg/dL (75-99)
--- NOTE | 2021-10-17 11:45 | P.PN ---
Subjective Progress Note Date: 10/17/21 76-year-old male came in with complaints of bilateral lower abdominal pain sharp in nature nonradiating associated with the nausea vomiting low-grade fevers patient is found to have leukocytosis as well as patient's symptoms started on Friday. Patient is found to have significant diverticulitis with some microperforations which were contained. Patient is admitted to general surgery service and patient is being monitored on IV antibiotics at this time. Patient is presently on Zosyn. Patient pain is moderate severity. some abdomen is distended and tympanic. Patient denied any history of constipation does have history of atrial fibrillation for which patient is on anticoagulation 10/10/2021 Patient evaluated in the EC this morning holding for [facility]. On telemetry monitoring shows atrial fibrillation heart rate running around 120s per nurse going up to the 140s. Patient has been NPO pending laproscopic neda today, did receive his amiodarone and metoprolol, xarelto remains on hold. Cardiology was consulted for rapid ventricular rate and patient will be upgraded to 3 [facility]. Continues on IV fluids continues on IV antibiotics. Continues with abdominal discomfort, no BM throughout the evening. Labs today show 16.84, hgb 11.9, INR 1.21 today, sodium 134, BUN 31, creat 1.34, total bili 1.6. Urinalysis negative. 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 Patient will be started on cardizem gtt. 10/11/2021 Patient evaluated today POD #1 exploratory lap with lysis of adhesions, small bowel resection, and incisional hernia repair with perforated diverticulum. Patient also had abscess that is being cultured with placement of CLAUDY drain. Abdominal dressings intact. Hypoactive bowel sounds, denies passing gas, no BM yet. Denies shortness of breath today. Patient still in Afib RVR which he is on cardizem gtt. Per primary no oral medications no anticoagulation yet. Continue patient with SCD's and prophylaxis as per primary. Cardiology is on consult for the rapid heart rate. Patient also with NG Tube in place, about 100 mL's of dark bilious fluid output noted. WBC today 14.9, hgb 11.7, sodium 138, potassium 4.0, BUN 32, creat 1.04, blood glucose in the 120s. Remains afebrile, blood pressure 130/72, 90% on 3 L his cannula. Encourage incentive spirometry. Addendum: Patient was an ateam today for syncope with loss of consciousness with possible asystole. Patient is being followed by cardiology, aaron gtt infusing. Per at bedside his eyes rolled back into his head and he was unresponsive to ve rbal shouting. Came out into hallway for help. Telemetry also notified staff to check on patient as he was noted to be in a sinus pause of about 8-12 seconds. Writing provider responded to ateam and updated by sound physician at bedside. At this time patient had already spontaneously gained consciousness and was alert and oriented x3 does not remember what happened. Per he has fallen at home x2 due to syncope with loss of consciousness, 1x was recently which was evaluated in the EC. Patient states he recently had an echo done in cardiology office, follows with Dr Anne. Discussed with primary that transfer to ICU was recommended. Discussed with Dr Ch who accepted the transfer. 10/12/2021 Patient is seen and evaluated in the ICU and is status post exploratory laparotomy with lysis of adhesions, small bowel resection and incisional hernia repair with perforated diverticulum. Patient remains on IV antibiotics in the form of Zosyn and wound cultures preliminary showing gram-negative bacilli and awaiting finalized cultures. Patient reports to continued abdominal distention and denies passing gas or having bowel movement. Patient reports that he is burping quite often and continues with an NG tube. Cardiology also following his patient does have a history of A. fib but was found to be in atrial fibrillation with rapid ventricular rate and being placed on Cardizem drip currently on 10 mL's per hour. IV heparin being started after clearance per surgery and will continue to monitor and transition to oral Eliquis once tolerating diet and having bowel movements. Physical therapy following an encourage the patient increase activity as tolerated. Encourage incentive spirometer use at least 10 times every hour while awake. Patient denies chest pain or shortness of breath. Patient is afebrile. Patient is to continue with nothing by mouth at this time. 10/15/2021 Patient is seen in follow up this morning and continues with multiple medical consultations following. Patient continues with NG tube at this time with possible removal and starting clear liquid diet. Patient reports to passing gas with no bowel movement as of yet. Abdominal incision is dry and there is some crusting noted at some of the staple sites with no surrounding redness or drainage noted. Mildly distended. Patient is afebrile. Patient denies chest pain or shortness of breath. Patient continues on 2-3 L of 02 via NC and recommend to continue to wean as tolerated. Incentive spirometer at the bedside and encouraged continued use at least 10 times per hour while awake. Cardiology following as well and discussion of permanent pacemaker is being had. 10/16/2021 Patient is seen and evaluated this morning continues to be in the ICU with multiple medical consultations including cardiology following closely. Per nursing staff patient had 2 episodes of asystole and a brief initiation of CPR was done in initially a dobutamine drip was ordered although patient heart rate had been jumped into the 120s to 130s. Patient was continued on IV Cardizem along with IV heparin. Patient is passing gas and did have a bowel movement and NG tube was pulled and tolerating clear liquids with no nausea or vomiting noted. Plan is for pacemaker placement today with cardiology and will await re port. IV Cardizem being held as well. Patient also continues on IV Zosyn and gentle IV hydration at 75 ML per hour. Patient denies chest pain or palpitations. Patient is afebrile. 10/17/2021 Patient is seen in follow-up this morning continues to be in the ICU being closely monitored. Cardiology and surgery following closely and patient is status post dual-chamber permanent pacemaker placement yesterday with cardiology and patient was resumed on IV Cardizem. Patient reports to some mild chest discomfort although feels it is from the chest compressions that were performed a day ago from his brief asystole episodes. Patient reports to some discomfort in the abdomen at the surgical site although continues to improve daily. Patient reports to passing some gas and had 2 bowel movements yesterday. Patient denies worsening shortness of breath and patient is afebrile. Per nursing staff patient has downgraded and awaiting a available bed on selective out of the ICU. Review of Systems Constitutional: Denied any fatigue denied any fever. Cardiovascular: denied any chest pain, palpitations Gastrointestinal: denied any nausea, vomiting, diarrhea, reports minimal gas and had 2 bowel movements yesterday Pulmonary: Denied any shortness of breath cough Neurologic denied any new focal deficits, reports generalized weakness Active Medications Acetaminophen (Acetaminophen Tab 325 Mg Tab) 650 mg PO Q6HR PRN PRN Reason: Mild Pain Albuterol Sulfate (Albuterol Nebulized 2.5 Mg/3 Ml) 2.5 mg INHALATION RT-Q6H PRN PRN Reason: Shortness Of Breath Last Admin: 10/14/21 07:40 Dose: 2.5 mg Documented by: Famotidine (Famotidine 20 Mg/2 Ml Vial) 20 mg IV DAILY [facility] Last Admin: 10/17/21 08:44 Dose: 20 mg Documented by: Heparin Sodium (Porcine) (Heparin Sodium 1,000 Un/Ml (10ml Vl)) 0 unit IV PER PROTOCOL PRN; Protocol PRN Reason: Low PTT Last Admin: 10/15/21 09:02 Dose: 4,000 unit Documented by: Hydromorphone HCl (Hydromorphone 1 Mg/Ml 1 Ml Syringe) 1 mg IVP Q3HR PRN PRN Reason: Pain Last Admin: 10/17/21 07:36 Dose: 1 mg Documented by: Sodium Chloride (Saline 0.9%) 1,000 mls @ 75 mls/hr IV .[id number] [facility] Last Admin: 10/17/21 03:33 Dose: Not Given Documented by: Piperacillin Sod/Tazobactam (Sod 3.375 gm/ Sodium Chloride) 100 mls @ 25 mls/hr IVPB Q8HR [facility]; Protocol Last Admin: 10/17/21 08:44 Dose: 25 mls/hr Documented by: Diltiazem HCl 125 mg/ Sodium (Chloride) 125 mls @ 5 mls/hr IV .Q24H [facility]; Protocol Last Admin: 10/17/21 08:45 Dose: 10 mg/hr, 10 mls/hr Documented by: Heparin Sodium/Sodium Chloride (25,000 unit/ Sodium Chloride) 250 mls @ 10.005 mls/hr IV .Q24H [facility]; Protocol Last Titration: 10/16/21 08:55 Dose: 0 units/kg/hr, 0 mls/hr Documented by: Dobutamine HCl/Dextrose 500 mg (/ IV Solution) 250 mls @ 10.125 mls/hr IV .Q24H [facility] Last Admin: 10/16/21 22:23 Dose: Not Given Documented by: Sodium Chloride (Saline 0.9%) 1,000 mls @ 50 mls/hr IV .Q20H [facility] Last Admin: 10/17/21 05:06 Dose: 50 mls/hr Documented by: Sodium Chloride (Saline 0.9%) 1,000 mls @ 50 mls/hr IV .Q20H [facility] Last Admin: 10/17/21 07:09 Dose: Not Given Documented by: Sodium Chloride (Saline 0.9%) 1,000 mls @ 50 mls/hr IV .Q20H [facility] Last Admin: 10/17/21 07:09 Dose: Not Given Documented by: Sodium Chloride (Saline 0.9%) 1,000 mls @ 50 mls/hr IV .Q20H [facility] Last Admin: 10/17/21 07:09 Dose: Not Given Documented by: Insulin Aspart (Insulin Aspart (Novolog) 100 Unit/Ml Vial) 0 unit SQ Q6H [facility]; Protocol Last Admin: 10/17/21 06:00 Dose: Not Given Documented by: Lidocaine HCl (Lidocaine 1% (10mg/Ml) For Iv Start) 0.1 ml INTRADERMA PER PROTOCOL PRN PRN Reason: IV Start Miscellaneous Information (Potassium Replacement Protocol 1 Each Misc) 1 each MISCELLANE DAILY PRN; Protocol PRN Reason: Per Protocol Miscellaneous Information (Magnesium Replacement Protocol 1 Each Misc) 1 each MISCELLANE DAILY PRN; Protocol PRN Reason: Per Protocol Morphine Sulfate (Morphine Sulfate 4 Mg/Ml Syringe) 4 mg IV Q4HR PRN PRN Reason: Severe Pain Last Admin: 10/11/21 13:43 Dose: 4 mg Documented by: Naloxone HCl (Naloxone 0.4 Mg/Ml 1 Ml Vial) 0.2 mg IV Q2M PRN PRN Reason: Opioid Reversal Ondansetron HCl (Ondansetron 4 Mg/2 Ml Vial) 4 mg IVP Q8HR PRN PRN Reason: Nausea And Vomiting Last Admin: 10/13/21 11:33 Dose: 4 mg Documented by: Pantoprazole Sodium (Pantoprazole 40 Mg/10 Ml Vial) 40 mg IVP BID [facility] Last Admin: 10/17/21 08:44 Dose: 40 mg Documented by: Sodium Chloride (Sodium Chloride 0.9% Flush 10 Ml Syringe) 10 ml IV Q12HR [facility] Last Admin: 10/17/21 08:45 Dose: 10 ml Documented by: PHYSICAL EXAMINATION: GENERAL: The patient is alert and oriented x3. Well developed, well nourished. Obese HEENT: Pupils are round and equally reacting to light. EOMI. No scleral icterus. No conjunctival pallor. Normocephalic, atraumatic. No pharyngeal erythema. No thyromegaly. CARDIOVASCULAR: S1 and S2 muffled, irregularly irregular, A. fib on the monitor, tachycardic PULMONARY: Diminished breath sounds bilaterally with some scattered rhonchi noted ABDOMEN: Abdomen is mildly distended, mild tenderness in bilateral lower abdominal quadrants. Hypoactive bowel sounds, post surgical dressing is dry and intact. MUSCULOSKELETAL: No joint swelling or deformity. EXTREMITIES: No cyanosis, clubbing, or pedal edema. NEUROLOGICAL: Gross neurological examination did not reveal any focal deficits. Diffusely weak SKIN: No rashes. 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, sick sinus syndrome status post dual- chamber permanent pacemaker placement on 10/16/2021 -Sepsis secondary to diverticulitis -Paroxysmal atrial fibrillation presently RVR -Diabetes mellitus type 2, uncontrolled with hyperglycemia -Hypertension -Benign prostatic hypertrophy -DVT prophylaxis -GI prophylaxis -Full code Plan: Recommend to continue with current diet of low fiber per surgery recommendations Cardiology following and patient is status post dual-chamber pacemaker placement yesterday and continued on IV Cardizem and will be weaned and placed on oral medications Patient is maintained on IV antibiotics and will continue Encouraged increased activity and physical therapy to follow daily, patient has a downgrade from the ICU and awaiting on a bed availability on the selected unit Recommend close monitoring of labs and repeat labs ordered Recommend continued telemetry monitoring with cardiology following Will initiate Flomax and recommend discontinuing indwelling Pratt catheter PT/OT to evaluate the patient Patient continued on IV heparin and IV Cardizem resumed Recommend to continue to monitor blood sugars closely with Accu-Cheks before meals and at bedtime and sliding scale Thank you for this consultation. We will continue to follow along with general surgery during hospitalization Guarded prognosis The impression and plan of care has been dictated by [place], Nurse Practitioner as directed. Dr. Dick MD I have performed a history and physical examination and medical decision making of this patient, discussed the same with the dictator, and agree with the dictators assessment and plan as written, documented as a scribe. Based on total visit time, I have performed more than 50% of this visit. Objective - Vital Signs Vital signs: Vital Signs Temp 97.9 F 10/17/21 08:00 Pulse 98 10/17/21 08:00 Resp 20 10/17/21 08:00 BP 129/77 10/17/21 08:00 Pulse Ox 94 L 10/17/21 08:00 Intake & Output 10/16/21 10/17/21 10/17/21 18:59 06:59 18:59 Intake Total 4181.329 1598.5 253.333 Output Total 445 620 160 Balance 623.502 438.5 93.333 Weight 117.3 kg 117.2 kg Intake: IV 700 975 150 Piperacillin-Tazobactam 3 100 .375 gm In Sodium Chloride 0.9% 100 ml @ 25 mls/hr IVPB Q8HR [facility] Rx# :[id number] Sodium Chloride 0.9% 1, 450 875 150 000 ml @ 75 mls/hr IV . [id number] [facility] Rx#:[id number] Intake, IV Titration 128.502 83.5 103.333 Amount Diltiazem 125 mg In 0 83.5 103.333 Sodium Chloride 0.9% 100 ml @ 5 MG/HR 5 mls/hr IV .Q24H [facility] Rx#:[id number] Heparin Sod,Pork in 0.45% 128.502 NaCl 25,000 unit In 0.45 % NaCl 1 250ml.bag @ 8.5 UNITS/KG/HR 10.005 mls/hr IV .Q24H [facility] Rx#: [id number] Oral 240 Output: Drainage 45 50 Abdomen 45 50 Urine 400 570 160 Other: Voiding Method Indwelling Catheter Indwelling Catheter - Labs CBC & Chem 7: 10/17/21 07:48 10/17/21 07:48 Labs: Abnormal Lab Results - Last 24 Hours (Table) 10/16/21 10/17/21 10/17/21 Range/Units 17:36 07:48 07:48 RBC 3.75 L (4.30-5.90) m/uL Hgb 11.5 L (13.0-17.5) gm/dL Hct 36.4 L (39.0-53.0) % Neutrophils # 8.4 H (1.3-7.7) k/uL Lymphocytes # 0.7 L (1.0-4.8) k/uL Potassium 3.4 L (3.5-5.1) mmol/L Glucose 114 H (74-99) mg/dL POC Glucose (mg/dL) 102 H (75-99) mg/dL Calcium 7.8 L (8.4-10.2) mg/dL
[2021-10-17] MEDS: TAMSULOSIN 0.4 MG CAP.ER.24H PO SCH (12:07)
--- NOTE | 2021-10-17 14:40 | P.PN ---
Subjective Progress Note Date: 10/17/21 CHIEF COMPLAINT: Left lower quadrant abdominal pain HISTORY OF PRESENT ILLNESS: Patient is postop day #7 status post exploratory laparotomy, lysis of adhesions, small bowel resection and incisional hernia repair for perforated jejunal diverticulum and incisional hernia. Patient is status post pacemaker placement for his tachybradycardia syndrome. Cardiology has restarted patient on his oral anticoagulation. Patient did have a bowel movement yesterday he is having flatus. He is currently only on the IV Dilaudid for pain control. He is on a low fiber diet. Afebrile. WBC normalized at 9.9 hemoglobin 11.5 platelets 343 sodium 137 potassium 3.4 and creatinine 0.81 PHYSICAL EXAM: VITAL SIGNS: Reviewed. GENERAL: Well-developed in no acute distress. HEENT: No sclera icterus. Extraocular movements grossly intact. Moist buccal mucosa. Head is atraumatic, normocephalic. ABDOMEN: Soft. Nondistended. Incisional clean dry and intact with 4 uri. No evidence of bleeding NEUROLOGIC: Alert and oriented. Cranial nerves II through XII grossly intact. ASSESSMENT: 1. Perforated jejunal diverticulum and incisional hernia status post exploratory laparotomy, lysis of adhesions, small bowel resection and incisional hernia repair 2. Atrial fibrillation 3. Tachybradycardia syndrome PLAN: -Patient can be transferred out of the ICU from surgical standpoint -Continue local wound care -Continue antibiotics -norco added for pain control -Discontinue Pratt catheter -Continue antiemetics -Continue supportive care -Encouraged patient to use incentive spirometer -GI prophylaxis Pepcid and DVT Prophylaxis xarelto Physician [employer] Software Developer note has been reviewed by physician. Signing provider agrees with the documented findings, assessment, and plan of care. Objective - Vital Signs Vital signs: Vital Signs Temp 97.9 F 10/17/21 08:00 Pulse 83 10/17/21 10:00 Resp 27 H 10/17/21 10:00 BP 117/68 10/17/21 10:00 Pulse Ox 96 10/17/21 10:00 Intake & Output 10/16/21 10/17/21 10/17/21 18:59 06:59 18:59 Intake Total 3485.123 4668.5 285.833 Output Total 445 620 390 Balance 623.502 438.5 -104.167 Weight 117.3 kg 117.2 kg Intake: IV 700 975 170 Piperacillin-Tazobactam 3 100 .375 gm In Sodium Chloride 0.9% 100 ml @ 25 mls/hr IVPB Q8HR [facility] Rx# :[id number] Sodium Chloride 0.9% 1, 450 875 170 000 ml @ 75 mls/hr IV . [id number] [facility] Rx#:[id number] Intake, IV Titration 128.502 83.5 115.833 Amount Diltiazem 125 mg In 0 83.5 115.833 Sodium Chloride 0.9% 100 ml @ 5 MG/HR 5 mls/hr IV .Q24H [facility] Rx#:[id number] Heparin Sod,Pork in 0.45% 128.502 NaCl 25,000 unit In 0.45 % NaCl 1 250ml.bag @ 8.5 UNITS/KG/HR 10.005 mls/hr IV .Q24H [facility] Rx#: [id number] Oral 240 Output: Drainage 45 50 100 Abdomen 45 50 100 Urine 400 570 290 Other: Voiding Method Indwelling Catheter Indwelling Catheter Indwelling Catheter - Labs CBC & Chem 7: 10/17/21 07:48 10/17/21 07:48 Labs: Abnormal Lab Results - Last 24 Hours (Table) 10/16/21 10/17/21 10/17/21 Range/Units 17:36 07:48 07:48 RBC 3.75 L (4.30-5.90) m/uL Hgb 11.5 L (13.0-17.5) gm/dL Hct 36.4 L (39.0-53.0) % Neutrophils # 8.4 H (1.3-7.7) k/uL Lymphocytes # 0.7 L (1.0-4.8) k/uL Potassium 3.4 L (3.5-5.1) mmol/L Glucose 114 H (74-99) mg/dL POC Glucose (mg/dL) 102 H (75-99) mg/dL Calcium 7.8 L (8.4-10.2) mg/dL 10/17/21 Range/Units 11:12 RBC (4.30-5.90) m/uL Hgb (13.0-17.5) gm/dL Hct (39.0-53.0) % Neutrophils # (1.3-7.7) k/uL Lymphocytes # (1.0-4.8) k/uL Potassium (3.5-5.1) mmol/L Glucose (74-99) mg/dL POC Glucose (mg/dL) 129 H (75-99) mg/dL Calcium (8.4-10.2) mg/dL
[2021-10-17] MEDS ORDERED: POTASSIUM CHLORIDE ER 20 MEQ TAB.ER PO STA (14:44)
[2021-10-17] MEDS ORDERED: MAGNESIUM SULFATE-D5W PMX 1 GM in DEXTROSE/WATER 1 100ML.BAG IVPB ONE (14:44)
[2021-10-17] MEDS ORDERED: RIVAROXABAN 20 MG TAB PO SCH (17:30)
[2021-10-17 18:12] LABS: Glucose,Whole Blood 148 mg/dL (75-99)
[2021-10-17 23:42] LABS: Glucose,Whole Blood 123 mg/dL (75-99)
[2021-10-18] MEDS: SODIUM CHLORIDE 0.9% 1,000 ML IV SCH ×5 (02:13→06:03)
[2021-10-18] MEDS: HYDROcodone/APAP 5-325MG 1 EACH TAB PO PRN ×3 (03:57→20:54)
[2021-10-18 05:58] LABS: Glucose,Whole Blood 114 mg/dL (75-99)
[2021-10-18] MEDS: INSULIN ASPART (NovoLOG) 100 UNIT/ML VIAL SQ SCH ×3 (06:03→16:52)
[2021-10-18] MEDS: PIPERACILLIN-TAZOBACTAM 3.375 GM in SODIUM CHLORIDE 0.9% 100 ML IVPB SCH ×3 (08:40→23:35)
[2021-10-18] MEDS: FAMOTIDINE 20 MG/2 ML VIAL IV SCH ×2 (08:40→09:18)
[2021-10-18] MEDS: PANTOPRAZOLE 40 MG/10 ML VIAL IVP SCH ×2 (08:40→20:55)
[2021-10-18] MEDS: TAMSULOSIN 0.4 MG CAP.ER.24H PO SCH (08:40)
[2021-10-18] MEDS: AMIODARONE 200 MG TAB PO SCH ×2 (08:41→20:54)
[2021-10-18] MEDS: METOPROLOL SUCCINATE (ER) 100 MG TAB.ER.24H PO SCH (08:49)
[2021-10-18] MEDS: HYDROmorphone 1 MG/ML 1 ML SYRINGE IVP PRN ×2 (08:51→17:22)
[2021-10-18] MEDS ORDERED: METOPROLOL SUCCINATE (ER) 100 MG TAB.ER.24H PO STA (09:06)
[2021-10-18 10:08] LABS: African American GFR (CKD) >90 (>60 ml/min/1.73 sqM); Anion Gap 4 mmol/L; Blood Urea Nitrogen 16 mg/dL (9-20); Calcium 7.8 mg/dL (8.4-10.2); Carbon Dioxide 29 mmol/L (22-30); Chloride 102 mmol/L (98-107); Glucose 138 mg/dL (74-99); Magnesium 1.8 mg/dL (1.6-2.3); Non-African American GFR(CKD) 89 (>60 ml/min/1.73 sqM); Potassium 3.7 mmol/L (3.5-5.1); Sodium 135 mmol/L (137-145)
--- NOTE | 2021-10-18 10:22 | P.PN ---
Subjective Progress Note Date: 10/18/21 Principal diagnosis: Abdominal pain, secondary to perforated viscus, patient is status post expiratory laparotomy with lysis of adhesions small bowel resection and incisional hernia repair postoperative day #6 This is a very pleasant 76-year-old male patient with a known history of atrial fibrillation anticoagulated with anticoagulated with Xarelto, hypertension, former smoker. He presented here to the emergency room on 10/09/2021 with complaints of left upper quadrant pain that began that had begun 2 days prior. He had an abrupt onset of left upper quadrant discomfort. He did have episode of emesis. His pain was worse and he presented to the ER for the same. Comput ed tomography scan of the abdomen and pelvis was suggestive of focal small bowel perforation with acute inflammatory changes and T/abscess formation. Small bowel lesion at that time cannot be excluded. Yesterday he had undergone exploratory laparotomy with lysis of adhesions and small bowel resection. He also had incisional hernia repair. Appendectomy had been recovering well until earlier today he developed a brief episode of unresponsiveness. His witnessed this at the bedside stated his eyes rolled back. This was in conjunction with a long pauses on the heart monitor as well. For that reason he was transferred to the intensive care unit for closer monitoring. He is seen in consultation. He is resting comfortably in bed. Awake and alert in no acute distress. He remains in atrial fibrillation currently with a rapid ventricular response and was initiated on a Cardizem drip now at 10 mg per hour. No significant pauses since his arrival. He denies any chest pain shortness of breath cough or congestion. No dizziness or lightheadedness. He is maintaining good O2 saturations in the 90s on 4 L/m per nasal cannula. He is afebrile. Blood pressure is stable. Chest x-ray reveals atelectasis of the lung bases. Doppler reveals plaquing of the right internal carotid artery contributing to moderate narrowing between 50 and 69%. No significant atherosclerosis of the le ft carotid. Blood cultures reveal no growth. Wound culture pending. He is currently on Zosyn. White count 14.9. Hemoglobin 11.7. Sodium 138. Potassium 4.0. Bicarb 24. BUN 32. Creatinine 1.04. Glucose 185. ProBNP 3640. Patient was reevaluated today on 10/12/2021, remains in the ICU, does not seem to be in any distress, no significant sinus pauses or arrhythmias overnight. Patient is known to have paroxysmal atrial fibrillation, but that reason we transfer the patient yesterday to the ICU was mostly because he had colonic positives consistent with tachybradycardia syndrome. At this point the patient is doing well, no major issues over the last 24 hours, and he was seen by cardiology, recommending low intensity heparin for his underlying atrial fibrillation if cleared by surgery. Patient continues to have nasogastric tube in place, no abdominal pain, no bowel movements, and the patient is not passing any gas yet. Hence the nasogastric tube will remain in place. Labs today showed WBC count of 14 hemoglobin 11.1 electrolytes are normal renal profile is normal calcium is 8.2 Reevaluated today on 10/13/2021, patient is basically about the same. Not in any distress continues to have nasogastric tube in place, continues to have atrial fibrillation with RVR, being addressed by cardiology on the case, remains on Cardizem drip. Remains on heparin/low intensity. No further episodes of bradycardia or long pauses, no symptoms of syncope. Absent today including CBC was relatively normal WBC count is 10.8 hemoglobin is 10.9. Electrolytes are normal renal profile is normal blood sugar is 122. Patient denies being in any form of distress, he is relatively asymptomatic and sitting in bed without any complaints. Reevaluated today on 10/14/2021, patient remains in the ICU, doing quite well, continues to have atrial fibrillation, no further positives, remains on heparin and Cardizem intravenously. Patient had some flatness last night, but no bowel movements yet. Denies any abdominal pain and discomfort. Denies any chest pain. Atrial fibrillation seems to be better controlled. CBC is relatively normal electrolytes are normal except for low potassium of 3.3, PTT is therapeutic. Profile is normal The patient is seen today 10/15/2021 in follow-up in the intensive care unit. He is currently sitting up in bed. Awake and alert in no acute distress. He is maintaining O2 saturations in the 90s on 2 L/m per nasal cannula. He remains on a Cardizem drip at 10 mg per hour. Normal saline at 75 mL per hour. Heparin drip per weight base protocol. He was originally admitted on 10/09/2021 for small bowel perforation and had surgery on 10/10/2021. He developed episodes of syncope and significant sinus pauses and was transferred to the ICU on 10/12/2021. He remains in atrial fibrillation. No significant pauses. The plan may be for a permanent pacemaker implantation once his abdominal issues have resolved. He has a nasogastric tube in place. Chest x-ray was reviewed and this was repositioned this morning. Follow-up chest x-ray revealed satisfac tory placement. He is passing flatus. No bowel movements. White count 9.4. Hemoglobin 11.1. Sodium 140. Potassium 4.0. BUN 17. Creatinine 0.77. AST 47. ALT 54. The patient is seen today 10/16/2021 in follow-up in the intensive care unit. He is currently resting comfortably in bed. Awake and alert in no acute distress. Last evening around 10:30 SUE GALDAMEZ was called on the patient after he was found to have asystole. In review this was a 33 second pause. Brief CPR was initiated and the patient had return of spontaneous circulation which was atrial flutter at a rate of 44 with a narrow complex. At the time he had been on a Cardizem drip at 10 mg at hour for A. fib with RVR. Cardizem was discontinued. The patient was started on dobutamine. He has since been discontinued as well. The plan is for permanent pacemaker implantation today. His heparin drip is on hold. No IV fluids. He is maintaining O2 saturations in the 90s on 4 L/m per nasal cannula. Wound culture from the small bowel resection revealed evidence of Enterobacter cloacae. Blood glucose 112. He is continued on antibiotics in the form of Zosyn. The patient is seen today 10/17/2021 in follow-up in the intensive care unit. He is currently sitting up in bed. Awake and alert in no acute distress. He did undergo permanent pacemaker implantation yesterday. He is currently on 2 L nasal cannula with O2 saturations in the 90s. 0.9 normal saline at 50 ML's per hour. His Cardizem drip has been resumed at 10 mg/h for the atrial fibrillation with rapid ventricular response.chest x-ray revealed no complications status post pacemaker lead placement. Abdominal wound culture was positive for Enterobacter Cloacae. White count 9.9. Hemoglobin 11.5. Sodium 137. Potassium 3.4. Creatinine 0.81. Glucose 114. He has been resumed on Xarelto, amiodarone, Toprol. Remains on antibiotics in the form of Zosyn. The patient is seen today 10/18/2021 in follow-up on the intensive care unit. He is sitting up in bed. Awake and alert in no acute distress. He is maintaining O2 saturations in the 90s on 2 L/m per nasal cannula. No IV fluids. He is status post permanent pacemaker implantation. He is still having issues with A. fib RVR. Cardiology is on the case and has increased his metoprolol to 200 mg daily along with Cordarone. Antibiotics in the form of Zosyn. Anticoagulated with Xarelto. Susan on IV diuretics. Currently in a -200 ML balance. Sodium 135. Potassium 3.7. Glucose 138. BUN 16. Creatinine 0.78. Objective - Vital Signs Vital signs: Vital Signs Temp 97.9 F 10/18/21 04:00 Pulse 114 H 10/18/21 07:00 Resp 19 10/18/21 07:00 BP 107/81 10/18/21 07:00 Pulse Ox 98 10/18/21 06:00 Intake & Output 10/17/21 10/18/21 10/18/21 18:59 06:59 18:59 Intake Total 455.833 230 Output Total 650 300 75 Balance -194.167 -70 -75 Weight 117.2 kg 116 kg Intake: IV 340 130 Piperacillin-Tazobactam 3 100 .375 gm In Sodium Chloride 0.9% 100 ml @ 25 mls/hr IVPB Q8HR [facility] Rx# :[id number] Sodium Chloride 0.9% 1, 240 130 000 ml @ 75 mls/hr IV . [id number] [facility] Rx#:[id number] Intake, IV Titration 115.833 Amount Diltiazem 125 mg In 115.833 Sodium Chloride 0.9% 100 ml @ 5 MG/HR 5 mls/hr IV .Q24H [facility] Rx#:[id number] Oral 100 Output: Drainage 170 75 Abdomen 170 75 Urine 480 300 Other: Voiding Method Indwelling Catheter Urinal # Voids 1 0 # Bowel Movements 1 - Exam GENERAL EXAM: Alert, pleasant 76-year-old gentleman, on 2 L nasal cannula,, comfortable in no apparent distress. HEAD: Normocephalic. EYES: Normal reaction of pupils, equal size. NOSE: Nasogastric tube secured in place. Clear with pink turbinates. THROAT: No erythema or exudates. NECK: No masses, no JVD. CHEST: No chest wall deformity. Dressing to pacemaker site dry and intact. LUNGS: Equal air entry with crackles in the left lung base CVS: S1 and S2 normal with no audible murmur, irregular rhythm. ABDOMEN: Abdominal dressing dry and intact No hepatosplenomegaly, normal bowel sounds, no guarding or rigidity. SPINE: No scoliosis or deformity SKIN: No rashes CENTRAL NERVOUS SYSTEM: No focal deficits, tone is normal in all 4 extremities. EXTREMITIES: Left upper extremity in a sling. There is no peripheral edema. No clubbing, no cyanosis. Peripheral pulses are intact. - Labs CBC & Chem 7: 10/17/21 07:48 10/18/21 09:16 Labs: Abnormal Lab Results - Last 24 Hours (Table) 10/17/21 10/17/21 10/17/21 Range/Units 11:12 18:11 23:41 Sodium (137-145) mmol/L Glucose (74-99) mg/dL POC Glucose (mg/dL) 129 H 148 H 123 H (75-99) mg/dL Calcium (8.4-10.2) mg/dL 10/18/21 10/18/21 Range/Units 05:56 09:16 Sodium 135 L (137-145) mmol/L Glucose 138 H (74-99) mg/dL POC Glucose (mg/dL) 114 H (75-99) mg/dL Calcium 7.8 L (8.4-10.2) mg/dL Assessment and Plan Assessment: 1 Syncopal episode secondary to significant sinus pause, and another 33 seconds positive last evening with brief CPR, permanent pacemaker implanted 10/16/2021 2 Atrial fibrillation with a rapid ventricular response, currently on metoprolol, amiodarone and Xarelto 3 Abdominal pain in a patient found to have perforated viscus an incisional hernia status post exploratory laparotomy with lysis of adhesions, small bowel resection and incisional hernia repair. Postoperative day #7 4 History of hypertension 5 Former smoker Plan: The patient was seen and evaluated Stable from the pulmonary and critical care standpoint 3 S. overflow patient Continue to work with the incentive spirometer Titrate down the FiO2 as tolerated Remains on Zosyn Increase his activity as tolerated We will continue to follow I have personally seen and examined the patient, performed the documentation and the assessment and plan as written. Number of minutes spent on the visit: 10.
--- NOTE | 2021-10-18 10:26 | P.PN ---
Subjective Progress Note Date: 10/18/21 CHIEF COMPLAINT: Left lower quadrant abdominal pain HISTORY OF PRESENT ILLNESS: Patient is postop day #8 status post exploratory laparotomy, lysis of adhesions, small bowel resection and incisional hernia repair for perforated jejunal diverticulum and incisional hernia. Patient is status post pacemaker placement for his tachybradycardia syndrome. Patient is in A. fib with elevated heart rate. Cardiology has adjusted the dose of beta angela. Patient is sitting up in bed. She reports having flatus. He reports that his pain is controlled. Denies any nausea or vomiting. Afebrile. WBC 9.9 yesterday sodium 135 creatinine 0.78 potassium 3.7 PHYSICAL EXAM: VITAL SIGNS: Reviewed. GENERAL: Well-developed in no acute distress. HEENT: No sclera icterus. Extraocular movements grossly intact. Moist buccal mucosa. Head is atraumatic, normocephalic. ABDOMEN: Soft. Nondistended. Incisional clean dry and intact with 4 uri. No evidence of bleeding NEUROLOGIC: Alert and oriented. Cranial nerves II through XII grossly intact. ASSESSMENT: 1. Perforated jejunal diverticulum and incisional hernia status post exploratory laparotomy, lysis of adhesions, small bowel resection and incisional hernia repair 2. Atrial fibrillation 3. Tachybradycardia syndrome PLAN: -Patient can be transferred out of the ICU from surgical standpoint -Continue local wound care -Continue antibiotics -Continue pain medication as needed -Continue antiemetics -Continue supportive care -Encouraged patient to use incentive spirometer -GI prophylaxis Pepcid and DVT Prophylaxis xarelto Physician Inspector Cold Working note has been reviewed by physician. Signing provider agrees with the documented findings, assessment, and plan of care. Objective - Vital Signs Vital signs: Vital Signs Temp 97.9 F 10/18/21 04:00 Pulse 114 H 10/18/21 07:00 Resp 19 10/18/21 07:00 BP 107/81 10/18/21 07:00 Pulse Ox 98 10/18/21 06:00 Intake & Output 10/17/21 10/18/21 10/18/21 18:59 06:59 18:59 Intake Total 455.833 230 Output Total 650 300 75 Balance -194.167 -70 -75 Weight 117.2 kg 116 kg Intake: IV 340 130 Piperacillin-Tazobactam 3 100 .375 gm In Sodium Chloride 0.9% 100 ml @ 25 mls/hr IVPB Q8HR [facility] Rx# :[id number] Sodium Chloride 0.9% 1, 240 130 000 ml @ 75 mls/hr IV . [id number] [facility] Rx#:[id number] Intake, IV Titration 115.833 Amount Diltiazem 125 mg In 115.833 Sodium Chloride 0.9% 100 ml @ 5 MG/HR 5 mls/hr IV .Q24H [facility] Rx#:[id number] Oral 100 Output: Drainage 170 75 Abdomen 170 75 Urine 480 300 Other: Voiding Method Indwelling Catheter Urinal # Voids 1 0 # Bowel Movements 1 - Labs CBC & Chem 7: 10/17/21 07:48 10/18/21 09:16 Labs: Abnormal Lab Results - Last 24 Hours (Table) 10/17/21 10/17/21 10/17/21 Range/Units 11:12 18:11 23:41 Sodium (137-145) mmol/L Glucose (74-99) mg/dL POC Glucose (mg/dL) 129 H 148 H 123 H (75-99) mg/dL Calcium (8.4-10.2) mg/dL 10/18/21 10/18/21 Range/Units 05:56 09:16 Sodium 135 L (137-145) mmol/L Glucose 138 H (74-99) mg/dL POC Glucose (mg/dL) 114 H (75-99) mg/dL Calcium 7.8 L (8.4-10.2) mg/dL
[2021-10-18] MEDS: FUROSEMIDE 10 MG/ML 4 ML VIAL IV SCH (12:19)
--- NOTE | 2021-10-18 13:33 | P.PN ---
Subjective Progress Note Date: 10/18/21 76-year-old male came in with complaints of bilateral lower abdominal pain sharp in nature nonradiating associated with the nausea vomiting low-grade fevers patient is found to have leukocytosis as well as patient's symptoms started on Friday. Patient is found to have significant diverticulitis with some microperforations which were contained. Patient is admitted to general surgery service and patient is being monitored on IV antibiotics at this time. Patient is presently on Zosyn. Patient pain is moderate severity. some abdomen is distended and tympanic. Patient denied any history of constipation does have history of atrial fibrillation for which patient is on anticoagulation 10/10/2021 Patient evaluated in the EC this morning holding for [facility]. On telemetry monitoring shows atrial fibrillation heart rate running around 120s per nurse going up to the 140s. Patient has been NPO pending laproscopic neda today, did receive his amiodarone and metoprolol, xarelto remains on hold. Cardiology was consulted for rapid ventricular rate and patient will be upgraded to [facility]. Continues on IV fluids continues on IV antibiotics. Continues with abdominal discomfort, no BM throughout the evening. Labs today show 16.84, hgb 11.9, INR 1.21 today, sodium 134, BUN 31, creat 1.34, total bili 1.6. Urinalysis negative. 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 Patient will be started on cardizem gtt. 10/11/2021 Patient evaluated today POD #1 exploratory lap with lysis of adhesions, small bowel resection, and incisional hernia repair with perforated diverticulum. Patient also had abscess that is being cultured with placement of CLAUDY drain. Abdominal dressings intact. Hypoactive bowel sounds, denies passing gas, no BM yet. Denies shortness of breath today. Patient still in Afib RVR which he is on cardizem gtt. Per primary no oral medications no anticoagulation yet. Continue patient with SCD's and prophylaxis as per primary. Cardiology is on consult for the rapid heart rate. Patient also with NG Tube in place, about 100 mL's of dark bilious fluid output noted. WBC today 14.9, hgb 11.7, sodium 138, potassium 4.0, BUN 32, creat 1.04, blood glucose in the 120s. Remains afebrile, blood pressure 130/72, 90% on 3 L his cannula. Encourage incentive spirometry. Addendum: Patient was an ateam today for syncope with loss of consciousness with possible asystole. Patient is being followed by cardiology, aaron gtt infusing. Per at bedside his eyes rolled back into his head and he was unresponsive to ve rbal shouting. Came out into hallway for help. Telemetry also notified staff to check on patient as he was noted to be in a sinus pause of about 8-12 seconds. Writing provider responded to ateam and updated by sound physician at bedside. At this time patient had already spontaneously gained consciousness and was alert and oriented x3 does not remember what happened. Per he has fallen at home x2 due to syncope with loss of consciousness, 1x was recently which was evaluated in the EC. Patient states he recently had an echo done in cardiology office, follows with Dr Anne. Discussed with primary that transfer to ICU was recommended. Discussed with Dr Ch who accepted the transfer. 10/12/2021 Patient is seen and evaluated in the ICU and is status post exploratory laparotomy with lysis of adhesions, small bowel resection and incisional hernia repair with perforated diverticulum. Patient remains on IV antibiotics in the form of Zosyn and wound cultures preliminary showing gram-negative bacilli and awaiting finalized cultures. Patient reports to continued abdominal distention and denies passing gas or having bowel movement. Patient reports that he is burping quite often and continues with an NG tube. Cardiology also following his patient does have a history of A. fib but was found to be in atrial fibrillation with rapid ventricular rate and being placed on Cardizem drip currently on 10 mL's per hour. IV heparin being started after clearance per surgery and will continue to monitor and transition to oral Eliquis once tolerating diet and having bowel movements. Physical therapy following an encourage the patient increase activity as tolerated. Encourage incentive spirometer use at least 10 times every hour while awake. Patient denies chest pain or shortness of breath. Patient is afebrile. Patient is to continue with nothing by mouth at this time. 10/15/2021 Patient is seen in follow up this morning and continues with multiple medical consultations following. Patient continues with NG tube at this time with possible removal and starting clear liquid diet. Patient reports to passing gas with no bowel movement as of yet. Abdominal incision is dry and there is some crusting noted at some of the staple sites with no surrounding redness or drainage noted. Mildly distended. Patient is afebrile. Patient denies chest pain or shortness of breath. Patient continues on 2-3 L of 02 via NC and recommend to continue to wean as tolerated. Incentive spirometer at the bedside and encouraged continued use at least 10 times per hour while awake. Cardiology following as well and discussion of permanent pacemaker is being had. 10/16/2021 Patient is seen and evaluated this morning continues to be in the ICU with multiple medical consultations including cardiology following closely. Per nursing staff patient had 2 episodes of asystole and a brief initiation of CPR was done in initially a dobutamine drip was ordered although patient heart rate had been jumped into the 120s to 130s. Patient was continued on IV Cardizem along with IV heparin. Patient is passing gas and did have a bowel movement and NG tube was pulled and tolerating clear liquids with no nausea or vomiting noted. Plan is for pacemaker placement today with cardiology and will await re port. IV Cardizem being held as well. Patient also continues on IV Zosyn and gentle IV hydration at 75 ML per hour. Patient denies chest pain or palpitations. Patient is afebrile. 10/17/2021 Patient is seen in follow-up this morning continues to be in the ICU being closely monitored. Cardiology and surgery following closely and patient is status post dual-chamber permanent pacemaker placement yesterday with cardiology and patient was resumed on IV Cardizem. Patient reports to some mild chest discomfort although feels it is from the chest compressions that were performed a day ago from his brief asystole episodes. Patient reports to some discomfort in the abdomen at the surgical site although continues to improve daily. Patient reports to passing some gas and had 2 bowel movements yesterday. Patient denies worsening shortness of breath and patient is afebrile. Per nursing staff patient has downgraded and awaiting a available bed on selective out of the ICU. 10/18/2021 Patient is seen in follow up today and awaiting transfer out of the ICU with cardiology and surgery following closely. Patient being transitioned to oral amiodarone and xarelto. Patient is status post pace maker placement. Recommend to continue telemetry. Surgery advanced diet and tolerating well. Continue IV antibiotics. Patient with continued weakness and will have PT/OT. Patient may need ecf on discharge for weakness. Encouraged incentive spirometer use. Increase activity as tolerated. Patient is afebrile. No reports of chest pain or shortness of breath. Recommend IV lasix for some generalized edema. Review of Systems Constitutional: Denied any fatigue denied any fever. Cardiovascular: denied any chest pain, palpitations Gastrointestinal: denied any nausea, vomiting, diarrhea, reports gas and bowel movements Pulmonary: Denied any shortness of breath cough Neurologic denied any new focal deficits, reports generalized weakness Active Medications Acetaminophen (Acetaminophen Tab 325 Mg Tab) 650 mg PO Q6HR PRN PRN Reason: Mild Pain Hydrocodone Bitart/Acetaminophen (Hydrocodone/Apap 5-325mg 1 Each Tab) 1 each PO Q4HR PRN PRN Reason: Pain Last Admin: 10/18/21 03:57 Dose: 1 each Documented by: Albuterol Sulfate (Albuterol Nebulized 2.5 Mg/3 Ml) 2.5 mg INHALATION RT-Q6H PRN PRN Reason: Shortness Of Breath Last Admin: 10/14/21 07:40 Dose: 2.5 mg Documented by: Amiodarone HCl (Amiodarone 200 Mg Tab) 400 mg PO BID [facility] Last Admin: 10/18/21 08:41 Dose: 400 mg Documented by: Famotidine (Famotidine 20 Mg/2 Ml Vial) 20 mg IV DAILY [facility] Last Admin: 10/18/21 09:18 Dose: Not Given Documented by: Furosemide (Furosemide 10 Mg/Ml 4 Ml Vial) 40 mg IV DAILY [facility] Last Admin: 10/18/21 12:19 Dose: 40 mg Documented by: Hydromorphone HCl (Hydromorphone 1 Mg/Ml 1 Ml Syringe) 1 mg IVP Q3HR PRN PRN Reason: Pain Last Admin: 10/18/21 08:51 Dose: 1 mg Documented by: Piperacillin Sod/Tazobactam (Sod 3.375 gm/ Sodium Chloride) 100 mls @ 25 mls/hr IVPB Q8HR [facility]; Protocol Last Admin: 10/18/21 08:40 Dose: 25 mls/hr Documented by: Insulin Aspart (Insulin Aspart (Novolog) 100 Unit/Ml Vial) 0 unit SQ Q6H [facility]; Protocol Last Admin: 10/18/21 12:27 Dose: Not Given Documented by: Lidocaine HCl (Lidocaine 1% (10mg/Ml) For Iv Start) 0.1 ml INTRADERMA PER PROTOCOL PRN PRN Reason: IV Start Metoprolol Succinate (Metoprolol Succinate (Er) 100 Mg Tab.Er.24h) 200 mg PO DAILY [facility] Miscellaneous Information (Potassium Replacement Protocol 1 Each Misc) 1 each MISCELLANE DAILY PRN; Protocol PRN Reason: Per Protocol Miscellaneous Information (Magnesium Replacement Protocol 1 Each Misc) 1 each MISCELLANE DAILY PRN; Protocol PRN Reason: Per Protocol Morphine Sulfate (Morphine Sulfate 4 Mg/Ml Syringe) 4 mg IV Q4HR PRN PRN Reason: Severe Pain Last Admin: 10/11/21 13:43 Dose: 4 mg Documented by: Naloxone HCl (Naloxone 0.4 Mg/Ml 1 Ml Vial) 0.2 mg IV Q2M PRN PRN Reason: Opioid Reversal Ondansetron HCl (Ondansetron 4 Mg/2 Ml Vial) 4 mg IVP Q8HR PRN PRN Reason: Nausea And Vomiting Last Admin: 10/13/21 11:33 Dose: 4 mg Documented by: Pantoprazole Sodium (Pantoprazole 40 Mg/10 Ml Vial) 40 mg IVP BID [facility] Last Admin: 10/18/21 08:40 Dose: 40 mg Documented by: Rivaroxaban (Rivaroxaban 20 Mg Tab) 20 mg PO W/SUPPER [facility]; Protocol Sodium Chloride (Sodium Chloride 0.9% Flush 10 Ml Syringe) 10 ml IV Q12HR [facility] Last Admin: 10/18/21 08:55 Dose: 10 ml Documented by: Tamsulosin HCl (Tamsulosin 0.4 Mg Cap.Er.24h) 0.4 mg PO -BRKFST [facility] Last Admin: 10/18/21 08:40 Dose: 0.4 mg Documented by: PHYSICAL EXAMINATION: GENERAL: The patient is alert and oriented x3. Well developed, well nourished. Obese HEENT: Pupils are round and equally reacting to light. EOMI. No scleral icterus. No conjunctival pallor. Normocephalic, atraumatic. No pharyngeal erythema. No thyromegaly. CARDIOVASCULAR: S1 and S2 muffled, irregularly irregular PULMONARY: Diminished breath sounds bilaterally with some scattered rhonchi n oted ABDOMEN: Abdomen is mildly distended, mild tenderness in bilateral lower abdominal quadrants. normal bowel sounds, post surgical dressing is dry and intact. MUSCULOSKELETAL: No joint swelling or deformity. EXTREMITIES: No cyanosis, clubbing, or pedal edema. NEUROLOGICAL: Gross neurological examination did not reveal any focal deficits. Diffusely weak SKIN: No rashes. 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 Patient is maintained on IV antibiotics and will continue Encouraged increased activity and physical therapy to follow daily, patient has a downgrade from the ICU and awaiting on a bed availability on the selected unit Recommend close monitoring of labs and repeat labs ordered Recommend continued telemetry monitoring with cardiology following PT/OT to evaluate the patient, may need possible ecf Recommend to continue to monitor blood sugars closely with Accu-Cheks before meals and at bedtime and sliding scale Thank you for this consultation. We will continue to follow along with general surgery during hospitalization Guarded prognosis The impression and plan of care has been dictatedas a scribe by Little Antony, Nurse Practitioner as directed. Dr. Dick MD I have performed a history and physical examination and medical decision making of this patient, discussed the same with the dictator, documented as a scribe. Based on total visit time, I have performed more than 50% of this visit. Objective - Vital Signs Vital signs: Vital Signs Temp 97.9 F 10/18/21 04:00 Pulse 114 H 10/18/21 07:00 Resp 19 10/18/21 07:00 BP 107/81 10/18/21 07:00 Pulse Ox 98 10/18/21 06:00 Intake & Output 10/17/21 10/18/21 10/18/21 18:59 06:59 18:59 Intake Total 455.833 230 Output Total 650 300 75 Balance -194.167 -70 -75 Weight 117.2 kg 116 kg Intake: IV 340 130 Piperacillin-Tazobactam 3 100 .375 gm In Sodium Chloride 0.9% 100 ml @ 25 mls/hr IVPB Q8HR [facility] Rx# :[id number] Sodium Chloride 0.9% 1, 240 130 000 ml @ 75 mls/hr IV . [id number] [facility] Rx#:[id number] Intake, IV Titration 115.833 Amount Diltiazem 125 mg In 115.833 Sodium Chloride 0.9% 100 ml @ 5 MG/HR 5 mls/hr IV .Q24H [facility] Rx#:[id number] Oral 100 Output: Drainage 170 75 Abdomen 170 75 Urine 480 300 Other: Voiding Method Indwelling Catheter Urinal # Voids 1 0 # Bowel Movements 1 - Labs CBC & Chem 7: 10/17/21 07:48 10/18/21 09:16 Labs: Abnormal Lab Results - Last 24 Hours (Table) 10/17/21 10/17/21 10/17/21 Range/Units 11:12 18:11 23:41 POC Glucose (mg/dL) 129 H 148 H 123 H (75-99) mg/dL 10/18/21 Range/Units 05:56 POC Glucose (mg/dL) 114 H (75-99) mg/dL
[2021-10-18 16:53] LABS: Glucose,Whole Blood 114 mg/dL (75-99)
[2021-10-18] MEDS: DILTIAZEM ORAL 30 MG TAB PO SCH ×2 (16:56→23:35)
[2021-10-18] MEDS: RIVAROXABAN 20 MG TAB PO SCH (16:56)
[2021-10-18 20:22] LABS: Glucose,Whole Blood 101 mg/dL (75-99)
[2021-10-18 23:41] LABS: Glucose,Whole Blood 121 mg/dL (75-99)
[2021-10-19] MEDS: INSULIN ASPART (NovoLOG) 100 UNIT/ML VIAL SQ SCH ×5 (00:12→20:12)
[2021-10-19] MEDS: HYDROcodone/APAP 5-325MG 1 EACH TAB PO PRN ×2 (02:10→20:11)
[2021-10-19] MEDS: HYDROmorphone 1 MG/ML 1 ML SYRINGE IVP PRN ×3 (04:28→23:08)
[2021-10-19] MEDS: DILTIAZEM ORAL 30 MG TAB PO SCH ×4 (04:28→23:08)
[2021-10-19 06:02] LABS: Glucose,Whole Blood 96 mg/dL (75-99)
[2021-10-19] MEDS: METOPROLOL SUCCINATE (ER) 100 MG TAB.ER.24H PO SCH (09:02)
[2021-10-19] MEDS: TAMSULOSIN 0.4 MG CAP.ER.24H PO SCH (09:02)
[2021-10-19] MEDS: FAMOTIDINE 20 MG/2 ML VIAL IV SCH (09:02)
[2021-10-19] MEDS: FUROSEMIDE 10 MG/ML 4 ML VIAL IV SCH (09:02)
[2021-10-19] MEDS: AMIODARONE 200 MG TAB PO SCH ×2 (09:02→20:12)
[2021-10-19] MEDS: PANTOPRAZOLE 40 MG/10 ML VIAL IVP SCH ×2 (09:03→20:15)
[2021-10-19] MEDS: PIPERACILLIN-TAZOBACTAM 3.375 GM in SODIUM CHLORIDE 0.9% 100 ML IVPB SCH ×3 (09:03→23:09)
--- NOTE | 2021-10-19 11:19 | P.PN ---
Subjective Progress Note Date: 10/19/21 Principal diagnosis: Status post bowel surgery. The patient is seen today 10/15/2021 in follow-up in the intensive care unit. He is currently sitting up in bed. Awake and alert in no acute distress. He is maintaining O2 saturations in the 90s on 2 L/m per nasal cannula. He remains on a Cardizem drip at 10 mg per hour. Normal saline at 75 mL per hour. Heparin drip per weight base protocol. He was originally admitted on 10/09/2021 for small bowel perforation and had surgery on 10/10/2021. He developed episodes of syncope and significant sinus pauses and was transferred to the ICU on 10/12/2021. He remains in atrial fibrillation. No significant pauses. The plan may be for a permanent pacemaker implantation once his abdominal issues have resolved. He has a nasogastric tube in place. Chest x-ray was reviewed and this was repositioned this morning. Follow-up chest x-ray revealed satisfactory placement. He is passing flatus. No bowel movements. White count 9.4. Hemoglobin 11.1. Sodium 140. Potassium 4.0. BUN 17. Creatinine 0.77. AST 47. ALT 54. The patient is seen today 10/16/2021 in follow-up in the intensive care unit. He is currently resting comfortably in bed. Awake and alert in no acute distress. Last evening around 10:30 SUE GALDAMEZ was called on the patient after he was found to have asystole. In review this was a 33 second pause. Brief CPR was initiated and the patient had return of spontaneous circulation which was atrial flutter at a rate of 44 with a narrow complex. At the time he had been on a Cardizem drip at 10 mg at hour for A. fib with RVR. Cardizem was discontinued. The patient was started on dobutamine. He has since been discontinued as well. The plan is for permanent pacemaker implantation today. His heparin drip is on hold. No IV fluids. He is maintaining O2 saturations in the 90s on 4 L/m per nasal cannula. Wound culture from the small bowel resection revealed evidence of Enterobacter cloacae. Blood glucose 112. He is continued on antibiotics in the form of Zosyn. The patient is seen today 10/17/2021 in follow-up in the intensive care unit. He is currently sitting up in bed. Awake and alert in no acute distress. He did undergo permanent pacemaker implantation yesterday. He is currently on 2 L nasal cannula with O2 saturations in the 90s. 0.9 normal saline at 50 ML's per hour. His Cardizem drip has been resumed at 10 mg/h for the atrial fibrillation with rapid ventricular response.chest x-ray revealed no complications status post pacemaker lead placement. Abdominal wound culture was positive for Enterobacter Cloacae. White count 9.9. Hemoglobin 11.5. Sodium 137. Potassium 3.4. Creatinine 0.81. Glucose 114. He has been resumed on Xarelto, amiodarone, Toprol. Remains on antibiotics in the form of Zosyn. The patient is seen today 10/18/2021 in follow-up on the intensive care unit. He is sitting up in bed. Awake and alert in no acute distress. He is maintaining O2 saturations in the 90s on 2 L/m per nasal cannula. No IV fluids. He is status post permanent pacemaker implantation. He is still having issues with A. fib RVR. Cardiology is on the case and has increased his metoprolol to 200 mg daily along with Cordarone. Antibiotics in the form of Zosyn. A nticoagulated with Xarelto. Susan on IV diuretics. Currently in a -200 ML balance. Sodium 135. Potassium 3.7. Glucose 138. BUN 16. Creatinine 0.78. Progress note dated 10/19/2021. The patient is seen today in room 350. He was moved out of the intensive care unit. The patient did have a permanent his maker placed. Currently, he's on room air. He denies any difficulty breathing or shortness of breath. No new laboratory data today other than a blood sugar of 96. No chest x-ray today. The patient has been seen by surgery. The patient was also seen by cardiology. Recently, the patient's beta angela, was increased, and the patient continues on Zosyn. Gram stain of the wound culture shows Enterobacter cloacae. This is from October 10. Objective - Vital Signs Vital signs: Vital Signs Temp 97.5 F L 10/19/21 08:00 Pulse 77 10/19/21 08:00 Resp 16 10/19/21 08:00 BP 129/78 10/19/21 08:00 Pulse Ox 93 L 10/19/21 08:00 Intake & Output 10/18/21 10/19/21 10/19/21 18:59 06:59 18:59 Intake Total 290 120 Output Total 1775 25 Balance -1485 -25 120 Weight 114.5 kg Intake: IV 290 Piperacillin-Tazobactam 3 200 .375 gm In Sodium Chloride 0.9% 100 ml @ 25 mls/hr IVPB Q8HR [facility] Rx# :[id number] Sodium Chloride 0.9% 1, 90 000 ml @ 75 mls/hr IV . [id number] [facility] Rx#:[id number] Oral 120 Output: Drainage 75 25 Abdomen 75 25 Urine 1700 Other: Voiding Method Urinal Toilet Urinal # Voids 0 - Exam No acute distress, oriented 3. Currently on room air. No use of accessory muscles or conversational dyspnea. HEENT examination is grossly unremarkable. Neck supple. Full range of motion. No adenopathy thyromegaly or neck vein distention. Cardiovascular examination reveals regular rhythm rate. S1-S2 normal. No S3 or S4. No discernible murmur noted. Heart rate 77 bpm. Lungs reveal mostly clear breath sounds. Minimal scattered rhonchi. No wheezes or crackles. Abdomen soft, without bowel sounds. Minimal tenderness on palpation over the surgical site. Surgical site is dry. Extremities are intact. No cyanosis clubbing or edema. Skin is without rash or lesion. Neurologic examination is brief but nonfocal. - Labs CBC & Chem 7: 10/17/21 07:48 10/18/21 09:16 Labs: Abnormal Lab Results - Last 24 Hours (Table) 10/18/21 10/18/21 10/18/21 Range/Units 16:51 20:20 23:40 POC Glucose (mg/dL) 114 H 101 H 121 H (75-99) mg/dL Assessment and Plan Assessment: Syncopal episode, secondary to significant sinus pause, status post permanent pacemaker implantation, 10/16/2021. Atrial fibrillation with rapid ventricular response, now controlled on metoprolol, amiodarone, and xarelto. Abdominal pain, secondary to perforated viscus, status post exploratory laparotomy, lysis of adhesions, small bowel resection, and repair of incisional hernia. Today is postop day #8. History of hypertension. Previous tobacco use. Plan: Plan dated 10/19/2021. The patient's doing well. The patient's currently not on any supplemental oxygen. The patient continues to use the incentive spirometer. We recommend that even when he gets discharged home. The patient remains on Zosyn. From the pulmonary critical care standpoint, the patient is stable. Moving forward, we will see the patient only as needed. Please feel free to call us back into the case should a respiratory issue or problem develop. Time with Patient: Less than 30
[2021-10-19 12:04] LABS: Glucose,Whole Blood 119 mg/dL (75-99)
[2021-10-19 12:26] LABS: Calcium 7.9 mg/dL (8.4-10.2); Magnesium 1.6 mg/dL (1.6-2.3); Potassium 3.1 mmol/L (3.5-5.1)
--- NOTE | 2021-10-19 12:46 | P.PN ---
Subjective Progress Note Date: 10/19/21 HISTORY OF PRESENT ILLNESS: The patient is a 76-year-old male, with a history of hypertension, paroxysmal atrial fibrillation who is followed on a regular basis by Dr. Anne. He presents with acute abdominal discomfort associated with vomiting bowel and is scheduled to undergo surgery today. He was noted to be in atrial fibrillation with rapid ventricular response. The patient is unaware of the arrhythmia. He does not feel any palpitations. He denies any chest discomfort, dyspnea or dizziness. He had an echocardiogram in August that showed a normal systolic fu nction with mild mitral and tricuspid regurgitation and no evidence of pulmonary hypertension. He has no prior history of documented obstructive coronary artery disease or CHF. His coronary risk factors are positive for hypertension, he is a nonsmoker nondiabetic. His medication at home included Xarelto 20 mg daily, losartan 100 mg daily, hydrochlorothiazide 12-1/2 mg daily, metoprolol succinate 100 mg daily, amiodarone 100 mg a day 10/11/2021 Patient examined this morning at the bedside. He is status post exploratory laparotomy, lysis of adhesions, small bowel resection, and incisional hernia repair. He was found to have a perforated jejunal diverticulum. Patient remains nothing by mouth. He has an NG tube to low intermittent suction. Telemetry reveals atrial for relation with a heart rate around 130. He is currently on a Cardizem drip at 10 mg an hour. Patient did have one pause this morning of 4 seconds. October 13: The patient continues to be in atrial fibrillation with an average ventricular response. He had a 10 second pause yesterday while in bed. He continues to be on IV Cardizem. He denies any chest discomfort or dyspnea. He had no bowel movement yet continues to be nothing by mouth with an NG tube. He has mild abdominal discomfort. He is on IV heparin drip in addition to the diltiazem October 14: The patient is doing well this morning, he has continued to be in atrial fibrillation with no further pauses. He continues to be on IV heparin and IV Cardizem. He had flatus but no bowel movement yet. He continues to have the NG tube. His abdominal discomfort is stable. He has no evidence of ventricular ectopic activity. His atrial flutter ablation rate is in the high 90s low 100s. 10/15 Patient seen and examined. Patient remains in A. fib with mild RVR heart rates mainly 80s to 120s. Remains on Cardizem drip at 10mg/hr. patient still has NG tube in and nothing by mouth. He is on IV fluids at 75 mL per hour. 10/16 Patient seen and examined. Patient had 2 events of asystole last night including one where he lost consciousness with brief round of chest compressions performed. Patient then went into A. fib with RVR and unable to give any dobutamine or other chronotropic medications. He denies any chest pain or pressure. Denies any shortness breath. Mild leukocytosis noted last night likely related to code however no fevers or chills and he did have a bowel movement. NG tube was pulled. 10/17 Patient seen and examined. Patient underwent dual-chamber permanent pacemaker yesterday and did have another episode of bradycardia while having pacemaker placed. Since pacemaker placed 2 started on Cardizem drip and heart rates better controlled. Cardizem drip currently at 10. Heart rates mainly in the 90s to 110s. Admits he feels better and shortness breath somewhat better. 10/19/2021 Patient examined this morning at the bedside. Patient denies chest pain or pressure. Denies shortness of breath. Pacemaker site clean and dry. Vital signs are stable. PHYSICAL EXAM: VITAL SIGNS: Reviewed. GENERAL: Well-developed in no acute distress. NECK: Supple. No JVD or thyromegaly LUNGS: Respirations even and unlabored. Lungs essentially clear to auscultation bilaterally. HEART: Irregular rate and rhythm. S1 and S2 heard. Systolic murmur noted. EXTREMITIES: Normal range of motion. No clubbing or cyanosis. Peripheral pulses intact. No lower extremity edema ASSESSMENT: Perforated jejunal diverticulum, status post exploratory laparotomy, lysis of adhesions, small bowel resection, and incisional hernia repair Paroxysmal atrial fibrillation with RVR Sick sinus syndrome, tachybradycardia syndrome, status post dual-chamber pace maker Hypertension PLAN: Continue current cardiac medications Continue telemetry monitoring Further recommendations pending patient course Nurse practitioner note has been reviewed by physician. Signing provider agrees with the documented findings, assessment, and plan of care. Objective - Vital Signs Vital signs: Vital Signs Temp 97.6 F 10/19/21 11:45 Pulse 87 10/19/21 11:45 Resp 16 10/19/21 11:45 BP 128/65 10/19/21 11:45 Pulse Ox 94 L 10/19/21 11:45 Intake & Output 10/18/21 10/19/21 10/19/21 18:59 06:59 18:59 Intake Total 290 120 Output Total 1775 25 Balance -1485 -25 120 Weight 114.5 kg Intake: IV 290 Piperacillin-Tazobactam 3 200 .375 gm In Sodium Chloride 0.9% 100 ml @ 25 mls/hr IVPB Q8HR [facility] Rx# :[id number] Sodium Chloride 0.9% 1, 90 000 ml @ 75 mls/hr IV . [id number] [facility] Rx#:[id number] Oral 120 Output: Drainage 75 25 Abdomen 75 25 Urine 1700 Other: Voiding Method Urinal Toilet Urinal # Voids 0 - Labs CBC & Chem 7: 10/17/21 07:48 10/19/21 11:11 Labs: Abnormal Lab Results - Last 24 Hours (Table) 10/18/21 10/18/21 10/18/21 Range/Units 16:51 20:20 23:40 Sodium (137-145) mmol/L Potassium (3.5-5.1) mmol/L Chloride (98-107) mmol/L Glucose (74-99) mg/dL POC Glucose (mg/dL) 114 H 101 H 121 H (75-99) mg/dL Calcium (8.4-10.2) mg/dL 10/19/21 10/19/21 Range/Units 11:11 12:02 Sodium 136 L (137-145) mmol/L Potassium 3.1 L (3.5-5.1) mmol/L Chloride 97 L (98-107) mmol/L Glucose 128 H (74-99) mg/dL POC Glucose (mg/dL) 119 H (75-99) mg/dL Calcium 7.9 L (8.4-10.2) mg/dL
[2021-10-19] MEDS ORDERED: POTASSIUM CHLORIDE ER 20 MEQ TAB.ER PO STA (12:49)
--- NOTE | 2021-10-19 13:08 | P.PN ---
Subjective Progress Note Date: 10/19/21 CHIEF COMPLAINT: Left lower quadrant abdominal pain HISTORY OF PRESENT ILLNESS: Patient transferred out of the ICU yesterday afternoon. He reports his pain is controlled. He is requiring IV Dilaudid at t imes. He is having bowel movements. Denies any nausea or vomiting. Afebrile. Heart rate controlled Patient is postop day #9 status post exploratory laparotomy, lysis of adhesions, small bowel resection and incisional hernia repair for perforated jejunal diverticulum and incisional hernia. Patient is status post pacemaker placement for his tachybradycardia syndrome. Patient continues to be followed closely by cardiology. His potassium and magnesium are being replaced. Cardiology did add IV Lasix yesterday. Sodium 136 potassium 3.1 creatinine 0.96 magnesium 1.6 PHYSICAL EXAM: VITAL SIGNS: Reviewed. GENERAL: Well-developed in no acute distress. HEENT: No sclera icterus. Extraocular movements grossly intact. Moist buccal mucosa. Head is atraumatic, normocephalic. ABDOMEN: Soft. Nondistended. Incisional clean dry and intact with 4 uri. No evidence of bleeding NEUROLOGIC: Alert and oriented. Cranial nerves II through XII grossly intact. ASSESSMENT: 1. Perforated jejunal diverticulum and incisional hernia status post exploratory laparotomy, lysis of adhesions, small bowel resection and incisional hernia repair 2. Atrial fibrillation 3. Tachybradycardia syndrome PLAN: -Continue local wound care -Continue antibiotics -Continue pain medication as needed -Continue antiemetics -Continue supportive care -Encouraged patient to use incentive spirometer -Encouraged patient to increase activity and work with PT OT -GI prophylaxis Pepcid and DVT Prophylaxis xarelto Physician New Product Trainer note has been reviewed by physician. Signing provider agrees with the documented findings, assessment, and plan of care. Objective - Vital Signs Vital signs: Vital Signs Temp 97.6 F 10/19/21 11:45 Pulse 87 10/19/21 11:45 Resp 16 10/19/21 11:45 BP 128/65 10/19/21 11:45 Pulse Ox 94 L 10/19/21 11:45 Intake & Output 10/18/21 10/19/21 10/19/21 18:59 06:59 18:59 Intake Total 290 120 Output Total 1775 25 Balance -1485 -25 120 Weight 114.5 kg Intake: IV 290 Piperacillin-Tazobactam 3 200 .375 gm In Sodium Chloride 0.9% 100 ml @ 25 mls/hr IVPB Q8HR [facility] Rx# :[id number] Sodium Chloride 0.9% 1, 90 000 ml @ 75 mls/hr IV . [id number] [facility] Rx#:[id number] Oral 120 Output: Drainage 75 25 Abdomen 75 25 Urine 1700 Other: Voiding Method Urinal Toilet Urinal # Voids 0 - Labs CBC & Chem 7: 10/17/21 07:48 10/19/21 11:11 Labs: Abnormal Lab Results - Last 24 Hours (Table) 10/18/21 10/18/21 10/18/21 Range/Units 16:51 20:20 23:40 Sodium (137-145) mmol/L Potassium (3.5-5.1) mmol/L Chloride (98-107) mmol/L Glucose (74-99) mg/dL POC Glucose (mg/dL) 114 H 101 H 121 H (75-99) mg/dL Calcium (8.4-10.2) mg/dL 10/19/21 10/19/21 Range/Units 11:11 12:02 Sodium 136 L (137-145) mmol/L Potassium 3.1 L (3.5-5.1) mmol/L Chloride 97 L (98-107) mmol/L Glucose 128 H (74-99) mg/dL POC Glucose (mg/dL) 119 H (75-99) mg/dL Calcium 7.9 L (8.4-10.2) mg/dL
[2021-10-19] MEDS: MAGNESIUM SULFATE-D5W PMX 1 GM in DEXTROSE/WATER 1 100ML.BAG IVPB SCH ×2 (13:10→16:37)
--- NOTE | 2021-10-19 15:31 | P.PN ---
Subjective Progress Note Date: 10/19/21 10/19/2021 Patient evaluated today on the medical floor, he is out of the ICU. POD #3 dual chamber pace maker insertion. Has since been resumed on anticoagulatin. Continues with mild abdominal discomfort, did have a BM last night, urinating without difficulty. Midline abdominal incision examined as dressing was being changed, mild erythema mid incision with packing in place. Pacer site in tact with no shadowing, denies incision pain, denies chest pain. Labs today show sodium 136, potassium 3.1, mag 1.6. Electrolytes replaced. Review of Systems Constitutional: Denied any fatigue denied any fever. Cardio vascular: denied any chest pain, palpitations Gastrointestinal: denied any nausea, vomiting, diarrhea, reports mild incisional abdominal pain, passing alot of gas today. Pulmonary: Denied any shortness of breath cough Neurologic denied any new focal deficits All inpatient medications were reviewed and appropriate changes in these medications as dictated in the interval history and assessment and plan. PHYSICAL EXAMINATION: GENERAL: The patient is alert and oriented x3. Well developed, well nourished. Obese HEENT: Pupils are round and equally reacting to light. EOMI. No scleral icterus. No conjunctival pallor. Normocephalic, atraumatic. No pharyngeal erythema. No thyromegaly. CARDIOVASCULAR: S1 and S2 muffled, irregularly irregular PULMONARY: Diminished breath sounds bilaterally with some scattered rhonchi noted ABDOMEN: Abdomen is mildly distended, mild tenderness in bilateral lower abdominal quadrants. normal bowel sounds, post surgical dressing is dry and intact. MUSCULOSKELETAL: No joint swelling or deformity. EXTREMITIES: No cyanosis, clubbing, or pedal edema. NEUROLOGICAL: Gross neurological examination did not reveal any focal deficits. Diffusely weak SKIN: No rashes. 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, sick sinus syndrome status post dual- chamber permanent pacemaker placement on 10/16/2021 -Sepsis secondary to diverticulitis -Paroxysmal atrial fibrillation presently RVR -Hypokalemia, poor oral intake, replaced -Diabetes mellitus type 2, uncontrolled with hyperglycemia -Hypertension -Benign prostatic hypertrophy -DVT prophylaxis -GI prophylaxis -Full code Plan Replace magnesium, potassium Continues on IV antibiotics Continue local wound care Continue telemetry monitoring Repeat labs in AM PT/OT The impression and plan of care has been dictated by Nurse Maude Pra ctitioner as directed. Dr. Olga MD I have performed a history and physical examination and medical decision making of this patient, discussed the same with the dictator, and agree with the dictat ors assessment and plan as written, documented as a scribe. Based on total visit time, I have performed more than 50% of this visit. Objective - Vital Signs Vital signs: Vital Signs Temp 97.6 F 10/19/21 11:45 Pulse 87 10/19/21 11:45 Resp 16 10/19/21 11:45 BP 128/65 10/19/21 11:45 Pulse Ox 94 L 10/19/21 11:45 Intake & Output 10/18/21 10/19/21 10/19/21 18:59 06:59 18:59 Intake Total 290 120 Output Total 1775 25 Balance -1485 -25 120 Weight 114.5 kg Intake: IV 290 Piperacillin-Tazobactam 3 200 .375 gm In Sodium Chloride 0.9% 100 ml @ 25 mls/hr IVPB Q8HR [facility] Rx# :[id number] Sodium Chloride 0.9% 1, 90 000 ml @ 75 mls/hr IV . [id number] [facility] Rx#:[id number] Oral 120 Output: Drainage 75 25 Abdomen 75 25 Urine 1700 Other: Voiding Method Urinal Toilet Urinal # Voids 0 - Labs CBC & Chem 7: 10/17/21 07:48 10/19/21 11:11 Labs: Abnormal Lab Results - Last 24 Hours (Table) 10/18/21 10/18/21 10/18/21 Range/Units 16:51 20:20 23:40 Sodium (137-145) mmol/L Potassium (3.5-5.1) mmol/L Chloride (98-107) mmol/L Glucose (74-99) mg/dL POC Glucose (mg/dL) 114 H 101 H 121 H (75-99) mg/dL Calcium (8.4-10.2) mg/dL 10/19/21 10/19/21 Range/Units 11:11 12:02 Sodium 136 L (137-145) mmol/L Potassium 3.1 L (3.5-5.1) mmol/L Chloride 97 L (98-107) mmol/L Glucose 128 H (74-99) mg/dL POC Glucose (mg/dL) 119 H (75-99) mg/dL Calcium 7.9 L (8.4-10.2) mg/dL Assessment and Plan Time with Patient: Less than 30
[2021-10-19] MEDS: RIVAROXABAN 20 MG TAB PO SCH (17:45)
[2021-10-19 19:56] LABS: Glucose,Whole Blood 132 mg/dL (75-99)
[2021-10-20] MEDS: HYDROmorphone 1 MG/ML 1 ML SYRINGE IVP PRN ×2 (03:19→19:40)
[2021-10-20] MEDS: DILTIAZEM ORAL 30 MG TAB PO SCH ×3 (03:19→17:11)
[2021-10-20 06:25] LABS: Glucose,Whole Blood 113 mg/dL (75-99)
[2021-10-20] MEDS: INSULIN ASPART (NovoLOG) 100 UNIT/ML VIAL SQ SCH ×4 (06:26→20:34)
[2021-10-20] MEDS: METOPROLOL SUCCINATE (ER) 100 MG TAB.ER.24H PO SCH (09:00)
[2021-10-20] MEDS: HYDROcodone/APAP 5-325MG 1 EACH TAB PO PRN ×3 (09:00→17:10)
[2021-10-20] MEDS: AMIODARONE 200 MG TAB PO SCH ×2 (09:00→19:40)
[2021-10-20] MEDS: TAMSULOSIN 0.4 MG CAP.ER.24H PO SCH (09:00)
[2021-10-20] MEDS: FAMOTIDINE 20 MG/2 ML VIAL IV SCH (09:01)
[2021-10-20] MEDS: PIPERACILLIN-TAZOBACTAM 3.375 GM in SODIUM CHLORIDE 0.9% 100 ML IVPB SCH ×2 (09:01→17:11)
[2021-10-20] MEDS: FUROSEMIDE 10 MG/ML 4 ML VIAL IV SCH (09:01)
[2021-10-20] MEDS: PANTOPRAZOLE 40 MG/10 ML VIAL IVP SCH ×2 (09:01→20:34)
[2021-10-20 09:19] LABS: Potassium 3.2 mmol/L (3.5-5.1)
[2021-10-20] MEDS ORDERED: POTASSIUM CHLORIDE ER 20 MEQ TAB.ER PO STA (09:54)
--- NOTE | 2021-10-20 11:20 | P.PN ---
Progress Note - Text Progress Note Date: 10/20/21 The patient is resting comfortably in his bed. Overall he feels better than yesterday. On exam vital signs are stable. Abdomen soft. Incision and wound is clean dry tach. Status post small bowel resection. Patient was discharged home when cleared by the medical service.
[2021-10-20 11:37] LABS: Glucose,Whole Blood 141 mg/dL (75-99)
--- NOTE | 2021-10-20 13:14 | P.PN ---
Subjective HISTORY OF PRESENT ILLNESS: The patient is a 76-year-old male, with a history of hypertension, paroxysmal atrial fibrillation who is followed on a regular basis by Dr. Anne. He presents with acute abdominal discomfort associated with vomiting bowel and is scheduled to undergo surgery today. He was noted to be in atrial fibrillation with rapid ventricular response. The patient is unaware of the arrhythmia. He does not feel any palpitations. He denies any chest discomfort, dyspnea or dizziness. He had an echocardiogram in August that showed a normal systolic function with mild mitral and tricuspid regurgitation and no evidence of pulmonary hypertension. He has no prior history of documented obstructive coronary artery disease or CHF. His coronary risk factors are positive for hypertension, he is a nonsmoker nondiabetic. His medication at home included Xarelto 20 mg daily, losartan 100 mg daily, hydrochlorothiazide 12-1/2 mg daily, metoprolol succinate 100 mg daily, amiodarone 100 mg a day 10/11/2021 Patient examined this morning at the bedside. He is status post exploratory laparotomy, lysis of adhesions, small bowel resection, and incisional hernia repair. He was found to have a perforated jejunal diverticulum. Patient remains nothing by mouth. He has an NG tube to low intermittent suction. Telemetry reveals atrial for relation with a heart rate around 130. He is currently on a Cardizem drip at 10 mg an hour. Patient did have one pause this morning of 4 seconds. October 13: The patient continues to be in atrial fibrillation with an average ventricular response. He had a 10 second pause yesterday while in bed. He continues to be on IV Cardizem. He denies any chest discomfort or dyspnea. He had no bowel movement yet continues to be nothing by mouth with an NG tube. He has mild abdominal discomfort. He is on IV heparin drip in addition to the diltiazem October 14: The patient is doing well this morning, he has continued to be in atrial fibrillation with no further pauses. He continues to be on IV heparin and IV Cardizem. He had flatus but no bowel movement yet. He continues to have the NG tube. His abdominal discomfort is stable. He has no evidence of ventricular ectopic activity. His atrial flutter ablation rate is in the high 90s low 100s. 10/15 Patient seen and examined. Patient remains in A. fib with mild RVR heart rates mainly 80s to 120s. Remains on Cardizem drip at 10mg/hr. patient still has NG tube in and nothing by mouth. He is on IV fluids at 75 mL per hour. 10/16 Patient seen and examined. Patient had 2 events of asystole last night including one where he lost consciousness with brief round of chest compressions performed. Patient then went into A. fib with RVR and unable to give any dobutamine or other chronotropic medications. He denies any chest pain or pressure. Denies any shortness breath. Mild leukocytosis noted last night likely related to code however no fevers or chills and he did have a bowel movement. NG tube was pulled. 10/17 Patient seen and examined. Patient underwent dual-chamber permanent pacemaker yesterday and did have another episode of bradycardia while having pacemaker placed. Since pacemaker placed 2 started on Cardizem drip and heart rates better controlled. Cardizem drip currently at 10. Heart rates mainly in the 90s to 110s. Admits he feels better and shortness breath somewhat better. 10/19/2021 Patient examined this morning at the bedside. Patient denies chest pain or pressure. Denies shortness of breath. Pacemaker site clean and dry. Vital signs are stable. 10/20 Patient seen and examined. Patient states overall he is feeling somewhat better. Denies any chest pain or pressure. Heart rates better controlled and appears he is in sinus rhythm this morning. Denies any lightheadedness or dizziness. PHYSICAL EXAM: VITAL SIGNS: Reviewed. GENERAL: Well-developed in no acute distress. NECK: Supple. No JVD or thyromegaly LUNGS: Respirations even and unlabored. Lungs essentially clear to auscultation bilaterally. HEART: Regular rate and rhythm. S1 and S2 heard. Systolic murmur noted. EXTREMITIES: Normal range of motion. No clubbing or cyanosis. Peripheral pulses intact. 1+ lower extremity edema ASSESSMENT: Perforated jejunal diverticulum, status post exploratory laparotomy, lysis of adhesions, small bowel resection, and incisional hernia repair Paroxysmal atrial fibrillation, currently sinus Sick sinus syndrome, tachybradycardia syndrome, status post dual-chamber pacemaker Hypertension Acute on chronic diastolic heart failure PLAN: Appears to be improving and now in normal sinus rhythm. Decrease amiodarone to 200 mg twice a day. Change to oral Lasix. Appears stable for discharge home when cleared by surgery, primary team, rehab needs. Objective - Vital Signs Vital signs: Vital Signs Temp 97.9 F 10/20/21 11:10 Pulse 97 10/20/21 11:10 Resp 16 10/20/21 11:10 BP 119/57 10/20/21 11:10 Pulse Ox 95 10/20/21 11:10 Intake & Output 10/19/21 10/20/21 10/20/21 18:59 06:59 18:59 Intake Total 240 240 Output Total 320 300 Balance 240 -320 -60 Weight 113.2 kg Intake: Oral 240 240 Output: Drainage 20 Abdomen 20 Urine 300 300 Stool 0 0 Other: Voiding Method Toilet Toilet Toilet Urinal Urinal Urinal - Labs CBC & Chem 7: 10/17/21 07:48 10/20/21 08:12 Labs: Abnormal Lab Results - Last 24 Hours (Table) 10/19/21 10/20/21 10/20/21 Range/Units 19:55 06:23 08:12 Sodium 136 L (137-145) mmol/L Potassium 3.2 L (3.5-5.1) mmol/L Glucose 132 H (74-99) mg/dL POC Glucose (mg/dL) 132 H 113 H (75-99) mg/dL Calcium 8.0 L (8.4-10.2) mg/dL 10/20/21 Range/Units 11:34 Sodium (137-145) mmol/L Potassium (3.5-5.1) mmol/L Glucose (74-99) mg/dL POC Glucose (mg/dL) 141 H (75-99) mg/dL Calcium (8.4-10.2) mg/dL
--- NOTE | 2021-10-20 14:28 | P.PN ---
Subjective Progress Note Date: 10/20/21 10/19/2021 Patient evaluated today on the medical floor, he is out of the ICU. POD #3 dual chamber pace maker insertion. Has since been resumed on anticoagulatin. Continues with mild abdominal discomfort, did have a BM last night, urinating without difficulty. Midline abdominal incision examined as dressing was being changed, mild erythema mid incision with packing in place. Pacer site in tact with no shadowing, denies incision pain, denies chest pain. Labs today show sodium 136, potassium 3.1, mag 1.6. Electrolytes replaced. 10/20/2021 Patient evaluated resting in bed, encouraged to ambulate and sit in chair as tolerated. POD #4 pacemaker insertion. Continues with mild abdominal discomfort. Passing gas, no BM today. Voiding without difficulty. No chest pain. Potassium 3.2 today, replaced and added daily oral potassium. Afebrile, on room. Cleared by surgery for discharge. Amiodarone decreased today by cardiology. IV lasix switched to oral. Plan for discharge home tomorrow. Review of Systems Constitutional: Denied any fatigue denied any fever. Cardio vascular: denied any chest pain, palpitations Gastrointestinal: denied any nausea, vomiting, diarrhea, reports mild incisional abdominal pain, passing gas. Pulmonary: Denied any shortness of breath cough Neurologic denied any new focal deficits All inpatient medications were reviewed and appropriate changes in these medications as dictated in the interval history and assessment and plan. PHYSICAL EXAMINATION: GENERAL: The patient is alert and oriented x3. Well developed, well nourished. Obese HEENT: Pupils are round and equally reacting to light. EOMI. No scleral icterus. No conjunctival pallor. Normocephalic, atraumatic. No pharyngeal erythema. No thyromegaly. CARDIOVASCULAR: S1 and S2 muffled, irregularly irregular PULMONARY: Diminished breath sounds bilaterally with some scattered rhonchi noted ABDOMEN: Abdomen is mildly distended, mild tenderness in bilateral lower abdominal quadrants. normal bowel sounds, post surgical dressing is dry and intact. MUSCULOSKELETAL: No joint swelling or deformity. EXTREMITIES: No cyanosis, clubbing, or pedal edema. NEUROLOGICAL: Gross neurological examination did not reveal any focal deficits. Diffusely weak SKIN: No rashes. Assessment: -Acute Diverticulitis with microperforations and contained abscesses: status post exploratory laparotomy with lysis of adhesions, small bowel resection, and incisional hernia repair with perforated diverticulum -Acute renal failure and azotemia possibility of ATN, creatinine normalized. 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 -Hypokalemia, poor oral intake, replaced -Diabetes mellitus type 2, uncontrolled with hyperglycemia, improved. -Hypertension -Benign prostatic hypertrophy -DVT prophylaxis -GI prophylaxis -Full code Plan Replace potassium Continues on IV antibiotics Continue local wound care Continue telemetry monitoring Repeat labs in AM PT/OT Discharge home tomorrow. The impression and plan of care has been dictated by Monisha Henley Nurse Practitioner as directed. Dr. Olga MD I have performed a history and physical examination and medical decision making of this patient, discussed the same with the dictator, and agree with the dictators assessment and plan as written, documented as a scribe. Based on total visit time, I have performed more than 50% of this visit. Objective - Vital Signs Vital signs: Vital Signs Temp 97.9 F 10/20/21 11:10 Pulse 97 10/20/21 11:10 Resp 16 10/20/21 11:10 BP 119/57 10/20/21 11:10 Pulse Ox 95 10/20/21 11:10 Intake & Output 10/19/21 10/20/21 10/20/21 18:59 06:59 18:59 Intake Total 240 240 Output Total 320 300 Balance 240 -320 -60 Weight 113.2 kg Intake: Oral 240 240 Output: Drainage 20 Abdomen 20 Urine 300 300 Stool 0 0 Other: Voiding Method Toilet Toilet Toilet Urinal Urinal Urinal - Labs CBC & Chem 7: 10/17/21 07:48 10/20/21 08:12 Labs: Abnormal Lab Results - Last 24 Hours (Table) 10/19/21 10/20/21 10/20/21 Range/Units 19:55 06:23 08:12 Sodium 136 L (137-145) mmol/L Potassium 3.2 L (3.5-5.1) mmol/L Glucose 132 H (74-99) mg/dL POC Glucose (mg/dL) 132 H 113 H (75-99) mg/dL Calcium 8.0 L (8.4-10.2) mg/dL 10/20/21 Range/Units 11:34 Sodium (137-145) mmol/L Potassium (3.5-5.1) mmol/L Glucose (74-99) mg/dL POC Glucose (mg/dL) 141 H (75-99) mg/dL Calcium (8.4-10.2) mg/dL Assessment and Plan Time with Patient: Less than 30
[2021-10-20 16:56] LABS: Glucose,Whole Blood 113 mg/dL (75-99)
[2021-10-20] MEDS: RIVAROXABAN 20 MG TAB PO SCH (17:11)
[2021-10-20 20:21] LABS: Glucose,Whole Blood 137 mg/dL (75-99)
[2021-10-21] MEDS: DILTIAZEM ORAL 30 MG TAB PO SCH ×3 (01:05→13:49)
[2021-10-21] MEDS: PIPERACILLIN-TAZOBACTAM 3.375 GM in SODIUM CHLORIDE 0.9% 100 ML IVPB SCH ×2 (01:05→09:27)
[2021-10-21] MEDS: HYDROmorphone 1 MG/ML 1 ML SYRINGE IVP PRN (01:24)
[2021-10-21 06:13] LABS: Glucose,Whole Blood 109 mg/dL (75-99)
[2021-10-21] MEDS: INSULIN ASPART (NovoLOG) 100 UNIT/ML VIAL SQ SCH ×2 (06:27→12:03)
[2021-10-21] MEDS ORDERED: POTASSIUM CHLORIDE ER 20 MEQ TAB.ER PO SCH (09:00)
[2021-10-21] MEDS ORDERED: FUROSEMIDE 40 MG TAB PO SCH (09:00)
[2021-10-21] MEDS: TAMSULOSIN 0.4 MG CAP.ER.24H PO SCH (09:15)
[2021-10-21] MEDS: METOPROLOL SUCCINATE (ER) 100 MG TAB.ER.24H PO SCH (09:15)
[2021-10-21] MEDS: AMIODARONE 200 MG TAB PO SCH (09:15)
[2021-10-21] MEDS: HYDROcodone/APAP 5-325MG 1 EACH TAB PO PRN ×2 (09:16→13:48)
[2021-10-21] MEDS: PANTOPRAZOLE 40 MG/10 ML VIAL IVP SCH (09:27)
[2021-10-21] MEDS: FAMOTIDINE 20 MG/2 ML VIAL IV SCH (09:27)
[2021-10-21 11:08] LABS: Potassium 3.7 mmol/L (3.5-5.1)
[2021-10-21 11:38] LABS: Glucose,Whole Blood 122 mg/dL (75-99)
--- NOTE | 2021-10-21 11:56 | P.DS ---
Providers Date of admission: 10/09/21 15:30 Attending physician: Vladimir Emery Consults: 10/09/21 15:50 Consult Physician Routine Consulting Provider: Ida Jennings Consult Reason/Comments: Leukocytosis, left upper quadrant pain, small bowel perforation Do you want consulting provider notified?: Yes 10/10/21 11:15 Consult Physician Routine Consulting Provider: Elias Hodge Consult Reason/Comments: A. fib with RVR Do you want consulting provider notified?: Yes 10/11/21 13:21 Consult Physician Routine Consulting Provider: Marcelo Ch Consult Reason/Comments: asystole Do you want consulting provider notified?: Yes Primary care physician: [facility] Hospital Course: Final Diagnosis -Acute Diverticulitis with microperforations and contained abscesses: status post exploratory laparotomy with lysis of adhesions, small bowel resection, and incisional hernia repair with perforated diverticulum -Acute renal failure and azotemia possibility of ATN, creatinine normalized. 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 -Hypokalemia, poor oral intake, replaced -Diabetes mellitus type 2, uncontrolled with hyperglycemia, improved. -Hypertension -Benign prostatic hypertrophy Discharge Disposition Patient stable for discharge home, will require close follow up with cardiology, surgical services, and primary care. Hospital Course This is a pleasant 76-year-old male who presented to the with complaints of bilateral lower abdominal pain sharp in nature and nonradiating. He also had associated nausea and vomiting, accompanied by low-grade fever and leukocytosis on admission. Abdominal pelvis CT completed showed significant diverticulitis with microperforations. Patient was started on IV Zosyn in the ER. Patient follows up regularly outpatient and chronic medical conditions include atrial fibrillation, diabetes mellitus type 2, hypertension, BPH. Patient is maintained on several to outpatient for anticoagulation. Gen. surgery performed an exploratory laparotomy with lysis of adhesions small bowel resection and incisional hernia repair on October 10. Abdominal wound culture did grow Enterobacter cloacae with drug resistance and patient received 10 days of IV Zosyn while inpatient. Patient was in atrial fibrillation with rapid ventricular rate prior to surgery and was started on IV Cardizem drip. This was complicated postoperatively as patient experienced a syncopal episode with loss of consciousness and was transferred to the intensive care unit. Episodes witnessed at the bedside by who states that patient has been having similar episodes of this at home. Carotid Doppler completed which shows plaquing of the right internal carotid artery contributing to narrowing between 50-69%. Patient also had an echocardiogram completed which was a suboptimal study there was mild aortic valve sclerosis, mild mitral regurg, mild tricuspid regurg and there was no comment on the ejection fraction. Patient was evaluated in the ICU by cardiology and subsequently had a dual chamber pacemaker placed on October 16, [address] Lombardo. Cardiac medications adjusted. It was felt that patient may have tachybrady snydrome, sick sinus syndrome resulting in syncopal episodes. On admission labs show a creatinine of 1.40, patient did receive gentle IV hydration and creatinine is now 1.03 on day of discharge. Postoperatively patient is also experienced hypokalemia and received oral supplementation and will discharge in a daily potassium pill, most recent potassium 3.6. BNP on admission was also 3400, patient to receive 3 days of IV Lasix and was discharged on oral Lasix. 10/21/2021 Patient has been cleared by general surgery and cardiology for discharge. Abdominal pain has much improved patient's passing gas and having bowel movements. There is no chest pain, chest pressure, palpitations or shortness of breath. There has been no nausea vomiting or diarrhea. Patient is tolerating diet. Patient has been ventricular pacing. Lungs are clear, S1-S2 auscultated, pacemaker dressing intact. Focal neurological exam is negative. Patient does have left arm sling and pace which could have been removed postoperatively. Abdominal dressing intact with abd pads and aquacel silver wicking in place with 4 uri to midline incision packing. Patient has positive bowel sounds. Has been ambulatory. Labs today show sodium 135, potassium 3.7, BUN 14, creatinine 1.03, blood glucose 109. Most recent white count 9.9, hemoglobin stable at 11.5. Patient is afebrile, heart rate 72, blood pressure 130/85, 97% room air. Please see medication reconciliation for a list of current medications. Thank you for allowing us to participate in the care of this patient. The impression and plan of care has been dictated by Monisha Henley, Nurse Practitioner as directed. Dr. Olga MD I have performed a history and physical examination and medical decision making of this patient, discussed the same with the dictator, and agree with the dictators assessment and plan as written, documented as a scribe. Based on total visit time, I have performed more than 50% of this visit. Patient Condition at Discharge: Fair Plan - Discharge Summary Discharge Rx Participant: No New Discharge Prescriptions: New Diltiazem Oral [Cardizem*] 30 mg PO Q6H #120 tab Amiodarone [Cordarone] 200 mg PO BID #60 tab Tamsulosin [Flomax] 0.4 mg PO PC-BRKFST #30 cap Furosemide [Lasix] 40 mg PO DAILY #30 tab Metoprolol Succinate (ER) [Toprol XL] 200 mg PO DAILY #30 tab HYDROcodone/APAP 5-325MG [[place] 5-325] 1 tab PO Q6HR PRN 3 Days #12 tab PRN Reason: Pain Potassium Chloride ER [K-Dur 20] 20 meq PO DAILY tablet Acetaminophen Tab [Tylenol] 650 mg PO Q6HR PRN tab PRN Reason: Mild Pain Continue Terazosin HCl [Hytrin] 10 mg PO DAILY@1500 Losartan Potassium [Cozaar] 100 mg PO DAILY@1500 Rivaroxaban [Xarelto] 20 mg PO HS@1999 Fluticasone Nasal [place] [Flonase Nasal [place]] 1 spray EA NOSTRIL BID Cyanocobalamin [Vitamin B-12] 500 mcg PO DAILY Albuterol Sulfate [Albuterol Sulfate Hfa] 2 puff PO RT-Q6H PRN PRN Reason: Shortness Of Breath Discontinued Hydrochlorothiazide [hydroCHLOROthiazide] 12.5 mg PO DAILY@1130 Amiodarone [Cordarone] 100 mg PO DAILY Metoprolol Succinate (ER) [Toprol XL] 100 mg PO DAILY Discharge Medication List Losartan Potassium [Cozaar] 100 mg PO DAILY@149902/03/15 [History] Terazosin HCl [Hytrin] 10 mg PO DAILY@149902/03/15 [History] Rivaroxaban [Xarelto] 20 mg PO HS@199911/24/15 [History] Fluticasone Nasal [place] [Flonase Nasal [place]] 1 spray EA NOSTRIL BID 07/27/18 [History] Albuterol Sulfate [Albuterol Sulfate Hfa] 2 puff PO RT-Q6H PRN 03/06/21 [History] Cyanocobalamin [Vitamin B-12] 500 mcg PO DAILY 03/06/21 [History] HYDROcodone/APAP 5-325MG [[place] 5-325] 1 tab PO Q6HR PRN 3 Days #12 tab 10/19/21 [Rx] Acetaminophen Tab [Tylenol] 650 mg PO Q6HR PRN tab 10/21/21 [Rx] Amiodarone [Cordarone] 200 mg PO BID #60 tab 10/21/21 [Rx] Diltiazem Oral [Cardizem*] 30 mg PO Q6H #120 tab 10/21/21 [Rx] Furosemide [Lasix] 40 mg PO DAILY #30 tab 10/21/21 [Rx] Metoprolol Succinate (ER) [Toprol XL] 200 mg PO DAILY #30 tab 10/21/21 [Rx] Potassium Chloride ER [K-Dur 20] 20 meq PO DAILY tablet 10/21/21 [Rx] Tamsulosin [Flomax] 0.4 mg PO PC-BRKFST #30 cap 10/21/21 [Rx] Follow up Appointment(s)/Referral(s): Brian Medina MD [STAFF PHYSICIAN] - 1 Week (Patient needs cardiology follow up Patient needs follow up with pacemaker clinic ) [facility] [Primary Care Provider] - 1-2 days Vladimir Emery MD [STAFF PHYSICIAN] - 1 Week Ambulatory/Diagnostic Orders: Basic Metabolic Panel [LAB.AMB] Time Frame: 2 Days, Location: None Selected Complete Blood Count w/diff [LAB.AMB] Time Frame: 2 Days, Location: None Selected Patient Instructions/Handouts: Tamsulosin (By mouth), Pacemaker (DC), Perforated Bowel (DC) Activity/Diet/Wound Care/Special Instructions: Change abdominal dressing daily with aquacel silver uri - total count is 4. Cover with abd pads and use paper tape. Please provide patient with 2 days of dressing change supplies. Needs to follow up with [facility] friday to arrange for homecare to assist with dressing changes as needed. Discharge Disposition: HOME WITH HOME HEALTH SERVICES
--- NOTE | 2021-10-21 11:58 | P.PN ---
Progress Note - Text Progress Note Date: 10/21/21 The patient feels well. He has been cleared for discharge by the medical service. On exam vital signs are stable. Abdomen soft. Patient will have his CLAUDY drain removed. His incision is clean dry intact. He will shower daily.
--- NOTE | 2021-10-21 12:51 | P.PN ---
Subjective HISTORY OF PRESENT ILLNESS: The patient is a 76-year-old male, with a history of hypertension, paroxysmal atrial fibrillation who is followed on a regular basis by Dr. Anne. He presents with acute abdominal discomfort associated with vomiting bowel and is scheduled to undergo surgery today. He was noted to be in atrial fibrillation with rapid ventricular response. The patient is unaware of the arrhythmia. He does not feel any palpitations. He denies any chest discomfort, dyspnea or dizziness. He had an echocardiogram in August that showed a normal systolic function with mild mitral and tricuspid regurgitation and no evidence of pulmonary hypertension. He has no prior history of documented obstructive coronary artery disease or CHF. His coronary risk factors are positive for hypertension, he is a nonsmoker nondiabetic. His medication at home included Xarelto 20 mg daily, losartan 100 mg daily, hydrochlorothiazide 12-1/2 mg daily, metoprolol succinate 100 mg daily, amiodarone 100 mg a day 10/11/2021 Patient examined this morning at the bedside. He is status post exploratory laparotomy, lysis of adhesions, small bowel resection, and incisional hernia repair. He was found to have a perforated jejunal diverticulum. Patient remains nothing by mouth. He has an NG tube to low intermittent suction. Telemetry reveals atrial for relation with a heart rate around 130. He is currently on a Cardizem drip at 10 mg an hour. Patient did have one pause this morning of 4 seconds. October 13: The patient continues to be in atrial fibrillation with an average ventricular response. He had a 10 second pause yesterday while in bed. He continues to be on IV Cardizem. He denies any chest discomfort or dyspnea. He had no bowel movement yet continues to be nothing by mouth with an NG tube. He has mild abdominal discomfort. He is on IV heparin drip in addition to the diltiazem October 14: The patient is doing well this morning, he has continued to be in atrial fibrillation with no further pauses. He continues to be on IV heparin and IV Cardizem. He had flatus but no bowel movement yet. He continues to have the NG tube. His abdominal discomfort is stable. He has no evidence of ventricular ectopic activity. His atrial flutter ablation rate is in the high 90s low 100s. 10/15 Patient seen and examined. Patient remains in A. fib with mild RVR heart rates mainly 80s to 120s. Remains on Cardizem drip at 10mg/hr. patient still has NG tube in and nothing by mouth. He is on IV fluids at 75 mL per hour. 10/16 Patient seen and examined. Patient had 2 events of asystole last night including one where he lost consciousness with brief round of chest compressions performed. Patient then went into A. fib with RVR and unable to give any dobutamine or other chronotropic medications. He denies any chest pain or pressure. Denies any shortness breath. Mild leukocytosis noted last night likely related to code however no fevers or chills and he did have a bowel movement. NG tube was pulled. 10/17 Patient seen and examined. Patient underwent dual-chamber permanent pacemaker yesterday and did have another episode of bradycardia while having pacemaker placed. Since pacemaker placed 2 started on Cardizem drip and heart rates better controlled. Cardizem drip currently at 10. Heart rates mainly in the 90s to 110s. Admits he feels better and shortness breath somewhat better. 10/19/2021 Patient examined this morning at the bedside. Patient denies chest pain or pressure. Denies shortness of breath. Pacemaker site clean and dry. Vital signs are stable. 10/20 Patient seen and examined. Patient states overall he is feeling somewhat better. Denies any chest pain or pressure. Heart rates better controlled and appears he is in sinus rhythm this morning. Denies any lightheadedness or dizziness. 10/21 Patient seen and examined. Patient denies any chest pain or pressure. Admits he has been moving, walking on the room without any difficulty. PHYSICAL EXAM: VITAL SIGNS: Reviewed. GENERAL: Well-developed in no acute distress. NECK: Supple. No JVD or thyromegaly LUNGS: Respirations even and unlabored. Lungs essentially clear to auscultation bilaterally. HEART: Regular rate and rhythm. S1 and S2 heard. Systolic murmur noted. EXTREMITIES: Normal range of motion. No clubbing or cyanosis. Peripheral pulses intact. 1+ lower extremity edema ASSESSMENT: Perforated jejunal diverticulum, status post exploratory laparotomy, lysis of adhesions, small bowel resection, and incisional hernia repair Paroxysmal atrial fibrillation, currently sinus Sick sinus syndrome, tachybradycardia syndrome, status post dual-chamber pacemaker Hypertension Acute on chronic diastolic heart failure PLAN: Appears stable for discharge home from a cardiology standpoint. Tinea with home diuretics. Continue amiodarone at current dosing. Follow-up in office for pacemaker interrogation in 1 week. Objective - Vital Signs Vital signs: Vital Signs Temp 97.8 F 10/21/21 08:55 Pulse 72 10/21/21 08:55 Resp 20 10/21/21 08:55 BP 130/85 10/21/21 08:55 Pulse Ox 93 L 10/21/21 08:55 Intake & Output 10/20/21 10/21/21 10/21/21 18:59 06:59 18:59 Intake Total 720 200 120 Output Total 310 15 0 Balance 410 185 120 Intake: IV 200 Piperacillin-Tazobactam 3 200 .375 gm In Sodium Chloride 0.9% 100 ml @ 25 mls/hr IVPB Q8HR [facility] Rx# :[id number] Oral 720 120 Output: Drainage 10 15 Abdomen 10 15 Urine 300 Stool 0 0 0 Other: Voiding Method Toilet Toilet Toilet Urinal Urinal Urinal # Voids 2 - Labs CBC & Chem 7: 10/17/21 07:48 10/21/21 09:55 Labs: Abnormal Lab Results - Last 24 Hours (Table) 10/20/21 10/20/21 10/21/21 Range/Units 16:55 20:19 06:11 Sodium (137-145) mmol/L Glucose (74-99) mg/dL POC Glucose (mg/dL) 113 H 137 H 109 H (75-99) mg/dL Calcium (8.4-10.2) mg/dL 10/21/21 10/21/21 Range/Units 09:55 11:36 Sodium 135 L (137-145) mmol/L Glucose 123 H (74-99) mg/dL POC Glucose (mg/dL) 122 H (75-99) mg/dL Calcium 8.0 L (8.4-10.2) mg/dL
[2021-10-21 14:16] VITALS: BP 147/84; PULSE 71; RESP 16; TEMP 97.5
== END 2021-10-21 14:26 | disposition home health service (06) | DRG 853 ==
LOC: EC 10:02 → 4SSUR 15:30 → 3SCARD 10-10 11:33 → 2SICU 10-11 14:04 → 3SCARD 10-18 18:24
PROVIDERS: ADMIT Surgery; ATTEND Surgery
PROC: 0DNW0ZZ Release Peritoneum, Open Approach (ICD-10-PCS; 2021-10-10)
PROC: 0DBA0ZZ Excision of Jejunum, Open Approach (ICD-10-PCS; principal; 2021-10-10 09:45)
PROC: 5A12012 Performance of Cardiac Output, Single, Manual (ICD-10-PCS; 2021-10-15)
PROC: 3E033XZ Introduction of Vasopressor into Peripheral Vein, Percutaneous Approach (ICD-10-PCS; 2021-10-15)
PROC: 0JH606Z Insertion of Pacemaker, Dual Chamber into Chest Subcutaneous Tissue and Fascia, Open Approach (ICD-10-PCS; 2021-10-16)
PROC: 02HL3JZ Insertion of Pacemaker Lead into Left Ventricle, Percutaneous Approach (ICD-10-PCS; 2021-10-16)
PROC: 02H63JZ Insertion of Pacemaker Lead into Right Atrium, Percutaneous Approach (ICD-10-PCS; 2021-10-16)
DX: A41.9 Sepsis, unspecified organism (principal); I50.33 Acute on chronic diastolic (congestive) heart failure; N17.0 Acute kidney failure with tubular necrosis; I46.2 Cardiac arrest due to underlying cardiac condition; K57.00 Diverticulitis of small intestine with perforation and abscess without bleeding; I48.19 Other persistent atrial fibrillation; I48.92 Unspecified atrial flutter; Z90.49 Acquired absence of other specified parts of digestive tract; E11.65 Type 2 diabetes mellitus with hyperglycemia; E83.42 Hypomagnesemia; E87.6 Hypokalemia; I11.0 Hypertensive heart disease with heart failure; I49.5 Sick sinus syndrome; D64.9 Anemia, unspecified; R79.1 Abnormal coagulation profile; T45.7X5A Adverse effect of anticoagulant antagonists, vitamin K and other coagulants, initial encounter; N40.0 Benign prostatic hyperplasia without lower urinary tract symptoms; K43.2 Incisional hernia without obstruction or gangrene; K66.0 Peritoneal adhesions (postprocedural) (postinfection); Z88.8 Allergy status to other drugs, medicaments and biological substances; Z79.01 Long term (current) use of anticoagulants; Z79.899 Other long term (current) drug therapy; Z85.828 Personal history of other malignant neoplasm of skin; Z87.891 Personal history of nicotine dependence; Z80.1 Family history of malignant neoplasm of trachea, bronchus and lung
CPT/HCPCS: 33208; 36410; 36415; 36600; 71045; 71046; 74176; 76937; 80048; 80053; 81001; 82805; 83605; 83690; 83735; 83880; 84132; 84443; 84484; 85025; 85610; 85730; 86850; 86900; 86901; 87040; 87070; 87075; 87077; 87086; 87186; 87205; 88307; 93306; 93880; 94640; 96374; 96375; 99285

== ENCOUNTER 2022-12-12 09:00 | Day surgery (SDC) | payer MEDICARE, BC ==
[2022-12-10 16:38] VITALS: BMI 33.2
[~2022-12-12 09:00] MED LIST: LACTATED RINGERS 1,000 ML IV SCH; LIDOCAINE 1% (10MG/ML) FOR IV START INTRADERMA PRN
[2022-12-12 09:27] VITALS: TEMP 97.4
[2022-12-12] MEDS ORDERED: PROPOFOL 10 MG/ML 20 ML VIAL IV ONE (09:56)
--- NOTE | 2022-12-12 10:16 | P.OP ---
Date of Procedure: 12/12/22 Preoperative Diagnosis: Screening colonoscopy Postoperative Diagnosis: Diverticulosis Internal hemorrhoids Procedure(s) Performed: Colonoscopy Anesthesia: MAC Surgeon: Vladimir Emery Pathology: none sent Condition: stable Disposition: PACU Description of Procedure: The patient's placed on the endoscopy table in the lateral position. He received IV sedation. Digital rectal exam was performed. This revealed internal hemorrhoids. The flexible colonoscope was then placed patient anus and passed throughout the entire colon. The ileocecal valve was visualized. Cecum, ascending colon appeared normal. In the transverse colon there was mild diverticular changes. In the descending and sigmoid colon there was more prominent diverticular changes. The scope was then brought back the rectum and this appeared normal. Scope withdrawn through the anus and internal hemorrhoids are noted. Scope was withdrawn for patient.
[2022-12-12 10:20] VITALS: RESP 17
[2022-12-12 10:32] VITALS: BP 128/77; PULSE 71
[2022-12-12 10:53] LABS: Glucose,Whole Blood 90 mg/dL (70-110)
== END 2022-12-12 10:50 | disposition home or self-care (01) ==
LOC: ORWHC2ENDO 09:00
PROVIDERS: ATTEND Surgery
DX: Z12.11 Encounter for screening for malignant neoplasm of colon (principal); K57.30 Diverticulosis of large intestine without perforation or abscess without bleeding; K64.8 Other hemorrhoids; I48.91 Unspecified atrial fibrillation; I10 Essential (primary) hypertension; Z95.0 Presence of cardiac pacemaker; Z87.891 Personal history of nicotine dependence; N40.0 Benign prostatic hyperplasia without lower urinary tract symptoms; E11.9 Type 2 diabetes mellitus without complications; Z79.01 Long term (current) use of anticoagulants; Z79.899 Other long term (current) drug therapy; Z88.8 Allergy status to other drugs, medicaments and biological substances
CPT/HCPCS: 45378; J2704; G0121

== ENCOUNTER → 2023-05-13 | Outpatient (CLI) | payer OTHER | LOC: CPPFTMAIN 10:58 | DX: I48.91 Unspecified atrial fibrillation (principal); Z79.01 Long term (current) use of anticoagulants; Z88.8 Allergy status to other drugs, medicaments and biological substances; Z87.891 Personal history of nicotine dependence | CPT/HCPCS: 94060; 94726; 94729 ==

== ENCOUNTER → 2023-09-02 | Outpatient (CLI) | payer BC ==
--- NOTE | 2023-09-02 12:49 | XR ---
EXAMINATION TYPE: XR chest 1V DATE OF EXAM: 09/02/2023 10:13 AM CLINICAL INDICATION:Male, 78 years old with history of I10 HTN; PHH COMPARISON: Chest radiographs from 10/17/2021 TECHNIQUE: XR chest 1V Frontal view of the chest. FINDINGS: Lungs/Pleura: There is no evidence of pleural effusion, focal consolidation, or pneumothorax. Pulmonary vascularity: Unremarkable. Heart/mediastinum: Cardiomediastinal silhouette is unremarkable. Atherosclerotic calcifications are seen in the aorta. Two lead cardiac conduction device overlying the left hemithorax with lead tips pr ojecting over the right ventricle and right atrium. Musculoskeletal: No acute osseous pathology. IMPRESSION: No acute cardiopulmonary disease/process.
== END | disposition home or self-care (01) ==
LOC: RADXRMAIN 10:01
PROVIDERS: ATTEND Internal Medicine Interventional Cardiology
DX: I10 Essential (primary) hypertension (principal); E78.1 Pure hyperglyceridemia
CPT/HCPCS: 71045

== ENCOUNTER 2024-09-28 11:41 | Emergency (ER) | payer MEDICARE, BC ==
[2024-09-28 11:56] VITALS: RESP 18
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
--- NOTE | 2024-09-28 13:18 | CT ---
EXAMINATION TYPE: CT brain wo con DATE OF EXAM: 09/28/2024 COMPARISON: 09/05/2021 CLINICAL INDICATION: Male, 79 years old with history of rigiht maxillary numbness; PHH, numbness CT DLP: 1207.4 mGycm Automated exposure control for dose reduction was used. Findings: The ventricles, basal cisterns and sulci over the convexities are moderately enlarged. There is mild decreased density in the periventricular white matter consistent with chronic ischemic white matter d emyelination. There is no mass effect or shift of the midline structures. There is no acute intra or extra-axial hemorrhage. The posterior fossa including the brainstem, fourth ventricle and cerebellar pontine angles appear no rmal. Intraorbital contents appear normal and symmetric. Visualized paranasal sinuses and mastoid air cells are well aerated. The calvarium is intact. IMPRESSION: 1. No acute bleed or mass effect. 2. Mild to moderate senescent changes as described above. [facility], , 09/28/2024 1:15 PM
--- NOTE | 2024-09-28 13:22 | CT ---
EXAMINATION TYPE: CT facial bones wo con DATE OF EXAM: 09/28/2024 COMPARISON: CLINICAL INDICATION: Male, 79 years old with history of fall; PHH, numbness TECHNIQUE: CT scan of the sinuses is performed without contrast, axial images are obtained, coronal reformatted images are also reviewed. CT DLP: 1207.[address] CTDI: mGy Automated exposure control for dose reduction was used. FINDINGS: There is a 14 x 14 mm mucous retention cyst or polyp obstructing the right ostiomeatal complex. It wa s seen on the prior CT brain dated 09/05/2021 and is unchanged. There are no acute or chronic inflamma tory changes in the right maxillary sinuses. Remaining paranasal sinuses are well aerated. Mastoid air cells and middle ear cavities are well aera franchesca. The osseous structures are intact there is no fracture or focal intraosseous abnormality. The intraorbital contents appear normal. The nasal cavity is unremarkable. IMPRESSION: Stable 14 mm mucus retention cyst or polyp within and obstructing the right ostiomeatal complex. No i nterval change since 09/05/2021. No other significant abnormality seen. [facility], , 09/28/2024 1:20 PM
[2024-09-28 13:27] LABS: Basophils % (A) 0 %; Eosinophils # (A) 0.1 k/uL (0-0.7); Eosinophils % (A) 1 %; HCT 44.2 % (39.0-53.0); HGB 13.8 gm/dL (13.0-17.5); Lymphocytes # (A) 0.8 k/uL (1.0-4.8); Lymphocytes % (A) 10 %; MCH 28.7 pg (25.0-35.0); MCHC 31.2 g/dL (31.0-37.0); MCV 92.2 fL (80.0-100.0); Monocytes # (A) 0.5 k/uL (0-1.0); Monocytes % (A) 7 %; Neutrophils # (A) 6.6 k/uL (1.3-7.7); Neutrophils % (A) 81 %; Platelet Count 230 k/uL (150-450); RBC 4.79 m/uL (4.30-5.90); RDW 12.8 % (11.5-15.5); WBC 8.2 k/uL (3.8-10.6)
[2024-09-28 13:51] LABS: INR 1.7 (<1.2); Partial Thromboplastin Time 31.3 sec (22.0-30.0); Prothrombin Time 17.3 sec (10.0-12.5)
[2024-09-28 13:55] LABS: ALT 19 U/L (4-49); AST 26 U/L (17-59); African American GFR (CKD) 64 (>60 ml/min/1.73 sqM); Alkaline Phosphatase 84 U/L (38-126); Anion Gap 8 mmol/L; Blood Urea Nitrogen 28 mg/dL (9-20); Calcium 9.1 mg/dL (8.4-10.2); Carbon Dioxide 28 mmol/L (22-30); Chloride 102 mmol/L (98-107); Glucose 117 mg/dL (74-99); Non-African American GFR(CKD) 56 (>60 ml/min/1.73 sqM); Potassium 4.4 mmol/L (3.5-5.1); Sodium 138 mmol/L (137-145); Total Bilirubin 1.6 mg/dL (0.2-1.3); Total Protein 6.8 g/dL (6.3-8.2)
[2024-09-28] MEDS: ACET/COD 300 MG/30 MG STARTER PACK 6 TAB BTL PO STA (15:53)
[2024-09-28 15:56] VITALS: BP 116/73; PULSE 58; TEMP 97.8
== END 2024-09-28 15:56 | disposition home or self-care (01) ==
LOC: EC 11:41
DX: J34.1 Cyst and mucocele of nose and nasal sinus (principal); Z87.891 Personal history of nicotine dependence
CPT/HCPCS: 36415; 70450; 70486; 80053; 85025; 85610; 85730; 93005; 99284

== ENCOUNTER 2024-09-29 11:31 | Emergency (ER) | payer MEDICARE, BC ==
[2024-09-29 11:36] VITALS: PULSE 81; RESP 18
[2024-09-29] MEDS: ACET/COD 300 MG/30 MG STARTER PACK 6 TAB BTL PO STA (12:03)
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
[2024-09-29 18:44] VITALS: BP 115/68; TEMP 98
== END 2024-09-29 18:44 | disposition home or self-care (01) ==
LOC: EC 11:31
DX: Z76.0 Encounter for issue of repeat prescription (principal); Z87.891 Personal history of nicotine dependence; Z88.8 Allergy status to other drugs, medicaments and biological substances
CPT/HCPCS: 99283

== ENCOUNTER 2024-12-29 10:52 | Day surgery (SDC) | payer BC, MEDICARE, OTHER ==
[~2024-12-29 10:52] MED LIST changes: -LACTATED RINGERS 1,000 ML IV SCH; +TETRACAINE 0.5% OPHTH (PF) DROPS 4 ML BTL OP PRN
[2024-12-29] MEDS: IV FLUID CONTINUATION 1,000 ML IV ONE (11:42)
[2024-12-29] MEDS: CYCLOPENTOLATE 1% OPHTH SOLN 2 ML BTL OP PRN (11:50)
[2024-12-29] MEDS: PHENYLEPHRINE 2.5% OPHTH DRP 2ML OP PRN (11:53)
[2024-12-29 11:57] VITALS: TEMP 97.4
[2024-12-29] MEDS: LACTATED RINGERS 1,000 ML IV SCH (12:04)
[2024-12-29 12:10] LABS: Glucose,Whole Blood 119 mg/dL (70-110)
[2024-12-29] MEDS ORDERED: fentaNYL (PF) 50 MCG/ML 2 ML AMP ONE (12:45)
[2024-12-29] MEDS ORDERED: MIDAZOLAM 2 MG/2 ML VIAL ONE (12:45)
[2024-12-29] MEDS: BALANCED SALT IRRIG SOLN COMB2 15 ML IRRIG.SOLN INTRAOCULA ONE (13:03)
[2024-12-29] MEDS: LIDOCAINE 1% (PF) 10MG/ML VIAL MISCELLANE ONE (13:03)
[2024-12-29] MEDS: HYALURONATE SODIUM INTRAOCULAR 1 EACH SYRINGE (12MG/ML) INTRAOCULA ONE (13:03)
[2024-12-29] MEDS: EPINEPHrine (PF) 1 MG/ML AMP MISCELLANE ONE (13:03)
[2024-12-29] MEDS: MOXIFLOXACIN HCL 0.5% DROPS 3 ML BTL OP PRN (13:04)
[2024-12-29] MEDS: EPINEPHrine (PF) 0.3 ML in BALANCED SALT IRRIG SOLN COMB2 500 ML IRRIGATION ONE (13:04)
[2024-12-29] MEDS: TIMOLOL 0.5% OPHTH DROPS 5 ML BTL OP PRN (13:04)
--- NOTE | 2024-12-29 13:13 | P.OP ---
Date of Procedure: 12/29/24 Preoperative Diagnosis: NS & CS & PSC & alpha angela usage Postoperative Diagnosis: same Procedure(s) Performed: PIOL, OS Implants: [id number] 16.50 Anesthesia: MAC Surgeon: Saturnino Rebolledo Pathology: none sent Condition: stable Disposition: same day Indications for Procedure: blurry vision Operative Findings: no complications
[2024-12-29 13:54] VITALS: BP 127/76; PULSE 55; RESP 18
--- NOTE | 2024-12-30 00:23 | OP ---
OPERATIVE REPORT DATE OF SERVICE : 12/29/2024 PREOPERATIVE DIAGNOSES: 1. Nuclear sclerosis. 2. Cortical sclerosis. 3. Posterior subcapsular cataract. POSTOPERATIVE DIAGNOSES: 1. Nuclear sclerosis. 2. Cortical sclerosis. 3. Posterior subcapsular cataract. OPERATION: Phacoemulsification of cataract and interocular lens implant of the left eye. ESTIMATED BLOOD LOSS: Zero. SPECIMEN TAKEN: None. NARRATIVE: After obtaining the appropriate consent, the patient was brought to the operating room where the patient was placed under cardiac monitoring and prepped and draped in the usual sterile manner. At the 5 o'clock position, a 15-degree super sharp blade was used to create a paracentesis followed by instillation of 1% Xylocaine MPF 50:50 mix with BSS into the anterior chamber. This was followed by Amvisc viscoelastic to stabilize the anterior chamber. At the 3 o'clock position a self-sealing corneal flap incision was created using 2.8 mm luigi keratome. A cystotome was used to initiate a continuous tear capsulorrhexis which was completed with the Utrata forceps. A Binkhorst cannula was used to hydrodissect the lens nucleus followed by hydrodelineation. Phacoemulsification of the lens was performed utilizing phacochop in 15.63 seconds at 16% power. The remaining cortical material was removed using the irrigation aspiration mode followed by additional 1% Xylocaine MPF into the anterior chamber followed by viscoelastic to stabilize the capsular bag. A [employer], model DCB00, 16.5 diopters posterior chamber lens was placed into the capsular bag without difficulty. The remaining viscoelastic material was removed from the anterior chamber with the irrigation/aspiration. Balanced salt solution was used to normalize the intraocular pressure. The incision was checked for watertight integrity. The patient then received 2 drops of 0.5% timolol followed by 2 drops Vigamox, was lightly patched and shielded in the usual manner. There were no complications from the procedure. The patient tolerated the procedure well and was returned to recovery in good condition. MMODL / IJN: [id number] /
== END 2024-12-29 14:13 | disposition home or self-care (01) ==
LOC: OR 10:52
PROVIDERS: ATTEND Ophthalmology
DX: E11.36 Type 2 diabetes mellitus with diabetic cataract (principal); H25.813 Combined forms of age-related cataract, bilateral; H35.373 Puckering of macula, bilateral; H52.13 Myopia, bilateral; H52.4 Presbyopia; T44.4X5A Adverse effect of predominantly alpha-adrenoreceptor agonists, initial encounter; I48.91 Unspecified atrial fibrillation; M19.90 Unspecified osteoarthritis, unspecified site; I10 Essential (primary) hypertension; I51.9 Heart disease, unspecified; Z79.899 Other long term (current) drug therapy; Z90.49 Acquired absence of other specified parts of digestive tract; Z95.0 Presence of cardiac pacemaker; Z88.8 Allergy status to other drugs, medicaments and biological substances
CPT/HCPCS: 66984; V2632; J2250; J0171; J3010; J2003

== ENCOUNTER 2025-01-12 08:52 | Day surgery (SDC) | payer OTHER ==
[~2025-01-12 08:52] MED LIST changes: -LIDOCAINE 1% (10MG/ML) FOR IV START INTRADERMA PRN
[2025-01-12 09:42] VITALS: RESP 16; TEMP 97.2
[2025-01-12] MEDS: CYCLOPENTOLATE 1% OPHTH SOLN 2 ML BTL OP PRN (09:45)
[2025-01-12] MEDS: PHENYLEPHRINE 2.5% OPHTH DRP 2ML OP PRN (09:48)
[2025-01-12] MEDS: LIDOCAINE 1% (10MG/ML) FOR IV START INTRADERMA STA (09:50)
[2025-01-12] MEDS: LACTATED RINGERS 1,000 ML IV SCH (09:50)
[2025-01-12] MEDS: IV FLUID CONTINUATION 1,000 ML IV ONE (09:50)
[2025-01-12 09:59] LABS: Glucose,Whole Blood 110 mg/dL (70-110)
[2025-01-12] MEDS ORDERED: MIDAZOLAM 2 MG/2 ML VIAL ONE (12:25)
[2025-01-12] MEDS: HYALURONATE SODIUM INTRAOCULAR 1 EACH SYRINGE (12MG/ML) INTRAOCULA ONE (12:42)
[2025-01-12] MEDS: BALANCED SALT IRRIG SOLN COMB2 15 ML IRRIG.SOLN INTRAOCULA ONE (12:42)
[2025-01-12] MEDS: EPINEPHrine (PF) 1 MG/ML AMP MISCELLANE ONE (12:43)
[2025-01-12] MEDS: LIDOCAINE 1% (PF) 10MG/ML VIAL MISCELLANE ONE (12:43)
[2025-01-12] MEDS: EPINEPHrine (PF) 0.3 ML in BALANCED SALT IRRIG SOLN COMB2 500 ML IRRIGATION ONE (12:44)
[2025-01-12] MEDS: TIMOLOL 0.5% OPHTH DROPS 5 ML BTL OP PRN (12:45)
[2025-01-12] MEDS: MOXIFLOXACIN HCL 0.5% DROPS 3 ML BTL OP PRN (12:45)
--- NOTE | 2025-01-12 12:55 | P.OP ---
Date of Procedure: 01/12/25 Preoperative Diagnosis: NS & CS Postoperative Diagnosis: same Procedure(s) Performed: PIOL, OD Implants: [id number] 17.00 Anesthesia: MAC Surgeon: Saturnino Rebolledo Pathology: none sent Condition: stable Disposition: same day Indications for Procedure: blurry vision Operative Findings: no complications
[2025-01-12 13:12] VITALS: BP 128/76; PULSE 59
--- NOTE | 2025-01-13 09:30 | OP ---
OPERATIVE REPORT DATE OF SERVICE : 01/12/2025 PROCEDURE: Phacoemulsification of cataract and intraocular lens implant of the right eye. PREOPERATIVE DIAGNOSES: Nuclear sclerosis, cortical sclerosis, posterior subcapsular cataract and exposure to alpha blocking agents such as Flomax. POSTOPERATIVE DIAGNOSES: Nuclear sclerosis, cortical sclerosis, posterior subcapsular cataract and exposure to alpha blocking agents such as Flomax with intraoperative floppy iris syndrome. ANESTHESIA: Topical. ESTIMATED BLOOD LOSS: None. SPECIMEN TAKEN: None. NARRATIVE: After obtaining the appropriate consent, the patient was brought to the operating room. There, he was placed under cardiac monitoring and prepped and draped in the usual sterile manner. He was approached from his right temporal side and at the 11 o'clock position an MVR blade was used to create a paracentesis port. Through this opening 1% Xylocaine MPF with epinephrine 1:1000 MPF and balanced salt solution in a ratio of 2:1 was injected into the anterior chamber. This was followed by stabilization of the anterior chamber with Amvisc. At the 9 o'clock position, a 2.5 mm keratome was used to create a self-sealing corneal flap incision. It was appreciated at this time that the iris though dilated had a lot of soft folds and had a tendency to flutter excessively within the anterior chamber. Therefore, a 7 mm Malyugin ring was inserted on the pupillary sphincter to maintain traction on the iris. This was followed by introduction of a cystotome, which began a continuous tear capsulorrhexis, which was completed using the Utrata forceps. Hydrodissection and hydrodelineation of the lens were accomplished with balanced salt solution. Phacoemulsification lens utilizing phaco chop was accomplished at 15.99 seconds at 17% power. This was followed by additional Xylocaine epinephrine MPF into the anterior chamber and removal of the remaining cortical material was accomplished with irrigation and aspiration as well as careful polishing of the posterior capsule in capsule vacuum mode. Additional Amvisc was then used to stabilize, the capsular bag and a [employer] model DCB00 17.0 diopter posterior chamber intraocular lens was inserted into the capsular bag without difficulty. Prior to removal of the remaining viscoelastic, the Malyugin ring was removed from the anterior chamber and all remaining viscoelastic was removed from in and around the intraocular lens as well as the anterior chamber. The wounds were confirmed watertight. He then received 2 drops of 0.5% moxifloxacin, 2 drops of 0.5% timolol was then lightly patched and shielded in the usual manner. There were no complications from the procedure. He tolerated the procedure well and returned to outpatient recovery in good condition. RANI / MARCELA: [id number] /
== END 2025-01-12 13:32 | disposition home or self-care (01) ==
LOC: OR 08:52
PROVIDERS: ATTEND Ophthalmology
DX: H25.11 Age-related nuclear cataract, right eye (principal); H21.81 Floppy iris syndrome; I10 Essential (primary) hypertension; I48.91 Unspecified atrial fibrillation; Z79.01 Long term (current) use of anticoagulants; Z79.899 Other long term (current) drug therapy
CPT/HCPCS: 66984; V2632; J2250; J0171; J2003